=== PATIENT | male | born 1945 | race African-American/Black ===

== ENCOUNTER 2017-07-31 11:50 | Emergency (ER) | payer MEDICARE, MEDICAID ==
[~2017-07-31] VITALS: Ht 182.9 cm; Wt 77.1 kg
[~2017-07-31 11:50] MED LIST: ALLOPURINOL300 M1; ASPIRIN81 MG ORAL; CARISOPRODOL350 MG; CLOPIDOGREL75 MG; FLOMAX0.4 MG ORAL; FOLIC ACID1 MG ORAL; HYDROCODON-ACE1 EA16; LISINOPRIL10 MG ORAL; MULTIVITAMINS1 EAC2 ORAL; NEURONTIN600 MG ORAL; NKM; NORCO 5-325 TA1 EACH ORAL; ROBAXIN-750750 MG PO; TAMSULOSIN HCL0.4 MG PO; UNOBMED; VALIUM2 MG ORAL; VICODIN 5-3001 EACH ORAL; VITAMIN B-1100 MG ORAL
[2017-07-31 12:19] VITALS: BP 111/66
[2017-07-31] MEDS ORDERED: Lidocaine 1% MPF 10mg/ml 5ml ONE (12:21)
--- NOTE | 2017-07-31 12:35 | Emergency Room Report ---
History of Present Illness General Chief Complaint: Laceration Present Illness HPI 71 yo male presents to ER complaining of laceration near his left eyebrow. Patient reports he tripped and fell 1 hour ago. Patient reports no LOC, syncope, or dizziness prior to event. Patient denies vision changes, nausea, vomiting. Patient reports taking a pain pill following hit; states he does not know name of the pill. Patient reports not up to date on vaccinations. Patient report recent use of drugs and alcohol. Allergies: Coded Allergies: No Known Allergies (Unverified , 03/27/13) UNABLE TO ASSESS (Unverified , 09/05/14) Patient History Past Medical History: see triage record Reviewed Nursing Documentation: PMH: Agreed, PSxH: Agreed Nursing Documentation-PMH Hx Cardiac Problems: Yes Hx Hypertension: Yes Hx Cancer: No Hx Gastrointestinal Problems: No Hx Neurological Problems: Yes Hx Cerebrovascular Accident: Yes - per ER report 12/27/14 Review of Systems All Other Systems: negative except mentioned in HPI Physical Exam Vital Signs Date Time Temp Pulse Resp B/P (MAP) Pulse Ox O2 Delivery O2 Flow Rate FiO2 07/31/17 11:59 98.1 98 20 110/69 93 Room Air Sp02 EP Interpretation: reviewed, normal General Appearance: no apparent distress, alert, GCS 15, non-toxic, thin Head: normocephalic, atraumatic, other - negative tavares sign, negative raccoon sign Eyes: bilateral eye normal inspection, bilateral eye PERRL ENT: hearing grossly normal, normal pharynx, no angioedema, normal voice, TMs + canals normal, uvula midline, other - no teeth Neck: full range of motion, supple/symm/no masses Respiratory: chest non-tender, lungs clear, normal breath sounds, speaking full sentences Cardiovascular #1: regular rate, rhythm, no edema Cardiovascular #2: 2+ carotid (R), 2+ carotid (L) Gastrointestinal: normal bowel sounds, non tender, soft, non-distended, no guarding, no rebound Genitourinary: normal inspection, no CVA tenderness Musculoskeletal: back normal, digits/nails normal, gait/station normal, normal range of motion - walks with crutches, non-tender, no calf tenderness Neurologic: alert, oriented x3, responsive, phone manager III-XII nml as tested, motor strength/tone normal, sensory intact, speech normal Psychiatric: mood/affect normal Skin: normal color, no rash, warm/dry, palpation normal, laceration - left eyebrow lateral 1cm, irregular shape, superifical to deep, TTP, no erythema, no edema, bleeding, dried blood Procedures Laceration/Wound Repair Laceration/Wound Repair : Consent: Verbal Wound Location: face - left lateral eyebrow Wound's Depth, Shape: irregular, other - deep Wound Length (cm): 1 Wound Explored: contaminated Irrigated w/ Saline (ccs): 10 Betadine Prep?: Yes Anesthesia: 1% Lidocaine Volume Anesthetic (ccs): 2 Wound Debrided: extensive Wound Repaired With: sutures, Steri-strips Suture Size/Type: 5:0, proline Number of Sutures: 3 Layer Closure?: Yes Deep Layer Suture Size/Type: 3:0, other - vicryl Number Deep Layer Sutures: 1 Sterile Dressing Applied?: Yes Splint Applied?: No Patient Tolerated: Well Complications: None Medical Decision Making PA Attestation Dr. Conteh is my supervising Physician whom patient management has been discussed with. Diagnostic Impression: Primary Impression: Laceration Additional Impressions: Encephalomalacia on imaging study Drug use ER Course Pt presents to ED c/o laceration on face. DDX considered but are not limited to laceration, abrasion, contusion, cellulitis, skull fracture, ICH. VITAL SIGNS are WNL, patient is afebrile ED COURSE: Wound was cleaned and irrigated using normal saline. Local block using Lidocaine 1%. Laceration repaired.Wound cleaned and covered using sterile dressing and Bacitracin. (see attached procedure note). CT head negative for acute disease, discussed results with patient, instructed patient to followup with PCP for further treatment and referral. CBC and CMP results unremarkable. Urine drug screen positive cocaine, opiates, and THC. Serum alcohol level elevated. Discuss lab results with patient (results below). Patient reports understanding and agreement to treatment plan. DISCHARGE: Rx provided for Bactrim Rx provided for Ibuprofen At this time pt is stable for d/c to home. Patient is able to ambulate independently with walker, denies dizziness, chest pain. Patient is nontoxic appearing, in no acute distress. Will provide with patient care instructions and any necessary prescriptions. Patient to take medication as instructed. Care plan and follow-up instructions provided. Patient questions asked and answered. Patient instructed to follow-up with primary care provider in 2-3 days for wound check and 5-7 days for removal of sutures. Patient instructed to followup with PCP to discuss further treatment plan and ability to go to work, ER precautions given. Patient instructed to return to ER immediately for any new or worsening of symptoms. Labs Test 07/31/17 13:20 07/31/17 13:25 Urine Opiates Screen Positive (NEGATIVE) Urine Barbiturates Screen Negative (NEGATIVE) Phencyclidine (PCP) Screen Negative (NEGATIVE) Urine Amphetamines Screen Negative (NEGATIVE) Urine Benzodiazepines Screen Negative (NEGATIVE) Urine Cocaine Screen Positive (NEGATIVE) Urine Marijuana (THC) Screen Positive (NEGATIVE) White Blood Count 10.8 K/UL (4.8-10.8) Red Blood Count 5.05 M/UL (4.70-6.10) Hemoglobin 13.0 G/DL (14.2-18.0) Hematocrit 41.8 % (42.0-52.0) Mean Corpuscular Volume 83 FL (80-99) Mean Corpuscular Hemoglobin 25.8 PG (27.0-31.0) Mean Corpuscular Hemoglobin Concent 31.1 G/DL (32.0-36.0) Red Cell Distribution Width 14.1 % (11.6-14.8) Platelet Count 150 K/UL (150-450) Mean Platelet Volume 7.2 FL (6.5-10.1) Neutrophils (%) (Auto) 58.6 % (45.0-75.0) Lymphocytes (%) (Auto) 30.4 % (20.0-45.0) Monocytes (%) (Auto) 9.4 % (1.0-10.0) Eosinophils (%) (Auto) 1.1 % (0.0-3.0) Basophils (%) (Auto) 0.4 % (0.0-2.0) Sodium Level 138 MMOL/L (136-145) Potassium Level 3.1 MMOL/L (3.5-5.1) Chloride Level 102 MMOL/L (98-107) Carbon Dioxide Level 28 MMOL/L (21-32) Anion Gap 8 mmol/L (5-15) Blood Urea Nitrogen 18 mg/dL (7-18) Creatinine 0.8 MG/DL (0.55-1.30) Estimat Glomerular Filtration Rate mL/min (>60) Glucose Level 78 MG/DL (74-106) Calcium Level 8.7 MG/DL (8.5-10.1) Total Bilirubin 0.4 MG/DL (0.2-1.0) Aspartate Amino Transf (AST/SGOT) 40 U/L (15-37) Alanine Aminotransferase (ALT/SGPT) 46 U/L (12-78) Alkaline Phosphatase 88 U/L (46-116) Total Protein 7.4 G/DL (6.4-8.2) Albumin 3.3 G/DL (3.4-5.0) Globulin 4.1 g/dL Albumin/Globulin Ratio 0.8 (1.0-2.7) Serum Alcohol 59 mg/dL CT/MRI/US Diagnostic Results CT/MRI/US Diagnostic Results : Imaging Test Ordered: CT Head Impression STATRAD No intracranial hemorrhage or skull fracture. Atrophy and small vessel disease. Encephalomalacia in the left frontal lobe. Mild sinus mucosal thickening - debris. Last Vital Signs Date Time Temp Pulse Resp B/P (MAP) Pulse Ox O2 Delivery O2 Flow Rate FiO2 07/31/17 12:19 98.3 80 20 111/66 95 Room Air Disposition: HOME, SELF-CARE Condition: Stable Scripts Trimethoprim/Sulfamethoxazole 160/800* (BACTRIM DS TABLET*) 1 Each Tablet 1 TAB ORAL TWICE A DAY for 7 Days, #14 TAB Prov: Villa Leija 07/31/17 Ibuprofen* (MOTRIN*) 400 Mg Tablet 400 MG ORAL Q8H, #30 TAB 0 Refills Prov: Villa Leija 07/31/17 Patient Instructions: Laceration Care, Adult, Facial Laceration Additional Instructions: Followup with primary care provider in 2-3 days for wound check and in 5-7 days for suture removal. Followup with primary care for referral and treatment to neurology. Take medications as directed. Patient questions asked and answered. ER precautions given, patient instructed to return to ER immediately for any new or worsening of symptoms. Villa Leija Jul 31, 2017 12:35
[2017-07-31] MEDS ORDERED: Tetanus/Diptheria/Pertussis Vaccine 0.5ml Syr IM ONE (12:45)
[2017-07-31 13:41] LABS: ANION GAP 8 mmol/L (5-15); BLOOD UREA NITROGEN 18 mg/dL (7-18); CALCIUM 8.7 MG/DL (8.5-10.1); CARBON DIOXIDE 28 MMOL/L (21-32); CHLORIDE 102 MMOL/L (98-107); CREATININE 0.8 MG/DL (0.55-1.30); POTASSIUM 3.1 MMOL/L (3.5-5.1); SODIUM 138 MMOL/L (136-145)
[2017-07-31 13:42] LABS: BASOPHILS % (AUTO) 0.4 % (0.0-2.0); EOSINOPHILS % (AUTO) 1.1 % (0.0-3.0); HEMATOCRIT 41.8 % (42.0-52.0); LYMPHOCYTES % (AUTO) 30.4 % (20.0-45.0); MEAN CORPUSCULAR VOLUME 83 FL (80-99); MONOCYTES % (AUTO) 9.4 % (1.0-10.0); NEUTROPHILS % (AUTO) 58.6 % (45.0-75.0); PLATELET COUNT 150 K/UL (150-450); RED BLOOD COUNT 5.05 M/UL (4.70-6.10); RED CELL DISTRIBUTION WIDTH 14.1 % (11.6-14.8); WHITE BLOOD COUNT 10.8 K/UL (4.8-10.8)
[2017-07-31 13:47] LABS: ALANINE AMINOTRANSFERASE 46 U/L (12-78); ALBUMIN 3.3 G/DL (3.4-5.0); ALBUMIN/GLOBULIN RATIO 0.8 (1.0-2.7); ALKALINE PHOSPHATASE 88 U/L (46-116); ASPARTATE AMINO TRANSFERASE 40 U/L (15-37); BILIRUBIN,TOTAL 0.4 MG/DL (0.2-1.0)
[2017-07-31] MEDS ORDERED: Bacitracin Oint UD TOPIC ONE ×2 (14:28→14:30)
[2017-07-31] MEDS ORDERED: IBUPROFEN400 MG ORAL (14:28)
[2017-07-31] MEDS ORDERED: BACTRIM DS TAB1 EAC1 ORAL (14:28)
[2017-07-31] MEDS ORDERED: Lidocaine 1% MPF 10mg/ml 5ml INJ ONE (14:30)
[2017-07-31 14:50] VITALS: BP 114/64
--- NOTE | 2017-08-01 11:52 | Diagnostic Imaging Report ---
Indication: Pain status post fall Technique: Continuous helical CT scanning of the head was performed utilizing automated exposure control without intravenous contrast material. Axial and coronal reconstructions were obtained. Comparison: 05-06 CT dose: Total DLP 1460.14 mGycm; CTDI vol 70.38 mGy Findings: There is no acute intracranial hemorrhage, mass effect or cortical edema. The ventricles, cisterns and sulci are prominent consistent with atrophy. Unchanged encephalomalacia in the left frontal lobe. Periventricular hypoattenuation is seen, a nonspecific finding. Visualized mastoid air cells clear. There is paranasal sinus mucosal thickening/debris. There is mild soft tissue swelling in the left supraorbital region. There is no depressed calvarial fracture. IMPRESSION: Mild left supraorbital soft tissue swelling. No skull fracture. No evidence of acute intracranial hemorrhage, mass effect or cortical edema. Unchanged encephalomalacia in the left frontal lobe, sequela of remote ischemia. Atrophy and nonspecific periventricular hypoattenuation suggestive of chronic ischemic microvascular changes. This corresponds with the statrad preliminary report. The CT scanner at [facility] is accredited by the [employer] and the scans are performed using protocols designed to limit radiation exposure to as low as reasonably achievable to attain images of sufficient resolution adequate for diagnostic evaluation.
== END 2017-07-31 14:50 | disposition home or self-care (01) ==
LOC: EMR 12:15
DX: S01.112A Laceration without foreign body of left eyelid and periocular area, initial encounter (principal); W18.30XA Fall on same level, unspecified, initial encounter; Y92.9 Unspecified place or not applicable; G93.89 Other specified disorders of brain; Z23 Encounter for immunization; F19.90 Other psychoactive substance use, unspecified, uncomplicated; I10 Essential (primary) hypertension; Z86.73 Personal history of transient ischemic attack (TIA), and cerebral infarction without residual deficits
CPT/HCPCS: 12051; 36415; 70450; 80053; 80307; 85025; 90471; 90715; 99284; G0480; 80329

== ENCOUNTER 2017-11-22 14:29 | Emergency (ER) | payer MEDICARE, MEDICAID ==
[~2017-11-22] VITALS: Ht 193 cm; Wt 68.0 kg
[~2017-11-22 14:29] MED LIST changes: +BACTRIM DS TAB1 EAC1 ORAL; +IBUPROFEN400 MG ORAL
[2017-11-22 15:34] VITALS: BP 164/85
[2017-11-22 16:08] LABS: INR 0.9 (0.9-1.1)
[2017-11-22 16:10] LABS: ANION GAP 6 mmol/L (5-15); BLOOD UREA NITROGEN 13 mg/dL (7-18); CALCIUM 8.8 MG/DL (8.5-10.1); CARBON DIOXIDE 32 MMOL/L (21-32); CHLORIDE 104 MMOL/L (98-107); CREATININE 0.9 MG/DL (0.55-1.30); POTASSIUM 4.2 MMOL/L (3.5-5.1); SODIUM 142 MMOL/L (136-145)
--- NOTE | 2017-11-22 16:11 | Emergency Room Report ---
History of Present Illness General Chief Complaint: Edema Source: Patient Present Illness HPI Patient states he has had left lower should be swelling for the past 6 months. The patient states he was supposed to have his second toe removed on his left foot. 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 He also has an indwelling Davis catheter. He states that he was given a medication by his urologist that he did not take. He has a history of enlarged prostate. He denies fever or chills. He denies nausea or vomiting. He states that he just relocated to [place] from the [facility]. He has no other complaints. Allergies: Coded Allergies: No Known Allergies (Unverified , 03/27/13) Patient History Past Medical History: see triage record, other - BPH (indwelling davis catheter ) Social History: Reports: smoking, alcohol use, drug use Reviewed Nursing Documentation: PMH: Agreed; PSxH: Agreed Nursing Documentation-PMH Hx Cardiac Problems: Yes Hx Hypertension: Yes Hx Cancer: No Hx Gastrointestinal Problems: No Hx Neurological Problems: Yes Hx Cerebrovascular Accident: Yes - per ER report 12/27/14 Review of Systems All Other Systems: negative except mentioned in HPI Physical Exam Vital Signs Date Time Temp Pulse Resp B/P (MAP) Pulse Ox O2 Delivery O2 Flow Rate FiO2 11/22/17 14:53 98.2 88 24 164/85 95 Room Air 98.2 Sp02 EP Interpretation: reviewed, normal General Appearance: no apparent distress, alert, GCS 15, non-toxic Head: normocephalic, atraumatic Eyes: bilateral eye normal inspection, bilateral eye PERRL ENT: hearing grossly normal, normal pharynx, no angioedema, normal voice Neck: full range of motion, supple/symm/no masses Respiratory: chest non-tender, lungs clear, normal breath sounds, no respiratory distress, no retraction, no accessory muscle use, speaking full sentences Cardiovascular #1: regular rate, rhythm, edema - Trace edema BLE L>R Gastrointestinal: normal bowel sounds, non tender, soft, non-distended, no guarding, no rebound Rectal: deferred Musculoskeletal: back normal, non-tender, other - Wheelchair bound, L. second toe with chronic ulcer and swelling. Neurologic: alert, oriented x3, responsive, motor strength/tone normal, sensory intact, speech normal Psychiatric: judgement/insight normal, memory normal, mood/affect normal, no suicidal/homicidal ideation Skin: normal color, no rash, warm/dry, well hydrated Lymphatic: no adenopathy Medical Decision Making Diagnostic Impression: Primary Impression: Chronic wound of extremity Additional Impressions: Lymphedema Urinary retention due to benign prostatic hyperplasia ER Course This patient complains of chronic swelling in his left lower extremity. He has a toe that is likely will need amputation versus regular wound care. I did obtain an ultrasound of the left lower extremity to make sure the patient had no DVT. The patient was given the local resources to include the wound care clinic across the street from this hospital. The patient was instructed to follow-up there. He is also given the local free/[facility] primary care clinics in the neighborhood. Laboratory workup was unremarkable and at this patient's baseline. I will put the patient on a course of oral antibiotics and place him back on his proscar and flomax. As a precaution, the patient's Davis catheter was replaced. At this time, I did not identify an emergency medical condition. The patient's given return precautions and follow up instructions. Laboratory Tests Test 11/22/17 15:46 White Blood Count 8.8 K/UL (4.8-10.8) Red Blood Count 4.94 M/UL (4.70-6.10) Hemoglobin 13.2 G/DL (14.2-18.0) L Hematocrit 41.3 % (42.0-52.0) L Mean Corpuscular Volume 84 FL (80-99) Mean Corpuscular Hemoglobin 26.6 PG (27.0-31.0) L Mean Corpuscular Hemoglobin Concent 31.8 G/DL (32.0-36.0) L Red Cell Distribution Width 14.5 % (11.6-14.8) Platelet Count 136 K/UL (150-450) L Mean Platelet Volume 9.3 FL (6.5-10.1) Neutrophils (%) (Auto) 55.9 % (45.0-75.0) Lymphocytes (%) (Auto) 30.7 % (20.0-45.0) Monocytes (%) (Auto) 11.0 % (1.0-10.0) H Eosinophils (%) (Auto) 1.0 % (0.0-3.0) Basophils (%) (Auto) 1.5 % (0.0-2.0) Prothrombin Time 9.4 SEC (9.30-11.50) Prothrombin Time INR 0.9 (0.9-1.1) PTT 27 SEC (23-33) Sodium Level 142 MMOL/L (136-145) Potassium Level 4.2 MMOL/L (3.5-5.1) Chloride Level 104 MMOL/L (98-107) Carbon Dioxide Level 32 MMOL/L (21-32) Anion Gap 6 mmol/L (5-15) Blood Urea Nitrogen 13 mg/dL (7-18) Creatinine 0.9 MG/DL (0.55-1.30) Estimate Glomerular Filtration Rate mL/min (>60) Glucose Level 100 MG/DL (74-106) Calcium Level 8.8 MG/DL (8.5-10.1) Total Bilirubin 0.3 MG/DL (0.2-1.0) Aspartate Amino Transferase (AST) 45 U/L (15-37) H Alanine Aminotransferase (ALT) 47 U/L (12-78) Alkaline Phosphatase 93 U/L (46-116) C-Reactive Protein, Quantitative 1.3 mg/dL (0.00-0.90) H Total Protein 7.7 G/DL (6.4-8.2) Albumin 3.1 G/DL (3.4-5.0) L Globulin 4.6 g/dL Albumin/Globulin Ratio 0.7 (1.0-2.7) L CT/MRI/US Diagnostic Results CT/MRI/US Diagnostic Results : Imaging Test Ordered: LLE US Impression No DVT Last Vital Signs Date Time Temp Pulse Resp B/P (MAP) Pulse Ox O2 Delivery O2 Flow Rate FiO2 11/22/17 15:34 88 24 Room Air 11/22/17 15:34 98.2 164/85 95 98.2 Disposition: HOME, SELF-CARE Condition: Improved Patient Instructions: Edema, [id number] EDISON WOODRUFF D.O. Nov 22, 2017 16:11
[2017-11-22 16:13] LABS: BASOPHILS % (AUTO) 1.5 % (0.0-2.0); HEMATOCRIT 41.3 % (42.0-52.0); HEMOGLOBIN 13.2 G/DL (14.2-18.0); LYMPHOCYTES % (AUTO) 30.7 % (20.0-45.0); MEAN CORPUSCULAR VOLUME 84 FL (80-99); NEUTROPHILS % (AUTO) 55.9 % (45.0-75.0); PLATELET COUNT 136 K/UL (150-450); RED BLOOD COUNT 4.94 M/UL (4.70-6.10); RED CELL DISTRIBUTION WIDTH 14.5 % (11.6-14.8); WHITE BLOOD COUNT 8.8 K/UL (4.8-10.8)
[2017-11-22 16:14] LABS: ALANINE AMINOTRANSFERASE 47 U/L (12-78); ALBUMIN 3.1 G/DL (3.4-5.0); ALBUMIN/GLOBULIN RATIO 0.7 (1.0-2.7); ALKALINE PHOSPHATASE 93 U/L (46-116); ASPARTATE AMINO TRANSFERASE 45 U/L (15-37); BILIRUBIN,TOTAL 0.3 MG/DL (0.2-1.0)
[2017-11-22] MEDS ORDERED: Vancomycin 1 GM in NS 275 ML IVPB ONE (16:15)
[2017-11-22 16:58] LABS: BILIRUBIN, URINE NEGATIVE (NEGATIVE); GLUCOSE, URINE (UA) NEGATIVE (NEGATIVE); KETONES,URINE NEGATIVE (NEGATIVE); LEUKOCYTE ESTERASE ,URINE 3+ (NEGATIVE); NITRITE,URINE NEGATIVE (NEGATIVE); PH,URINE 6 (4.5-8.0); PROTEIN,URINE 3+ (NEGATIVE); UROBILINOGEN,URINE NORMAL MG/DL (0.0-1.0)
[2017-11-22 16:59] LABS: APPEARANCE,URINE SLIGHTLY CLOUDY; COLOR,URINE YELLOW
[2017-11-22] MEDS ORDERED: BACTRIM DS TAB1 EAC1 ORAL (18:08)
[2017-11-22 18:20] VITALS: BP 192/95
[2017-11-22 18:37] VITALS: BP 192/95
--- NOTE | 2017-12-01 10:51 | Diagnostic Imaging Report ---
APPROVED REPORT CPT Code: 37585 Present Symptoms Comments: LEFT LEG PAIN. LEFT LEG: Venous imaging reveals a patent deep venous system. There is no evidence of thrombus within the femoral, popliteal or tibial segments. The greater saphenous vein is also within normal limits. Doppler indicates normal spontaneous flow within these segments.
== END 2017-11-22 18:48 | disposition home or self-care (01) ==
LOC: EMR 17:04
DX: L97.529 Non-pressure chronic ulcer of other part of left foot with unspecified severity (principal); I89.0 Lymphedema, not elsewhere classified; N40.1 Benign prostatic hyperplasia with lower urinary tract symptoms; R33.8 Other retention of urine; F17.200 Nicotine dependence, unspecified, uncomplicated; I10 Essential (primary) hypertension; Z86.73 Personal history of transient ischemic attack (TIA), and cerebral infarction without residual deficits
CPT/HCPCS: 36415; 80053; 81001; 85025; 85610; 85730; 86140; 87086; 87181; 93971; 96374; 96375; 99284; J3370; J7050

== ENCOUNTER 2017-12-26 11:13 | Emergency (ER) | payer MEDICARE, MEDICAID ==
[~2017-12-26] VITALS: Ht 193 cm; Wt 65.8 kg
--- NOTE | 2017-12-26 11:49 | Emergency Room Report ---
History of Present Illness General Chief Complaint: Male Urogenital Problems Source: Patient Present Illness HPI Patient with dysuria and a blocked Davis catheter. He's had this catheter for over one year. Denies any fevers chills nausea vomiting diarrhea. He has some penile pain. He was treated for an UTI 11/22 with one dose of vanco and bactrim. Culture was enterococcus - resistant to some antibiotics. No follow up. He gets around in a wheel chair. No trauma, chest pain, NVD, dyspnea, cough, headache, trauma, SI or HI. H/O prior frontal CVA. H/O opiate and alcohol abuse in past. Allergies: Coded Allergies: No Known Allergies (Unverified , 03/27/13) Patient History Past Medical History: see triage record Social History: Reports: smoking, alcohol use - in past, drug use - in past Social History Narrative homeless Reviewed Nursing Documentation: PMH: Agreed; PSxH: Agreed Nursing Documentation-PMH Past Medical History: No History, Except For Hx Cardiac Problems: Yes Hx Hypertension: Yes Hx Cancer: No Hx Gastrointestinal Problems: No Hx Neurological Problems: Yes Hx Cerebrovascular Accident: Yes - per ER report 12/27/14 Review of Systems All Other Systems: negative except mentioned in HPI Physical Exam Vital Signs Date Time Temp Pulse Resp B/P (MAP) Pulse Ox O2 Delivery O2 Flow Rate FiO2 12/26/17 11:21 98.0 116 20 127/77 94 Room Air 98.1 Sp02 EP Interpretation: reviewed, normal General Appearance: well appearing, no apparent distress, thin, other - dishevelled Head: normocephalic, atraumatic Eyes: bilateral eye normal inspection, bilateral eye PERRL ENT: hearing grossly normal, normal voice, moist mucus membranes Neck: full range of motion, supple Respiratory: lungs clear, normal breath sounds, no respiratory distress, speaking full sentences Cardiovascular #1: regular rate, rhythm Cardiovascular #2: 2+ radial (L) Gastrointestinal: normal bowel sounds, non tender, scaphoid Genitourinary: other - old davis kinked Musculoskeletal: no calf tenderness, other - lumbar tenderness, not bone Neurologic: alert, motor strength/tone normal, DTRs symmetric, sensory intact, speech normal, other - unsteady gait Psychiatric: mood/affect normal, no suicidal/homicidal ideation Skin: no rash Medical Decision Making Diagnostic Impression: Primary Impression: UTI (urinary tract infection) Qualified Codes: T83.511A - Infection and inflammatory reaction due to indwelling urethral catheter, initial encounter; N39.0 - Urinary tract infection , site not specified ER Course Patient presents with urinary catheter blockage. Differential includes UTI, catheter dysfunction amongst others. The patient's vital signs are significant for tachycardia. Urinalysis is ordered as well as Pyridium and Tylenol. As tachycardic, will order labs. Labs with normal WBC. Pyuria. Antibiotics begun. Davis changed with improvement. Asked patient if needed other help, he declines. Patient stable for outpatient observation and treatment. Will need to review urine culture. (In past has been resistant organisms.) Laboratory Tests Test 12/26/17 12:00 12/26/17 12:10 White Blood Count 9.8 K/UL (4.8-10.8) Red Blood Count 5.96 M/UL (4.70-6.10) Hemoglobin 15.5 G/DL (14.2-18.0) Hematocrit 50.5 % (42.0-52.0) Mean Corpuscular Volume 85 FL (80-99) Mean Corpuscular Hemoglobin 26.0 PG (27.0-31.0) L Mean Corpuscular Hemoglobin Concent 30.6 G/DL (32.0-36.0) L Red Cell Distribution Width 14.5 % (11.6-14.8) Platelet Count 179 K/UL (150-450) Mean Platelet Volume 8.1 FL (6.5-10.1) Neutrophils (%) (Auto) 58.3 % (45.0-75.0) Lymphocytes (%) (Auto) 29.2 % (20.0-45.0) Monocytes (%) (Auto) 10.3 % (1.0-10.0) H Eosinophils (%) (Auto) 0.8 % (0.0-3.0) Basophils (%) (Auto) 1.5 % (0.0-2.0) Sodium Level 131 MMOL/L (136-145) L Potassium Level 4.4 MMOL/L (3.5-5.1) Chloride Level 99 MMOL/L (98-107) Carbon Dioxide Level 23 MMOL/L (21-32) Anion Gap 9 mmol/L (5-15) Blood Urea Nitrogen 23 mg/dL (7-18) H Creatinine 1.0 MG/DL (0.55-1.30) Estimate Glomerular Filtration Rate mL/min (>60) Glucose Level 101 MG/DL (74-106) Calcium Level 9.7 MG/DL (8.5-10.1) Total Bilirubin 0.4 MG/DL (0.2-1.0) Aspartate Amino Transferase (AST) 62 U/L (15-37) H Alanine Aminotransferase (ALT) 40 U/L (12-78) Alkaline Phosphatase 94 U/L (46-116) Total Protein 8.6 G/DL (6.4-8.2) H Albumin 3.1 G/DL (3.4-5.0) L Globulin 5.5 g/dL Albumin/Globulin Ratio 0.6 (1.0-2.7) L Urine Color Yellow Urine Appearance Slightly cloudy Urine pH 8 (4.5-8.0) Urine Specific [place] 1.010 (1.005-1.035) Urine Protein 3+ (NEGATIVE) H Urine Glucose (UA) Negative (NEGATIVE) Urine Ketones Negative (NEGATIVE) Urine Occult Blood 5+ (NEGATIVE) H Urine Nitrite Negative (NEGATIVE) Urine Bilirubin Negative (NEGATIVE) Urine Urobilinogen 1 MG/DL (0.0-1.0) H Urine Leukocyte Esterase 3+ (NEGATIVE) H Urine RBC 15-20 /HPF (0 - 0) H Urine WBC 10-15 /HPF (0 - 0) H Urine Squamous Epithelial Cells Occasional /LPF Urine Bacteria Moderate /HPF (NONE) H Last Vital Signs Date Time Temp Pulse Resp B/P (MAP) Pulse Ox O2 Delivery O2 Flow Rate FiO2 12/26/17 13:50 98.2 74 18 131/80 100 Room Air 98.1 Status: improved Disposition: HOME, SELF-CARE Condition: Improved Scripts Cephalexin* (KEFLEX*) 500 Mg Capsule 500 MG ORAL EVERY 6 HOURS, #28 CAP Prov: Sanjeev Escalante M.D. 12/26/17 Sanjeev Escalante M.D. Dec 26, 2017 11:49
[2017-12-26 11:59] VITALS: BP 127/77
[2017-12-26 12:27] LABS: BASOPHILS % (AUTO) 1.5 % (0.0-2.0); EOSINOPHILS % (AUTO) 0.8 % (0.0-3.0); HEMATOCRIT 50.5 % (42.0-52.0); HEMOGLOBIN 15.5 G/DL (14.2-18.0); LYMPHOCYTES % (AUTO) 29.2 % (20.0-45.0); MEAN CORPUSCULAR VOLUME 85 FL (80-99); MONOCYTES % (AUTO) 10.3 % (1.0-10.0); NEUTROPHILS % (AUTO) 58.3 % (45.0-75.0); PLATELET COUNT 179 K/UL (150-450); RED BLOOD COUNT 5.96 M/UL (4.70-6.10); RED CELL DISTRIBUTION WIDTH 14.5 % (11.6-14.8); WHITE BLOOD COUNT 9.8 K/UL (4.8-10.8)
[2017-12-26 12:29] LABS: APPEARANCE,URINE SLIGHTLY CLOUDY; BILIRUBIN, URINE NEGATIVE (NEGATIVE); GLUCOSE, URINE (UA) NEGATIVE (NEGATIVE); KETONES,URINE NEGATIVE (NEGATIVE); LEUKOCYTE ESTERASE ,URINE 3+ (NEGATIVE); NITRITE,URINE NEGATIVE (NEGATIVE); PH,URINE 8 (4.5-8.0); PROTEIN,URINE 3+ (NEGATIVE); UROBILINOGEN,URINE 1 MG/DL (0.0-1.0)
[2017-12-26 12:43] LABS: COLOR,URINE YELLOW
[2017-12-26] MEDS ORDERED: cefTRIAXone 1 GM in NS 55 ML IVPB ONE (12:45)
[2017-12-26 13:07] LABS: ANION GAP 9 mmol/L (5-15); BLOOD UREA NITROGEN 23 mg/dL (7-18); CALCIUM 9.7 MG/DL (8.5-10.1); CARBON DIOXIDE 23 MMOL/L (21-32); CHLORIDE 99 MMOL/L (98-107); POTASSIUM 4.4 MMOL/L (3.5-5.1); SODIUM 131 MMOL/L (136-145)
[2017-12-26 13:12] LABS: ALANINE AMINOTRANSFERASE 40 U/L (12-78); ALBUMIN 3.1 G/DL (3.4-5.0); ALBUMIN/GLOBULIN RATIO 0.6 (1.0-2.7); ALKALINE PHOSPHATASE 94 U/L (46-116); ASPARTATE AMINO TRANSFERASE 62 U/L (15-37); BILIRUBIN,TOTAL 0.4 MG/DL (0.2-1.0)
[2017-12-26] MEDS ORDERED: CEPHALEXIN500 MG ORAL (13:18)
[2017-12-26 13:50] VITALS: BP 131/80
[2017-12-30] MEDS ORDERED: NITROFURANTOIN100 M2 ORAL (13:04)
== END 2017-12-26 16:43 | disposition home or self-care (01) ==
LOC: EMR 12:02
DX: N39.0 Urinary tract infection, site not specified (principal); T83.091A Other mechanical complication of indwelling urethral catheter, initial encounter; Y84.6 Urinary catheterization as the cause of abnormal reaction of the patient, or of later complication, without mention of misadventure at the time of the procedure; Y92.009 Unspecified place in unspecified non-institutional (private) residence as the place of occurrence of the external cause; I10 Essential (primary) hypertension; Z86.73 Personal history of transient ischemic attack (TIA), and cerebral infarction without residual deficits; R00.0 Tachycardia, unspecified
CPT/HCPCS: 36415; 80053; 81003; 85025; 87086; 87181; 99283; J0696

== ENCOUNTER 2018-01-20 03:19 | Inpatient (IN) | payer MEDICARE, MEDICAID ==
[~2018-01-20] VITALS: Ht 193 cm; Wt 654.1 kg
[2018-01-20] VITALS (8 sets, daily range): BP systolic 134–174; BP diastolic 69–101
[~2018-01-20 03:19] MED LIST changes: +CEPHALEXIN500 MG ORAL; +NITROFURANTOIN100 M2 ORAL
[2018-01-20] MEDS ORDERED: WARFARIN SODIUM1 MG ORAL (03:25)
[2018-01-20] MEDS ORDERED: TAMSULOSIN HCL0.4 MG ORAL (03:25)
[2018-01-20] MEDS ORDERED: VICODIN 5-3001 EACH ORAL (03:25)
[2018-01-20] MEDS ORDERED: Isovue-300 100ml vial INJ PRN (03:45)
[2018-01-20] MEDS ORDERED: Morphine Sulfate 4mg/ml Inj (IV USE ONLY) IVP ONE (03:45)
--- NOTE | 2018-01-20 04:06 | Emergency Room Report ---
History of Present Illness General Chief Complaint: Abdominal Pain Source: Patient, EMS (Nj Hyatt MD) Present Illness HPI 72-year-old male presents ED complaining of abdominal pain. Started a few hours ago. pain is sharp, 8 out of 10, nonradiating. states he feels very weak , has poor appetite. Denies chest pain or shortness of breath. Denies fevers or chills. No other aggravating relieving factors. Denies any other associated symptoms (Nj Hyatt MD) Allergies: Uncoded Allergies: CONTRAST MEDIA (Adverse Reaction, Mild, Itching in the area of the neck, 01/20/18) Patient was given specifically Isovue contrast during CT of the abdomen, and when he came back. The patient was itchy and benadryl was given, no complaints of itchiness or adverse reactions so far. Patient History Past Medical History: HTN, CVA/TIA Pertinent Family History: none Social History: Denies: smoking, alcohol use, drug use Immunizations: UTD Reviewed Nursing Documentation: PMH: Agreed; PSxH: Agreed (Nj Hyatt MD) Nursing Documentation-PMH Hx Cardiac Problems: Yes Hx Hypertension: Yes Hx Cancer: No Hx Gastrointestinal Problems: No Hx Neurological Problems: Yes Hx Cerebrovascular Accident: Yes - per ER report 12/27/14 (Nj Hyatt MD) Review of Systems All Other Systems: negative except mentioned in HPI (Nj Hyatt MD) Physical Exam Vital Signs Date Time Temp Pulse Resp B/P (MAP) Pulse Ox O2 Delivery O2 Flow Rate FiO2 01/20/18 03:21 97.9 55 14 108/56 98 Room Air 97.9 Sp02 EP Interpretation: reviewed, normal General Appearance: no apparent distress, alert, GCS 15, non-toxic Head: normocephalic, atraumatic Eyes: bilateral eye normal inspection, bilateral eye PERRL ENT: hearing grossly normal, normal pharynx, no angioedema, normal voice Neck: full range of motion, supple/symm/no masses Respiratory: chest non-tender, lungs clear, normal breath sounds, speaking full sentences Cardiovascular #1: regular rate, rhythm, no edema Cardiovascular #2: 2+ carotid (R), 2+ carotid (L), 2+ radial (R), 2+ radial (L) , 2+ dorsalis pedis (R), 2+ dorsalis pedis (L) Gastrointestinal: normal bowel sounds, non tender, soft, non-distended, no guarding, no rebound, tenderness Rectal: deferred Genitourinary: normal inspection, no CVA tenderness Musculoskeletal: back normal, gait/station normal, normal range of motion, non- tender Neurologic: alert, oriented x3, responsive, motor strength/tone normal, sensory intact, speech normal Psychiatric: judgement/insight normal, memory normal, mood/affect normal, no suicidal/homicidal ideation Reflexes: 3+ bicep (R), 3+ bicep (L), 3+ tricep (R), 3+ tricep (L), 3+ knee (R) , 3+ knee (L) Skin: normal color, no rash, warm/dry, well hydrated Lymphatic: no adenopathy (Nj Hyatt MD) Medical Decision Making Diagnostic Impression: Primary Impression: UTI (urinary tract infection) due to urinary indwelling Davis catheter ER Course Patient's UA came back + for nitrites, LE, so I ordered 1 dose of IV zosyn, based on previous cultures this year that resulted in pseudomonas and multiple other resistant pathogens. Patient did have his davis bag AND catheter discontinued then a new catheter and bag replaced in the ED this morning. He will be admitted to Dr. Baez for abdominal pain and complicated UTI. He has a known h/o HTN, was hypertensive with no evidence for end-organ dysfunction today , and was given one dose of his oral lisinopril 10mg here to address his elevated BP. Stable for med/surg bed. (ALEXANDR CEJA M.D) Last Vital Signs Date Time Temp Pulse Resp B/P (MAP) Pulse Ox O2 Delivery O2 Flow Rate FiO2 01/20/18 03:57 97.9 01/20/18 03:21 55 14 108/56 98 Room Air (Nj Hyatt MD) Nj Hyatt MD Jan 20, 2018 04:06 ALEXANDR CEJA M.D Jan 20, 2018 07:43
[2018-01-20 04:15] LABS: BASOPHILS % (AUTO) 0.8 % (0.0-2.0); EOSINOPHILS % (AUTO) 1.8 % (0.0-3.0); HEMATOCRIT 45.8 % (42.0-52.0); HEMOGLOBIN 14.3 G/DL (14.2-18.0); LYMPHOCYTES % (AUTO) 27.7 % (20.0-45.0); MEAN CORPUSCULAR VOLUME 83 FL (80-99); MONOCYTES % (AUTO) 13.7 % (1.0-10.0); NEUTROPHILS % (AUTO) 56.1 % (45.0-75.0); PLATELET COUNT 163 K/UL (150-450); RED BLOOD COUNT 5.56 M/UL (4.70-6.10); RED CELL DISTRIBUTION WIDTH 13.7 % (11.6-14.8); WHITE BLOOD COUNT 8.1 K/UL (4.8-10.8)
[2018-01-20 04:24] LABS: ANION GAP 6 mmol/L (5-15); BLOOD UREA NITROGEN 11 mg/dL (7-18); CALCIUM 9.3 MG/DL (8.5-10.1); CARBON DIOXIDE 31 MMOL/L (21-32); CHLORIDE 103 MMOL/L (98-107); CREATININE 0.7 MG/DL (0.55-1.30); POTASSIUM 4.4 MMOL/L (3.5-5.1); SODIUM 140 MMOL/L (136-145)
[2018-01-20 04:28] LABS: ALANINE AMINOTRANSFERASE 50 U/L (12-78); ALBUMIN 2.9 G/DL (3.4-5.0); ALBUMIN/GLOBULIN RATIO 0.5 (1.0-2.7); ALKALINE PHOSPHATASE 113 U/L (46-116); ASPARTATE AMINO TRANSFERASE 65 U/L (15-37); BILIRUBIN,TOTAL 0.5 MG/DL (0.2-1.0)
[2018-01-20] MEDS ORDERED: Solu-MEDROL 125mg Inj ONE (04:57)
[2018-01-20] MEDS ORDERED: DiphenhydrAMINE 50mg/ml Inj ONE (04:57)
[2018-01-20] MEDS ORDERED: DiphenhydrAMINE 50mg/ml Inj IVP ONE (05:00)
[2018-01-20] MEDS ORDERED: Solu-MEDROL 125mg Inj IVP ONE (05:00)
[2018-01-20] MEDS ORDERED: Lisinopril 10mg tab ORAL SCH (07:00)
[2018-01-20 07:08] LABS: APPEARANCE,URINE CLEAR; BILIRUBIN, URINE NEGATIVE (NEGATIVE); COLOR,URINE PALE YELLOW; GLUCOSE, URINE (UA) NEGATIVE (NEGATIVE); KETONES,URINE NEGATIVE (NEGATIVE); LEUKOCYTE ESTERASE ,URINE 3+ (NEGATIVE); NITRITE,URINE POSITIVE (NEGATIVE); PH,URINE 8 (4.5-8.0); PROTEIN,URINE 2+ (NEGATIVE); UROBILINOGEN,URINE NORMAL MG/DL (0.0-1.0)
[2018-01-20] MEDS ORDERED: Piperacillin/Tazobactam 3.375 GM in NS 110 ML IVPB ONE (07:45)
[2018-01-20] MEDS ORDERED: Miralax 17gm pkt ORAL PRN (08:15)
[2018-01-20] MEDS ORDERED: Albuterol/Ipratropium 3ml neb HHN PRN (08:15)
[2018-01-20] MEDS: Heparin 5000 units/ml inj SUBQ SCH ×2 (09:00→21:03)
[2018-01-20] MEDS: Cefepime HCl 2 GM in D5W 110 ML IV SCH ×2 (10:16→21:02)
--- NOTE | 2018-01-20 11:51 | Diagnostic Imaging Report ---
Indication: Abdominal pain Technique: CT of the abdomen and pelvis utilizing automated exposure control with intravenous contrast. Venous scanning performed. Axial, sagittal and coronal reformats presented. CT dose: Total DLP 512.65 mGycm; CTDI vol 9.71 mGy Comparison: None Findings: Dependent atelectatic changes in the lung bases. Heart is mildly enlarged. There are extensive coronary arterial calcifications. Aortic valvular calcifications also identified. No pericardial effusion. Cholelithiasis. No CT evidence to suggest acute cholecystitis. No biliary ductal dilatation. Hepatic veins and portal veins appear patent. Liver contour appears smooth. Spleen, adrenal glands unremarkable. There is mild prominence of the pancreatic duct with what appears to be a few small cysts measuring approximately 2 mm in size. These may represent tiny side branch IPMNs (intraductal papillary mucinous neoplasm). There are simple-appearing cysts in the kidneys bilaterally. No evidence of obstructive uropathy. A Helm catheter is noted within the bladder. There is circumferential bladder wall thickening. Some small foci of air in the bladder possibly related to recent catheterization. Prostate not markedly enlarged. There is no free intraperitoneal air or fluid. There is dense stool in the rectum without definite rectal wall thickening or presacral edema. Findings are concerning for a fecal impaction. No evidence of small bowel obstruction. Abdominal aorta normal in caliber with extensive atherosclerotic calcifications. No pathologically enlarged lymphadenopathy is appreciated. Multilevel degenerative changes spine. Surgical hardware noted in the sacrum. No acute osseous abnormality. IMPRESSION: * Helm catheter noted within the bladder. There is bladder wall thickening which may be exaggerated by underdistention however possibility of cystitis or other etiologies not excluded. Recommend correlation with urinalysis and urine cytology. * Cholelithiasis. No CT evidence to suggest acute cholecystitis. * Moderate amount of colonic stool with significant amount of stool in a dilated rectum suggesting fecal impaction. No inflammatory changes in the rectum to suggest stercoral colitis at this time. * Coronary artery disease. 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 This corresponds with the [facility] preliminary report. Study obtained via the emergency department however patient admitted to the hospital at time of dictation of the final report. The CT scanner at [facility] is accredited by the [employer] and the scans are performed using protocols designed to limit radiation exposure to as low as reasonably achievable to attain images of sufficient resolution adequate for diagnostic evaluation.
[2018-01-20] MEDS: Vancomycin 1 GM in D5W 275 ML IVPB SCH (12:03)
--- NOTE | 2018-01-20 14:47 | Consultation ---
History of Present Illness General Date patient seen: Jan 20, 2018 Chief Complaint: Abdominal Pain Present Illness HPI 72-year-old male with hx of CODP, psychosis, CAD, arrhythmias, cachexia presented to ED complaining of abdominal pain. Started a few hours ago. pain is sharp, 8 out of 10, nonradiating. states he feels very weak, has poor appetite. Denies fevers or chills. No other aggravating relieving factors. Denies any other associated symptoms. He had a CT of chest in ER which was basically negative. He is admitted for further management. Allergies: Uncoded Allergies: CONTRAST MEDIA (Adverse Reaction, Mild, Itching in the area of the neck, 01/20/18) Patient was given specifically Isovue contrast during CT of the abdomen, and when he came back. The patient was itchy and benadryl was given, no complaints of itchiness or adverse reactions so far. Medication History Scheduled Aspirin* (Aspirin*), 81 MG ORAL DAILY Cephalexin* (Keflex*), 500 MG ORAL EVERY 6 HOURS Folic Acid* (Folic Acid*), 1 MG ORAL DAILY Gabapentin* (Neurontin*), 300 MG ORAL BEDTIME Ibuprofen* (Motrin*), 400 MG ORAL Q8H Multivitamins* (Multivitamins*), 1 TAB ORAL DAILY Nitrofurantoin Monohyd/M-Cryst* (Macrobid 100 Mg*), 100 MG ORAL EVERY 12 HOURS No Known Medications* (NKM - No Known Medications*), 0 ., (Reported) Tamsulosin Hcl (Tamsulosin Hcl*), 0.4 MG PO DAILY, (Reported) Tamsulosin Hcl (Tamsulosin Hcl*), 0.4 MG ORAL BEDTIME, (Reported) Thiamine Hcl* (Vitamin B-1*), 100 MG ORAL DAILY Trimethoprim/Sulfamethoxazole 160/800* (Bactrim Ds Tablet*), 1 TAB ORAL TWICE A DAY Trimethoprim/Sulfamethoxazole 160/800* (Bactrim Ds Tablet*), 1 TAB ORAL TWICE A DAY Warfarin Sod* (Warfarin Sod*), 1 MG ORAL DAILY, (Reported) Scheduled PRN Hydrocodone Bit/Acetaminophen (Vicodin 5-300 Mg Tablet), 1 TAB ORAL Q4H PRN for For Pain, (Reported) Miscellaneous Medications Allopurinol* (Allopurinol*), (Reported) Lisinopril* (Lisinopril*), MG ORAL, (Reported) Patient History Healthcare decision maker Resuscitation status Full Code Advanced Directive on File No Past Medical/Surgical History Past Medical/Surgical History: (1) BPH (benign prostatic hyperplasia) (2) Methamphetamine abuse (3) HTN (hypertension) (4) Cocaine abuse (5) CVA (cerebral infarction) (6) Narcotic dependence Review of Systems All Other Systems: negative except mentioned in HPI Physical Exam General Appearance: cachetic Lines, tubes and drains: peripheral HEENT: normocephalic, atraumatic Neck: non-tender, supple Respiratory/Chest: chest wall non-tender, lungs clear Cardiovascular/Chest: normal peripheral pulses, normal rate Abdomen: normal bowel sounds, non tender Genitourinary/Rectal: normal genital exam 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 Last 24 Hour Vital Signs Date Time Temp Pulse Resp B/P (MAP) Pulse Ox O2 Delivery O2 Flow Rate FiO2 01/20/18 12:00 96.3 80 18 136/84 (101) 96 96.3 01/20/18 09:00 Room Air 01/20/18 09:00 97.5 89 18 134/76 (95) 97 97.5 01/20/18 09:00 Room Air 01/20/18 08:58 93 16 Room Air 21 01/20/18 08:40 98.1 98 20 152/69 100 Room Air 98.1 01/20/18 08:00 98 20 152/69 100 Room Air 01/20/18 07:14 165/80 01/20/18 06:57 98.1 82 12 174/101 98 Room Air 98.1 01/20/18 05:55 97.9 82 12 171/93 98 Room Air 97.9 01/20/18 04:27 97.9 01/20/18 03:57 97.9 01/20/18 03:30 98.2 82 12 166/83 98 Room Air 98.2 01/20/18 03:21 97.9 55 14 108/56 98 Room Air 97.9 Intake and Output 01/19/18 01/20/18 19:00 07:00 Intake Total 2000 ml Output Total 300 ml Balance 1700 ml IV Total 2000 ml Output Urine Total 300 ml # Bowel Movements 1 Laboratory Tests Test 01/20/18 04:04 01/20/18 06:45 White Blood Count 8.1 K/UL (4.8-10.8) Red Blood Count 5.56 M/UL (4.70-6.10) Hemoglobin 14.3 G/DL (14.2-18.0) Hematocrit 45.8 % (42.0-52.0) Mean Corpuscular Volume 83 FL (80-99) Mean Corpuscular Hemoglobin 25.8 PG (27.0-31.0) L Mean Corpuscular Hemoglobin Concent 31.2 G/DL (32.0-36.0) L Red Cell Distribution Width 13.7 % (11.6-14.8) Platelet Count 163 K/UL (150-450) Mean Platelet Volume 7.4 FL (6.5-10.1) Neutrophils (%) (Auto) 56.1 % (45.0-75.0) Lymphocytes (%) (Auto) 27.7 % (20.0-45.0) Monocytes (%) (Auto) 13.7 % (1.0-10.0) H Eosinophils (%) (Auto) 1.8 % (0.0-3.0) Basophils (%) (Auto) 0.8 % (0.0-2.0) Sodium Level 140 MMOL/L (136-145) Potassium Level 4.4 MMOL/L (3.5-5.1) Chloride Level 103 MMOL/L (98-107) Carbon Dioxide Level 31 MMOL/L (21-32) Anion Gap 6 mmol/L (5-15) Blood Urea Nitrogen 11 mg/dL (7-18) Creatinine 0.7 MG/DL (0.55-1.30) Estimat Glomerular Filtration Rate mL/min (>60) Glucose Level 97 MG/DL (74-106) Calcium Level 9.3 MG/DL (8.5-10.1) Total Bilirubin 0.5 MG/DL (0.2-1.0) Aspartate Amino Transf (AST/SGOT) 65 U/L (15-37) H Alanine Aminotransferase (ALT/SGPT) 50 U/L (12-78) Alkaline Phosphatase 113 U/L (46-116) Total Protein 8.2 G/DL (6.4-8.2) Albumin 2.9 G/DL (3.4-5.0) L Globulin 5.3 g/dL Albumin/Globulin Ratio 0.5 (1.0-2.7) L Lipase 107 U/L (73-393) Urine Color Pale yellow Urine Appearance Clear Urine pH 8 (4.5-8.0) Urine Specific [place] 1.010 (1.005-1.035) Urine Protein 2+ (NEGATIVE) H Urine Glucose (UA) Negative (NEGATIVE) Urine Ketones Negative (NEGATIVE) Urine Occult Blood 2+ (NEGATIVE) H Urine Nitrite Positive (NEGATIVE) H Urine Bilirubin Negative (NEGATIVE) Urine Urobilinogen Normal MG/DL (0.0-1.0) Urine Leukocyte Esterase 3+ (NEGATIVE) H Urine RBC 5-10 /HPF (0 - 0) H Urine WBC 15-20 /HPF (0 - 0) H Urine Squamous Epithelial Cells Occasional /LPF Urine Bacteria Many /HPF (NONE) H Microbiology Date/Time Source Procedure Growth Status 01/20/18 06:01 Rectum Received Height (Feet): 6 Height (Inches): 4.00 Weight (Pounds): 1442 Medications Current Medications Medications (Trade) Dose Ordered Sig/Edwige Route PRN Reason Start Time Stop Time Status Last Admin Dose Admin Acetaminophen (Tylenol) 650 mg Q4H PRN ORAL fever 01/20/18 08:15 02/19/18 08:14 Albuterol/ Ipratropium (Albuterol/ Ipratropium) 3 ml EVERY 4 HOURS PRN HHN Shortness of Breath 01/20/18 08:15 01/25/18 08:14 Cefepime HCl 2 gm/ Dextrose 110 ml @ 220 mls/hr EVERY 12 HOURS IV 01/20/18 09:00 01/27/18 08:59 01/20/18 10:16 Gabapentin (Neurontin) 300 mg BEDTIME ORAL 01/20/18 21:00 02/19/18 20:59 Heparin Sodium (Porcine) (Heparin 5000 units/ml) 5,000 units EVERY 12 HOURS SUBQ 01/20/18 09:00 02/19/18 08:59 Iopamidol (Isovue-300 100ml) 100 ml NOW PRN INJ Radiology Procedure 01/20/18 03:45 Morphine Sulfate (Morphine Sulfate) 2 mg EVERY 4 HOURS PRN IVP Moderate Pain (Pain Scale 4-6) 01/20/18 08:15 01/27/18 08:14 Ondansetron HCl (Zofran) 4 mg Q6H PRN IVP Nausea & Vomiting 01/20/18 08:15 02/19/18 08:14 Phenazopyridine HCl (Pyridium) 100 mg DAILY PRN ORAL dysuria 01/20/18 08:15 02/19/18 08:14 Polyethylene Glycol (Miralax) 17 gm DAILYPRN PRN ORAL Constipation 01/20/18 08:15 02/19/18 08:14 Tamsulosin HCl (Flomax) 0.4 mg BEDTIME ORAL 01/20/18 21:00 02/19/18 20:59 Temazepam (Restoril) 15 mg HSPRN PRN ORAL Insomnia 01/20/18 08:15 01/27/18 08:14 Vancomycin HCl 1 gm/Dextrose 275 ml @ 183.3 mls/ hr Q12H IVPB 01/20/18 10:00 01/25/18 09:59 01/20/18 12:03 Assessment/Plan Problem List: (1) COPD (chronic obstructive pulmonary disease) ICD Codes: J44.9 - Chronic obstructive pulmonary disease, unspecified SNOMED: 95667809 (2) UTI (urinary tract infection) ICD Codes: N39.0 - Urinary tract infection, site not specified SNOMED: 75607744 (3) BPH (benign prostatic hyperplasia) ICD Codes: N40.0 - Enlarged prostate without lower urinary tract symptoms SNOMED: 928925727, 221500069 (4) Methamphetamine abuse ICD Codes: F15.10 - Other stimulant abuse, uncomplicated SNOMED: 724353502 (5) CVA (cerebral infarction) ICD Codes: I63.9 - Cerebral infarction, unspecified SNOMED: 136622069 (6) HTN (hypertension) ICD Codes: I10 - Essential (primary) hypertension SNOMED: 68911932 (7) Severe protein-calorie malnutrition ICD Codes: E43 - Unspecified severe protein-calorie malnutrition SNOMED: 919227646 Assessment/Plan check cultures IV abx check electrolytes respiratory treatment titrate fio2 to Sat of 92% social service evaluation. Tammy Noble MD Jan 20, 2018 14:47
[2018-01-20] MEDS ORDERED: Mineral Oil 30ml ud ORAL PRN (17:00)
[2018-01-20] MEDS ORDERED: Fleet's Enema 133ml RECTAL SCH (17:00)
--- NOTE | 2018-01-20 17:34 | History & Physical ---
History and Physical History & Physicial Dictated for Int Med-Dr Baez no. [id number] Amadou Machado MD Jan 20, 2018 17:34
--- NOTE | 2018-01-20 18:06 | Consultation ---
History of Present Illness General Date patient seen: Jan 20, 2018 Time patient seen: 19:00 Chief Complaint: Abdominal Pain Reason for Consultation: UTI Present Illness HPI Mr. Webb is a 72 yo male with PMHx of HTN, CVA admitted before with UTI with resistant organsims. He presented the ED today with abdominal pain and poor appetite. He denied Fevers and dysuria. He had a positive UA with 15-20 WBCs and was started on abx for presumed UTI. CT scan also show fecal impaction and possible cystitis. Patient not cooperative with Hx and exam wants to be left alone. Say he had BM today. Currently he reports that he has right leg pain from old injury. Says he is on [place]. Denies CP, SOB, Back pain, Dysuria, Hematuria, Fever. PMHx HTN CVA UTI PSHx None SocHx No E/T/D FamHx Not contributory Allergies: Uncoded Allergies: CONTRAST MEDIA (Adverse Reaction, Mild, Itching in the area of the neck, 01/20/18) Patient was given specifically Isovue contrast during CT of the abdomen, and when he came back. The patient was itchy and benadryl was given, no complaints of itchiness or adverse reactions so far. Medication History Scheduled Aspirin* (Aspirin*), 81 MG ORAL DAILY Cephalexin* (Keflex*), 500 MG ORAL EVERY 6 HOURS Folic Acid* (Folic Acid*), 1 MG ORAL DAILY Gabapentin* (Neurontin*), 300 MG ORAL BEDTIME Ibuprofen* (Motrin*), 400 MG ORAL Q8H Multivitamins* (Multivitamins*), 1 TAB ORAL DAILY Nitrofurantoin Monohyd/M-Cryst* (Macrobid 100 Mg*), 100 MG ORAL EVERY 12 HOURS No Known Medications* (NKM - No Known Medications*), 0 ., (Reported) Tamsulosin Hcl (Tamsulosin Hcl*), 0.4 MG PO DAILY, (Reported) Tamsulosin Hcl (Tamsulosin Hcl*), 0.4 MG ORAL BEDTIME, (Reported) Thiamine Hcl* (Vitamin B-1*), 100 MG ORAL DAILY Trimethoprim/Sulfamethoxazole 160/800* (Bactrim Ds Tablet*), 1 TAB ORAL TWICE A DAY Trimethoprim/Sulfamethoxazole 160/800* (Bactrim Ds Tablet*), 1 TAB ORAL TWICE A DAY Warfarin Sod* (Warfarin Sod*), 1 MG ORAL DAILY, (Reported) Scheduled PRN Hydrocodone Bit/Acetaminophen (Vicodin 5-300 Mg Tablet), 1 TAB ORAL Q4H PRN for For Pain, (Reported) Miscellaneous Medications Allopurinol* (Allopurinol*), (Reported) Lisinopril* (Lisinopril*), MG ORAL, (Reported) Patient History Healthcare decision maker Resuscitation status Full Code Advanced Directive on File No Review of Systems All Other Systems: negative except mentioned in HPI Physical Exam Last 24 Hour Vital Signs Date Time Temp Pulse Resp B/P (MAP) Pulse Ox O2 Delivery O2 Flow Rate FiO2 01/20/18 16:00 98.6 82 18 159/86 (110) 97 98.6 01/20/18 12:00 96.3 80 18 136/84 (101) 96 96.3 01/20/18 09:00 Room Air 01/20/18 09:00 97.5 89 18 134/76 (95) 97 97.5 01/20/18 09:00 Room Air 01/20/18 08:58 93 16 Room Air 21 01/20/18 08:40 98.1 98 20 152/69 100 Room Air 98.1 01/20/18 08:00 98 20 152/69 100 Room Air 01/20/18 07:14 165/80 01/20/18 06:57 98.1 82 12 174/101 98 Room Air 98.1 01/20/18 05:55 97.9 82 12 171/93 98 Room Air 97.9 01/20/18 04:27 97.9 01/20/18 03:57 97.9 01/20/18 03:30 98.2 82 12 166/83 98 Room Air 98.2 01/20/18 03:21 97.9 55 14 108/56 98 Room Air 97.9 Intake and Output 01/19/18 01/20/18 19:00 07:00 Intake Total 2000 ml Output Total 300 ml Balance 1700 ml IV Total 2000 ml Output Urine Total 300 ml # Bowel Movements 1 Laboratory Tests Test 01/20/18 04:04 01/20/18 06:45 White Blood Count 8.1 K/UL (4.8-10.8) Red Blood Count 5.56 M/UL (4.70-6.10) Hemoglobin 14.3 G/DL (14.2-18.0) Hematocrit 45.8 % (42.0-52.0) Mean Corpuscular Volume 83 FL (80-99) Mean Corpuscular Hemoglobin 25.8 PG (27.0-31.0) L Mean Corpuscular Hemoglobin Concent 31.2 G/DL (32.0-36.0) L Red Cell Distribution Width 13.7 % (11.6-14.8) Platelet Count 163 K/UL (150-450) Mean Platelet Volume 7.4 FL (6.5-10.1) Neutrophils (%) (Auto) 56.1 % (45.0-75.0) Lymphocytes (%) (Auto) 27.7 % (20.0-45.0) Monocytes (%) (Auto) 13.7 % (1.0-10.0) H Eosinophils (%) (Auto) 1.8 % (0.0-3.0) Basophils (%) (Auto) 0.8 % (0.0-2.0) Sodium Level 140 MMOL/L (136-145) Potassium Level 4.4 MMOL/L (3.5-5.1) Chloride Level 103 MMOL/L (98-107) Carbon Dioxide Level 31 MMOL/L (21-32) Anion Gap 6 mmol/L (5-15) Blood Urea Nitrogen 11 mg/dL (7-18) Creatinine 0.7 MG/DL (0.55-1.30) Estimat Glomerular Filtration Rate mL/min (>60) Glucose Level 97 MG/DL (74-106) Calcium Level 9.3 MG/DL (8.5-10.1) Total Bilirubin 0.5 MG/DL (0.2-1.0) Aspartate Amino Transf (AST/SGOT) 65 U/L (15-37) H Alanine Aminotransferase (ALT/SGPT) 50 U/L (12-78) Alkaline Phosphatase 113 U/L (46-116) Total Protein 8.2 G/DL (6.4-8.2) Albumin 2.9 G/DL (3.4-5.0) L Globulin 5.3 g/dL Albumin/Globulin Ratio 0.5 (1.0-2.7) L Lipase 107 U/L (73-393) Urine Color Pale yellow Urine Appearance Clear Urine pH 8 (4.5-8.0) Urine Specific [place] 1.010 (1.005-1.035) Urine Protein 2+ (NEGATIVE) H Urine Glucose (UA) Negative (NEGATIVE) Urine Ketones Negative (NEGATIVE) Urine Occult Blood 2+ (NEGATIVE) H Urine Nitrite Positive (NEGATIVE) H Urine Bilirubin Negative (NEGATIVE) Urine Urobilinogen Normal MG/DL (0.0-1.0) Urine Leukocyte Esterase 3+ (NEGATIVE) H Urine RBC 5-10 /HPF (0 - 0) H Urine WBC 15-20 /HPF (0 - 0) H Urine Squamous Epithelial Cells Occasional /LPF Urine Bacteria Many /HPF (NONE) H Microbiology Date/Time Source Procedure Growth Status 01/20/18 06:01 Rectum Received Height (Feet): 6 Height (Inches): 4.00 Weight (Pounds): 1442 Medications Current Medications Medications (Trade) Dose Ordered Sig/Edwige Route PRN Reason Start Time Stop Time Status Last Admin Dose Admin Acetaminophen (Tylenol) 650 mg Q4H PRN ORAL fever 01/20/18 08:15 02/19/18 08:14 Albuterol/ Ipratropium (Albuterol/ Ipratropium) 3 ml EVERY 4 HOURS PRN HHN Shortness of Breath 01/20/18 08:15 01/25/18 08:14 Cefepime HCl 2 gm/ Dextrose 110 ml @ 220 mls/hr EVERY 12 HOURS IV 01/20/18 09:00 01/27/18 08:59 01/20/18 10:16 Gabapentin (Neurontin) 300 mg BEDTIME ORAL 01/20/18 21:00 02/19/18 20:59 Heparin Sodium (Porcine) (Heparin 5000 units/ml) 5,000 units EVERY 12 HOURS SUBQ 01/20/18 09:00 02/19/18 08:59 Iopamidol (Isovue-300 100ml) 100 ml NOW PRN INJ Radiology Procedure 01/20/18 03:45 Mineral Oil (Mineral Oil) 30 ml DAILY PRN ORAL Constipation 01/20/18 17:00 02/19/18 16:59 Morphine Sulfate (Morphine Sulfate) 2 mg EVERY 4 HOURS PRN IVP Moderate Pain (Pain Scale 4-6) 01/20/18 08:15 01/27/18 08:14 Ondansetron HCl (Zofran) 4 mg Q6H PRN IVP Nausea & Vomiting 01/20/18 08:15 02/19/18 08:14 Phenazopyridine HCl (Pyridium) 100 mg DAILY PRN ORAL dysuria 01/20/18 08:15 02/19/18 08:14 Polyethylene Glycol (Miralax) 17 gm DAILYPRN PRN ORAL Constipation 01/20/18 08:15 02/19/18 08:14 Sodium Phosphate (Fleet's Sodium Phosl Enema) 133 ml ONCE RECTAL 01/20/18 17:00 01/20/18 19:00 Tamsulosin HCl (Flomax) 0.4 mg BEDTIME ORAL 01/20/18 21:00 02/19/18 20:59 Temazepam (Restoril) 15 mg HSPRN PRN ORAL Insomnia 01/20/18 08:15 01/27/18 08:14 Vancomycin HCl 1 gm/Dextrose 275 ml @ 183.3 mls/ hr Q12H IVPB 01/20/18 10:00 01/25/18 09:59 01/20/18 12:03 Objective Narrative Gen:~ NAD, Think cachetic male HEENT: NCAT, MMM, EOMI, PERRL, No Oral lesion, no scleral icterus but some injection B/L, Poor dentition.~ NECK:~ full range of motion, supple, no meningismus, No LAD, No JVP LUNGS:~ CTAB, No W/C, No Accessory muscle use CARDS: RRR, S1, S2, No M/R/G,~ ABD: Soft, Tender diffusely, ND, No R/G, + BS, No HSM, No Masses Ext: C/C/E, Pulses 2+ B/L (DP, Rad):~ NEURO: A/O x 4, Strength and Sensation Grossly intact SKIN:~ warm/dry, No rashes Assessment/Plan Assessment/Plan 72 yo male with PMHx of HTN, CVA admitted before with UTI with resistant organisms. He presented the ED today with abdominal pain and poor appetite admitted for possible UTI. # UTI Positive UA Cultures pending Broad spectrum antibiotic started give resistant organism in his urine in the past. #Abd Pain No evidence for abscess or other infection on CT Constipation?, UTI? #HTN #CVA PLAN: - Continue Cefepime #1 and Vancomycin #1 Pending Urine Cultures - f/u Urine Cx - Monitor CBC and Temp - Supportive care Thank you for this consultation. Will continue to follow along with you Sanjeev Velez M.D. Jan 20, 2018 18:06
--- NOTE | 2018-01-20 20:41 | Consultation ---
History of Present Illness General Date patient seen: Jan 20, 2018 Chief Complaint: Abdominal Pain Reason for Consultation: UTI Present Illness HPI 72-year-old male presents ED complaining of abdominal pain Allergies: Uncoded Allergies: CONTRAST MEDIA (Adverse Reaction, Mild, Itching in the area of the neck, 01/20/18) Patient was given specifically Isovue contrast during CT of the abdomen, and when he came back. The patient was itchy and benadryl was given, no complaints of itchiness or adverse reactions so far. Medication History Scheduled Aspirin* (Aspirin*), 81 MG ORAL DAILY Cephalexin* (Keflex*), 500 MG ORAL EVERY 6 HOURS Folic Acid* (Folic Acid*), 1 MG ORAL DAILY Gabapentin* (Neurontin*), 300 MG ORAL BEDTIME Ibuprofen* (Motrin*), 400 MG ORAL Q8H Multivitamins* (Multivitamins*), 1 TAB ORAL DAILY Nitrofurantoin Monohyd/M-Cryst* (Macrobid 100 Mg*), 100 MG ORAL EVERY 12 HOURS No Known Medications* (NKM - No Known Medications*), 0 ., (Reported) Tamsulosin Hcl (Tamsulosin Hcl*), 0.4 MG PO DAILY, (Reported) Tamsulosin Hcl (Tamsulosin Hcl*), 0.4 MG ORAL BEDTIME, (Reported) Thiamine Hcl* (Vitamin B-1*), 100 MG ORAL DAILY Trimethoprim/Sulfamethoxazole 160/800* (Bactrim Ds Tablet*), 1 TAB ORAL TWICE A DAY Trimethoprim/Sulfamethoxazole 160/800* (Bactrim Ds Tablet*), 1 TAB ORAL TWICE A DAY Warfarin Sod* (Warfarin Sod*), 1 MG ORAL DAILY, (Reported) Scheduled PRN Hydrocodone Bit/Acetaminophen (Vicodin 5-300 Mg Tablet), 1 TAB ORAL Q4H PRN for For Pain, (Reported) Miscellaneous Medications Allopurinol* (Allopurinol*), (Reported) Lisinopril* (Lisinopril*), MG ORAL, (Reported) Patient History Healthcare decision maker Resuscitation status Full Code Advanced Directive on File No Physical Exam Last 24 Hour Vital Signs Date Time Temp Pulse Resp B/P (MAP) Pulse Ox O2 Delivery O2 Flow Rate FiO2 01/20/18 20:30 88 18 Room Air 21 01/20/18 16:00 98.6 82 18 159/86 (110) 97 98.6 01/20/18 12:00 96.3 80 18 136/84 (101) 96 96.3 01/20/18 09:00 Room Air 01/20/18 09:00 97.5 89 18 134/76 (95) 97 97.5 01/20/18 09:00 Room Air 01/20/18 08:58 93 16 Room Air 21 01/20/18 08:40 98.1 98 20 152/69 100 Room Air 98.1 01/20/18 08:00 98 20 152/69 100 Room Air 01/20/18 07:14 165/80 01/20/18 06:57 98.1 82 12 174/101 98 Room Air 98.1 01/20/18 05:55 97.9 82 12 171/93 98 Room Air 97.9 01/20/18 04:27 97.9 01/20/18 03:57 97.9 01/20/18 03:30 98.2 82 12 166/83 98 Room Air 98.2 01/20/18 03:21 97.9 55 14 108/56 98 Room Air 97.9 Intake and Output 01/19/18 01/20/18 19:00 07:00 Intake Total 2000 ml Output Total 300 ml Balance 1700 ml IV Total 2000 ml Output Urine Total 300 ml # Bowel Movements 1 Laboratory Tests Test 01/20/18 04:04 01/20/18 06:45 White Blood Count 8.1 K/UL (4.8-10.8) Red Blood Count 5.56 M/UL (4.70-6.10) Hemoglobin 14.3 G/DL (14.2-18.0) Hematocrit 45.8 % (42.0-52.0) Mean Corpuscular Volume 83 FL (80-99) Mean Corpuscular Hemoglobin 25.8 PG (27.0-31.0) L Mean Corpuscular Hemoglobin Concent 31.2 G/DL (32.0-36.0) L Red Cell Distribution Width 13.7 % (11.6-14.8) Platelet Count 163 K/UL (150-450) Mean Platelet Volume 7.4 FL (6.5-10.1) Neutrophils (%) (Auto) 56.1 % (45.0-75.0) Lymphocytes (%) (Auto) 27.7 % (20.0-45.0) Monocytes (%) (Auto) 13.7 % (1.0-10.0) H Eosinophils (%) (Auto) 1.8 % (0.0-3.0) Basophils (%) (Auto) 0.8 % (0.0-2.0) Sodium Level 140 MMOL/L (136-145) Potassium Level 4.4 MMOL/L (3.5-5.1) Chloride Level 103 MMOL/L (98-107) Carbon Dioxide Level 31 MMOL/L (21-32) Anion Gap 6 mmol/L (5-15) Blood Urea Nitrogen 11 mg/dL (7-18) Creatinine 0.7 MG/DL (0.55-1.30) Estimat Glomerular Filtration Rate mL/min (>60) Glucose Level 97 MG/DL (74-106) Calcium Level 9.3 MG/DL (8.5-10.1) Total Bilirubin 0.5 MG/DL (0.2-1.0) Aspartate Amino Transf (AST/SGOT) 65 U/L (15-37) H Alanine Aminotransferase (ALT/SGPT) 50 U/L (12-78) Alkaline Phosphatase 113 U/L (46-116) Total Protein 8.2 G/DL (6.4-8.2) Albumin 2.9 G/DL (3.4-5.0) L Globulin 5.3 g/dL Albumin/Globulin Ratio 0.5 (1.0-2.7) L Lipase 107 U/L (73-393) Urine Color Pale yellow Urine Appearance Clear Urine pH 8 (4.5-8.0) Urine Specific [place] 1.010 (1.005-1.035) Urine Protein 2+ (NEGATIVE) H Urine Glucose (UA) Negative (NEGATIVE) Urine Ketones Negative (NEGATIVE) Urine Occult Blood 2+ (NEGATIVE) H Urine Nitrite Positive (NEGATIVE) H Urine Bilirubin Negative (NEGATIVE) Urine Urobilinogen Normal MG/DL (0.0-1.0) Urine Leukocyte Esterase 3+ (NEGATIVE) H Urine RBC 5-10 /HPF (0 - 0) H Urine WBC 15-20 /HPF (0 - 0) H Urine Squamous Epithelial Cells Occasional /LPF Urine Bacteria Many /HPF (NONE) H Microbiology Date/Time Source Procedure Growth Status 01/20/18 06:01 Rectum Received Height (Feet): 6 Height (Inches): 4.00 Weight (Pounds): 1442 Medications Current Medications Medications (Trade) Dose Ordered Sig/Edwige Route PRN Reason Start Time Stop Time Status Last Admin Dose Admin Acetaminophen (Tylenol) 650 mg Q4H PRN ORAL fever 01/20/18 08:15 02/19/18 08:14 Albuterol/ Ipratropium (Albuterol/ Ipratropium) 3 ml EVERY 4 HOURS PRN HHN Shortness of Breath 01/20/18 08:15 01/25/18 08:14 Cefepime HCl 2 gm/ Dextrose 110 ml @ 220 mls/hr EVERY 12 HOURS IV 01/20/18 09:00 01/27/18 08:59 01/20/18 10:16 Gabapentin (Neurontin) 300 mg BEDTIME ORAL 01/20/18 21:00 02/19/18 20:59 Heparin Sodium (Porcine) (Heparin 5000 units/ml) 5,000 units EVERY 12 HOURS SUBQ 01/20/18 09:00 02/19/18 08:59 Iopamidol (Isovue-300 100ml) 100 ml NOW PRN INJ Radiology Procedure 01/20/18 03:45 Mineral Oil (Mineral Oil) 30 ml DAILY PRN ORAL Constipation 01/20/18 17:00 02/19/18 16:59 Morphine Sulfate (Morphine Sulfate) 2 mg EVERY 4 HOURS PRN IVP Moderate Pain (Pain Scale 4-6) 01/20/18 08:15 01/27/18 08:14 Ondansetron HCl (Zofran) 4 mg Q6H PRN IVP Nausea & Vomiting 01/20/18 08:15 02/19/18 08:14 Phenazopyridine HCl (Pyridium) 100 mg DAILY PRN ORAL dysuria 01/20/18 08:15 02/19/18 08:14 Polyethylene Glycol (Miralax) 17 gm DAILYPRN PRN ORAL Constipation 01/20/18 08:15 02/19/18 08:14 Tamsulosin HCl (Flomax) 0.4 mg BEDTIME ORAL 01/20/18 21:00 02/19/18 20:59 Temazepam (Restoril) 15 mg HSPRN PRN ORAL Insomnia 01/20/18 08:15 01/27/18 08:14 Vancomycin HCl 1 gm/Dextrose 275 ml @ 183.3 mls/ hr Q12H IVPB 01/20/18 10:00 01/25/18 09:59 01/20/18 12:03 Assessment/Plan Assessment/Plan alcohol dependence drug abuse Dipika Elise MD Jan 20, 2018 20:41
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
[2018-01-20] MEDS: Tamsulosin 0.4mg cap ORAL SCH (21:01)
[2018-01-21] VITALS: BP 127/66
[2018-01-21] MEDS: Vancomycin 1 GM in D5W 275 ML IVPB SCH ×3 (00:05→22:37)
[2018-01-21 04:00] VITALS: BP 126/72
[2018-01-21 06:43] LABS: HEMATOCRIT 42.6 % (42.0-52.0); HEMOGLOBIN 13.3 G/DL (14.2-18.0); MEAN CORPUSCULAR VOLUME 83 FL (80-99); PLATELET COUNT 146 K/UL (150-450); RED BLOOD COUNT 5.15 M/UL (4.70-6.10); RED CELL DISTRIBUTION WIDTH 13.7 % (11.6-14.8); WHITE BLOOD COUNT 14.1 K/UL (4.8-10.8)
[2018-01-21 07:26] LABS: ALANINE AMINOTRANSFERASE 40 U/L (12-78); ALBUMIN 2.6 G/DL (3.4-5.0); ALBUMIN/GLOBULIN RATIO 0.6 (1.0-2.7); ALKALINE PHOSPHATASE 90 U/L (46-116); ANION GAP 9 mmol/L (5-15); ASPARTATE AMINO TRANSFERASE 43 U/L (15-37); BILIRUBIN,TOTAL 0.4 MG/DL (0.2-1.0); BLOOD UREA NITROGEN 17 mg/dL (7-18); CARBON DIOXIDE 27 MMOL/L (21-32); CHLORIDE 103 MMOL/L (98-107); CREATININE 0.8 MG/DL (0.55-1.30); POTASSIUM 3.5 MMOL/L (3.5-5.1); SODIUM 139 MMOL/L (136-145)
--- NOTE | 2018-01-21 07:31 | Infectious Diseases Prog Note ---
Assessment/Plan Assessment/Plan 72 yo male with PMHx of HTN, CVA admitted before with UTI with resistant organisms. He presented the ED today with abdominal pain and poor appetite admitted for possible UTI. # UTI Positive UA Cultures pending Broad spectrum antibiotic started give resistant organism in his urine in the past. #Abd Pain No evidence for abscess or other infection on CT Constipation?, UTI? #Leukocytosis - up trending #HTN #CVA PLAN: - Continue Cefepime #2 and Vancomycin #2 Pending Urine Cultures - f/u Urine and blood Cx - Monitor CBC and Temp - Supportive care Thank you for this consultation. Will continue to follow along with you Subjective Allergies: Uncoded Allergies: CONTRAST MEDIA (Adverse Reaction, Mild, Itching in the area of the neck, 01/20/18) Patient was given specifically Isovue contrast during CT of the abdomen, and when he came back. The patient was itchy and benadryl was given, no complaints of itchiness or adverse reactions so far. Subjective Say he has had left foot pain for years. Had Amp of great toe on the left foot. Afebrile overnight Objective Vital Signs Last 24 Hour Vital Signs Date Time Temp Pulse Resp B/P (MAP) Pulse Ox O2 Delivery O2 Flow Rate FiO2 01/21/18 04:00 98.0 89 20 126/72 (90) 98 98.0 01/21/18 00:00 98.3 86 20 127/66 (86) 97 98.3 01/20/18 21:00 Room Air 01/20/18 20:30 88 18 Room Air 21 01/20/18 20:00 98.5 87 18 152/76 (101) 96 98.5 01/20/18 16:00 98.6 82 18 159/86 (110) 97 98.6 01/20/18 12:00 96.3 80 18 136/84 (101) 96 96.3 01/20/18 09:00 Room Air 01/20/18 09:00 97.5 89 18 134/76 (95) 97 97.5 01/20/18 09:00 Room Air 01/20/18 08:58 93 16 Room Air 21 01/20/18 08:40 98.1 98 20 152/69 100 Room Air 98.1 01/20/18 08:00 98 20 152/69 100 Room Air Height (Feet): 6 Height (Inches): 4.00 Weight (Pounds): 1442 Objective Gen:~ NAD, Thin male, HEENT: NCAT, MMM, EOMI, injection B/L, Poor dentition.~ LUNGS: CTAB, No W/C, No Accessory muscle use CARDS: RRR, S1, S2, No M/R/G,~ ABD: Soft, Tender diffusely, ND, No R/G, + BS, No HSM, No Masses Ext: C/C/E, Pulses 2+ B/L (DP, Rad), Left first to amp. NEURO: A/O x 4, Strength and Sensation Grossly intact SKIN:~ warm/dry, No rashes, no ulcers Microbiology Date/Time Source Procedure Growth Status 01/20/18 06:01 Rectum Received Laboratory Tests Test 01/21/18 06:30 White Blood Count 14.1 K/UL (4.8-10.8) #H Red Blood Count 5.15 M/UL (4.70-6.10) Hemoglobin 13.3 G/DL (14.2-18.0) L Hematocrit 42.6 % (42.0-52.0) Mean Corpuscular Volume 83 FL (80-99) Mean Corpuscular Hemoglobin 25.8 PG (27.0-31.0) L Mean Corpuscular Hemoglobin Concent 31.2 G/DL (32.0-36.0) L Red Cell Distribution Width 13.7 % (11.6-14.8) Platelet Count 146 K/UL (150-450) L Mean Platelet Volume 7.8 FL (6.5-10.1) Neutrophils (%) (Auto) % (45.0-75.0) Lymphocytes (%) (Auto) % (20.0-45.0) Monocytes (%) (Auto) % (1.0-10.0) Eosinophils (%) (Auto) % (0.0-3.0) Basophils (%) (Auto) % (0.0-2.0) Neutrophils % (Manual) Pending Lymphocytes % (Manual) Pending Platelet Estimate Pending Platelet Morphology Pending Sodium Level Pending Potassium Level Pending Chloride Level Pending Carbon Dioxide Level Pending Blood Urea Nitrogen Pending Creatinine Pending Estimat Glomerular Filtration Rate Pending Glucose Level Pending Calcium Level Pending Total Bilirubin Pending Aspartate Amino Transf (AST/SGOT) Pending Alanine Aminotransferase (ALT/SGPT) Pending Alkaline Phosphatase Pending Total Protein Pending Albumin Pending Globulin Pending Current Medications Medications (Trade) Dose Ordered Sig/Edwige Route PRN Reason Start Time Stop Time Status Last Admin Dose Admin Acetaminophen (Tylenol) 650 mg Q4H PRN ORAL fever 01/20/18 08:15 02/19/18 08:14 Albuterol/ Ipratropium (Albuterol/ Ipratropium) 3 ml EVERY 4 HOURS PRN HHN Shortness of Breath 01/20/18 08:15 01/25/18 08:14 Cefepime HCl 2 gm/ Dextrose 110 ml @ 220 mls/hr EVERY 12 HOURS IV 01/20/18 09:00 01/27/18 08:59 01/20/18 21:02 Gabapentin (Neurontin) 300 mg BEDTIME ORAL 01/20/18 21:00 02/19/18 20:59 01/20/18 21:01 Heparin Sodium (Porcine) (Heparin 5000 units/ml) 5,000 units EVERY 12 HOURS SUBQ 01/20/18 09:00 02/19/18 08:59 01/20/18 21:03 Iopamidol (Isovue-300 100ml) 100 ml NOW PRN INJ Radiology Procedure 01/20/18 03:45 Mineral Oil (Mineral Oil) 30 ml DAILY PRN ORAL Constipation 01/20/18 17:00 02/19/18 16:59 Morphine Sulfate (Morphine Sulfate) 2 mg EVERY 4 HOURS PRN IVP Moderate Pain (Pain Scale 4-6) 01/20/18 08:15 01/27/18 08:14 Ondansetron HCl (Zofran) 4 mg Q6H PRN IVP Nausea & Vomiting 01/20/18 08:15 02/19/18 08:14 Phenazopyridine HCl (Pyridium) 100 mg DAILY PRN ORAL dysuria 01/20/18 08:15 02/19/18 08:14 Polyethylene Glycol (Miralax) 17 gm DAILYPRN PRN ORAL Constipation 01/20/18 08:15 02/19/18 08:14 Tamsulosin HCl (Flomax) 0.4 mg BEDTIME ORAL 01/20/18 21:00 02/19/18 20:59 01/20/18 21:01 Temazepam (Restoril) 15 mg HSPRN PRN ORAL Insomnia 01/20/18 08:15 01/27/18 08:14 Vancomycin HCl 1 gm/Dextrose 275 ml @ 183.3 mls/ hr Q12H IVPB 01/20/18 10:00 01/25/18 09:59 01/21/18 00:05 Sanjeev Velez M.D. Jan 21, 2018 07:31
[2018-01-21 08:00] VITALS: BP 116/66
[2018-01-21] MEDS: Heparin 5000 units/ml inj SUBQ SCH ×2 (08:15→20:42)
[2018-01-21] MEDS: Cefepime HCl 2 GM in D5W 110 ML IV SCH ×2 (08:15→20:43)
[2018-01-21] MEDS: Morphine Sulfate 2mg/ml Inj(IV/IM USE ONLY) IVP PRN ×2 (10:31→18:12)
--- NOTE | 2018-01-21 10:59 | GI Initial Consult Note ---
History of Present Illness General Date patient seen: Jan 21, 2018 Time patient seen: 10:50 Reason for Hospitalization: Abdominal Pain Referring physician: LUCIANO HIDALGO Reason for Consultation: ABDOMINAL PAIN Present Illness HPI 72-year-old male presents ED complaining of abdominal pain. Started a few hours ago. pain is sharp, 8 out of 10, nonradiating. states he feels very weak , has poor appetite. Denies chest pain or shortness of breath. Denies fevers or chills. No other aggravating relieving factors. Denies any other associated symptoms GI consulted for abdominal pain. Pt seen, c/o of abdominal discomfort. States he has more pain to his left toe. CT showed patient had stercoral colitis, refused enema and stated he had a large BM earlier but still has discomfort. Presents with leukocytosis. No known history of endoscopy / colonoscopy. Home Meds Active Scripts Nitrofurantoin Monohyd/M-Cryst* (MACROBID 100 MG*) 100 Mg Capsule, 100 MG ORAL EVERY 12 HOURS, #14 CAP Prov:Sanjeev Escalante M.D. 12/30/17 Cephalexin* (KEFLEX*) 500 Mg Capsule, 500 MG ORAL EVERY 6 HOURS, #28 CAP Prov:Sanjeev Escalante M.D. 12/26/17 Trimethoprim/Sulfamethoxazole 160/800* (BACTRIM DS TABLET*) 1 Each Tablet, 1 TAB ORAL TWICE A DAY for 14 Days, TAB Prov:Jennifer Menchaca DO 11/22/17 Trimethoprim/Sulfamethoxazole 160/800* (BACTRIM DS TABLET*) 1 Each Tablet, 1 TAB ORAL TWICE A DAY for 7 Days, #14 TAB Prov:Villa Leija.Jessica 07/31/17 Ibuprofen* (MOTRIN*) 400 Mg Tablet, 400 MG ORAL Q8H, #30 TAB 0 Refills Prov:Villa Leija P.A. 07/31/17 Multivitamins* (MULTIVITAMINS*) 1 Each Tablet, 1 TAB ORAL DAILY, #30 TAB 0 Refills Prov:Magdalena Brooek NP 12/31/14 Thiamine Hcl* (VITAMIN B-1*) 100 Mg Tablet, 100 MG ORAL DAILY, #30 TAB 0 Refills Prov:Magdalena Brooke NP 12/31/14 Folic Acid* (FOLIC ACID*) 1 Mg Tablet, 1 MG ORAL DAILY, #30 TAB Prov:Magdalena Brooke RN MEDICAL SURGICAL 12/31/14 Gabapentin* (NEURONTIN*) 600 Mg Tab, 300 MG ORAL BEDTIME, #30 TAB Prov:Magdalena Brooke RN MEDICAL SURGICAL 12/29/14 Aspirin* (ASPIRIN*) 81 Mg Chew, 81 MG ORAL DAILY, #60 TAB Prov:Magdalena Brooke RN MEDICAL SURGICAL 12/29/14 Reported Medications Warfarin Sod* (WARFARIN SOD*) 1 Mg Tablet, 1 MG ORAL DAILY, TAB 01/20/18 Hydrocodone Bit/Acetaminophen (VICODIN 5-300 MG TABLET) 1 Each Tablet, 1 TAB ORAL Q4H PRN for For Pain, #30 TAB 0 Refills 01/20/18 Tamsulosin Hcl (TAMSULOSIN HCL*) 0.4 Mg Cap.er.24h, 0.4 MG ORAL BEDTIME, CAP 01/20/18 No Known Medications* (NKM - No Known Medications*) ., 0 ., 0 Refills 04/22/16 Lisinopril* (LISINOPRIL*) 10 Mg Tablet, MG ORAL, TAB 09/05/14 Allopurinol* (ALLOPURINOL*) 300 Mg Tablet, #30 07/29/13 Tamsulosin Hcl (TAMSULOSIN HCL*) 0.4 Mg Cap.er.24h, 0.4 MG PO DAILY, #30 07/29/13 Med list reviewed/reconciled: Yes Allergies: Uncoded Allergies: CONTRAST MEDIA (Adverse Reaction, Mild, Itching in the area of the neck, 01/20/18) Patient was given specifically Isovue contrast during CT of the abdomen, and when he came back. The patient was itchy and benadryl was given, no complaints of itchiness or adverse reactions so far. Patient History History Provided By: Patient, Medical Record PMH Narrative Past Medical History: HTN, CVA/TIA Pertinent Family History: none Social History: Denies: smoking, alcohol use, drug use Immunizations: UTD Nursing Documentation-PMH Hx Cardiac Problems: Yes Hx Hypertension: Yes Hx Cancer: No Hx Gastrointestinal Problems: No Hx Neurological Problems: Yes Hx Cerebrovascular Accident: Yes - per ER report 12/27/14 Review of Systems All Other Systems: negative except mentioned in HPI Physical Exam Vital Signs Date Time Temp Pulse Resp B/P (MAP) Pulse Ox O2 Delivery O2 Flow Rate FiO2 01/20/18 03:21 97.9 55 14 108/56 98 Room Air 97.9 01/20/18 08:58 21 Sp02 EP Interpretation: reviewed, normal Labs Laboratory Tests Test 01/21/18 06:30 White Blood Count 14.1 K/UL (4.8-10.8) #H Red Blood Count 5.15 M/UL (4.70-6.10) Hemoglobin 13.3 G/DL (14.2-18.0) L Hematocrit 42.6 % (42.0-52.0) Mean Corpuscular Volume 83 FL (80-99) Mean Corpuscular Hemoglobin 25.8 PG (27.0-31.0) L Mean Corpuscular Hemoglobin Concent 31.2 G/DL (32.0-36.0) L Red Cell Distribution Width 13.7 % (11.6-14.8) Platelet Count 146 K/UL (150-450) L Mean Platelet Volume 7.8 FL (6.5-10.1) Neutrophils (%) (Auto) % (45.0-75.0) Lymphocytes (%) (Auto) % (20.0-45.0) Monocytes (%) (Auto) % (1.0-10.0) Eosinophils (%) (Auto) % (0.0-3.0) Basophils (%) (Auto) % (0.0-2.0) Differential Total Cells Counted 100 Neutrophils % (Manual) 83 % (45-75) H Lymphocytes % (Manual) 4 % (20-45) L Monocytes % (Manual) 3 % (1-10) Eosinophils % (Manual) 1 % (0-3) Basophils % (Manual) 0 % (0-2) Band Neutrophils 9 % (0-8) H Platelet Estimate Decreased L Platelet Morphology Normal Hypochromasia 1+ Sodium Level 139 MMOL/L (136-145) Potassium Level 3.5 MMOL/L (3.5-5.1) Chloride Level 103 MMOL/L (98-107) Carbon Dioxide Level 27 MMOL/L (21-32) Anion Gap 9 mmol/L (5-15) Blood Urea Nitrogen 17 mg/dL (7-18) Creatinine 0.8 MG/DL (0.55-1.30) Estimat Glomerular Filtration Rate mL/min (>60) Glucose Level 100 MG/DL (74-106) Calcium Level 9.0 MG/DL (8.5-10.1) Total Bilirubin 0.4 MG/DL (0.2-1.0) Aspartate Amino Transf (AST/SGOT) 43 U/L (15-37) H Alanine Aminotransferase (ALT/SGPT) 40 U/L (12-78) Alkaline Phosphatase 90 U/L (46-116) Total Protein 7.2 G/DL (6.4-8.2) Albumin 2.6 G/DL (3.4-5.0) L Globulin 4.6 g/dL Albumin/Globulin Ratio 0.6 (1.0-2.7) L General Appearance: well appearing, no apparent distress, alert, thin Head: normocephalic EENT: PERRL/EOMI, normal ENT inspection Neck: supple Respiratory: normal breath sounds, no respiratory distress Cardiovascular: normal rate Gastrointestinal: normal inspection, non tender, soft, normal bowel sounds, non -distended Rectal: deferred Genitourinary: deferred Musculoskeletal: normal inspection, back normal Neurologic: normal inspection, alert, oriented x3, responsive Psychiatric: normal inspection, judgement/insight normal, memory normal Skin: normal inspection, normal color, no rash, warm/dry, palpation normal, well hydrated Lymphatic: normal inspection, no adenopathy Current Medications Current Medications Medications (Trade) Dose Ordered Sig/Edwige Route PRN Reason Start Time Stop Time Status Last Admin Dose Admin Acetaminophen (Tylenol) 650 mg Q4H PRN ORAL fever 01/20/18 08:15 02/19/18 08:14 Albuterol/ Ipratropium (Albuterol/ Ipratropium) 3 ml EVERY 4 HOURS PRN HHN Shortness of Breath 01/20/18 08:15 01/25/18 08:14 Cefepime HCl 2 gm/ Dextrose 110 ml @ 220 mls/hr EVERY 12 HOURS IV 01/20/18 09:00 01/27/18 08:59 01/21/18 08:15 Gabapentin (Neurontin) 300 mg BEDTIME ORAL 01/20/18 21:00 02/19/18 20:59 01/20/18 21:01 Heparin Sodium (Porcine) (Heparin 5000 units/ml) 5,000 units EVERY 12 HOURS SUBQ 01/20/18 09:00 9/1/18 08:59 01/20/18 21:03 Iopamidol (Isovue-300 100ml) 100 ml NOW PRN INJ Radiology Procedure 01/20/18 03:45 Mineral Oil (Mineral Oil) 30 ml DAILY PRN ORAL Constipation 01/20/18 17:00 02/19/18 16:59 Morphine Sulfate (Morphine Sulfate) 2 mg EVERY 4 HOURS PRN IVP Moderate Pain (Pain Scale 4-6) 01/20/18 08:15 01/27/18 08:14 01/21/18 10:31 Ondansetron HCl (Zofran) 4 mg Q6H PRN IVP Nausea & Vomiting 01/20/18 08:15 02/19/18 08:14 Phenazopyridine HCl (Pyridium) 100 mg DAILY PRN ORAL dysuria 01/20/18 08:15 02/19/18 08:14 Polyethylene Glycol (Miralax) 17 gm DAILYPRN PRN ORAL Constipation 01/20/18 08:15 02/19/18 08:14 Tamsulosin HCl (Flomax) 0.4 mg BEDTIME ORAL 01/20/18 21:00 02/19/18 20:59 01/20/18 21:01 Temazepam (Restoril) 15 mg HSPRN PRN ORAL Insomnia 01/20/18 08:15 01/27/18 08:14 Vancomycin HCl 1 gm/Dextrose 275 ml @ 183.3 mls/ hr Q12H IVPB 01/20/18 10:00 01/25/18 09:59 01/21/18 10:22 GI: Plan Problems: (1) Constipation (2) Fecal impaction (3) Abdominal pain (4) Severe protein-calorie malnutrition (5) Cocaine abuse (6) Methamphetamine abuse Plan symptomatic treatment ok to adv diet start bowel regime GI cocktail prn for abdominal discomfort abx electrolyte correction zofran prn needs outpatient EUS for 2mm IPMN Discussed with Dr. Link. Thank you for this patient referral, we will follow. The patient was seen and examined at bedside and all new and available data was reviewed in the patients chart. I agree with the above findings, impression and plan. (Patient seen earlier today. Signature stamp does not reflect patient encounter time.). - MD Cassy Beth,[employer] [facility] ClinicShaun RN MEDICAL SURGICAL Jan 21, 2018 10:59
[2018-01-21] MEDS ORDERED: GI Cocktail 50ml ORAL PRN (11:00)
[2018-01-21 12:00] VITALS: BP 143/79
[2018-01-21] MEDS: Docusate 100mg cap ORAL SCH ×2 (12:25→18:11)
--- NOTE | 2018-01-21 12:46 | Pulmonology Progress Note ---
Assessment/Plan Problems: (1) COPD (chronic obstructive pulmonary disease) (2) Chronic indwelling Helm catheter (3) UTI (urinary tract infection) (4) BPH (benign prostatic hyperplasia) (5) Methamphetamine abuse (6) CVA (cerebral infarction) (7) HTN (hypertension) (8) Severe protein-calorie malnutrition Assessment/Plan check cultures iv abx social worker health services working on placement Subjective ROS Limited/Unobtainable: No Constitutional: Reports: no symptoms HEENT: Repors: no symptoms Respiratory: Reports: no symptoms Allergies: Uncoded Allergies: CONTRAST MEDIA (Adverse Reaction, Mild, Itching in the area of the neck, 01/20/18) Patient was given specifically Isovue contrast during CT of the abdomen, and when he came back. The patient was itchy and benadryl was given, no complaints of itchiness or adverse reactions so far. Objective Last 24 Hour Vital Signs Date Time Temp Pulse Resp B/P (MAP) Pulse Ox O2 Delivery O2 Flow Rate FiO2 01/21/18 12:00 97.6 81 17 143/79 (100) 97 97.6 01/21/18 09:00 Room Air 01/21/18 08:00 98.0 88 18 116/66 (83) 94 98.0 01/21/18 04:00 98.0 89 20 126/72 (90) 98 98.0 01/21/18 00:00 98.3 86 20 127/66 (86) 97 98.3 01/20/18 21:00 Room Air 01/20/18 20:30 88 18 Room Air 21 01/20/18 20:00 98.5 87 18 152/76 (101) 96 98.5 01/20/18 16:00 98.6 82 18 159/86 (110) 97 98.6 Intake and Output 01/20/18 01/21/18 19:00 07:00 Intake Total 785.0 ml 586.6 ml Output Total 700 ml 750 ml Balance 85.0 ml -163.4 ml Intake Oral 400 ml IV Total 385.0 ml 586.6 ml Output Urine Total 700 ml 750 ml General Appearance: WD/WN HEENT: normocephalic, atraumatic Respiratory/Chest: chest wall non-tender, lungs clear Cardiovascular: normal peripheral pulses, normal rate Abdomen: normal bowel sounds, soft, non tender Genitourinary: normal external genitalia Microbiology Date/Time Source Procedure Growth Status 01/20/18 06:45 Urine,Clean Catch Urine Culture - Preliminary Gram Negative Bacillus 1 Gram Negative Bacillus 2 Resulted 01/20/18 06:01 Rectum Received Laboratory Tests 01/21/18 06:30: White Blood Count 14.1#H, Red Blood Count 5.15, Hemoglobin 13.3L, Hematocrit 42.6, Mean Corpuscular Volume 83, Mean Corpuscular Hemoglobin 25.8L, Mean Corpuscular Hemoglobin Concent 31.2L, Red Cell Distribution Width 13.7, Platelet Count 146L, Mean Platelet Volume 7.8, Neutrophils (%) (Auto) , Lymphocytes (%) (Auto) , Monocytes (%) (Auto) , Eosinophils (%) (Auto) , Basophils (%) (Auto) , Differential Total Cells Counted 100, Neutrophils % ( Manual) 83H, Lymphocytes % (Manual) 4L, Monocytes % (Manual) 3, Eosinophils % ( Manual) 1, Basophils % (Manual) 0, Band Neutrophils 9H, Platelet Estimate DecreasedL, Platelet Morphology Normal, Hypochromasia 1+, Sodium Level 139, Potassium Level 3.5, Chloride Level 103, Carbon Dioxide Level 27, Anion Gap 9, Blood Urea Nitrogen 17, Creatinine 0.8, Estimat Glomerular Filtration Rate , Glucose Level 100, Calcium Level 9.0, Total Bilirubin 0.4, Aspartate Amino Transf (AST/SGOT) 43H, Alanine Aminotransferase (ALT/SGPT) 40, Alkaline Phosphatase 90, Total Protein 7.2, Albumin 2.6L, Globulin 4.6, Albumin/Globulin Ratio 0.6L Current Medications Medications (Trade) Dose Ordered Sig/Edwige Route PRN Reason Start Time Stop Time Status Last Admin Dose Admin Acetaminophen (Tylenol) 650 mg Q4H PRN ORAL fever 01/20/18 08:15 02/19/18 08:14 Albuterol/ Ipratropium (Albuterol/ Ipratropium) 3 ml EVERY 4 HOURS PRN HHN Shortness of Breath 01/20/18 08:15 01/25/18 08:14 Cefepime HCl 2 gm/ Dextrose 110 ml @ 220 mls/hr EVERY 12 HOURS IV 01/20/18 09:00 01/27/18 08:59 01/21/18 08:15 Docusate Sodium (Colace) 100 mg THREE TIMES A DAY ORAL 01/21/18 13:00 02/20/18 12:59 01/21/18 12:25 Gabapentin (Neurontin) 300 mg BEDTIME ORAL 01/20/18 21:00 02/19/18 20:59 01/20/18 21:01 Heparin Sodium (Porcine) (Heparin 5000 units/ml) 5,000 units EVERY 12 HOURS SUBQ 01/20/18 09:00 02/19/18 08:59 01/20/18 21:03 Iopamidol (Isovue-300 100ml) 100 ml NOW PRN INJ Radiology Procedure 01/20/18 03:45 Mineral Oil (Mineral Oil) 30 ml DAILY PRN ORAL Constipation 01/20/18 17:00 02/19/18 16:59 Morphine Sulfate (Morphine Sulfate) 2 mg EVERY 4 HOURS PRN IVP Moderate Pain (Pain Scale 4-6) 01/20/18 08:15 01/27/18 08:14 01/21/18 10:31 Ondansetron HCl (Zofran) 4 mg Q6H PRN IVP Nausea & Vomiting 01/20/18 08:15 02/19/18 08:14 Phenazopyridine HCl (Pyridium) 100 mg DAILY PRN ORAL dysuria 01/20/18 08:15 02/19/18 08:14 Polyethylene Glycol (Miralax) 17 gm BEDTIME ORAL 01/21/18 21:00 02/20/18 20:59 Polyethylene Glycol (Miralax) 17 gm DAILYPRN PRN ORAL Constipation 01/20/18 08:15 02/19/18 08:14 Tamsulosin HCl (Flomax) 0.4 mg BEDTIME ORAL 01/20/18 21:00 02/19/18 20:59 01/20/18 21:01 Temazepam (Restoril) 15 mg HSPRN PRN ORAL Insomnia 01/20/18 08:15 01/27/18 08:14 Vancomycin HCl 1 gm/Dextrose 275 ml @ 183.3 mls/ hr Q12H IVPB 01/20/18 10:00 01/25/18 09:59 01/21/18 10:22 Tammy Noble MD Jan 21, 2018 12:46
[2018-01-21 16:00] VITALS: BP 153/87
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
--- NOTE | 2018-01-21 17:49 | Internal Med Progress Note ---
Subjective Date of Service: Jan 21, 2018 Physician Name Machado,Amadou Attending Physician Mike Baez MD Current Medications Medications (Trade) Dose Ordered Sig/Edwige Route PRN Reason Start Time Stop Time Status Last Admin Dose Admin Acetaminophen (Tylenol) 650 mg Q4H PRN ORAL fever 01/20/18 08:15 02/19/18 08:14 Albuterol/ Ipratropium (Albuterol/ Ipratropium) 3 ml EVERY 4 HOURS PRN HHN Shortness of Breath 01/20/18 08:15 01/25/18 08:14 Cefepime HCl 2 gm/ Dextrose 110 ml @ 220 mls/hr EVERY 12 HOURS IV 01/20/18 09:00 01/27/18 08:59 01/21/18 08:15 Docusate Sodium (Colace) 100 mg THREE TIMES A DAY ORAL 01/21/18 13:00 02/20/18 12:59 01/21/18 12:25 Gabapentin (Neurontin) 300 mg BEDTIME ORAL 01/20/18 21:00 02/19/18 20:59 01/20/18 21:01 Heparin Sodium (Porcine) (Heparin 5000 units/ml) 5,000 units EVERY 12 HOURS SUBQ 01/20/18 09:00 02/19/18 08:59 01/20/18 21:03 Iopamidol (Isovue-300 100ml) 100 ml NOW PRN INJ Radiology Procedure 01/20/18 03:45 Mineral Oil (Mineral Oil) 30 ml DAILY PRN ORAL Constipation 01/20/18 17:00 02/19/18 16:59 Morphine Sulfate (Morphine Sulfate) 2 mg EVERY 4 HOURS PRN IVP Moderate Pain (Pain Scale 4-6) 01/20/18 08:15 01/27/18 08:14 01/21/18 10:31 Ondansetron HCl (Zofran) 4 mg Q6H PRN IVP Nausea & Vomiting 01/20/18 08:15 02/19/18 08:14 Phenazopyridine HCl (Pyridium) 100 mg DAILY PRN ORAL dysuria 01/20/18 08:15 02/19/18 08:14 Polyethylene Glycol (Miralax) 17 gm BEDTIME ORAL 01/21/18 21:00 02/20/18 20:59 Polyethylene Glycol (Miralax) 17 gm DAILYPRN PRN ORAL Constipation 01/20/18 08:15 02/19/18 08:14 Tamsulosin HCl (Flomax) 0.4 mg BEDTIME ORAL 01/20/18 21:00 02/19/18 20:59 01/20/18 21:01 Temazepam (Restoril) 15 mg HSPRN PRN ORAL Insomnia 01/20/18 08:15 01/27/18 08:14 Vancomycin HCl 1 gm/Dextrose 275 ml @ 183.3 mls/ hr Q12H IVPB 01/20/18 10:00 01/25/18 09:59 01/21/18 10:22 Allergies: Uncoded Allergies: CONTRAST MEDIA (Adverse Reaction, Mild, Itching in the area of the neck, 01/20/18) Patient was given specifically Isovue contrast during CT of the abdomen, and when he came back. The patient was itchy and benadryl was given, no complaints of itchiness or adverse reactions so far. ROS Limited/Unobtainable: No Constitutional: Reports: no symptoms HEENT: Reports: no symptoms Cardiovascular: Reports: no symptoms Respiratory: Reports: no symptoms Gastrointestinal/Abdominal: Reports: no symptoms Genitourinary: Reports: no symptoms Neurologic/Psychiatric: Reports: no symptoms Subjective 72 YO M admitted with abdominal pain. Now UTI. Cover for Int Med-Dr Baez. Objective Last Vital Signs Date Time Temp Pulse Resp B/P (MAP) Pulse Ox O2 Delivery O2 Flow Rate FiO2 01/21/18 16:00 97.8 80 19 153/87 (109) 97 97.8 01/21/18 09:00 Room Air 01/20/18 20:30 21 General Appearance: WD/WN, alert, thin EENT: PERRL/EOMI, normal ENT inspection, TMs normal Neck: non-tender, normal alignment, supple Cardiovascular: normal peripheral pulses, normal rate, regular rhythm, no gallop/murmur, no JVD Respiratory/Chest: chest wall non-tender, lungs clear, normal breath sounds, no respiratory distress, no accessory muscle use Abdomen: normal bowel sounds, non tender, soft, no organomegaly, no mass, abnormal bowel sounds Extremities: normal range of motion, non-tender 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, no motor/sensory deficits Skin: normal pigmentation, warm/dry Laboratory Tests Test 01/21/18 06:30 White Blood Count 14.1 K/UL (4.8-10.8) #H Red Blood Count 5.15 M/UL (4.70-6.10) Hemoglobin 13.3 G/DL (14.2-18.0) L Hematocrit 42.6 % (42.0-52.0) Mean Corpuscular Volume 83 FL (80-99) Mean Corpuscular Hemoglobin 25.8 PG (27.0-31.0) L Mean Corpuscular Hemoglobin Concent 31.2 G/DL (32.0-36.0) L Red Cell Distribution Width 13.7 % (11.6-14.8) Platelet Count 146 K/UL (150-450) L Mean Platelet Volume 7.8 FL (6.5-10.1) Neutrophils (%) (Auto) % (45.0-75.0) Lymphocytes (%) (Auto) % (20.0-45.0) Monocytes (%) (Auto) % (1.0-10.0) Eosinophils (%) (Auto) % (0.0-3.0) Basophils (%) (Auto) % (0.0-2.0) Differential Total Cells Counted 100 Neutrophils % (Manual) 83 % (45-75) H Lymphocytes % (Manual) 4 % (20-45) L Monocytes % (Manual) 3 % (1-10) Eosinophils % (Manual) 1 % (0-3) Basophils % (Manual) 0 % (0-2) Band Neutrophils 9 % (0-8) H Platelet Estimate Decreased L Platelet Morphology Normal Hypochromasia 1+ Sodium Level 139 MMOL/L (136-145) Potassium Level 3.5 MMOL/L (3.5-5.1) Chloride Level 103 MMOL/L (98-107) Carbon Dioxide Level 27 MMOL/L (21-32) Anion Gap 9 mmol/L (5-15) Blood Urea Nitrogen 17 mg/dL (7-18) Creatinine 0.8 MG/DL (0.55-1.30) Estimat Glomerular Filtration Rate mL/min (>60) Glucose Level 100 MG/DL (74-106) Calcium Level 9.0 MG/DL (8.5-10.1) Total Bilirubin 0.4 MG/DL (0.2-1.0) Aspartate Amino Transf (AST/SGOT) 43 U/L (15-37) H Alanine Aminotransferase (ALT/SGPT) 40 U/L (12-78) Alkaline Phosphatase 90 U/L (46-116) Total Protein 7.2 G/DL (6.4-8.2) Albumin 2.6 G/DL (3.4-5.0) L Globulin 4.6 g/dL Albumin/Globulin Ratio 0.6 (1.0-2.7) L Free Prostate Specific Antigen Pending Percent Free Prostate Specific Ag Pending Prostate Specific Antigen Total Pending HIV (1&2) Antibody Rapid Negative (NEGATIVE) Microbiology Date/Time Source Procedure Growth Status 01/20/18 06:45 Urine,Clean Catch Urine Culture - Preliminary Gram Negative Bacillus 1 Gram Negative Bacillus 2 Resulted 01/20/18 06:01 Rectum Received Intake and Output 01/20/18 01/21/18 19:00 07:00 Intake Total 785.0 ml 586.6 ml Output Total 700 ml 750 ml Balance 85.0 ml -163.4 ml Intake Oral 400 ml IV Total 385.0 ml 586.6 ml Output Urine Total 700 ml 750 ml Assessment/Plan Problem List: (1) UTI (urinary tract infection) Assessment & Plan: Gram neg jim X2. Await cult and sens result. Continue vanco and cefepime for now. (2) HTN (hypertension) (3) BPH (benign prostatic hyperplasia) (4) Peripheral vascular disease Assessment & Plan: Left foot. Await podiatry consult. Amadou Machado MD Jan 21, 2018 17:49
[2018-01-21 20:00] VITALS: BP 164/87
--- NOTE | 2018-01-21 20:20 | Diagnostic Imaging Report ---
EXAM: XR Left Foot Complete, 3 or More Views CLINICAL HISTORY: PAIN TECHNIQUE: Frontal, lateral and oblique views of the left foot. COMPARISON: No relevant prior studies available. FINDINGS: Bones/joints: Destructive changes of the second toe involving the distal, middle and likely the distal aspect of the proximal phalanx. Amputation at the level of the distal first metatarsal. Probable old fracture involving the proximal third phalanx. Soft tissues: Soft tissue swelling. Vasculature: Vascular calcifications. IMPRESSION: Destructive changes of the second toe involving the distal, middle and likely the distal aspect of the proximal phalanx. Findings are worrisome for osteomyelitis.
[2018-01-21] MEDS: Miralax 17gm pkt ORAL SCH (20:39)
[2018-01-21] MEDS: Tamsulosin 0.4mg cap ORAL SCH (20:39)
[2018-01-21] MEDS: Norco 5mg/325mg tab ORAL PRN (22:28)
--- NOTE | 2018-01-21 23:42 | General Progress Note ---
Assessment/Plan Status: stable Assessment/Plan alcohol dependence drug abuse prozac 20mg qam provided ro/st Subjective Date patient seen: Jan 21, 2018 Neurologic/Psychiatric: Reports: anxiety, depressed, emotional problems Allergies: Uncoded Allergies: CONTRAST MEDIA (Adverse Reaction, Mild, Itching in the area of the neck, 01/20/18) Patient was given specifically Isovue contrast during CT of the abdomen, and when he came back. The patient was itchy and benadryl was given, no complaints of itchiness or adverse reactions so far. Objective Last 24 Hour Vital Signs Date Time Temp Pulse Resp B/P (MAP) Pulse Ox O2 Delivery O2 Flow Rate FiO2 01/21/18 20:00 99.9 79 19 164/87 (112) 95 99.9 01/21/18 16:00 97.8 80 19 153/87 (109) 97 97.8 01/21/18 12:00 97.6 81 17 143/79 (100) 97 97.6 01/21/18 09:00 Room Air 01/21/18 08:00 98.0 88 18 116/66 (83) 94 98.0 01/21/18 04:00 98.0 89 20 126/72 (90) 98 98.0 01/21/18 00:00 98.3 86 20 127/66 (86) 97 98.3 Intake and Output 01/20/18 01/21/18 19:00 07:00 Intake Total 785.0 ml 586.6 ml Output Total 700 ml 750 ml Balance 85.0 ml -163.4 ml Intake Oral 400 ml IV Total 385.0 ml 586.6 ml Output Urine Total 700 ml 750 ml Laboratory Tests 01/21/18 06:30: White Blood Count 14.1#H, Red Blood Count 5.15, Hemoglobin 13.3L, Hematocrit 42.6, Mean Corpuscular Volume 83, Mean Corpuscular Hemoglobin 25.8L, Mean Corpuscular Hemoglobin Concent 31.2L, Red Cell Distribution Width 13.7, Platelet Count 146L, Mean Platelet Volume 7.8, Neutrophils (%) (Auto) , Lymphocytes (%) (Auto) , Monocytes (%) (Auto) , Eosinophils (%) (Auto) , Basophils (%) (Auto) , Differential Total Cells Counted 100, Neutrophils % ( Manual) 83H, Lymphocytes % (Manual) 4L, Monocytes % (Manual) 3, Eosinophils % ( Manual) 1, Basophils % (Manual) 0, Band Neutrophils 9H, Platelet Estimate DecreasedL, Platelet Morphology Normal, Hypochromasia 1+, Sodium Level 139, Potassium Level 3.5, Chloride Level 103, Carbon Dioxide Level 27, Anion Gap 9, Blood Urea Nitrogen 17, Creatinine 0.8, Estimat Glomerular Filtration Rate , Glucose Level 100, Calcium Level 9.0, Total Bilirubin 0.4, Aspartate Amino Transf (AST/SGOT) 43H, Alanine Aminotransferase (ALT/SGPT) 40, Alkaline Phosphatase 90, Total Protein 7.2, Albumin 2.6L, Globulin 4.6, Albumin/Globulin Ratio 0.6L, Free Prostate Specific Antigen [Pending], Percent Free Prostate Specific Ag [Pending], Prostate Specific Antigen Total [Pending], HIV (1&2) Antibody Rapid Negative Height (Feet): 6 Height (Inches): 4.00 Weight (Pounds): 1442 General Appearance: no apparent distress, alert Neurologic: depressed affect Dipika Elise MD Jan 21, 2018 23:42
[2018-01-22] VITALS: BP 120/69
[2018-01-22 04:00] VITALS: BP 138/70
[2018-01-22 06:15] LABS: BASOPHILS % (AUTO) 0.6 % (0.0-2.0); EOSINOPHILS % (AUTO) 5.2 % (0.0-3.0); HEMATOCRIT 41.4 % (42.0-52.0); HEMOGLOBIN 13.6 G/DL (14.2-18.0); LYMPHOCYTES % (AUTO) 16.8 % (20.0-45.0); MEAN CORPUSCULAR VOLUME 83 FL (80-99); MONOCYTES % (AUTO) 9.3 % (1.0-10.0); NEUTROPHILS % (AUTO) 68.1 % (45.0-75.0); PLATELET COUNT 129 K/UL (150-450); RED BLOOD COUNT 4.98 M/UL (4.70-6.10); RED CELL DISTRIBUTION WIDTH 13.6 % (11.6-14.8); WHITE BLOOD COUNT 7.6 K/UL (4.8-10.8)
[2018-01-22 06:47] LABS: ANION GAP 5 mmol/L (5-15); BLOOD UREA NITROGEN 17 mg/dL (7-18); CALCIUM 9.1 MG/DL (8.5-10.1); CARBON DIOXIDE 30 MMOL/L (21-32); CHLORIDE 102 MMOL/L (98-107); CREATININE 0.8 MG/DL (0.55-1.30); POTASSIUM 3.9 MMOL/L (3.5-5.1); SODIUM 137 MMOL/L (136-145)
[2018-01-22 08:00] VITALS: BP 132/71
[2018-01-22] MEDS: Docusate 100mg cap ORAL SCH ×3 (08:39→17:50)
[2018-01-22] MEDS: Cefepime HCl 2 GM in D5W 110 ML IV SCH ×2 (08:39→22:35)
[2018-01-22] MEDS: Heparin 5000 units/ml inj SUBQ SCH ×2 (08:43→21:00)
[2018-01-22] MEDS: Norco 5mg/325mg tab ORAL PRN ×2 (08:54→14:45)
--- NOTE | 2018-01-22 09:41 | General Progress Note ---
Assessment/Plan Problem List: (1) Abdominal pain ICD Codes: R10.9 - Unspecified abdominal pain SNOMED: 50126781 (2) Fecal impaction ICD Codes: K56.41 - Fecal impaction SNOMED: 67126729 (3) Constipation ICD Codes: K59.00 - Constipation, unspecified SNOMED: 87144274 (4) BPH (benign prostatic hyperplasia) ICD Codes: N40.0 - Enlarged prostate without lower urinary tract symptoms SNOMED: 939438365, 633369057 (5) HTN (hypertension) ICD Codes: I10 - Essential (primary) hypertension SNOMED: 83015518 (6) Cholelithiasis ICD Codes: K80.20 - Calculus of gallbladder without cholecystitis without obstruction SNOMED: 412462579 (7) Pancreatic cyst ICD Codes: K86.2 - Cyst of pancreas SNOMED: 47543564 Assessment/Plan bowel regimen needs out patient fu for possible IPMN fu labs Subjective ROS Limited/Unobtainable: Yes Allergies: Uncoded Allergies: CONTRAST MEDIA (Adverse Reaction, Mild, Itching in the area of the neck, 01/20/18) Patient was given specifically Isovue contrast during CT of the abdomen, and when he came back. The patient was itchy and benadryl was given, no complaints of itchiness or adverse reactions so far. Subjective had BM Objective Last 24 Hour Vital Signs Date Time Temp Pulse Resp B/P (MAP) Pulse Ox O2 Delivery O2 Flow Rate FiO2 01/22/18 08:54 98.2 01/22/18 07:43 89 18 Room Air 21 01/22/18 04:00 98.2 75 19 138/70 (92) 96 98.2 01/22/18 00:00 99.0 81 18 120/69 (86) 93 99.0 01/21/18 21:00 Room Air 01/21/18 20:00 99.9 79 19 164/87 (112) 95 99.9 01/21/18 16:00 97.8 80 19 153/87 (109) 97 97.8 01/21/18 12:00 97.6 81 17 143/79 (100) 97 97.6 Intake and Output 01/21/18 01/22/18 19:00 07:00 Intake Total 806.6 ml Output Total 800 ml Balance 806.6 ml -800 ml IV Total 806.6 ml Output Urine Total 800 ml Laboratory Tests 01/22/18 05:40: White Blood Count 7.6, Red Blood Count 4.98, Hemoglobin 13.6L, Hematocrit 41.4L , Mean Corpuscular Volume 83, Mean Corpuscular Hemoglobin 27.3, Mean Corpuscular Hemoglobin Concent 32.8, Red Cell Distribution Width 13.6, Platelet Count 129L, Mean Platelet Volume 7.9, Neutrophils (%) (Auto) 68.1, Lymphocytes ( %) (Auto) 16.8L, Monocytes (%) (Auto) 9.3, Eosinophils (%) (Auto) 5.2H, Basophils (%) (Auto) 0.6, Sodium Level 137, Potassium Level 3.9, Chloride Level 102, Carbon Dioxide Level 30, Anion Gap 5, Blood Urea Nitrogen 17, Creatinine 0.8, Estimat Glomerular Filtration Rate , Glucose Level 94, Calcium Level 9.1 Height (Feet): 6 Height (Inches): 4.00 Weight (Pounds): 1442 General Appearance: alert EENT: normal ENT inspection Neck: supple Cardiovascular: normal rate Respiratory/Chest: lungs clear Abdomen: non tender, soft, hypoactive bowel sounds Extremities: non-tender Kenneth Link MD Jan 22, 2018 09:41
--- NOTE | 2018-01-22 09:42 | Consultation ---
Consult Note Assessment/Plan A/ 1) Osteomyelitis on x-ray left 2nd toe 2) h/o PAD 3) s/p healed amp of left hallux P/ 1) MRI of left foot to evaluate extend of osteo for surgical planning 2) Arterial ultrasound BLE 3) Abx per ID 4) Will follow Thank you Dr Machado. Dayo Law DPM Jan 22, 2018 09:42
--- NOTE | 2018-01-22 10:06 | Pulmonology Progress Note ---
Assessment/Plan Problems: (1) COPD (chronic obstructive pulmonary disease) (2) Chronic indwelling Helm catheter (3) UTI (urinary tract infection) (4) BPH (benign prostatic hyperplasia) (5) Methamphetamine abuse (6) CVA (cerebral infarction) (7) HTN (hypertension) (8) Severe protein-calorie malnutrition Assessment/Plan imrpoving check electroltyes check cultures iv abx social work case manager working on placement Subjective ROS Limited/Unobtainable: No Constitutional: Reports: no symptoms HEENT: Repors: no symptoms Respiratory: Reports: no symptoms Allergies: Uncoded Allergies: CONTRAST MEDIA (Adverse Reaction, Mild, Itching in the area of the neck, 01/20/18) Patient was given specifically Isovue contrast during CT of the abdomen, and when he came back. The patient was itchy and benadryl was given, no complaints of itchiness or adverse reactions so far. Objective Last 24 Hour Vital Signs Date Time Temp Pulse Resp B/P (MAP) Pulse Ox O2 Delivery O2 Flow Rate FiO2 01/22/18 08:54 98.2 01/22/18 07:43 89 18 Room Air 21 01/22/18 04:00 98.2 75 19 138/70 (92) 96 98.2 01/22/18 00:00 99.0 81 18 120/69 (86) 93 99.0 01/21/18 21:00 Room Air 01/21/18 20:00 99.9 79 19 164/87 (112) 95 99.9 01/21/18 16:00 97.8 80 19 153/87 (109) 97 97.8 01/21/18 12:00 97.6 81 17 143/79 (100) 97 97.6 Intake and Output 01/21/18 01/22/18 19:00 07:00 Intake Total 806.6 ml Output Total 800 ml Balance 806.6 ml -800 ml IV Total 806.6 ml Output Urine Total 800 ml General Appearance: WD/WN HEENT: normocephalic Respiratory/Chest: chest wall non-tender, lungs clear Cardiovascular: normal peripheral pulses, normal rate Abdomen: normal bowel sounds, non distended Genitourinary: normal external genitalia Skin: no rash Microbiology Date/Time Source Procedure Growth Status 01/20/18 06:45 Urine,Clean Catch Urine Culture - Final Proteus Mirabilis Citrobacter Braakii Complete 01/20/18 06:01 Rectum VRE Culture - Final Enterococcus Faecium - Vre Complete 01/20/18 06:01 Rectum - Final NO CARBAPENEM-RESISTANT ENTEROBACTERI... Complete Laboratory Tests 01/22/18 05:40: White Blood Count 7.6, Red Blood Count 4.98, Hemoglobin 13.6L, Hematocrit 41.4L , Mean Corpuscular Volume 83, Mean Corpuscular Hemoglobin 27.3, Mean Corpuscular Hemoglobin Concent 32.8, Red Cell Distribution Width 13.6, Platelet Count 129L, Mean Platelet Volume 7.9, Neutrophils (%) (Auto) 68.1, Lymphocytes ( %) (Auto) 16.8L, Monocytes (%) (Auto) 9.3, Eosinophils (%) (Auto) 5.2H, Basophils (%) (Auto) 0.6, Sodium Level 137, Potassium Level 3.9, Chloride Level 102, Carbon Dioxide Level 30, Anion Gap 5, Blood Urea Nitrogen 17, Creatinine 0.8, Estimat Glomerular Filtration Rate , Glucose Level 94, Calcium Level 9.1 Current Medications Medications (Trade) Dose Ordered Sig/Edwige Route PRN Reason Start Time Stop Time Status Last Admin Dose Admin Acetaminophen (Tylenol) 650 mg Q4H PRN ORAL fever 01/20/18 08:15 02/19/18 08:14 Acetaminophen/ Hydrocodone Bitart ([place] 5/325) 1 tab Q6H PRN ORAL mild pain (1-3) 01/21/18 21:30 01/28/18 21:29 01/22/18 08:54 Albuterol/ Ipratropium (Albuterol/ Ipratropium) 3 ml EVERY 4 HOURS PRN HHN Shortness of Breath 01/20/18 08:15 01/25/18 08:14 Cefepime HCl 2 gm/ Dextrose 110 ml @ 220 mls/hr EVERY 12 HOURS IV 01/20/18 09:00 01/27/18 08:59 01/22/18 08:39 Docusate Sodium (Colace) 100 mg THREE TIMES A DAY ORAL 01/21/18 13:00 02/20/18 12:59 01/22/18 08:39 Fluoxetine HCl (PROzac) 20 mg DAILY ORAL 01/22/18 09:00 02/21/18 08:59 8/4/18 08:39 Gabapentin (Neurontin) 300 mg BEDTIME ORAL 01/20/18 21:00 02/19/18 20:59 01/21/18 20:39 Heparin Sodium (Porcine) (Heparin 5000 units/ml) 5,000 units EVERY 12 HOURS SUBQ 01/20/18 09:00 02/19/18 08:59 01/21/18 20:42 Iopamidol (Isovue-300 100ml) 100 ml NOW PRN INJ Radiology Procedure 01/20/18 03:45 Lactulose (Cephulac) 10 gm THREE TIMES A DAY ORAL 01/22/18 13:00 02/21/18 12:59 Mineral Oil (Mineral Oil) 30 ml DAILY PRN ORAL Constipation 01/20/18 17:00 02/19/18 16:59 Morphine Sulfate (Morphine Sulfate) 2 mg EVERY 4 HOURS PRN IVP Moderate Pain (Pain Scale 4-6) 01/20/18 08:15 01/27/18 08:14 01/21/18 18:12 Ondansetron HCl (Zofran) 4 mg Q6H PRN IVP Nausea & Vomiting 01/20/18 08:15 02/19/18 08:14 Phenazopyridine HCl (Pyridium) 100 mg DAILY PRN ORAL dysuria 01/20/18 08:15 02/19/18 08:14 Polyethylene Glycol (Miralax) 17 gm BEDTIME ORAL 01/21/18 21:00 02/20/18 20:59 01/21/18 20:39 Polyethylene Glycol (Miralax) 17 gm DAILYPRN PRN ORAL Constipation 01/20/18 08:15 02/19/18 08:14 Tamsulosin HCl (Flomax) 0.4 mg BEDTIME ORAL 01/20/18 21:00 02/19/18 20:59 01/21/18 20:39 Temazepam (Restoril) 15 mg HSPRN PRN ORAL Insomnia 01/20/18 08:15 01/27/18 08:14 Vancomycin HCl 1 gm/Dextrose 275 ml @ 183.3 mls/ hr Q12H IVPB 01/20/18 10:00 01/25/18 09:59 01/21/18 22:37 Tammy Noble MD Jan 22, 2018 10:06
[2018-01-22] MEDS ORDERED: Tubing IV Secondary IV ONE (10:48)
[2018-01-22] MEDS ORDERED: NS 275ml ONE (10:48)
[2018-01-22] MEDS: Vancomycin 1 GM in D5W 275 ML IVPB SCH ×2 (11:23→22:36)
[2018-01-22 12:00] VITALS: BP 150/78
[2018-01-22] MEDS: Lactulose 10gm/15ml UDC ORAL SCH ×3 (13:00→17:50)
--- NOTE | 2018-01-22 13:03 | Internal Med Progress Note ---
Subjective Date of Service: Jan 22, 2018 Physician Name Amadou Machado Attending Physician Mike Baez MD Current Medications Medications (Trade) Dose Ordered Sig/Edwige Route PRN Reason Start Time Stop Time Status Last Admin Dose Admin Acetaminophen (Tylenol) 650 mg Q4H PRN ORAL fever 01/20/18 08:15 02/19/18 08:14 Acetaminophen/ Hydrocodone Bitart ([place] 5/325) 1 tab Q6H PRN ORAL mild pain (1-3) 01/21/18 21:30 01/28/18 21:29 01/22/18 08:54 Albuterol/ Ipratropium (Albuterol/ Ipratropium) 3 ml EVERY 4 HOURS PRN HHN Shortness of Breath 01/20/18 08:15 01/25/18 08:14 Cefepime HCl 2 gm/ Dextrose 110 ml @ 220 mls/hr EVERY 12 HOURS IV 01/20/18 09:00 01/27/18 08:59 01/22/18 08:39 Docusate Sodium (Colace) 100 mg THREE TIMES A DAY ORAL 01/21/18 13:00 02/20/18 12:59 01/22/18 08:39 Fluoxetine HCl (PROzac) 20 mg DAILY ORAL 01/22/18 09:00 02/21/18 08:59 01/22/18 08:39 Gabapentin (Neurontin) 300 mg BEDTIME ORAL 01/20/18 21:00 02/19/18 20:59 01/21/18 20:39 Heparin Sodium (Porcine) (Heparin 5000 units/ml) 5,000 units EVERY 12 HOURS SUBQ 01/20/18 09:00 02/19/18 08:59 01/21/18 20:42 Iopamidol (Isovue-300 100ml) 100 ml NOW PRN INJ Radiology Procedure 01/20/18 03:45 Lactulose (Cephulac) 10 gm THREE TIMES A DAY ORAL 01/22/18 13:00 02/21/18 12:59 Mineral Oil (Mineral Oil) 30 ml DAILY PRN ORAL Constipation 01/20/18 17:00 02/19/18 16:59 Morphine Sulfate (Morphine Sulfate) 2 mg EVERY 4 HOURS PRN IVP Moderate Pain (Pain Scale 4-6) 01/20/18 08:15 01/27/18 08:14 01/21/18 18:12 Ondansetron HCl (Zofran) 4 mg Q6H PRN IVP Nausea & Vomiting 01/20/18 08:15 02/19/18 08:14 Phenazopyridine HCl (Pyridium) 100 mg DAILY PRN ORAL dysuria 01/20/18 08:15 02/19/18 08:14 Polyethylene Glycol (Miralax) 17 gm BEDTIME ORAL 01/21/18 21:00 02/20/18 20:59 01/21/18 20:39 Polyethylene Glycol (Miralax) 17 gm DAILYPRN PRN ORAL Constipation 01/20/18 08:15 02/19/18 08:14 Tamsulosin HCl (Flomax) 0.4 mg BEDTIME ORAL 01/20/18 21:00 02/19/18 20:59 01/21/18 20:39 Temazepam (Restoril) 15 mg HSPRN PRN ORAL Insomnia 01/20/18 08:15 01/27/18 08:14 Vancomycin HCl (Vanco rx to dose) 1 ea DAILY PRN MISC . 01/22/18 12:45 02/21/18 12:44 Vancomycin HCl 1 gm/Dextrose 275 ml @ 183.3 mls/ hr Q12H IVPB 01/20/18 10:00 01/25/18 09:59 01/22/18 11:23 Allergies: Uncoded Allergies: CONTRAST MEDIA (Adverse Reaction, Mild, Itching in the area of the neck, 01/20/18) Patient was given specifically Isovue contrast during CT of the abdomen, and when he came back. The patient was itchy and benadryl was given, no complaints of itchiness or adverse reactions so far. ROS Limited/Unobtainable: No Constitutional: Reports: no symptoms HEENT: Reports: no symptoms Cardiovascular: Reports: no symptoms Respiratory: Reports: no symptoms Gastrointestinal/Abdominal: Reports: abdominal pain Genitourinary: Reports: no symptoms Neurologic/Psychiatric: Reports: no symptoms Subjective 72 YO M admitted with abdominal pain. Now UTI and osteomyelitis left 2nd toe. Cover for Int Jarod-Dr Baez.Agitated; threatening to leave AMA Objective Last Vital Signs Date Time Temp Pulse Resp B/P (MAP) Pulse Ox O2 Delivery O2 Flow Rate FiO2 01/22/18 09:53 98.2 01/22/18 09:00 Room Air 01/22/18 08:00 73 18 132/71 (91) 96 01/22/18 07:43 21 Laboratory Tests Test 01/22/18 05:40 01/22/18 10:00 White Blood Count 7.6 K/UL (4.8-10.8) Red Blood Count 4.98 M/UL (4.70-6.10) Hemoglobin 13.6 G/DL (14.2-18.0) L Hematocrit 41.4 % (42.0-52.0) L Mean Corpuscular Volume 83 FL (80-99) Mean Corpuscular Hemoglobin 27.3 PG (27.0-31.0) Mean Corpuscular Hemoglobin Concent 32.8 G/DL (32.0-36.0) Red Cell Distribution Width 13.6 % (11.6-14.8) Platelet Count 129 K/UL (150-450) L Mean Platelet Volume 7.9 FL (6.5-10.1) Neutrophils (%) (Auto) 68.1 % (45.0-75.0) Lymphocytes (%) (Auto) 16.8 % (20.0-45.0) L Monocytes (%) (Auto) 9.3 % (1.0-10.0) Eosinophils (%) (Auto) 5.2 % (0.0-3.0) H Basophils (%) (Auto) 0.6 % (0.0-2.0) Sodium Level 137 MMOL/L (136-145) Potassium Level 3.9 MMOL/L (3.5-5.1) Chloride Level 102 MMOL/L (98-107) Carbon Dioxide Level 30 MMOL/L (21-32) Anion Gap 5 mmol/L (5-15) Blood Urea Nitrogen 17 mg/dL (7-18) Creatinine 0.8 MG/DL (0.55-1.30) Estimat Glomerular Filtration Rate mL/min (>60) Glucose Level 94 MG/DL (74-106) Calcium Level 9.1 MG/DL (8.5-10.1) Vancomycin Level Trough 14.6 ug/mL (5.0-12.0) H Microbiology Date/Time Source Procedure Growth Status 01/20/18 08:50 Blood Blood Culture - Preliminary NO GROWTH AFTER 48 HOURS Resulted 01/20/18 08:30 Blood Blood Culture - Preliminary NO GROWTH AFTER 48 HOURS Resulted 01/20/18 06:01 Nasal Nares Right MRSA Culture - Final NO METHICILLIN RESISTANT STAPH AUREUS... Complete 01/20/18 06:45 Urine,Clean Catch Urine Culture - Final Proteus Mirabilis Citrobacter Braakii Complete 01/20/18 06:01 Rectum VRE Culture - Final Enterococcus Faecium - Vre Complete 01/20/18 06:01 Rectum - Final NO CARBAPENEM-RESISTANT ENTEROBACTERI... Complete Intake and Output 01/21/18 01/22/18 19:00 07:00 Intake Total 806.6 ml Output Total 800 ml Balance 806.6 ml -800 ml IV Total 806.6 ml Output Urine Total 800 ml Objective General Appearance: WD/WN, alert, thin EENT: PERRL/EOMI, normal ENT inspection, TMs normal Neck: non-tender, normal alignment, supple Cardiovascular: normal peripheral pulses, normal rate, regular rhythm, no gallop/murmur, no JVD Respiratory/Chest: chest wall non-tender, lungs clear, normal breath sounds, no respiratory distress, no accessory muscle use Abdomen: normal bowel sounds, non tender, soft, no organomegaly, no mass, abnormal bowel sounds Extremities: normal range of motion, non-tender 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 Continue cefepime per ID (2) HTN (hypertension) (3) BPH (benign prostatic hyperplasia) (4) Peripheral vascular disease Assessment & Plan: Left foot. Await arterial doppler-see podiatry consult. (5) Osteomyelitis of toe of left foot Assessment & Plan: Await MRI left foot-see podiatry note. Status: not improved Amadou Machado MD Jan 22, 2018 13:03
--- NOTE | 2018-01-22 13:38 | Infectious Diseases Prog Note ---
Assessment/Plan Assessment/Plan 72 yo male with PMHx presented the ED today with abdominal pain and poor appetite # Porabable 2nd toe ( Lt ) osteo XR : Destructive changes of the second toe involving the distal, middle and likely the distal aspect of the proximal phalanx. Findings are worrisome for osteomyelitis. # Probable Sepsis # UTI Positive UA Cultures: Citrobacter ( ? Amp C ) and P Mirabilis #Abd Pain No evidence for abscess or other infection on CT Constipation?, UTI? # Afebrile # leukocytosis , Sp #HTN #CVA PLAN: - Continue Cefepime and Vancomycin #2 , - Monitor Cx - Monitor CBC and Temp - Supportive care - MRI of Lt foot - Pod cons dw PCP Subjective Allergies: Uncoded Allergies: CONTRAST MEDIA (Adverse Reaction, Mild, Itching in the area of the neck, 01/20/18) Patient was given specifically Isovue contrast during CT of the abdomen, and when he came back. The patient was itchy and benadryl was given, no complaints of itchiness or adverse reactions so far. Subjective Afebrile Objective Vital Signs Last 24 Hour Vital Signs Date Time Temp Pulse Resp B/P (MAP) Pulse Ox O2 Delivery O2 Flow Rate FiO2 01/22/18 09:53 98.2 01/22/18 09:00 Room Air 01/22/18 08:54 98.2 01/22/18 08:00 98.1 73 18 132/71 (91) 96 98.1 01/22/18 07:43 89 18 Room Air 21 01/22/18 04:00 98.2 75 19 138/70 (92) 96 98.2 01/22/18 00:00 99.0 81 18 120/69 (86) 93 99.0 01/21/18 21:00 Room Air 01/21/18 20:00 99.9 79 19 164/87 (112) 95 99.9 01/21/18 16:00 97.8 80 19 153/87 (109) 97 97.8 Height (Feet): 6 Height (Inches): 4.00 Weight (Pounds): 1442 HEENT: atraumatic Respiratory/Chest: normal breath sounds Cardiovascular: regular rhythm Abdomen: no organomegaly Musculoskeletal: other - lt 2nd toe tender , Microbiology Date/Time Source Procedure Growth Status 01/20/18 08:50 Blood Blood Culture - Preliminary NO GROWTH AFTER 48 HOURS Resulted 01/20/18 08:30 Blood Blood Culture - Preliminary NO GROWTH AFTER 48 HOURS Resulted 01/20/18 06:01 Nasal Nares Right MRSA Culture - Final NO METHICILLIN RESISTANT STAPH AUREUS... Complete 01/20/18 06:45 Urine,Clean Catch Urine Culture - Final Proteus Mirabilis Citrobacter Braakii Complete 01/20/18 06:01 Rectum VRE Culture - Final Enterococcus Faecium - Vre Complete 01/20/18 06:01 Rectum - Final NO CARBAPENEM-RESISTANT ENTEROBACTERI... Complete Laboratory Tests Test 01/22/18 05:40 01/22/18 10:00 White Blood Count 7.6 K/UL (4.8-10.8) Red Blood Count 4.98 M/UL (4.70-6.10) Hemoglobin 13.6 G/DL (14.2-18.0) L Hematocrit 41.4 % (42.0-52.0) L Mean Corpuscular Volume 83 FL (80-99) Mean Corpuscular Hemoglobin 27.3 PG (27.0-31.0) Mean Corpuscular Hemoglobin Concent 32.8 G/DL (32.0-36.0) Red Cell Distribution Width 13.6 % (11.6-14.8) Platelet Count 129 K/UL (150-450) L Mean Platelet Volume 7.9 FL (6.5-10.1) Neutrophils (%) (Auto) 68.1 % (45.0-75.0) Lymphocytes (%) (Auto) 16.8 % (20.0-45.0) L Monocytes (%) (Auto) 9.3 % (1.0-10.0) Eosinophils (%) (Auto) 5.2 % (0.0-3.0) H Basophils (%) (Auto) 0.6 % (0.0-2.0) Sodium Level 137 MMOL/L (136-145) Potassium Level 3.9 MMOL/L (3.5-5.1) Chloride Level 102 MMOL/L (98-107) Carbon Dioxide Level 30 MMOL/L (21-32) Anion Gap 5 mmol/L (5-15) Blood Urea Nitrogen 17 mg/dL (7-18) Creatinine 0.8 MG/DL (0.55-1.30) Estimat Glomerular Filtration Rate mL/min (>60) Glucose Level 94 MG/DL (74-106) Calcium Level 9.1 MG/DL (8.5-10.1) Vancomycin Level Trough 14.6 ug/mL (5.0-12.0) H Current Medications Medications (Trade) Dose Ordered Sig/Edwige Route PRN Reason Start Time Stop Time Status Last Admin Dose Admin Acetaminophen (Tylenol) 650 mg Q4H PRN ORAL fever 01/20/18 08:15 02/19/18 08:14 Acetaminophen/ Hydrocodone Bitart ([place] 5/325) 1 tab Q6H PRN ORAL mild pain (1-3) 01/21/18 21:30 01/28/18 21:29 01/22/18 08:54 Albuterol/ Ipratropium (Albuterol/ Ipratropium) 3 ml EVERY 4 HOURS PRN HHN Shortness of Breath 01/20/18 08:15 01/25/18 08:14 Cefepime HCl 2 gm/ Dextrose 110 ml @ 220 mls/hr EVERY 12 HOURS IV 01/20/18 09:00 01/27/18 08:59 01/22/18 08:39 Docusate Sodium (Colace) 100 mg THREE TIMES A DAY ORAL 01/21/18 13:00 02/20/18 12:59 01/22/18 13:25 Fluoxetine HCl (PROzac) 20 mg DAILY ORAL 01/22/18 09:00 02/21/18 08:59 01/22/18 08:39 Gabapentin (Neurontin) 300 mg BEDTIME ORAL 01/20/18 21:00 02/19/18 20:59 01/21/18 20:39 Heparin Sodium (Porcine) (Heparin 5000 units/ml) 5,000 units EVERY 12 HOURS SUBQ 01/20/18 09:00 02/19/18 08:59 01/21/18 20:42 Iopamidol (Isovue-300 100ml) 100 ml NOW PRN INJ Radiology Procedure 01/20/18 03:45 Lactulose (Cephulac) 10 gm THREE TIMES A DAY ORAL 01/22/18 13:00 02/21/18 12:59 Mineral Oil (Mineral Oil) 30 ml DAILY PRN ORAL Constipation 01/20/18 17:00 02/19/18 16:59 Morphine Sulfate (Morphine Sulfate) 2 mg EVERY 4 HOURS PRN IVP Moderate Pain (Pain Scale 4-6) 01/20/18 08:15 01/27/18 08:14 01/21/18 18:12 Ondansetron HCl (Zofran) 4 mg Q6H PRN IVP Nausea & Vomiting 01/20/18 08:15 02/19/18 08:14 Phenazopyridine HCl (Pyridium) 100 mg DAILY PRN ORAL dysuria 01/20/18 08:15 02/19/18 08:14 Polyethylene Glycol (Miralax) 17 gm BEDTIME ORAL 01/21/18 21:00 02/20/18 20:59 01/21/18 20:39 Polyethylene Glycol (Miralax) 17 gm DAILYPRN PRN ORAL Constipation 01/20/18 08:15 02/19/18 08:14 Tamsulosin HCl (Flomax) 0.4 mg BEDTIME ORAL 01/20/18 21:00 02/19/18 20:59 01/21/18 20:39 Temazepam (Restoril) 15 mg HSPRN PRN ORAL Insomnia 01/20/18 08:15 01/27/18 08:14 Vancomycin HCl (Vanco rx to dose) 1 ea DAILY PRN MISC . 01/22/18 12:45 02/21/18 12:44 Vancomycin HCl 1 gm/Dextrose 275 ml @ 183.3 mls/ hr Q12H IVPB 01/20/18 10:00 01/25/18 09:59 01/22/18 11:23 Victor Hugo Ackerman MD Jan 22, 2018 13:38
--- NOTE | 2018-01-22 14:13 | Diagnostic Imaging Report ---
APPROVED REPORT CPT Code: 46967 Present Symptoms Comments: BILATERAL LEGS PAIN. BILATERAL: Imaging reveals a patent deep venous system bilaterally. There is no evidence of thrombus within the femoral, popliteal or tibial segments. The greater saphenous veins are also within normal limits. Doppler indicates normal spontaneous flow within these segments.
[2018-01-22] MEDS ORDERED: DiphenhydrAMINE 50mg/ml Inj IM PRN (14:30)
[2018-01-22] MEDS ORDERED: Haloperidol 5mg/ml Inj IM PRN (14:30)
[2018-01-22 16:00] VITALS: BP 134/75
[2018-01-22 20:00] VITALS: BP 150/82
[2018-01-22] MEDS: Tamsulosin 0.4mg cap ORAL SCH (22:37)
[2018-01-22] MEDS: Miralax 17gm pkt ORAL SCH (22:37)
[2018-01-23] VITALS: BP 166/91
[2018-01-23 04:00] VITALS: BP 143/76
[2018-01-23 07:50] LABS: BASOPHILS % (AUTO) 0.7 % (0.0-2.0); HEMATOCRIT 44.4 % (42.0-52.0); HEMOGLOBIN 13.8 G/DL (14.2-18.0); LYMPHOCYTES % (AUTO) 14.1 % (20.0-45.0); MEAN CORPUSCULAR VOLUME 84 FL (80-99); MONOCYTES % (AUTO) 12.7 % (1.0-10.0); NEUTROPHILS % (AUTO) 65.5 % (45.0-75.0); PLATELET COUNT 138 K/UL (150-450); RED CELL DISTRIBUTION WIDTH 13.8 % (11.6-14.8); WHITE BLOOD COUNT 6.5 K/UL (4.8-10.8)
[2018-01-23 08:00] VITALS: BP 140/75
[2018-01-23 08:16] LABS: ALANINE AMINOTRANSFERASE 43 U/L (12-78); ALBUMIN 2.7 G/DL (3.4-5.0); ALBUMIN/GLOBULIN RATIO 0.6 (1.0-2.7); ALKALINE PHOSPHATASE 86 U/L (46-116); ANION GAP 5 mmol/L (5-15); ASPARTATE AMINO TRANSFERASE 48 U/L (15-37); BILIRUBIN,TOTAL 0.4 MG/DL (0.2-1.0); BLOOD UREA NITROGEN 17 mg/dL (7-18); CALCIUM 9.6 MG/DL (8.5-10.1); CARBON DIOXIDE 30 MMOL/L (21-32); CHLORIDE 101 MMOL/L (98-107); CREATININE 0.8 MG/DL (0.55-1.30); SODIUM 136 MMOL/L (136-145)
[2018-01-23] MEDS: Docusate 100mg cap ORAL SCH ×3 (09:00→17:34)
[2018-01-23] MEDS: Lactulose 10gm/15ml UDC ORAL SCH ×3 (09:00→17:33)
[2018-01-23] MEDS: Heparin 5000 units/ml inj SUBQ SCH ×2 (09:00→20:42)
[2018-01-23] MEDS: Norco 5mg/325mg tab ORAL PRN ×2 (09:59→17:37)
[2018-01-23] MEDS: Cefepime HCl 2 GM in D5W 110 ML IV SCH ×2 (10:00→20:49)
--- NOTE | 2018-01-23 10:26 | General Progress Note ---
Assessment/Plan Problem List: (1) Abdominal pain ICD Codes: R10.9 - Unspecified abdominal pain SNOMED: 24137434 (2) Fecal impaction ICD Codes: K56.41 - Fecal impaction SNOMED: 33670077 (3) Constipation ICD Codes: K59.00 - Constipation, unspecified SNOMED: 16129285 (4) BPH (benign prostatic hyperplasia) ICD Codes: N40.0 - Enlarged prostate without lower urinary tract symptoms SNOMED: 593497931, 163577611 (5) HTN (hypertension) ICD Codes: I10 - Essential (primary) hypertension SNOMED: 34787138 (6) Cholelithiasis ICD Codes: K80.20 - Calculus of gallbladder without cholecystitis without obstruction SNOMED: 786131593 (7) Pancreatic cyst ICD Codes: K86.2 - Cyst of pancreas SNOMED: 78112784 Assessment/Plan bowel regimen needs out patient fu for possible IPMN fu labs Subjective ROS Limited/Unobtainable: Yes Allergies: Uncoded Allergies: CONTRAST MEDIA (Adverse Reaction, Mild, Itching in the area of the neck, 01/20/18) Patient was given specifically Isovue contrast during CT of the abdomen, and when he came back. The patient was itchy and benadryl was given, no complaints of itchiness or adverse reactions so far. Subjective had BM Objective Last 24 Hour Vital Signs Date Time Temp Pulse Resp B/P (MAP) Pulse Ox O2 Delivery O2 Flow Rate FiO2 01/23/18 09:59 98.7 01/23/18 04:00 98.7 78 18 143/76 (98) 95 98.7 01/23/18 00:00 98.2 72 20 166/91 (116) 93 98.2 01/22/18 21:00 Room Air 01/22/18 20:00 99.1 77 20 150/82 (104) 94 99.1 01/22/18 19:09 82 16 Room Air 21 01/22/18 16:00 98.1 81 20 134/75 (94) 96 98.1 01/22/18 15:44 98.1 01/22/18 14:45 98.0 01/22/18 12:00 98.0 86 19 150/78 (102) 96 98.0 Intake and Output 01/22/18 01/23/18 19:00 07:00 Intake Total 1300 ml 385.0 ml Output Total 1800 ml Balance 1300 ml -1415.0 ml Intake Oral 1300 ml IV Total 385.0 ml Output Urine Total 1800 ml Laboratory Tests 01/22/18 15:30: Urine Opiates Screen PositiveH, Urine Barbiturates Screen Negative, Phencyclidine (PCP) Screen Negative, Urine Amphetamines Screen Negative, Urine Benzodiazepines Screen Negative, Urine Cocaine Screen PositiveH, Urine Marijuana (THC) Screen Negative 01/23/18 06:15: White Blood Count 6.5, Red Blood Count 5.30, Hemoglobin 13.8L, Hematocrit 44.4, Mean Corpuscular Volume 84, Mean Corpuscular Hemoglobin 26.1L, Mean Corpuscular Hemoglobin Concent 31.2L, Red Cell Distribution Width 13.8, Platelet Count 138L , Mean Platelet Volume 7.9, Neutrophils (%) (Auto) 65.5, Lymphocytes (%) (Auto) 14.1L, Monocytes (%) (Auto) 12.7H, Eosinophils (%) (Auto) 7.0H, Basophils (%) ( Auto) 0.7, Sodium Level 136, Potassium Level 4.0, Chloride Level 101, Carbon Dioxide Level 30, Anion Gap 5, Blood Urea Nitrogen 17, Creatinine 0.8, Estimat Glomerular Filtration Rate , Glucose Level 96, Calcium Level 9.6, Total Bilirubin 0.4, Aspartate Amino Transf (AST/SGOT) 48H, Alanine Aminotransferase ( ALT/SGPT) 43, Alkaline Phosphatase 86, Total Protein 7.4, Albumin 2.7L, Globulin 4.7, Albumin/Globulin Ratio 0.6L, Carcinoembryonic Antigen [Pending], CA 19-9 Antigen [Pending] Height (Feet): 6 Height (Inches): 4.00 Weight (Pounds): 1442 General Appearance: alert EENT: PERRL/EOMI Neck: supple Cardiovascular: normal rate Respiratory/Chest: decreased breath sounds Abdomen: normal bowel sounds, non tender, soft Extremities: non-tender Kenneth Link MD Jan 23, 2018 10:26
[2018-01-23 12:00] VITALS: BP 127/67
[2018-01-23] MEDS: Vancomycin 1 GM in D5W 275 ML IVPB SCH ×2 (12:25→22:31)
--- NOTE | 2018-01-23 14:00 | Internal Med Progress Note ---
Subjective Date of Service: Jan 23, 2018 Physician Name Amadou Machado Attending Physician Mike Baez MD Current Medications Medications (Trade) Dose Ordered Sig/Edwige Route PRN Reason Start Time Stop Time Status Last Admin Dose Admin Acetaminophen (Tylenol) 650 mg Q4H PRN ORAL fever 01/20/18 08:15 02/19/18 08:14 Acetaminophen/ Hydrocodone Bitart ([place] 5/325) 1 tab Q6H PRN ORAL mild pain (1-3) 01/21/18 21:30 01/28/18 21:29 01/23/18 09:59 Albuterol/ Ipratropium (Albuterol/ Ipratropium) 3 ml EVERY 4 HOURS PRN HHN Shortness of Breath 01/20/18 08:15 01/25/18 08:14 Cefepime HCl 2 gm/ Dextrose 110 ml @ 220 mls/hr EVERY 12 HOURS IV 01/20/18 09:00 01/27/18 08:59 01/23/18 10:00 Docusate Sodium (Colace) 100 mg THREE TIMES A DAY ORAL 01/21/18 13:00 02/20/18 12:59 01/22/18 13:25 Fluoxetine HCl (PROzac) 20 mg DAILY ORAL 01/22/18 09:00 02/21/18 08:59 01/23/18 09:59 Gabapentin (Neurontin) 300 mg BEDTIME ORAL 01/20/18 21:00 02/19/18 20:59 01/22/18 22:38 Heparin Sodium (Porcine) (Heparin 5000 units/ml) 5,000 units EVERY 12 HOURS SUBQ 01/20/18 09:00 02/19/18 08:59 01/21/18 20:42 Iopamidol (Isovue-300 100ml) 100 ml NOW PRN INJ Radiology Procedure 01/20/18 03:45 Lactulose (Cephulac) 10 gm THREE TIMES A DAY ORAL 01/22/18 13:00 02/21/18 12:59 Mineral Oil (Mineral Oil) 30 ml DAILY PRN ORAL Constipation 01/20/18 17:00 02/19/18 16:59 Morphine Sulfate (Morphine Sulfate) 2 mg EVERY 4 HOURS PRN IVP Moderate Pain (Pain Scale 4-6) 01/20/18 08:15 01/27/18 08:14 01/21/18 18:12 Ondansetron HCl (Zofran) 4 mg Q6H PRN IVP Nausea & Vomiting 01/20/18 08:15 02/19/18 08:14 Phenazopyridine HCl (Pyridium) 100 mg DAILY PRN ORAL dysuria 01/20/18 08:15 02/19/18 08:14 Polyethylene Glycol (Miralax) 17 gm BEDTIME ORAL 01/21/18 21:00 02/20/18 20:59 01/22/18 22:37 Polyethylene Glycol (Miralax) 17 gm DAILYPRN PRN ORAL Constipation 01/20/18 08:15 02/19/18 08:14 Tamsulosin HCl (Flomax) 0.4 mg BEDTIME ORAL 01/20/18 21:00 02/19/18 20:59 01/22/18 22:37 Temazepam (Restoril) 15 mg HSPRN PRN ORAL Insomnia 01/20/18 08:15 01/27/18 08:14 01/22/18 22:48 Vancomycin HCl (Vanco rx to dose) 1 ea DAILY PRN MISC Per rx protocol 01/22/18 15:30 02/21/18 15:29 Vancomycin HCl 1 gm/Dextrose 275 ml @ 183.3 mls/ hr Q12H IVPB 01/22/18 22:00 01/27/18 21:59 01/23/18 12:25 Allergies: Uncoded Allergies: CONTRAST MEDIA (Adverse Reaction, Mild, Itching in the area of the neck, 01/20/18) Patient was given specifically Isovue contrast during CT of the abdomen, and when he came back. The patient was itchy and benadryl was given, no complaints of itchiness or adverse reactions so far. ROS Limited/Unobtainable: No Constitutional: Reports: no symptoms HEENT: Reports: no symptoms Cardiovascular: Reports: no symptoms Respiratory: Reports: no symptoms Gastrointestinal/Abdominal: Reports: no symptoms Genitourinary: Reports: no symptoms Neurologic/Psychiatric: Reports: no symptoms Subjective 72 YO M admitted with abdominal pain. Now UTI and osteomyelitis left 2nd toe. Cover for Int Jarod-Dr Baez. Objective Last Vital Signs Date Time Temp Pulse Resp B/P (MAP) Pulse Ox O2 Delivery O2 Flow Rate FiO2 01/23/18 12:00 98.0 72 18 127/67 (87) 97 98.0 01/23/18 09:00 Room Air 01/22/18 19:09 21 Laboratory Tests Test 01/22/18 15:30 01/23/18 06:15 Urine Opiates Screen Positive (NEGATIVE) H Urine Barbiturates Screen Negative (NEGATIVE) Phencyclidine (PCP) Screen Negative (NEGATIVE) Urine Amphetamines Screen Negative (NEGATIVE) Urine Benzodiazepines Screen Negative (NEGATIVE) Urine Cocaine Screen Positive (NEGATIVE) H Urine Marijuana (THC) Screen Negative (NEGATIVE) White Blood Count 6.5 K/UL (4.8-10.8) Red Blood Count 5.30 M/UL (4.70-6.10) Hemoglobin 13.8 G/DL (14.2-18.0) L Hematocrit 44.4 % (42.0-52.0) Mean Corpuscular Volume 84 FL (80-99) Mean Corpuscular Hemoglobin 26.1 PG (27.0-31.0) L Mean Corpuscular Hemoglobin Concent 31.2 G/DL (32.0-36.0) L Red Cell Distribution Width 13.8 % (11.6-14.8) Platelet Count 138 K/UL (150-450) L Mean Platelet Volume 7.9 FL (6.5-10.1) Neutrophils (%) (Auto) 65.5 % (45.0-75.0) Lymphocytes (%) (Auto) 14.1 % (20.0-45.0) L Monocytes (%) (Auto) 12.7 % (1.0-10.0) H Eosinophils (%) (Auto) 7.0 % (0.0-3.0) H Basophils (%) (Auto) 0.7 % (0.0-2.0) Sodium Level 136 MMOL/L (136-145) Potassium Level 4.0 MMOL/L (3.5-5.1) Chloride Level 101 MMOL/L (98-107) Carbon Dioxide Level 30 MMOL/L (21-32) Anion Gap 5 mmol/L (5-15) Blood Urea Nitrogen 17 mg/dL (7-18) Creatinine 0.8 MG/DL (0.55-1.30) Estimat Glomerular Filtration Rate mL/min (>60) Glucose Level 96 MG/DL (74-106) Calcium Level 9.6 MG/DL (8.5-10.1) Total Bilirubin 0.4 MG/DL (0.2-1.0) Aspartate Amino Transf (AST/SGOT) 48 U/L (15-37) H Alanine Aminotransferase (ALT/SGPT) 43 U/L (12-78) Alkaline Phosphatase 86 U/L (46-116) Total Protein 7.4 G/DL (6.4-8.2) Albumin 2.7 G/DL (3.4-5.0) L Globulin 4.7 g/dL Albumin/Globulin Ratio 0.6 (1.0-2.7) L Carcinoembryonic Antigen Pending CA 19-9 Antigen Pending Intake and Output 01/22/18 01/23/18 19:00 07:00 Intake Total 1300 ml 385.0 ml Output Total 1800 ml Balance 1300 ml -1415.0 ml Intake Oral 1300 ml IV Total 385.0 ml Output Urine Total 1800 ml Objective General Appearance: WD/WN, alert, thin EENT: PERRL/EOMI, normal ENT inspection, TMs normal Neck: non-tender, normal alignment, supple Cardiovascular: normal peripheral pulses, normal rate, regular rhythm, no gallop/murmur, no JVD Respiratory/Chest: chest wall non-tender, lungs clear, normal breath sounds, no respiratory distress, no accessory muscle use Abdomen: normal bowel sounds, non tender, soft, no organomegaly, no mass, abnormal bowel sounds Extremities: normal range of motion, non-tender 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 Continue cefepime per ID (2) HTN (hypertension) (3) BPH (benign prostatic hyperplasia) (4) Peripheral vascular disease Assessment & Plan: Left foot. Await arterial doppler-see podiatry consult. (5) Osteomyelitis of toe of left foot Assessment & Plan: Await MRI left foot-see podiatry note. Status: not improved Amadou Machado MD Jan 23, 2018 14:00
--- NOTE | 2018-01-23 15:02 | Pulmonology Progress Note ---
Assessment/Plan Problems: (1) Osteomyelitis of toe of left foot (2) COPD (chronic obstructive pulmonary disease) (3) Chronic indwelling Helm catheter (4) UTI (urinary tract infection) (5) BPH (benign prostatic hyperplasia) (6) Methamphetamine abuse (7) CVA (cerebral infarction) (8) HTN (hypertension) (9) Severe protein-calorie malnutrition Assessment/Plan MRI pending, Xr showing destructive process in 2 toe check electroltyes check cultures iv abx social worker clinical working on placement Subjective ROS Limited/Unobtainable: No Constitutional: Reports: no symptoms HEENT: Repors: no symptoms Allergies: Uncoded Allergies: CONTRAST MEDIA (Adverse Reaction, Mild, Itching in the area of the neck, 01/20/18) Patient was given specifically Isovue contrast during CT of the abdomen, and when he came back. The patient was itchy and benadryl was given, no complaints of itchiness or adverse reactions so far. Objective Last 24 Hour Vital Signs Date Time Temp Pulse Resp B/P (MAP) Pulse Ox O2 Delivery O2 Flow Rate FiO2 01/23/18 12:00 98.0 72 18 127/67 (87) 97 98.0 01/23/18 10:58 98.7 01/23/18 09:59 98.7 01/23/18 09:00 Room Air 01/23/18 08:00 98.3 80 18 140/75 (96) 96 98.3 01/23/18 04:00 98.7 78 18 143/76 (98) 95 98.7 01/23/18 00:00 98.2 72 20 166/91 (116) 93 98.2 01/22/18 21:00 Room Air 01/22/18 20:00 99.1 77 20 150/82 (104) 94 99.1 01/22/18 19:09 82 16 Room Air 21 01/22/18 16:00 98.1 81 20 134/75 (94) 96 98.1 Intake and Output 01/22/18 01/23/18 18:59 06:59 Intake Total 1300 ml 385.0 ml Output Total 1800 ml Balance 1300 ml -1415.0 ml Intake Oral 1300 ml IV Total 385.0 ml Output Urine Total 1800 ml General Appearance: cachetic HEENT: normocephalic, atraumatic Respiratory/Chest: chest wall non-tender, lungs clear Cardiovascular: normal peripheral pulses, normal rate Abdomen: normal bowel sounds, soft, non tender Genitourinary: normal external genitalia Extremities: no cyanosis Skin: no rash 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 Laboratory Tests 01/22/18 15:30: Urine Opiates Screen PositiveH, Urine Barbiturates Screen Negative, Phencyclidine (PCP) Screen Negative, Urine Amphetamines Screen Negative, Urine Benzodiazepines Screen Negative, Urine Cocaine Screen PositiveH, Urine Marijuana (THC) Screen Negative 01/23/18 06:15: White Blood Count 6.5, Red Blood Count 5.30, Hemoglobin 13.8L, Hematocrit 44.4, Mean Corpuscular Volume 84, Mean Corpuscular Hemoglobin 26.1L, Mean Corpuscular Hemoglobin Concent 31.2L, Red Cell Distribution Width 13.8, Platelet Count 138L , Mean Platelet Volume 7.9, Neutrophils (%) (Auto) 65.5, Lymphocytes (%) (Auto) 14.1L, Monocytes (%) (Auto) 12.7H, Eosinophils (%) (Auto) 7.0H, Basophils (%) ( Auto) 0.7, Sodium Level 136, Potassium Level 4.0, Chloride Level 101, Carbon Dioxide Level 30, Anion Gap 5, Blood Urea Nitrogen 17, Creatinine 0.8, Estimat Glomerular Filtration Rate , Glucose Level 96, Calcium Level 9.6, Total Bilirubin 0.4, Aspartate Amino Transf (AST/SGOT) 48H, Alanine Aminotransferase ( ALT/SGPT) 43, Alkaline Phosphatase 86, Total Protein 7.4, Albumin 2.7L, Globulin 4.7, Albumin/Globulin Ratio 0.6L, Carcinoembryonic Antigen [Pending], CA 19-9 Antigen [Pending] Current Medications Medications (Trade) Dose Ordered Sig/Edwige Route PRN Reason Start Time Stop Time Status Last Admin Dose Admin Acetaminophen (Tylenol) 650 mg Q4H PRN ORAL fever 01/20/18 08:15 02/19/18 08:14 Acetaminophen/ Hydrocodone Bitart ([place] 5/325) 1 tab Q6H PRN ORAL mild pain (1-3) 01/21/18 21:30 01/28/18 21:29 01/23/18 09:59 Albuterol/ Ipratropium (Albuterol/ Ipratropium) 3 ml EVERY 4 HOURS PRN HHN Shortness of Breath 01/20/18 08:15 01/25/18 08:14 Cefepime HCl 2 gm/ Dextrose 110 ml @ 220 mls/hr EVERY 12 HOURS IV 01/20/18 09:00 01/27/18 08:59 01/23/18 10:00 Docusate Sodium (Colace) 100 mg THREE TIMES A DAY ORAL 01/21/18 13:00 02/20/18 12:59 01/22/18 13:25 Fluoxetine HCl (PROzac) 20 mg DAILY ORAL 01/22/18 09:00 02/21/18 08:59 01/23/18 09:59 Gabapentin (Neurontin) 300 mg BEDTIME ORAL 01/20/18 21:00 02/19/18 20:59 01/22/18 22:38 Heparin Sodium (Porcine) (Heparin 5000 units/ml) 5,000 units EVERY 12 HOURS SUBQ 01/20/18 09:00 02/19/18 08:59 01/21/18 20:42 Iopamidol (Isovue-300 100ml) 100 ml NOW PRN INJ Radiology Procedure 01/20/18 03:45 Lactulose (Cephulac) 10 gm THREE TIMES A DAY ORAL 01/22/18 13:00 02/21/18 12:59 Mineral Oil (Mineral Oil) 30 ml DAILY PRN ORAL Constipation 01/20/18 17:00 02/19/18 16:59 Morphine Sulfate (Morphine Sulfate) 2 mg EVERY 4 HOURS PRN IVP Moderate Pain (Pain Scale 4-6) 01/20/18 08:15 01/27/18 08:14 01/21/18 18:12 Ondansetron HCl (Zofran) 4 mg Q6H PRN IVP Nausea & Vomiting 01/20/18 08:15 02/19/18 08:14 Phenazopyridine HCl (Pyridium) 100 mg DAILY PRN ORAL dysuria 01/20/18 08:15 02/19/18 08:14 Polyethylene Glycol (Miralax) 17 gm BEDTIME ORAL 01/21/18 21:00 02/20/18 20:59 01/22/18 22:37 Polyethylene Glycol (Miralax) 17 gm DAILYPRN PRN ORAL Constipation 01/20/18 08:15 02/19/18 08:14 Tamsulosin HCl (Flomax) 0.4 mg BEDTIME ORAL 01/20/18 21:00 02/19/18 20:59 01/22/18 22:37 Temazepam (Restoril) 15 mg HSPRN PRN ORAL Insomnia 01/20/18 08:15 01/27/18 08:14 01/22/18 22:48 Vancomycin HCl (Vanco rx to dose) 1 ea DAILY PRN MISC Per rx protocol 01/22/18 15:30 02/21/18 15:29 Vancomycin HCl 1 gm/Dextrose 275 ml @ 183.3 mls/ hr Q12H IVPB 01/22/18 22:00 01/27/18 21:59 01/23/18 12:25 Tammy Noble MD Jan 23, 2018 15:02
[2018-01-23 16:00] VITALS: BP 125/68
[2018-01-23 20:00] VITALS: BP 143/80
[2018-01-23] MEDS: Tamsulosin 0.4mg cap ORAL SCH (20:40)
[2018-01-23] MEDS: Miralax 17gm pkt ORAL SCH (20:41)
[2018-01-24 04:00] VITALS: BP 144/78
[2018-01-24 05:56] LABS: BASOPHILS % (AUTO) 0.9 % (0.0-2.0); EOSINOPHILS % (AUTO) 7.7 % (0.0-3.0); HEMATOCRIT 43.1 % (42.0-52.0); HEMOGLOBIN 13.8 G/DL (14.2-18.0); LYMPHOCYTES % (AUTO) 17.1 % (20.0-45.0); MEAN CORPUSCULAR VOLUME 83 FL (80-99); MONOCYTES % (AUTO) 17.5 % (1.0-10.0); NEUTROPHILS % (AUTO) 56.9 % (45.0-75.0); PLATELET COUNT 137 K/UL (150-450); RED BLOOD COUNT 5.18 M/UL (4.70-6.10); RED CELL DISTRIBUTION WIDTH 13.9 % (11.6-14.8); WHITE BLOOD COUNT 6.2 K/UL (4.8-10.8)
[2018-01-24 06:11] LABS: ANION GAP 4 mmol/L (5-15); BLOOD UREA NITROGEN 16 mg/dL (7-18); CALCIUM 9.2 MG/DL (8.5-10.1); CARBON DIOXIDE 30 MMOL/L (21-32); CHLORIDE 101 MMOL/L (98-107); CREATININE 0.8 MG/DL (0.55-1.30); POTASSIUM 4.1 MMOL/L (3.5-5.1); SODIUM 135 MMOL/L (136-145)
[2018-01-24] MEDS: Lactulose 10gm/15ml UDC ORAL SCH ×3 (08:21→13:00)
[2018-01-24] MEDS: Cefepime HCl 2 GM in D5W 110 ML IV SCH (08:21)
[2018-01-24] MEDS: Docusate 100mg cap ORAL SCH ×3 (08:22→13:00)
[2018-01-24] MEDS: Norco 5mg/325mg tab ORAL PRN (08:22)
[2018-01-24 08:52] VITALS: BP 140/73
[2018-01-24] MEDS: Heparin 5000 units/ml inj SUBQ SCH (09:00)
[2018-01-24] MEDS: Vancomycin 1 GM in D5W 275 ML IVPB SCH (10:07)
--- NOTE | 2018-01-24 10:17 | GI Progress Note ---
Assessment/Plan Problems: (1) Pancreatic cyst ICD Codes: K86.2 - Cyst of pancreas SNOMED: 51867855 (2) Abdominal pain ICD Codes: R10.9 - Unspecified abdominal pain SNOMED: 39754296 (3) Fecal impaction ICD Codes: K56.41 - Fecal impaction SNOMED: 88183563 (4) Constipation ICD Codes: K59.00 - Constipation, unspecified SNOMED: 69311250 (5) Severe protein-calorie malnutrition ICD Codes: E43 - Unspecified severe protein-calorie malnutrition SNOMED: 233767297 Status: stable Status Narrative Discussed with Dr. Link. Assessment/Plan okay for DC per GI standpoint symptomatic treatment regular diet, tolerating bowel regime GI cocktail prn for abdominal discomfort abx electrolyte correction zofran prn needs outpatient EUS for 2mm IPMN Subjective Gastrointestinal/Abdominal: Reports: no symptoms Objective Last 24 Hour Vital Signs Date Time Temp Pulse Resp B/P (MAP) Pulse Ox O2 Delivery O2 Flow Rate FiO2 01/24/18 09:00 Room Air 01/24/18 08:52 79 20 Room Air 21 01/24/18 08:52 97.9 77 20 140/73 (95) 98 97.9 01/24/18 04:00 98.6 65 18 144/78 (100) 96 98.6 01/23/18 21:15 72 16 Room Air 21 01/23/18 21:00 Room Air 01/23/18 20:00 98.8 69 18 143/80 (101) 96 98.8 01/23/18 18:36 98.0 01/23/18 17:37 98.0 01/23/18 16:00 98.0 100 18 125/68 (87) 97 98.0 01/23/18 12:00 98.0 72 18 127/67 (87) 97 98.0 Intake and Output 01/23/18 01/24/18 19:00 07:00 Intake Total 1200 ml 1066.6 ml Output Total 1500 ml 1900 ml Balance -300 ml -833.4 ml Intake Oral 1200 ml 480 ml IV Total 586.6 ml Output Urine Total 1500 ml 1900 ml # Voids 1 Laboratory Tests Test 01/24/18 05:30 White Blood Count 6.2 K/UL (4.8-10.8) Red Blood Count 5.18 M/UL (4.70-6.10) Hemoglobin 13.8 G/DL (14.2-18.0) L Hematocrit 43.1 % (42.0-52.0) Mean Corpuscular Volume 83 FL (80-99) Mean Corpuscular Hemoglobin 26.7 PG (27.0-31.0) L Mean Corpuscular Hemoglobin Concent 32.0 G/DL (32.0-36.0) Red Cell Distribution Width 13.9 % (11.6-14.8) Platelet Count 137 K/UL (150-450) L Mean Platelet Volume 8.0 FL (6.5-10.1) Neutrophils (%) (Auto) 56.9 % (45.0-75.0) Lymphocytes (%) (Auto) 17.1 % (20.0-45.0) L Monocytes (%) (Auto) 17.5 % (1.0-10.0) H Eosinophils (%) (Auto) 7.7 % (0.0-3.0) H Basophils (%) (Auto) 0.9 % (0.0-2.0) Sodium Level 135 MMOL/L (136-145) L Potassium Level 4.1 MMOL/L (3.5-5.1) Chloride Level 101 MMOL/L (98-107) Carbon Dioxide Level 30 MMOL/L (21-32) Anion Gap 4 mmol/L (5-15) L Blood Urea Nitrogen 16 mg/dL (7-18) Creatinine 0.8 MG/DL (0.55-1.30) Estimat Glomerular Filtration Rate mL/min (>60) Glucose Level 99 MG/DL (74-106) Calcium Level 9.2 MG/DL (8.5-10.1) Height (Feet): 6 Height (Inches): 4.00 Weight (Pounds): 1442 General Appearance: WD/WN, no apparent distress, alert, thin Cardiovascular: normal rate Respiratory/Chest: normal breath sounds, no respiratory distress Abdominal Exam: normal bowel sounds, non tender, soft Extremities: normal range of motion, non-tender Luis Madera NP Jan 24, 2018 10:17
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
--- NOTE | 2018-01-24 11:01 | Infectious Diseases Prog Note ---
Assessment/Plan Assessment/Plan 72 yo male with PMHx presented the ED today with abdominal pain and poor appetite # Porabable 2nd toe ( Lt ) osteo XR : Destructive changes of the second toe involving the distal, middle and likely the distal aspect of the proximal phalanx. Findings are worrisome for osteomyelitis. # Probable Sepsis # UTI Positive UA Cultures: Citrobacter ( ? Amp C ) and P Mirabilis #Abd Pain No evidence for abscess or other infection on CT Constipation?, UTI? # Afebrile # leukocytosis , Sp #HTN #CVA PLAN: - Continue Cefepime and Vancomycin #2 , - Monitor Cx - Monitor CBC and Temp - Supportive care - MRI of Lt foot - f/u Pod cons dw PCP Dr. Machado Subjective Allergies: Uncoded Allergies: CONTRAST MEDIA (Adverse Reaction, Mild, Itching in the area of the neck, 01/20/18) Patient was given specifically Isovue contrast during CT of the abdomen, and when he came back. The patient was itchy and benadryl was given, no complaints of itchiness or adverse reactions so far. Subjective No acute events, Says his 2nf left toe still hurts. Had purulent drainage from this toe in the past. But it healed quite a while ago and now just hurts. Afebrile overnight Objective Vital Signs Last 24 Hour Vital Signs Date Time Temp Pulse Resp B/P (MAP) Pulse Ox O2 Delivery O2 Flow Rate FiO2 01/24/18 09:00 Room Air 01/24/18 08:52 79 20 Room Air 21 01/24/18 08:52 97.9 77 20 140/73 (95) 98 97.9 01/24/18 04:00 98.6 65 18 144/78 (100) 96 98.6 01/23/18 21:15 72 16 Room Air 21 01/23/18 21:00 Room Air 01/23/18 20:00 98.8 69 18 143/80 (101) 96 98.8 01/23/18 18:36 98.0 01/23/18 17:37 98.0 01/23/18 16:00 98.0 100 18 125/68 (87) 97 98.0 01/23/18 12:00 98.0 72 18 127/67 (87) 97 98.0 Height (Feet): 6 Height (Inches): 4.00 Weight (Pounds): 1442 Objective Gen:~ NAD, Thin male, HEENT: NCAT, MMM, EOMI, injection B/L, Poor dentition.~ LUNGS: CTAB, No W/C, No Accessory muscle use CARDS: RRR, S1, S2, No M/R/G, ABD: Soft, Tender diffusely, ND, No R/G, + BS, No HSM, No Masses Ext: C/C/E, Pulses 2+ B/L (DP, Rad), Left first to amp. Foot with generalized pain. and second toe swollen. No wounds NEURO: A/O x 4, Strength and Sensation Grossly intact SKIN:~ warm/dry, No rashes, no ulcers Microbiology Date/Time Source Procedure Growth Status 01/22/18 15:30 Indwelling Cath Urine Culture - Preliminary NO GROWTH Resulted Laboratory Tests Test 01/24/18 05:30 White Blood Count 6.2 K/UL (4.8-10.8) Red Blood Count 5.18 M/UL (4.70-6.10) Hemoglobin 13.8 G/DL (14.2-18.0) L Hematocrit 43.1 % (42.0-52.0) Mean Corpuscular Volume 83 FL (80-99) Mean Corpuscular Hemoglobin 26.7 PG (27.0-31.0) L Mean Corpuscular Hemoglobin Concent 32.0 G/DL (32.0-36.0) Red Cell Distribution Width 13.9 % (11.6-14.8) Platelet Count 137 K/UL (150-450) L Mean Platelet Volume 8.0 FL (6.5-10.1) Neutrophils (%) (Auto) 56.9 % (45.0-75.0) Lymphocytes (%) (Auto) 17.1 % (20.0-45.0) L Monocytes (%) (Auto) 17.5 % (1.0-10.0) H Eosinophils (%) (Auto) 7.7 % (0.0-3.0) H Basophils (%) (Auto) 0.9 % (0.0-2.0) Sodium Level 135 MMOL/L (136-145) L Potassium Level 4.1 MMOL/L (3.5-5.1) Chloride Level 101 MMOL/L (98-107) Carbon Dioxide Level 30 MMOL/L (21-32) Anion Gap 4 mmol/L (5-15) L Blood Urea Nitrogen 16 mg/dL (7-18) Creatinine 0.8 MG/DL (0.55-1.30) Estimat Glomerular Filtration Rate mL/min (>60) Glucose Level 99 MG/DL (74-106) Calcium Level 9.2 MG/DL (8.5-10.1) Current Medications Medications (Trade) Dose Ordered Sig/Edwige Route PRN Reason Start Time Stop Time Status Last Admin Dose Admin Acetaminophen (Tylenol) 650 mg Q4H PRN ORAL fever 01/20/18 08:15 02/19/18 08:14 Acetaminophen/ Hydrocodone Bitart ([place] 5/325) 1 tab Q6H PRN ORAL mild pain (1-3) 01/21/18 21:30 01/28/18 21:29 01/24/18 08:22 Albuterol/ Ipratropium (Albuterol/ Ipratropium) 3 ml EVERY 4 HOURS PRN HHN Shortness of Breath 01/20/18 08:15 01/25/18 08:14 Cefepime HCl 2 gm/ Dextrose 110 ml @ 220 mls/hr EVERY 12 HOURS IV 01/20/18 09:00 01/27/18 08:59 01/24/18 08:21 Docusate Sodium (Colace) 100 mg THREE TIMES A DAY ORAL 01/21/18 13:00 02/20/18 12:59 01/22/18 13:25 Fluoxetine HCl (PROzac) 20 mg DAILY ORAL 01/22/18 09:00 02/21/18 08:59 01/24/18 08:22 Gabapentin (Neurontin) 300 mg BEDTIME ORAL 01/20/18 21:00 02/19/18 20:59 01/23/18 20:40 Heparin Sodium (Porcine) (Heparin 5000 units/ml) 5,000 units EVERY 12 HOURS SUBQ 01/20/18 09:00 02/19/18 08:59 01/23/18 20:42 Iopamidol (Isovue-300 100ml) 100 ml NOW PRN INJ Radiology Procedure 01/20/18 03:45 Lactulose (Cephulac) 10 gm THREE TIMES A DAY ORAL 01/22/18 13:00 02/21/18 12:59 Mineral Oil (Mineral Oil) 30 ml DAILY PRN ORAL Constipation 01/20/18 17:00 02/19/18 16:59 Morphine Sulfate (Morphine Sulfate) 2 mg EVERY 4 HOURS PRN IVP Moderate Pain (Pain Scale 4-6) 01/20/18 08:15 01/27/18 08:14 01/21/18 18:12 Ondansetron HCl (Zofran) 4 mg Q6H PRN IVP Nausea & Vomiting 01/20/18 08:15 02/19/18 08:14 Phenazopyridine HCl (Pyridium) 100 mg DAILY PRN ORAL dysuria 01/20/18 08:15 02/19/18 08:14 Polyethylene Glycol (Miralax) 17 gm BEDTIME ORAL 01/21/18 21:00 02/20/18 20:59 01/23/18 20:41 Polyethylene Glycol (Miralax) 17 gm DAILYPRN PRN ORAL Constipation 01/20/18 08:15 02/19/18 08:14 Tamsulosin HCl (Flomax) 0.4 mg BEDTIME ORAL 01/20/18 21:00 02/19/18 20:59 01/23/18 20:40 Temazepam (Restoril) 15 mg HSPRN PRN ORAL Insomnia 01/20/18 08:15 01/27/18 08:14 01/22/18 22:48 Vancomycin HCl (Vanco rx to dose) 1 ea DAILY PRN MISC Per rx protocol 01/22/18 15:30 02/21/18 15:29 Vancomycin HCl 1 gm/Dextrose 275 ml @ 183.3 mls/ hr Q12H IVPB 01/22/18 22:00 01/27/18 21:59 01/24/18 10:07 Sanjeev Velez M.D. Jan 24, 2018 11:01
--- NOTE | 2018-01-24 11:31 | Internal Med Progress Note ---
Subjective Date of Service: Jan 24, 2018 Physician Name Amadou Machado Attending Physician Mike Baez MD Current Medications Medications (Trade) Dose Ordered Sig/Edwige Route PRN Reason Start Time Stop Time Status Last Admin Dose Admin Acetaminophen (Tylenol) 650 mg Q4H PRN ORAL fever 01/20/18 08:15 02/19/18 08:14 Acetaminophen/ Hydrocodone Bitart ([place] 5/325) 1 tab Q6H PRN ORAL mild pain (1-3) 01/21/18 21:30 01/28/18 21:29 01/24/18 08:22 Albuterol/ Ipratropium (Albuterol/ Ipratropium) 3 ml EVERY 4 HOURS PRN HHN Shortness of Breath 01/20/18 08:15 01/25/18 08:14 Cefepime HCl 2 gm/ Dextrose 110 ml @ 220 mls/hr EVERY 12 HOURS IV 01/20/18 09:00 01/27/18 08:59 01/24/18 08:21 Docusate Sodium (Colace) 100 mg THREE TIMES A DAY ORAL 01/21/18 13:00 02/20/18 12:59 01/22/18 13:25 Fluoxetine HCl (PROzac) 20 mg DAILY ORAL 01/22/18 09:00 02/21/18 08:59 01/24/18 08:22 Gabapentin (Neurontin) 300 mg BEDTIME ORAL 01/20/18 21:00 02/19/18 20:59 01/23/18 20:40 Heparin Sodium (Porcine) (Heparin 5000 units/ml) 5,000 units EVERY 12 HOURS SUBQ 01/20/18 09:00 02/19/18 08:59 01/23/18 20:42 Iopamidol (Isovue-300 100ml) 100 ml NOW PRN INJ Radiology Procedure 01/20/18 03:45 Lactulose (Cephulac) 10 gm THREE TIMES A DAY ORAL 01/22/18 13:00 02/21/18 12:59 Mineral Oil (Mineral Oil) 30 ml DAILY PRN ORAL Constipation 01/20/18 17:00 02/19/18 16:59 Morphine Sulfate (Morphine Sulfate) 2 mg EVERY 4 HOURS PRN IVP Moderate Pain (Pain Scale 4-6) 01/20/18 08:15 01/27/18 08:14 01/21/18 18:12 Ondansetron HCl (Zofran) 4 mg Q6H PRN IVP Nausea & Vomiting 01/20/18 08:15 02/19/18 08:14 Phenazopyridine HCl (Pyridium) 100 mg DAILY PRN ORAL dysuria 01/20/18 08:15 02/19/18 08:14 Polyethylene Glycol (Miralax) 17 gm BEDTIME ORAL 01/21/18 21:00 02/20/18 20:59 01/23/18 20:41 Polyethylene Glycol (Miralax) 17 gm DAILYPRN PRN ORAL Constipation 01/20/18 08:15 02/19/18 08:14 Tamsulosin HCl (Flomax) 0.4 mg BEDTIME ORAL 01/20/18 21:00 02/19/18 20:59 01/23/18 20:40 Temazepam (Restoril) 15 mg HSPRN PRN ORAL Insomnia 01/20/18 08:15 01/27/18 08:14 01/22/18 22:48 Vancomycin HCl (Vanco rx to dose) 1 ea DAILY PRN MISC Per rx protocol 01/22/18 15:30 02/21/18 15:29 Vancomycin HCl 1 gm/Dextrose 275 ml @ 183.3 mls/ hr Q12H IVPB 01/22/18 22:00 01/27/18 21:59 01/24/18 10:07 Allergies: Uncoded Allergies: CONTRAST MEDIA (Adverse Reaction, Mild, Itching in the area of the neck, 01/20/18) Patient was given specifically Isovue contrast during CT of the abdomen, and when he came back. The patient was itchy and benadryl was given, no complaints of itchiness or adverse reactions so far. ROS Limited/Unobtainable: No Constitutional: Reports: no symptoms HEENT: Reports: no symptoms Cardiovascular: Reports: no symptoms Respiratory: Reports: no symptoms Gastrointestinal/Abdominal: Reports: no symptoms Genitourinary: Reports: no symptoms Neurologic/Psychiatric: Reports: no symptoms Subjective 72 YO M admitted with abdominal pain. Now UTI and osteomyelitis left 2nd toe. Cover for Int Jarod-Dr Baez. Objective Last Vital Signs Date Time Temp Pulse Resp B/P (MAP) Pulse Ox O2 Delivery O2 Flow Rate FiO2 01/24/18 09:00 Room Air 01/24/18 08:52 79 20 21 01/24/18 08:52 97.9 140/73 (95) 98 97.9 Laboratory Tests Test 01/24/18 05:30 White Blood Count 6.2 K/UL (4.8-10.8) Red Blood Count 5.18 M/UL (4.70-6.10) Hemoglobin 13.8 G/DL (14.2-18.0) L Hematocrit 43.1 % (42.0-52.0) Mean Corpuscular Volume 83 FL (80-99) Mean Corpuscular Hemoglobin 26.7 PG (27.0-31.0) L Mean Corpuscular Hemoglobin Concent 32.0 G/DL (32.0-36.0) Red Cell Distribution Width 13.9 % (11.6-14.8) Platelet Count 137 K/UL (150-450) L Mean Platelet Volume 8.0 FL (6.5-10.1) Neutrophils (%) (Auto) 56.9 % (45.0-75.0) Lymphocytes (%) (Auto) 17.1 % (20.0-45.0) L Monocytes (%) (Auto) 17.5 % (1.0-10.0) H Eosinophils (%) (Auto) 7.7 % (0.0-3.0) H Basophils (%) (Auto) 0.9 % (0.0-2.0) Sodium Level 135 MMOL/L (136-145) L Potassium Level 4.1 MMOL/L (3.5-5.1) Chloride Level 101 MMOL/L (98-107) Carbon Dioxide Level 30 MMOL/L (21-32) Anion Gap 4 mmol/L (5-15) L Blood Urea Nitrogen 16 mg/dL (7-18) Creatinine 0.8 MG/DL (0.55-1.30) Estimat Glomerular Filtration Rate mL/min (>60) Glucose Level 99 MG/DL (74-106) Calcium Level 9.2 MG/DL (8.5-10.1) Microbiology Date/Time Source Procedure Growth Status 01/22/18 15:30 Indwelling Cath Urine Culture - Preliminary NO GROWTH Resulted Intake and Output 01/23/18 01/24/18 19:00 07:00 Intake Total 1200 ml 1066.6 ml Output Total 1500 ml 1900 ml Balance -300 ml -833.4 ml Intake Oral 1200 ml 480 ml IV Total 586.6 ml Output Urine Total 1500 ml 1900 ml # Voids 1 Objective General Appearance: WD/WN, alert, thin EENT: PERRL/EOMI, normal ENT inspection, TMs normal Neck: non-tender, normal alignment, supple Cardiovascular: normal peripheral pulses, normal rate, regular rhythm, no gallop/murmur, no JVD Respiratory/Chest: chest wall non-tender, lungs clear, normal breath sounds, no respiratory distress, no accessory muscle use Abdomen: normal bowel sounds, non tender, soft, no organomegaly, no mass, abnormal bowel sounds Extremities: normal range of motion, non-tender Neurologic: workday consultant II-XII grossly normal, no motor/sensory deficits Skin: normal pigmentation, warm/dry Assessment/Plan Problem List: (1) UTI (urinary tract infection) Assessment & Plan: Proteus and citrobacter. Continue cefepime per ID (2) HTN (hypertension) (3) BPH (benign prostatic hyperplasia) (4) Peripheral vascular disease Assessment & Plan: Left foot. Await arterial doppler-see podiatry consult. (5) Osteomyelitis of toe of left foot Assessment & Plan: Await MRI left foot-see podiatry note. Status: stable Amadou Machado MD Jan 24, 2018 11:31
[2018-01-24 12:00] VITALS: BP 131/76
--- NOTE | 2018-01-26 08:25 | Discharge Summary ---
Discharge Summary Discharge Summary _ DATE OF ADMISSION: 01/20/2018 DATE OF DISCHARGE: 01/24/2018. Patient signed AMA REASON FOR ADMISSION: 72 years old homeless male with history of alcohol dependency , drug abuse, hypertension, CVA, coronary artery disease, COPD, BPH, chronic indwelling Helm catheter due to urinary retention, presented to emergency department complaining of abdominal pain. Pain described as sharp,nonradiating ,8 out of 10 ,started few hours ago. Upon evaluation vital signs revealed no fever. Blood pressure was elevated CT of the abdomen revealed no acute abnormalities within the abdomen or pelvis, but it revealed findings consistent with cystitis. Cholelithiasis, but no evidence to suggest acute cholecystitis. Evidence of fecal impaction . Coronary artery disease. 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 Urinalysis with evidence of UTI. No leukocytosis, stable hemoglobin and hematocrit. Stable renal parameters, electrolytes, liver enzymes. Albumin 2.9. Patient admitted with diagnosis of UTI ,hypertension, BPH, COPD, history of CVA. CONSULTANTS: pulmonary Dr. Noble ID specialist Dr. Ackerman GI specialist Dr. Link psychiatrist Urologist Dr. Crowley Academy Director [facility]: Patient admitted. Patient started on empiric antibiotics. Urine culture grew Proteus and Citrobacter. Blood culture were negative. Repeated urine culture negative. Left foot x-ray revealed destructive changes of the second toe with findings worrisome for osteomyelitis. Amputation at the level of the distal first metatarsal. Leucocytosis , presented on Day #2 - 14.1, resolved. No fevers Academy Director seen and evaluated patient . MRI of the left foot was ordered to evaluate extent of osteomyelitis for surgical planning. Patient was continued on antibiotic as per ID specialist recommendations. Patient with history of peripheral arterial disease. Arterial ultrasound of bilateral lower extremity was ordered. Venous duplex bilateral lower extremities revealed no evidence of acute DVT. Per infectious disease specialist ,patient probably had sepsis along with UTI and osteomyelitis. Antibiotics were continued. Urologist seen and evaluated the patient . Patient had a history of BPH and urinary retention, maintained with chronic indwelling Helm catheter. Patient did not follow-up with his primary doctor or urologist . Patient presented at this time with urinary tract infection, presumptively secondary to his catheter . Urologist recommended 7-10 days of antibiotics for urinary tract infection . Urologist personally reviewed CT scan: no hydronephrosis no kidney stones noted , multiple renal cysts. Patient should follow-up as outpatient with urologist regarding Helm catheter and possible intervention for BPH and urinary retention, that he would not have to continue to have Helm catheter and ecurrent urinary tract infection. Supplemental oxygen provided as needed to keep pulse oximetry above 92%. Pulmonary toilet provided as needed. Blood pressure was closely monitored. Flomax continued. DVT prophylaxis provided. GI closely follow. Bowel regimen instituted. Pain management was addressed. Noted elevated cancer tumor markers: CA-19-9- 53 and CEA -7.7. PSA was within normal limits. According to the GI specialist , patient will need outpatient workup for possible IPMN. Urine toxicology screen was positive for cocaine and opiates. Patient was counseled on abstinence from street drugs and alcohol. case worker was involved in the care of this patient for discharge planning. Dietary supplements implemented in plan of care as per cone examiner's recommendation. Psychiatrist seen and evaluated the patient. Psychiatrist diagnosed patient with drug abuse and alcohol dependency. Patient was started on Prozac. Reality orientation and supportive therapy provided. Patient decided to sign against medical advise. The risks and consequences of signing AGAINST MEDICAL ADVICE were discussed with patient in detail. Patient verbalized understanding, nevertheless signed AMA form and left. FINAL DIAGNOSES: Probable sepsis Osteomyelitis left foot second toe Proteus and Citrobacter UTI Hypertension COPD BPH with chronic urinary retention History of CVA COPD Severe protein calorie malnutrition Drug abuse Alcohol dependency Fecal impaction Cholelithiasis Pancreatic cyst, rule out IPMN Peripheral arterial disease I have been assigned to dictate discharge summary for this account. I was not involved in the patient's management. Magdalena Brooke NP Jan 26, 2018 08:25
== END 2018-01-24 12:35 | disposition left against medical advice (07) | DRG 720 ==
LOC: EDBD 03:19 → EMR 05:30 → 4E 06:20 → EDBEDREQ 06:32 → OBSVTOIN 08:14 → 4E 10:25
DX: A41.9 Sepsis, unspecified organism (principal); E43 Unspecified severe protein-calorie malnutrition; N39.0 Urinary tract infection, site not specified; J44.9 Chronic obstructive pulmonary disease, unspecified; K86.2 Cyst of pancreas; R10.9 Unspecified abdominal pain; M86.8X7 Other osteomyelitis, ankle and foot; Z68.1 Body mass index [BMI] 19.9 or less, adult; F15.10 Other stimulant abuse, uncomplicated; Z86.73 Personal history of transient ischemic attack (TIA), and cerebral infarction without residual deficits; I10 Essential (primary) hypertension; Z91.041 Radiographic dye allergy status; F10.20 Alcohol dependence, uncomplicated; K52.9 Noninfective gastroenteritis and colitis, unspecified; F14.10 Cocaine abuse, uncomplicated; Z59.0 Homelessness; N40.1 Benign prostatic hyperplasia with lower urinary tract symptoms; R33.8 Other retention of urine; F17.200 Nicotine dependence, unspecified, uncomplicated; I73.9 Peripheral vascular disease, unspecified; Z89.412 Acquired absence of left great toe; K80.20 Calculus of gallbladder without cholecystitis without obstruction; B96.4 Proteus (mirabilis) (morganii) as the cause of diseases classified elsewhere; B96.89 Other specified bacterial agents as the cause of diseases classified elsewhere; K56.41 Fecal impaction
CPT/HCPCS: 36415; 74177; 80048; 80053; 80202; 80307; 81003; 82378; 83690; 84153; 84154; 85007; 85025; 86703; 87040; 87081; 87086; 87181; 93306; 93970; 94664

== ENCOUNTER 2018-09-17 17:18 | Inpatient (IN) | payer MEDICARE, MEDICAID ==
[~2018-09-17] VITALS: Ht 193 cm; Wt 47.2 kg
[~2018-09-17 17:18] MED LIST changes: +TAMSULOSIN HCL0.4 MG ORAL; +WARFARIN SODIUM1 MG ORAL
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
[2018-09-17] MEDS ORDERED: Bacitracin Oint UD TOPIC ONE (18:15)
--- NOTE | 2018-09-17 18:25 | Diagnostic Imaging Report ---
EXAM: XR Chest, 1 View CLINICAL HISTORY: ALOC TECHNIQUE: Frontal view of the chest. COMPARISON: April 22, 2016 chest x-ray FINDINGS: Lungs: Lungs are clear. Pleural space: No findings for pneumothorax or pleural effusion. Heart: Normal heart size. Mediastinum: Mediastinum shows aortic calcifications and mild tortuosity. Bones/joints: Lower cervical spine again shows ACDF surgical changes. IMPRESSION: No acute cardiopulmonary process.
[2018-09-17 18:40] VITALS: BP 102/62
--- NOTE | 2018-09-17 18:47 | Diagnostic Imaging Report ---
EXAM: CT Head Without Intravenous Contrast CLINICAL HISTORY: TRAUMA TECHNIQUE: Axial computed tomography images of the head/brain without intravenous contrast. CTDI is 70.53 mGy and DLP is 1414 mGy-cm. One or more of the following dose reduction techniques were used: automated exposure control, adjustment of the mA and/or kV according to patient size, use of iterative reconstruction technique. COMPARISON: Head CT without IV contrast July 31, 2017. FINDINGS: Brain: Similar-appearing chronic superior left frontal lobe infarct. No acute infarct, hemorrhage or intracranial mass effect. No significant white matter disease. Ventricles: Unremarkable. No ventriculomegaly. Bones/joints: Unremarkable. No acute fracture. Soft tissues: Interval frontal and mild right periorbital scalp soft tissue swelling, compatible with contusion. Sinuses: Unremarkable as visualized. No acute sinusitis. Mastoid air cells: Unremarkable as visualized. No mastoid effusion. IMPRESSION: Chronic left frontal lobe infarct and facial soft tissue contusions but no acute intracranial pathology.
[2018-09-17 18:51] LABS: APPEARANCE,URINE TURBID; BILIRUBIN, URINE NEGATIVE (NEGATIVE); GLUCOSE, URINE (UA) NEGATIVE (NEGATIVE); KETONES,URINE 1+ (NEGATIVE); LEUKOCYTE ESTERASE ,URINE 3+ (NEGATIVE); NITRITE,URINE NEGATIVE (NEGATIVE); PH,URINE 8 (4.5-8.0); PROTEIN,URINE 3+ (NEGATIVE); UROBILINOGEN,URINE 1 MG/DL (0.0-1.0)
[2018-09-17 18:52] LABS: BASOPHILS % (AUTO) 0.9 % (0.0-2.0); EOSINOPHILS % (AUTO) 0.7 % (0.0-3.0); HEMOGLOBIN 13.2 G/DL (14.2-18.0); LYMPHOCYTES % (AUTO) 36.2 % (20.0-45.0); MEAN CORPUSCULAR VOLUME 84 FL (80-99); MONOCYTES % (AUTO) 4.4 % (1.0-10.0); NEUTROPHILS % (AUTO) 57.9 % (45.0-75.0); PLATELET COUNT 177 K/UL (150-450); RED BLOOD COUNT 5.02 M/UL (4.70-6.10); RED CELL DISTRIBUTION WIDTH 16.4 % (11.6-14.8); WHITE BLOOD COUNT 11.2 K/UL (4.8-10.8)
[2018-09-17 18:54] LABS: COLOR,URINE BROWN; INR 0.9 (0.9-1.1)
[2018-09-17 19:05] VITALS: BP 123/72
--- NOTE | 2018-09-17 19:05 | NUR ---
HAND-OFF: Report given to ANGELO Burks.
--- NOTE | 2018-09-17 19:10 | NUR ---
ED Nurse Note: report received from ANGELO Gould. pt is resting in bed, lights dimmed per pt request. pt vss at the moment. leg davis cath intact and patently draining. ns fluid running. awaiting room placement.
[2018-09-17 19:23] LABS: ANION GAP 15 mmol/L (5-15); BLOOD UREA NITROGEN 22 mg/dL (7-18); CARBON DIOXIDE 23 MMOL/L (21-32); CHLORIDE 103 MMOL/L (98-107); CREATININE 1.1 MG/DL (0.55-1.30); POTASSIUM 3.4 MMOL/L (3.5-5.1); SODIUM 141 MMOL/L (136-145)
[2018-09-17] MEDS ORDERED: cefTRIAXone 1 GM in NS 55 ML IVPB ONE (19:30)
[2018-09-17 20:04] LABS: ALANINE AMINOTRANSFERASE 45 U/L (12-78); ALBUMIN 3.4 G/DL (3.4-5.0); ALBUMIN/GLOBULIN RATIO 0.8 (1.0-2.7); ALKALINE PHOSPHATASE 75 U/L (46-116); ASPARTATE AMINO TRANSFERASE 53 U/L (15-37); BILIRUBIN,TOTAL 0.4 MG/DL (0.2-1.0)
--- NOTE | 2018-09-17 20:05 | NUR ---
ED Nurse Note: LACTIC REFLEX SENT TO LAB
[2018-09-17 20:28] LABS: CREATINE KINASE 374 U/L (26-308)
[2018-09-17 21:14] VITALS: BP 131/68
--- NOTE | 2018-09-17 21:27 | NUR ---
Spoke with [place]- case folder, given all necessary answers for admission,she wanted to speak with . told her that he will speak with MD only.
--- NOTE | 2018-09-17 23:32 | NUR ---
ED Nurse Note: unable to send patient to Med surg, Charge nurse asks for 10 minutes
--- NOTE | 2018-09-17 23:55 | NUR ---
ED Nurse Note: PT TRASNFERRED TO MS WITH ANGELO SUTHERLAND. PT VSS AT THE MOMENT. ALL BELONGINGS WITH PT
[2018-09-18] VITALS: BP 146/88
--- NOTE | 2018-09-18 00:10 | NUR ---
NURSE NOTES: Patient admitted from ER via [facility], admitting dx of failure to thrive and UTI under primary Dr Baez. Report received from SENIOR RESEARCH FELLOW Luis Fernando. A/O x 3, on RA, no SOB, no acute distress, no c/o pain. F/C draining cloudy britta color urine by gravity. LFA IV intact and patent. Oriented patient to surroundings. Bed in lowest position, locked, alarms on. Call light in reach. Will received admission orders from Dr Baez.
[2018-09-18 04:00] VITALS: BP 159/86
[2018-09-18] MEDS ORDERED: cefTRIAXone 1 GM in D5W 55 ML IVPB SCH (06:30)
[2018-09-18] MEDS ORDERED: D5 1/2NS w/KCl 20mEq 1,000 ML IV SCH (06:30)
--- NOTE | 2018-09-18 07:10 | NUR ---
HAND-OFF: Report given to Chaitanya STEPHENS.
--- NOTE | 2018-09-18 07:26 | NUR ---
NURSE NOTES: RN received pt awake, alert, oriented, resting in bed. No acute distress or SOB. Bed in low, locked position, call light within reach. Will continue plan of care.
--- NOTE | 2018-09-18 07:37 | NUR ---
NURSE NOTES: Received patient from Gloria STEPHENS, patient is resting in bed, no distress noted, bed is locked and in lowest position, alarm set, call light within reach, will continue to monitor.
[2018-09-18 08:00] VITALS: BP 142/85
[2018-09-18] MEDS: Lisinopril 10mg tab ORAL SCH (08:43)
[2018-09-18] MEDS: D5 1/2NS w/KCl 20mEq 1,000 ML IV SCH ×2 (08:43→20:44)
[2018-09-18] MEDS: cefTRIAXone 1 GM in D5W 55 ML IVPB SCH (08:43)
[2018-09-18] MEDS: Tamsulosin 0.4mg cap ORAL SCH (08:43)
[2018-09-18] MEDS: Heparin 5000 units/ml inj SUBQ SCH ×2 (08:45→20:44)
--- NOTE | 2018-09-18 09:25 | NUR ---
NURSE NOTES: RN spoke to patient about inserting a new davis per Dr. Baez order, patient reported to RN that he replaced his davis catheter on 09/13/18. RN reported this to Dr. Baez and Dr. Baez stated not to insert the new davis at this time, will continue to monitor.
[2018-09-18 12:00] VITALS: BP 152/85
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
--- NOTE | 2018-09-18 15:21 | History & Physical ---
History and Physical History & Physicial Dictated for Int rebecca-Dr Baez no. [id number]. Amadou Machado MD Sep 18, 2018 15:21
[2018-09-18 15:53] VITALS: BP 130/80
--- NOTE | 2018-09-18 19:11 | NUR ---
HAND-OFF: Report given to Patricia STEPHENS.
--- NOTE | 2018-09-18 19:57 | NUR ---
NURSE NOTES: Received report from ANGELO Schrader and ANGELO Marx. Patient awake and alert. IV intact, patent, and infusing IV fluids. On room air. Helm intact, patent, and draining urine. Bed in lowest position with call light in reach. Will continue with plan of care.
[2018-09-18 20:00] VITALS: BP_SYST 120; BP_SYST 160; BP_DIAS 62; BP_DIAS 86
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
[2018-09-18] MEDS: HYDROcodone/Acetamin 5/325 tab ORAL PRN (20:48)
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
[2018-09-19] VITALS: BP 151/82
[2018-09-19] MEDS: D5 1/2NS w/KCl 20mEq 1,000 ML IV SCH ×2 (03:09→23:00)
[2018-09-19 04:00] VITALS: BP 156/89
--- NOTE | 2018-09-19 07:52 | NUR ---
HAND-OFF: Report given to ANGELO Cormier.
[2018-09-19 07:54] LABS: BASOPHILS % (AUTO) 1.2 % (0.0-2.0); EOSINOPHILS % (AUTO) 3.1 % (0.0-3.0); HEMATOCRIT 39.6 % (42.0-52.0); HEMOGLOBIN 12.8 G/DL (14.2-18.0); LYMPHOCYTES % (AUTO) 42.8 % (20.0-45.0); MEAN CORPUSCULAR VOLUME 84 FL (80-99); MONOCYTES % (AUTO) 10.2 % (1.0-10.0); NEUTROPHILS % (AUTO) 42.7 % (45.0-75.0); PLATELET COUNT 135 K/UL (150-450); RED BLOOD COUNT 4.73 M/UL (4.70-6.10); RED CELL DISTRIBUTION WIDTH 15.7 % (11.6-14.8); WHITE BLOOD COUNT 5.5 K/UL (4.8-10.8)
[2018-09-19 08:00] VITALS: BP 150/81
[2018-09-19 08:21] LABS: ALANINE AMINOTRANSFERASE 37 U/L (12-78); ALBUMIN 2.9 G/DL (3.4-5.0); ALBUMIN/GLOBULIN RATIO 0.8 (1.0-2.7); ALKALINE PHOSPHATASE 70 U/L (46-116); ANION GAP 9 mmol/L (5-15); ASPARTATE AMINO TRANSFERASE 35 U/L (15-37); BILIRUBIN,TOTAL 0.6 MG/DL (0.2-1.0); BLOOD UREA NITROGEN 14 mg/dL (7-18); CALCIUM 8.6 MG/DL (8.5-10.1); CARBON DIOXIDE 27 MMOL/L (21-32); CHLORIDE 106 MMOL/L (98-107); CREATININE 0.7 MG/DL (0.55-1.30); PHOSPHORUS 2.8 MG/DL (2.5-4.9); POTASSIUM 3.7 MMOL/L (3.5-5.1); SODIUM 142 MMOL/L (136-145)
[2018-09-19] MEDS: Heparin 5000 units/ml inj SUBQ SCH ×2 (09:00→20:18)
[2018-09-19] MEDS: cefTRIAXone 1 GM in D5W 55 ML IVPB SCH (09:19)
[2018-09-19] MEDS: HYDROcodone/Acetamin 5/325 tab ORAL PRN ×2 (09:20→20:37)
[2018-09-19] MEDS: Tamsulosin 0.4mg cap ORAL SCH (09:21)
[2018-09-19] MEDS: Lisinopril 10mg tab ORAL SCH (09:21)
[2018-09-19] MEDS: Aspirin Baby 81mg ORAL SCH (09:21)
--- NOTE | 2018-09-19 10:28 | Urology Progress Note ---
Assessment/Plan Assessment/Plan 1. Urinary retention with history of the chronic Davis. 2. BPH history. 3. Probable neurogenic bladder. 4. Urinary tract infection and colonization. 5. Proteinuria. 6. Hematuria. 7. Cystitis history. 8. Renal cyst. maintain davis abx as ordered f/u on urine cx cysto later Subjective Allergies: Uncoded Allergies: CONTRAST MEDIA (Adverse Reaction, Mild, Itching in the area of the neck, 01/20/18) Patient was given specifically Isovue contrast during CT of the abdomen, and when he came back. The patient was itchy and benadryl was given, no complaints of itchiness or adverse reactions so far. Subjective all noted, looks comfortable Objective Last 24 Hour Vital Signs Date Time Temp Pulse Resp B/P (MAP) Pulse Ox O2 Delivery O2 Flow Rate FiO2 09/19/18 09:21 150/81 09/19/18 08:00 98.3 78 17 150/81 (104) 97 09/19/18 04:00 98.6 79 19 156/89 (111) 96 09/19/18 00:00 98.7 73 18 151/82 (105) 94 09/18/18 21:00 Room Air 09/18/18 20:00 98.5 78 17 160/86 (110) 94 09/18/18 15:53 97.6 79 19 130/80 (97) 97 09/18/18 12:00 98.3 81 16 152/85 (107) 94 Intake and Output 09/18/18 09/19/18 19:00 07:00 Intake Total 1000 ml 435 ml Output Total 800 ml 600 ml Balance 200 ml -165 ml Intake Oral 360 ml IV Total 75 ml Other 1000 ml Output Urine Total 800 ml 600 ml # Voids 1 # Bowel Movements 1 1 Microbiology Date/Time Source Procedure Growth Status 09/17/18 18:30 Urine,Clean Catch Urine Culture - Preliminary Proteus Mirabilis Gram Negative Bacillus 2 Resulted Current Medications Medications (Trade) Dose Ordered Sig/Edwige Route PRN Reason Start Time Stop Time Status Last Admin Dose Admin Acetaminophen/ Hydrocodone Bitart ([place] 5/325) 1 tab Q8HR PRN ORAL For Pain 09/18/18 06:30 09/25/18 06:29 09/19/18 09:20 Allopurinol (Allopurinol) 300 mg DAILY ORAL 09/18/18 09:00 10/18/18 08:59 09/19/18 09:21 Aspirin (ASA) 81 mg DAILY ORAL 09/19/18 09:00 10/19/18 08:59 09/19/18 09:21 Ceftriaxone Sodium 1 gm/ Dextrose 55 ml @ 110 mls/hr Q24H IVPB 09/18/18 08:00 09/25/18 06:29 09/19/18 09:19 Dextrose/ Electrolytes 1,000 ml @ 75 mls/hr [id number] IV 09/18/18 08:00 10/18/18 06:29 09/19/18 03:09 Folic Acid (Folate) 1 mg DAILY ORAL 09/19/18 09:00 10/19/18 08:59 09/19/18 09:20 Heparin Sodium (Porcine) (Heparin 5000 units/ml) 5,000 units EVERY 12 HOURS SUBQ 09/18/18 09:00 10/18/18 08:59 09/18/18 20:44 Lisinopril (Zestril) 10 mg DAILY ORAL 09/18/18 09:00 10/18/18 08:59 09/19/18 09:21 Tamsulosin HCl (Flomax) 0.4 mg DAILY ORAL 09/18/18 09:00 10/18/18 08:59 09/19/18 09:21 Laboratory Tests 09/18/18 13:10: Carcinoembryonic Antigen [Pending], Free Prostate Specific Antigen [Pending], Percent Free Prostate Specific Ag [Pending], Prostate Specific Antigen Total [ Pending] 09/19/18 06:40: White Blood Count 5.5, Red Blood Count 4.73, Hemoglobin 12.8L, Hematocrit 39.6L , Mean Corpuscular Volume 84, Mean Corpuscular Hemoglobin 27.0, Mean Corpuscular Hemoglobin Concent 32.2, Red Cell Distribution Width 15.7H, Platelet Count 135L, Mean Platelet Volume 8.7, Neutrophils (%) (Auto) 42.7L, Lymphocytes (%) (Auto) 42.8, Monocytes (%) (Auto) 10.2H, Eosinophils (%) (Auto) 3.1H, Basophils (%) (Auto) 1.2, Erythrocyte Sedimentation Rate 10, Sodium Level 142, Potassium Level 3.7, Chloride Level 106, Carbon Dioxide Level 27, Anion Gap 9, Blood Urea Nitrogen 14, Creatinine 0.7, Estimat Glomerular Filtration Rate , Glucose Level 87, Calcium Level 8.6, Phosphorus Level 2.8, Magnesium Level 1.5L, Total Bilirubin 0.6, Aspartate Amino Transf (AST/SGOT) 35, Alanine Aminotransferase (ALT/SGPT) 37, Alkaline Phosphatase 70, C-Reactive Protein, Quantitative 0.8, Total Protein 6.4, Albumin 2.9L, Globulin 3.5, Albumin/ Globulin Ratio 0.8L Height (Feet): 6 Height (Inches): 4.00 Weight (Pounds): 104 Objective exam stable, davis indwelling, yellow/britta urine Luis Felipe Flores MD Sep 19, 2018 10:28
--- NOTE | 2018-09-19 11:28 | NUR ---
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 UTI VS: BP 94/61, P 110, T 98.2, RR 18, SpO2 91 Hgb 12.8, Hct 39.6, Mag. 1.5 IS:[place] 5/325 1tab D5/ELECTROLYTE x1L IV CEFTRIAXONE 55ml IVPB HEPARIN SUBQ FLOMAX 0.4mg ZESTRIL 10mg ALLOPURINOL 300mg ADMITTED TO MED/SURG DC PLAN: PT TO RETURN HOME
[2018-09-19 12:00] VITALS: BP 140/91
--- NOTE | 2018-09-19 12:26 | Pulmonology Progress Note ---
Assessment/Plan Problems: (1) Intractable abdominal pain (2) Urinary tract infection (3) COPD (chronic obstructive pulmonary disease) (4) Chronic indwelling Helm catheter (5) BPH (benign prostatic hyperplasia) (6) HTN (hypertension) (7) Severe protein-calorie malnutrition (8) Chronic back pain Assessment/Plan doing better symptomatic treatment check urine cultures wbc lower PSA pending monitor BP dvt prophylaxis. Subjective ROS Limited/Unobtainable: No Constitutional: Reports: no symptoms HEENT: Repors: no symptoms Respiratory: Reports: no symptoms Allergies: Uncoded Allergies: CONTRAST MEDIA (Adverse Reaction, Mild, Itching in the area of the neck, 01/20/18) Patient was given specifically Isovue contrast during CT of the abdomen, and when he came back. The patient was itchy and benadryl was given, no complaints of itchiness or adverse reactions so far. Objective Last 24 Hour Vital Signs Date Time Temp Pulse Resp B/P (MAP) Pulse Ox O2 Delivery O2 Flow Rate FiO2 09/19/18 09:50 98.3 09/19/18 09:21 150/81 09/19/18 09:00 Room Air 09/19/18 08:00 98.3 78 17 150/81 (104) 97 09/19/18 04:00 98.6 79 19 156/89 (111) 96 09/19/18 00:00 98.7 73 18 151/82 (105) 94 09/18/18 21:00 Room Air 09/18/18 20:00 98.5 78 17 160/86 (110) 94 09/18/18 15:53 97.6 79 19 130/80 (97) 97 Intake and Output 09/18/18 09/19/18 19:00 07:00 Intake Total 1000 ml 435 ml Output Total 800 ml 600 ml Balance 200 ml -165 ml Intake Oral 360 ml IV Total 75 ml Other 1000 ml Output Urine Total 800 ml 600 ml # Voids 1 # Bowel Movements 1 1 General Appearance: cachetic HEENT: normocephalic, atraumatic Respiratory/Chest: chest wall non-tender, lungs clear Cardiovascular: normal peripheral pulses, normal rate Abdomen: normal bowel sounds Extremities: no cyanosis, no clubbing Microbiology Date/Time Source Procedure Growth Status 09/17/18 18:30 Urine,Clean Catch Urine Culture - Preliminary Proteus Mirabilis Gram Negative Bacillus 2 Resulted Laboratory Tests 3/31/19 13:10: Carcinoembryonic Antigen [Pending], Free Prostate Specific Antigen [Pending], Percent Free Prostate Specific Ag [Pending], Prostate Specific Antigen Total [ Pending] 09/19/18 06:40: White Blood Count 5.5, Red Blood Count 4.73, Hemoglobin 12.8L, Hematocrit 39.6L , Mean Corpuscular Volume 84, Mean Corpuscular Hemoglobin 27.0, Mean Corpuscular Hemoglobin Concent 32.2, Red Cell Distribution Width 15.7H, Platelet Count 135L, Mean Platelet Volume 8.7, Neutrophils (%) (Auto) 42.7L, Lymphocytes (%) (Auto) 42.8, Monocytes (%) (Auto) 10.2H, Eosinophils (%) (Auto) 3.1H, Basophils (%) (Auto) 1.2, Erythrocyte Sedimentation Rate 10, Sodium Level 142, Potassium Level 3.7, Chloride Level 106, Carbon Dioxide Level 27, Anion Gap 9, Blood Urea Nitrogen 14, Creatinine 0.7, Estimat Glomerular Filtration Rate , Glucose Level 87, Calcium Level 8.6, Phosphorus Level 2.8, Magnesium Level 1.5L, Total Bilirubin 0.6, Aspartate Amino Transf (AST/SGOT) 35, Alanine Aminotransferase (ALT/SGPT) 37, Alkaline Phosphatase 70, C-Reactive Protein, Quantitative 0.8, Total Protein 6.4, Albumin 2.9L, Globulin 3.5, Albumin/ Globulin Ratio 0.8L Current Medications Medications (Trade) Dose Ordered Sig/Edwige Route PRN Reason Start Time Stop Time Status Last Admin Dose Admin Acetaminophen/ Hydrocodone Bitart ([place] 5/325) 1 tab Q8HR PRN ORAL For Pain 09/18/18 06:30 09/25/18 06:29 09/19/18 09:20 Allopurinol (Allopurinol) 300 mg DAILY ORAL 09/18/18 09:00 10/18/18 08:59 09/19/18 09:21 Aspirin (ASA) 81 mg DAILY ORAL 09/19/18 09:00 10/19/18 08:59 09/19/18 09:21 Ceftriaxone Sodium 1 gm/ Dextrose 55 ml @ 110 mls/hr Q24H IVPB 09/18/18 08:00 4/7/19 06:29 09/19/18 09:19 Dextrose/ Electrolytes 1,000 ml @ 75 mls/hr [id number] IV 09/18/18 08:00 10/18/18 06:29 09/19/18 03:09 Folic Acid (Folate) 1 mg DAILY ORAL 09/19/18 09:00 10/19/18 08:59 09/19/18 09:20 Heparin Sodium (Porcine) (Heparin 5000 units/ml) 5,000 units EVERY 12 HOURS SUBQ 09/18/18 09:00 10/18/18 08:59 09/18/18 20:44 Lisinopril (Zestril) 10 mg DAILY ORAL 09/18/18 09:00 10/18/18 08:59 09/19/18 09:21 Tamsulosin HCl (Flomax) 0.4 mg DAILY ORAL 09/18/18 09:00 10/18/18 08:59 09/19/18 09:21 Tammy Noble MD Sep 19, 2018 12:26
--- NOTE | 2018-09-19 12:44 | Cardiology Report ---
APPROVED REPORT EKG Measurement Heart [id number] Normal sinus rhythm Possible Left atrial enlargement Left axis deviation Nonspecific ST abnormality Possible septal infarct, age undetermined. Prolonged QT Abnormal ECG
--- NOTE | 2018-09-19 14:16 | NUR ---
RD ASSESSMENT & RECOMMENDATIONS SEE CARE ACTIVITY FOR COMPLETE ASSESSMENT DAILY ESTIMATED NEEDS: Needs based on Underweight, pulmonary 63.6kg 30-35 kcals/kg 6974-1366 total kcals 1-1.5 g protein/kg 64-95 g total protein 25-30 mL/kg 4662-2170 total fluid mLs NUTRITION DIAGNOSIS: Underweight r/t social and environmental factors? as evidenced by pt presents with moderate generalized muscle wasting, 68% IBW, w/ BMI underweight per guidelines, adm w/ elev serum etoh and (+) tox for opiates. CURRENT DIET:Regular PO DIET RECOMMENDATIONS: LIBERALIZED/ GENERAL DIET (Texture as tolerated) ADDITIONAL RECOMMENDATIONS: 1) Obtain a standing weight as able; pt is underweight 2) Weekly weights 3) Ensure 1 bottle BID 4) Snacks BID 5) Check lytes daily (low Mg), replete as needed 6) Add Vit B1 + MVI/ to folate
--- NOTE | 2018-09-19 18:31 | Internal Med Progress Note ---
Subjective Date of Service: Sep 19, 2018 Physician Name Amadou Machado Attending Physician Mike Baez MD Current Medications Medications (Trade) Dose Ordered Sig/Edwige Route PRN Reason Start Time Stop Time Status Last Admin Dose Admin Acetaminophen/ Hydrocodone Bitart (Dulac 5/325) 1 tab Q8HR PRN ORAL For Pain 09/18/18 06:30 09/25/18 06:29 09/19/18 09:20 Allopurinol (Allopurinol) 300 mg DAILY ORAL 09/18/18 09:00 10/18/18 08:59 09/19/18 09:21 Aspirin (ASA) 81 mg DAILY ORAL 09/19/18 09:00 10/19/18 08:59 09/19/18 09:21 Ceftriaxone Sodium 1 gm/ Dextrose 55 ml @ 110 mls/hr Q24H IVPB 09/18/18 08:00 09/25/18 06:29 09/19/18 09:19 Dextrose/ Electrolytes 1,000 ml @ 75 mls/hr [id number] IV 09/18/18 08:00 10/18/18 06:29 09/19/18 03:09 Folic Acid (Folate) 1 mg DAILY ORAL 09/19/18 09:00 10/19/18 08:59 09/19/18 09:20 Heparin Sodium (Porcine) (Heparin 5000 units/ml) 5,000 units EVERY 12 HOURS SUBQ 09/18/18 09:00 10/18/18 08:59 09/18/18 20:44 Lisinopril (Zestril) 10 mg DAILY ORAL 09/18/18 09:00 10/18/18 08:59 09/19/18 09:21 Tamsulosin HCl (Flomax) 0.4 mg DAILY ORAL 09/18/18 09:00 10/18/18 08:59 09/19/18 09:21 Allergies: Uncoded Allergies: CONTRAST MEDIA (Adverse Reaction, Mild, Itching in the area of the neck, 01/20/18) Patient was given specifically Isovue contrast during CT of the abdomen, and when he came back. The patient was itchy and benadryl was given, no complaints of itchiness or adverse reactions so far. ROS Limited/Unobtainable: No Constitutional: Reports: no symptoms HEENT: Reports: no symptoms Cardiovascular: Reports: no symptoms Respiratory: Reports: no symptoms Gastrointestinal/Abdominal: Reports: no symptoms Genitourinary: Reports: frequency Neurologic/Psychiatric: Reports: no symptoms Subjective 72 YO M admitted with davis catheter malfunction. Now UTI. Cover for Int saba- DR Baez Objective Last Vital Signs Date Time Temp Pulse Resp B/P (MAP) Pulse Ox O2 Delivery O2 Flow Rate FiO2 09/19/18 12:00 98.8 89 17 140/91 (107) 96 09/19/18 09:00 Room Air Laboratory Tests Test 09/19/18 06:40 White Blood Count 5.5 K/UL (4.8-10.8) Red Blood Count 4.73 M/UL (4.70-6.10) Hemoglobin 12.8 G/DL (14.2-18.0) L Hematocrit 39.6 % (42.0-52.0) L Mean Corpuscular Volume 84 FL (80-99) Mean Corpuscular Hemoglobin 27.0 PG (27.0-31.0) Mean Corpuscular Hemoglobin Concent 32.2 G/DL (32.0-36.0) Red Cell Distribution Width 15.7 % (11.6-14.8) H Platelet Count 135 K/UL (150-450) L Mean Platelet Volume 8.7 FL (6.5-10.1) Neutrophils (%) (Auto) 42.7 % (45.0-75.0) L Lymphocytes (%) (Auto) 42.8 % (20.0-45.0) Monocytes (%) (Auto) 10.2 % (1.0-10.0) H Eosinophils (%) (Auto) 3.1 % (0.0-3.0) H Basophils (%) (Auto) 1.2 % (0.0-2.0) Erythrocyte Sedimentation Rate 10 MM/HR (0-20) Sodium Level 142 MMOL/L (136-145) Potassium Level 3.7 MMOL/L (3.5-5.1) Chloride Level 106 MMOL/L (98-107) Carbon Dioxide Level 27 MMOL/L (21-32) Anion Gap 9 mmol/L (5-15) Blood Urea Nitrogen 14 mg/dL (7-18) Creatinine 0.7 MG/DL (0.55-1.30) Estimat Glomerular Filtration Rate mL/min (>60) Glucose Level 87 MG/DL (74-106) Calcium Level 8.6 MG/DL (8.5-10.1) Phosphorus Level 2.8 MG/DL (2.5-4.9) Magnesium Level 1.5 MG/DL (1.8-2.4) L Total Bilirubin 0.6 MG/DL (0.2-1.0) Aspartate Amino Transf (AST/SGOT) 35 U/L (15-37) Alanine Aminotransferase (ALT/SGPT) 37 U/L (12-78) Alkaline Phosphatase 70 U/L (46-116) C-Reactive Protein, Quantitative 0.8 mg/dL (0.00-0.90) Total Protein 6.4 G/DL (6.4-8.2) Albumin 2.9 G/DL (3.4-5.0) L Globulin 3.5 g/dL Albumin/Globulin Ratio 0.8 (1.0-2.7) L Microbiology Date/Time Source Procedure Growth Status 09/17/18 18:30 Urine,Clean Catch Urine Culture - Preliminary Proteus Mirabilis Gram Negative Bacillus 2 Resulted Intake and Output 09/18/18 09/19/18 19:00 07:00 Intake Total 1000 ml 435 ml Output Total 800 ml 600 ml Balance 200 ml -165 ml Intake Oral 360 ml IV Total 75 ml Other 1000 ml Output Urine Total 800 ml 600 ml # Voids 1 # Bowel Movements 1 1 Objective PHYSICAL EXAMINATION: GENERAL: The patient is a well-developed and well-nourished male, in no apparent distress. HEENT: Eyes, pupils are equal and responsive to light and accommodation. Extraocular movements are intact. NECK: Supple without lymphadenopathy. CHEST: Lungs are clear to auscultation bilaterally without wheezes or rales. CARDIOVASCULAR: Regular rhythm and rate. S1 and S2 are normal without murmurs, rubs, or gallops. ABDOMEN: Soft, nontender, and nondistended. Positive bowel sounds. No evidence of hepatosplenomegaly. Currently, no rebound or guarding noted. EXTREMITIES: Negative for clubbing, cyanosis, or edema. RECTAL/GENITAL: Refused. NEUROLOGIC: Cranial nerves II through XII are grossly intact without focal deficits. Motor strength is 5/5 bilaterally. Deep tendon reflexes are 2+ plantar. Assessment/Plan Assessment/Plan ASSESSMENT: This is a 72-year-old male. 1. Urinary tract infection. 2. Benign prostatic hypertrophy. 3. Urinary outlet obstruction. 4. Hypertension. 5. Davis malfunction TREATMENT: 1. Urinary tract infection. urine culture=Proteus mirabilis and another gram neg jim. Continue ceftriaxone. Await identificationand sensitivity of 2nd gram neg jim. 2. Hypertension. Continue lisinopril as above 3. Urology consult=Amadou Carrasco MD Sep 19, 2018 18:31
--- NOTE | 2018-09-19 19:45 | NUR ---
NURSE NOTES: Patient awake in bed, on RA, no SOB, no acute distress, no c/o pain. LFA IV intact, patent running IVF. F/C inplace draining britta yellow urine by gravity. No hematuria or sediments noted. Bed in lowest position, locked, alarms on. Call light in reach.
[2018-09-19 20:00] VITALS: BP 166/89
--- NOTE | 2018-09-19 20:49 | NUR ---
NURSE NOTES: Seen by SUMEET Hubbard.
[2018-09-20] VITALS: BP 166/96
[2018-09-20 04:00] VITALS: BP 170/98
[2018-09-20] MEDS: HYDROcodone/Acetamin 5/325 tab ORAL PRN (05:13)
[2018-09-20] MEDS ORDERED: HydrALAZINE 50mg tab ORAL PRN ×2 (06:15→06:30)
[2018-09-20] MEDS ORDERED: HydrALAZINE 50mg tab ONE (06:41)
--- NOTE | 2018-09-20 06:46 | NUR ---
NURSE NOTES: Patient noted with high BP of 175/91. Notified Dr Baez, received order for PRN Hydralazine 50mg. Med given to patient. Will cont monitor BP.
--- NOTE | 2018-09-20 07:29 | NUR ---
HAND-OFF: Report given to Purnima Amezcua RN.
--- NOTE | 2018-09-20 07:35 | NUR ---
NURSE NOTES: Received patient in bed, awake alert and oriented x4. Denies pain @ this time. Helm draining well to gravity with yellowish colored urine. IV intact,n s/s of infiltration. Denies chest pain, SOB or blurred vision. WIll continue to monitor BP. Bed is in low position and locked. Call light within reach. Will continue plan of care.
[2018-09-20 08:00] VITALS: BP 161/84
[2018-09-20] MEDS: cefTRIAXone 1 GM in D5W 55 ML IVPB SCH (08:27)
[2018-09-20 08:28] VITALS: BP 159/84
[2018-09-20] MEDS: Lisinopril 10mg tab ORAL SCH (08:28)
[2018-09-20] MEDS: Tamsulosin 0.4mg cap ORAL SCH (08:28)
[2018-09-20] MEDS: Aspirin Baby 81mg ORAL SCH (08:28)
[2018-09-20] MEDS: Heparin 5000 units/ml inj SUBQ SCH (08:29)
--- NOTE | 2018-09-20 10:50 | NUR ---
NURSE NOTES: During round, Rn noticed patient was changing his clothes and stated that " I am leaving this hospital now . Doctor said yesterday that I could be released today. I do not want to stay here anymore. I am leaving." RN re educated on urine infection and he needs antibiotics for infection and recommended to wait for the doctors and another staff talked to the patient but unable to convince the patient. Patient is alert and oriented x4 and makes his own decision and ambulatory with cane. RN tried to contact with his family Arnulfo Arroyo but no one picked up the phone, left a message with call back number. Patient really wanted to leave the hospital.IV and ID were removed but patient came in with davis cath and did not want RN to touch it. No skin issue. No s/s of infection on IV removal site.He signed on AMA and belonging list. He took his cell phone, cane. Charge nurse, lead worker of housekeeping and laundry and Dr. Baez made aware.
--- NOTE | 2018-09-20 11:42 | Urology Progress Note ---
Assessment/Plan Assessment/Plan 1. Urinary retention with history of the chronic Davis. 2. BPH history. 3. Probable neurogenic bladder. 4. Urinary tract infection and colonization. 5. Proteinuria. 6. Hematuria. 7. Cystitis history. 8. Renal cyst. maintain davis abx as ordered cysto later rec change davis q 2-3 weeks consider TURP Subjective Allergies: Uncoded Allergies: CONTRAST MEDIA (Adverse Reaction, Mild, Itching in the area of the neck, 01/20/18) Patient was given specifically Isovue contrast during CT of the abdomen, and when he came back. The patient was itchy and benadryl was given, no complaints of itchiness or adverse reactions so far. Subjective all noted, pt ween earlier this morning Objective Last 24 Hour Vital Signs Date Time Temp Pulse Resp B/P (MAP) Pulse Ox O2 Delivery O2 Flow Rate FiO2 09/20/18 09:00 Room Air 09/20/18 08:28 159/84 09/20/18 08:00 97.9 90 18 161/84 (109) 98 09/20/18 06:44 175/91 09/20/18 04:00 98.4 80 18 170/98 (122) 95 09/20/18 00:00 98.5 72 17 166/96 (119) 96 09/19/18 21:00 Room Air 09/19/18 20:00 98.9 74 17 166/89 (114) 96 09/19/18 12:00 98.8 89 17 140/91 (107) 96 Intake and Output 09/19/18 09/20/18 19:00 07:00 Intake Total 1720 ml 600 ml Output Total 500 ml 550 ml Balance 1220 ml 50 ml Intake Oral 840 ml IV Total 880 ml 600 ml Output Urine Total 500 ml 550 ml Microbiology Date/Time Source Procedure Growth Status 09/17/18 18:30 Urine,Clean Catch Urine Culture - Final Proteus Mirabilis Escherichia Coli Complete Height (Feet): 6 Height (Inches): 4.00 Weight (Pounds): 104 Objective exam stable, davis indwelling, yellow/britta urine MAR noted Luis Felipe Flores MD Sep 20, 2018 11:42
--- NOTE | 2018-09-20 15:53 | NUR ---
*-* INSURANCE *-* ALL CLINICALS AND REVIEWS HAVE BEEN FAXED TO: [facility]; AMBERLY P- [phone] X [id number] f- [phone].............REVIEW/CLINICAL
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
== END 2018-09-20 10:55 | disposition left against medical advice (07) | DRG 463 ==
LOC: EMR 18:05 → EDBEDREQ 18:12 → 4E 21:19 → EDBEDREQ 22:47
DX: N39.0 Urinary tract infection, site not specified (principal); E43 Unspecified severe protein-calorie malnutrition; J44.9 Chronic obstructive pulmonary disease, unspecified; B96.4 Proteus (mirabilis) (morganii) as the cause of diseases classified elsewhere; B96.20 Unspecified Escherichia coli [E. coli] as the cause of diseases classified elsewhere; I10 Essential (primary) hypertension; N40.1 Benign prostatic hyperplasia with lower urinary tract symptoms; N13.8 Other obstructive and reflux uropathy; R33.8 Other retention of urine; G89.29 Other chronic pain; M54.9 Dorsalgia, unspecified; N31.9 Neuromuscular dysfunction of bladder, unspecified; Z91.041 Radiographic dye allergy status; Z79.01 Long term (current) use of anticoagulants; Z79.82 Long term (current) use of aspirin; Z86.73 Personal history of transient ischemic attack (TIA), and cerebral infarction without residual deficits; I73.9 Peripheral vascular disease, unspecified; Z89.412 Acquired absence of left great toe
CPT/HCPCS: 36415; 70450; 71045; 80053; 80307; 80329; 81003; 82378; 82550; 83605; 83735; 83880; 84100; 84153; 84154; 84484; 85025; 85610; 85651; 85730; 86140; 87086; 87181; 93005; 99285

== ENCOUNTER 2018-10-21 21:47 | Inpatient (IN) | payer MEDICARE, MEDICAID ==
[~2018-10-21] VITALS: Ht 172.7 cm; Wt 70.3 kg
[2018-10-21 21:48] VITALS: BP 113/72
--- NOTE | 2018-10-21 21:49 | NUR ---
ED Nurse Note: BIBA with complaints of pain at urinary catheter site. Patient reports having catheter in since last month.
--- NOTE | 2018-10-21 21:55 | NUR ---
ED Nurse Note: Catheter removed upon arrival due to complaints of pain and discomfort.
[2018-10-21 22:52] LABS: APPEARANCE,URINE CLEAR; BILIRUBIN, URINE NEGATIVE (NEGATIVE); COLOR,URINE PALE YELLOW; GLUCOSE, URINE (UA) NEGATIVE (NEGATIVE); KETONES,URINE NEGATIVE (NEGATIVE); LEUKOCYTE ESTERASE ,URINE 3+ (NEGATIVE); NITRITE,URINE NEGATIVE (NEGATIVE); PH,URINE 6 (4.5-8.0); PROTEIN,URINE 2+ (NEGATIVE); UROBILINOGEN,URINE NORMAL MG/DL (0.0-1.0)
[2018-10-21 22:54] LABS: BASOPHILS % (AUTO) 1.4 % (0.0-2.0); EOSINOPHILS % (AUTO) 1.5 % (0.0-3.0); HEMATOCRIT 39.8 % (42.0-52.0); HEMOGLOBIN 12.5 G/DL (14.2-18.0); LYMPHOCYTES % (AUTO) 33.3 % (20.0-45.0); MEAN CORPUSCULAR VOLUME 84 FL (80-99); MONOCYTES % (AUTO) 9.8 % (1.0-10.0); NEUTROPHILS % (AUTO) 54.1 % (45.0-75.0); PLATELET COUNT 153 K/UL (150-450); RED BLOOD COUNT 4.71 M/UL (4.70-6.10); RED CELL DISTRIBUTION WIDTH 15.6 % (11.6-14.8); WHITE BLOOD COUNT 9.2 K/UL (4.8-10.8)
[2018-10-21 23:13] LABS: ANION GAP 10 mmol/L (5-15); BLOOD UREA NITROGEN 14 mg/dL (7-18); CALCIUM 9.3 MG/DL (8.5-10.1); CARBON DIOXIDE 27 MMOL/L (21-32); CHLORIDE 105 MMOL/L (98-107); CREATININE 0.8 MG/DL (0.55-1.30); POTASSIUM 3.7 MMOL/L (3.5-5.1); SODIUM 142 MMOL/L (136-145)
[2018-10-21 23:17] LABS: ALANINE AMINOTRANSFERASE 28 U/L (12-78); ALBUMIN 2.9 G/DL (3.4-5.0); ALBUMIN/GLOBULIN RATIO 0.6 (1.0-2.7); ALKALINE PHOSPHATASE 82 U/L (46-116); ASPARTATE AMINO TRANSFERASE 36 U/L (15-37); BILIRUBIN,TOTAL 0.3 MG/DL (0.2-1.0)
[2018-10-21] MEDS ORDERED: Piperacillin/Tazobactam 3.375 GM in NS 110 ML IVPB ONE (23:30)
[2018-10-21 23:40] VITALS: BP 178/87
[2018-10-22] VITALS (7 sets, daily range): BP systolic 126–171; BP diastolic 83–99
[2018-10-22] MEDS ORDERED: Albuterol ud Inhalation HHN ONE
[2018-10-22] MEDS ORDERED: Ipratropium 0.02% Inh Soln 2.5ml UD HHN ONE
--- NOTE | 2018-10-22 00:08 | NUR ---
ED Nurse Note: Patient exhibited frequent cough, ascultated lung sounds, diminished at base and patient desatted to 85%. ERMD notified. RT at bedside administering breathing treatment.
--- NOTE | 2018-10-22 01:18 | Diagnostic Imaging Report ---
EXAM: XR Chest, 1 View CLINICAL HISTORY: COUGH TECHNIQUE: Frontal view of the chest. COMPARISON: 09/17/18 FINDINGS: Lungs: Some prominence is suspected of the pulmonary vascular markings suggestive of pulmonary vascular congestion. Probable mild scarring in the left lung. Pleural space: No definite plain film evidence for pneumothorax. Heart: Some prominence of the cardiac silhouette. Mediastinum: Unremarkable. Bones/joints: Degenerative changes of the thoracic spine. Metallic hardware projected over the lower cervical spine. IMPRESSION: 1. Some prominence is suspected of the pulmonary vascular markings suggestive of pulmonary vascular congestion. 2. Some prominence of the cardiac silhouette.
--- NOTE | 2018-10-22 03:10 | NUR ---
ED Nurse Note: cALLED TO GIVE REPORT TO SHIRA STEPHENS. WILL ACCOMPANY SNOWBOARD DESIGNER TO FLOOR TO COUNT $145.
--- NOTE | 2018-10-22 03:17 | Emergency Room Report ---
History of Present Illness General Chief Complaint: Male Urogenital Problems Source: Patient Present Illness HPI 72-year-old M presents ED for evaluation. Brought in by EMS from street. Complaining of penile pain. States he has a Helm catheter for the last month. History of BPH. Complaining of dysuria. Complaining of weakness. Denies fevers or chills. Also coughing. Productive with yellowish phlegm. History of COPD. Denies chest pain. No other aggravating relieving factors. Denies any other associated symptoms Allergies: Uncoded Allergies: CONTRAST MEDIA (Adverse Reaction, Mild, Itching in the area of the neck, 01/20/18) Patient was given specifically Isovue contrast during CT of the abdomen, and when he came back. The patient was itchy and benadryl was given, no complaints of itchiness or adverse reactions so far. Patient History Past Medical History: HTN, COPD, CVA/TIA, other - BPH Past Surgical History: none Pertinent Family History: none Social History: Denies: smoking, alcohol use, drug use Immunizations: UTD Reviewed Nursing Documentation: PMH: Agreed; PSxH: Agreed Nursing Documentation-PMH Past Medical History: No Stated History Hx Cardiac Problems: Yes Hx Hypertension: Yes Hx COPD: Yes Hx Cancer: No Hx Gastrointestinal Problems: Yes - Pancreatic cyst Hx Neurological Problems: Yes - Encephalopathy Hx Cerebrovascular Accident: Yes Hx Weakness: Yes Review of Systems All Other Systems: negative except mentioned in HPI Physical Exam Vital Signs Date Time Temp Pulse Resp B/P (MAP) Pulse Ox O2 Delivery O2 Flow Rate FiO2 10/21/18 21:42 99.0 89 16 97 Room Air 10/21/18 21:48 113/72 10/22/18 00:04 2.0 28 Sp02 EP Interpretation: reviewed, normal General Appearance: no apparent distress, alert, GCS 15, non-toxic Head: normocephalic, atraumatic Eyes: bilateral eye normal inspection, bilateral eye PERRL ENT: hearing grossly normal, normal pharynx, no angioedema, normal voice Neck: full range of motion, supple/symm/no masses Respiratory: chest non-tender, decreased breath sounds, speaking full sentences Cardiovascular #1: regular rate, rhythm, no edema Cardiovascular #2: 2+ carotid (R), 2+ carotid (L), 2+ radial (R), 2+ radial (L) , 2+ dorsalis pedis (R), 2+ dorsalis pedis (L) Gastrointestinal: normal bowel sounds, non tender, soft, non-distended, no guarding, no rebound Rectal: deferred Genitourinary: normal inspection, no CVA tenderness Musculoskeletal: back normal, gait/station normal, normal range of motion, non- tender Neurologic: alert, oriented x3, responsive, motor strength/tone normal, sensory intact, speech normal Psychiatric: judgement/insight normal, memory normal, mood/affect normal, no suicidal/homicidal ideation Reflexes: 3+ bicep (R), 3+ bicep (L), 3+ tricep (R), 3+ tricep (L), 3+ knee (R) , 3+ knee (L) Skin: normal color, no rash, warm/dry, well hydrated Lymphatic: no adenopathy Medical Decision Making Diagnostic Impression: Primary Impression: UTI (urinary tract infection) Qualified Codes: N39.0 - Urinary tract infection, site not specified Additional Impressions: BPH (benign prostatic hyperplasia) Qualified Codes: N40.0 - Benign prostatic hyperplasia without lower urinary tract symptoms COPD exacerbation ER Course Hospital Course 72-year-old male presents ED complaining of weakness, penile pain from Helm catheter Differential diagnoses include: Pneumonia, UTI, dehydration Clinical course Patient placed on stretcher. On non profit financial controller with stable vitals are ED course. After initial history and physical, I ordered labs, IV fluids, chest x- ray, nebs Labs - electrolytes ok, no leukocytosis, hb/hct stable, UA + bacteria CXR - no acute process Abx given. Helm replaced and IV fluids given Case discussed with Dr Baez and they agreed to admit patient to their service for further care and support I feel this is a highly complex case requiring extensive working including EKG/ Rhythm strip, Xray/CT/US, Blood/urine lab work, repeat exams while in ED, and administration of strong opiates/narcotics for pain control, admission to hospital or close patient follow up. Diagnosis - UTI, BPH, COPD Patient admitted to floor in serious condition Labs Test 10/21/18 22:25 10/21/18 22:40 Urine Color Pale yellow Urine Appearance Clear Urine pH 6 (4.5-8.0) Urine Specific Cameron 1.005 (1.005-1.035) Urine Protein 2+ (NEGATIVE) Urine Glucose (UA) Negative (NEGATIVE) Urine Ketones Negative (NEGATIVE) Urine Blood 1+ (NEGATIVE) Urine Nitrite Negative (NEGATIVE) Urine Bilirubin Negative (NEGATIVE) Urine Urobilinogen Normal MG/DL (0.0-1.0) Urine Leukocyte Esterase 3+ (NEGATIVE) Urine RBC 0-2 /HPF (0 - 0) Urine WBC 10-15 /HPF (0 - 0) Urine Squamous Epithelial Cells Occasional /LPF Urine Bacteria Moderate /HPF (NONE) White Blood Count 9.2 K/UL (4.8-10.8) Red Blood Count 4.71 M/UL (4.70-6.10) Hemoglobin 12.5 G/DL (14.2-18.0) Hematocrit 39.8 % (42.0-52.0) Mean Corpuscular Volume 84 FL (80-99) Mean Corpuscular Hemoglobin 26.5 PG (27.0-31.0) Mean Corpuscular Hemoglobin Concent 31.4 G/DL (32.0-36.0) Red Cell Distribution Width 15.6 % (11.6-14.8) Platelet Count 153 K/UL (150-450) Mean Platelet Volume 6.1 FL (6.5-10.1) Neutrophils (%) (Auto) 54.1 % (45.0-75.0) Lymphocytes (%) (Auto) 33.3 % (20.0-45.0) Monocytes (%) (Auto) 9.8 % (1.0-10.0) Eosinophils (%) (Auto) 1.5 % (0.0-3.0) Basophils (%) (Auto) 1.4 % (0.0-2.0) Sodium Level 142 MMOL/L (136-145) Potassium Level 3.7 MMOL/L (3.5-5.1) Chloride Level 105 MMOL/L (98-107) Carbon Dioxide Level 27 MMOL/L (21-32) Anion Gap 10 mmol/L (5-15) Blood Urea Nitrogen 14 mg/dL (7-18) Creatinine 0.8 MG/DL (0.55-1.30) Estimat Glomerular Filtration Rate mL/min (>60) Glucose Level 103 MG/DL (74-106) Calcium Level 9.3 MG/DL (8.5-10.1) Total Bilirubin 0.3 MG/DL (0.2-1.0) Aspartate Amino Transf (AST/SGOT) 36 U/L (15-37) Alanine Aminotransferase (ALT/SGPT) 28 U/L (12-78) Alkaline Phosphatase 82 U/L (46-116) Total Protein 7.6 G/DL (6.4-8.2) Albumin 2.9 G/DL (3.4-5.0) Globulin 4.7 g/dL Albumin/Globulin Ratio 0.6 (1.0-2.7) Lipase 171 U/L (73-393) Chest X-Ray Diagnostic Results Chest X-Ray Diagnostic Results : Chest X-Ray Ordered: Yes # of Views/Limited/Complete: 1 View Indication: Shortness of Breath EP Interpretation: Yes Interpretation: no consolidation, no effusion, no pneumothorax, no acute cardiopulmonary disease Impression: No acute disease Electronically Signed by: Electronically signed by Nj Hyatt MD Last Vital Signs Date Time Temp Pulse Resp B/P (MAP) Pulse Ox O2 Delivery O2 Flow Rate FiO2 10/22/18 01:43 99.2 106 19 166/85 96 Nasal Cannula 3.0 10/22/18 00:20 28 Status: improved Disposition: ADMITTED INPATIENT Condition: Serious Referrals: NOT CHOSEN IPA/,REFERRING (PCP) Nj Hyatt MD October 22, 2018 03:17
--- NOTE | 2018-10-22 03:36 | NUR ---
ED Nurse Note: Patient transported to 4E without incident. Belongings and money ($145) accounted for.
--- NOTE | 2018-10-22 03:37 | NUR ---
NURSE NOTES: Patient came from ER via gurney. A&OX3. NC 2L on, no s/s of respiratory distress noted. IV site patent and intact. Skin is intact. Belongings are checked, Patient has $145 arauz but refused to send safe, signed belonging list form. Cane at bedside. Patient doesn't remember name of home medication. Patient says " I'm taking medication for pain, high blood pressure, water pill, and Flomax". Bed in lowest position. Call light within reach. Will continue to monitor.
--- NOTE | 2018-10-22 04:08 | NUR ---
NURSE NOTES: Call and left message to Dr. Baez for new admit order. Waiting a call back.
[2018-10-22 07:25] LABS: EOSINOPHILS % (AUTO) 1.3 % (0.0-3.0); HEMATOCRIT 39.4 % (42.0-52.0); HEMOGLOBIN 12.2 G/DL (14.2-18.0); LYMPHOCYTES % (AUTO) 19.2 % (20.0-45.0); MEAN CORPUSCULAR VOLUME 84 FL (80-99); MONOCYTES % (AUTO) 10.8 % (1.0-10.0); NEUTROPHILS % (AUTO) 67.7 % (45.0-75.0); PLATELET COUNT 155 K/UL (150-450); RED BLOOD COUNT 4.68 M/UL (4.70-6.10); RED CELL DISTRIBUTION WIDTH 16.1 % (11.6-14.8)
--- NOTE | 2018-10-22 07:28 | NUR ---
HAND-OFF: Report given to Nasir STEPHENS.
--- NOTE | 2018-10-22 07:30 | NUR ---
NURSE NOTES: received report from Romulo Bennett RN. patient in bed. alert. verbally responsive. no respiratory distress noted. on 2l/min via NC. IV on RFA intact. f/c draining. bed in the lowest position. call light within reach. will continue to monitor.
[2018-10-22 07:43] LABS: ALANINE AMINOTRANSFERASE 22 U/L (12-78); ALBUMIN 2.6 G/DL (3.4-5.0); ALBUMIN/GLOBULIN RATIO 0.6 (1.0-2.7); ALKALINE PHOSPHATASE 75 U/L (46-116); ANION GAP 8 mmol/L (5-15); ASPARTATE AMINO TRANSFERASE 29 U/L (15-37); BILIRUBIN,TOTAL 0.3 MG/DL (0.2-1.0); BLOOD UREA NITROGEN 13 mg/dL (7-18); CALCIUM 8.4 MG/DL (8.5-10.1); CARBON DIOXIDE 27 MMOL/L (21-32); CHLORIDE 109 MMOL/L (98-107); CREATININE 0.7 MG/DL (0.55-1.30); PHOSPHORUS 3.9 MG/DL (2.5-4.9); POTASSIUM 3.3 MMOL/L (3.5-5.1); SODIUM 144 MMOL/L (136-145)
[2018-10-22] MEDS ORDERED: D5 1/2NS 1,000 ML IV SCH (08:30)
[2018-10-22] MEDS ORDERED: Lisinopril 10mg tab ORAL SCH (09:00)
[2018-10-22] MEDS: Aspirin Baby 81mg ORAL SCH (09:41)
[2018-10-22] MEDS: Heparin 5000 units/ml inj SUBQ SCH ×2 (09:48→21:06)
[2018-10-22] MEDS: HYDROcodone/Acetamin 5/325 tab ORAL PRN ×3 (10:00→22:24)
[2018-10-22] MEDS: Piperacillin/Tazobactam 3.375 GM in NS 110 ML IVPB SCH ×2 (10:25→22:00)
--- NOTE | 2018-10-22 13:51 | Consultation ---
History of Present Illness General Date patient seen: October 22, 2018 Time patient seen: 10:30 Chief Complaint: cough, dysuria Referring physician: dr Baez Reason for Consultation: cough Present Illness HPI 72 years old male with past medical history of hypertension, COPD, CVA, BPH, substance abuse, was brought by paramedics from [place]. Patient had Davis catheter for long time due to urinary retention. Patient complained of dysuria , generalized weakness and penile pain . He also complained of coughing . Cough described as productive with yellow phlegm production.No hemoptysis, No wheezing. He denied fever and chills . He denied chest pain . Upon evaluation vital signs were stable. Laboratory work-up revealed no leukocytosis, stable hemoglobin and hematocrit , stable electrolytes . CXR revealed no acute cardiopulmonary process . urinalysis revealed evidence of pyuria . Davis catheter was replaced . Patient was provided with IV fluids and empiric antibiotic after being pancultured. Patient subsequently was admitted for further management. Allergies: Uncoded Allergies: CONTRAST MEDIA (Adverse Reaction, Mild, Itching in the area of the neck, 01/20/18) Patient was given specifically Isovue contrast during CT of the abdomen, and when he came back. The patient was itchy and benadryl was given, no complaints of itchiness or adverse reactions so far. Medication History Scheduled Aspirin* (Aspirin*), 81 MG ORAL DAILY Ibuprofen* (Motrin*), 400 MG ORAL Q8H Lisinopril* (Lisinopril*), 10 MG ORAL DAILY, (Reported) Tamsulosin Hcl (Tamsulosin Hcl*), 0.4 MG ORAL BEDTIME, (Reported) Scheduled PRN Hydrocodone Bit/Acetaminophen 10-325* ([place] 10-325*), 1 TAB ORAL Q4H PRN for For Pain, (Reported) Discontinued Medications Allopurinol* (Allopurinol*), (Reported) Discontinued Reason: Pt stopped taking med Cephalexin* (Keflex*), 500 MG ORAL EVERY 6 HOURS Discontinued Reason: Therapy completed Folic Acid* (Folic Acid*), 1 MG ORAL DAILY Discontinued Reason: Pt stopped taking med Gabapentin* (Neurontin*), 300 MG ORAL BEDTIME Discontinued Reason: Pt stopped taking med Hydrocodone Bit/Acetaminophen (Vicodin 5-300 Mg Tablet), 1 TAB ORAL Q4H PRN for For Pain, (Reported) Discontinued Reason: Pt stopped taking med Multivitamins* (Multivitamins*), 1 TAB ORAL DAILY Discontinued Reason: Pt stopped taking med Nitrofurantoin Monohyd/M-Cryst* (Macrobid 100 Mg*), 100 MG ORAL EVERY 12 HOURS Discontinued Reason: Therapy completed Thiamine Hcl* (Vitamin B-1*), 100 MG ORAL DAILY Discontinued Reason: Pt stopped taking med Trimethoprim/Sulfamethoxazole 160/800* (Bactrim Ds Tablet*), 1 TAB ORAL TWICE A DAY Discontinued Reason: Therapy completed Trimethoprim/Sulfamethoxazole 160/800* (Bactrim Ds Tablet*), 1 TAB ORAL TWICE A DAY Discontinued Reason: Therapy completed Warfarin Sod* (Warfarin Sod*), 1 MG ORAL DAILY, (Reported) Discontinued Reason: Pt stopped taking med Patient History History Provided By: Patient Healthcare decision maker Resuscitation status Full Code Advanced Directive on File Past Medical/Surgical History Past Medical/Surgical History: (1) COPD (chronic obstructive pulmonary disease) (2) BPH (benign prostatic hyperplasia) (3) Methamphetamine abuse (4) HTN (hypertension) (5) CVA (cerebral infarction) (6) Peripheral vascular disease (7) Chronic indwelling Davis catheter Review of Systems Constitutional: Reports: weakness ENT: Reports: no symptoms Respiratory: Reports: see HPI Cardiovascular: Reports: no symptoms Gastrointestinal: Reports: no symptoms Genitourinary: Reports: see HPI Musculoskeletal: Reports: muscle pain Psychiatric: Reports: anxiety Neurological: Reports: no symptoms Endocrine: Reports: no symptoms Hematologic/Lymphatic: Reports: no symptoms Physical Exam General Appearance: no apparent distress, alert Lines, tubes and drains: peripheral HEENT: normocephalic, atraumatic, anicteric, mucous membranes moist Neck: non-tender, supple Respiratory/Chest: chest wall non-tender, lungs clear, no respiratory distress , decreased breath sounds - no wheezing Cardiovascular/Chest: normal rate Abdomen: normal bowel sounds, non tender, soft Genitourinary/Rectal: davis, other - no CVAT Extremities: no calf tenderness, normal capillary refill, no edema Skin Exam: warm/dry Neurologic: abnormal gait, alert, responsive Last 24 Hour Vital Signs Date Time Temp Pulse Resp B/P (MAP) Pulse Ox O2 Delivery O2 Flow Rate FiO2 10/22/18 12:00 98.8 92 18 158/99 (118) 94 10/22/18 09:42 165/98 10/22/18 09:00 Nasal Cannula 2.0 10/22/18 08:00 99.0 99 20 165/98 (120) 10/22/18 05:24 Nasal Cannula 2.0 10/22/18 03:30 98.5 113 19 126/83 (97) 97 10/22/18 03:20 99.2 106 19 166/85 96 Nasal Cannula 3.0 28 10/22/18 01:43 99.2 106 19 166/85 96 Nasal Cannula 3.0 10/22/18 00:20 96 17 100 Nasal Cannula 2.0 28 10/22/18 00:05 97 19 95 Nasal Cannula 2.0 28 10/22/18 00:04 99.0 107 25 164/83 95 Nasal Cannula 2.0 10/22/18 00:04 97 19 Nasal Cannula 2.0 28 10/21/18 23:40 97.5 103 16 178/87 85 Room Air 10/21/18 21:48 99.0 89 16 113/72 97 Room Air 10/21/18 21:42 99.0 89 16 97 Room Air Intake and Output 10/21/18 10/22/18 19:00 07:00 Intake Total 0 ml Output Total 720 ml Balance -720 ml Intake Oral 0 ml Output Urine Total 720 ml Laboratory Tests Test 10/21/18 22:25 10/21/18 22:40 10/22/18 06:50 Urine Color Pale yellow Urine Appearance Clear Urine pH 6 (4.5-8.0) Urine Specific [place] 1.005 (1.005-1.035) Urine Protein 2+ (NEGATIVE) H Urine Glucose (UA) Negative (NEGATIVE) Urine Ketones Negative (NEGATIVE) Urine Blood 1+ (NEGATIVE) H Urine Nitrite Negative (NEGATIVE) Urine Bilirubin Negative (NEGATIVE) Urine Urobilinogen Normal MG/DL (0.0-1.0) Urine Leukocyte Esterase 3+ (NEGATIVE) H Urine RBC 0-2 /HPF (0 - 0) H Urine WBC 10-15 /HPF (0 - 0) H Urine Squamous Epithelial Cells Occasional /LPF Urine Bacteria Moderate /HPF (NONE) H White Blood Count 9.2 K/UL (4.8-10.8) 8.0 K/UL (4.8-10.8) Red Blood Count 4.71 M/UL (4.70-6.10) 4.68 M/UL (4.70-6.10) L Hemoglobin 12.5 G/DL (14.2-18.0) L 12.2 G/DL (14.2-18.0) L Hematocrit 39.8 % (42.0-52.0) L 39.4 % (42.0-52.0) L Mean Corpuscular Volume 84 FL (80-99) 84 FL (80-99) Mean Corpuscular Hemoglobin 26.5 PG (27.0-31.0) L 26.0 PG (27.0-31.0) L Mean Corpuscular Hemoglobin Concent 31.4 G/DL (32.0-36.0) L 30.9 G/DL (32.0-36.0) L Red Cell Distribution Width 15.6 % (11.6-14.8) H 16.1 % (11.6-14.8) H Platelet Count 153 K/UL (150-450) 155 K/UL (150-450) Mean Platelet Volume 6.1 FL (6.5-10.1) L 7.8 FL (6.5-10.1) Neutrophils (%) (Auto) 54.1 % (45.0-75.0) 67.7 % (45.0-75.0) Lymphocytes (%) (Auto) 33.3 % (20.0-45.0) 19.2 % (20.0-45.0) L Monocytes (%) (Auto) 9.8 % (1.0-10.0) 10.8 % (1.0-10.0) H Eosinophils (%) (Auto) 1.5 % (0.0-3.0) 1.3 % (0.0-3.0) Basophils (%) (Auto) 1.4 % (0.0-2.0) 1.0 % (0.0-2.0) Sodium Level 142 MMOL/L (136-145) 144 MMOL/L (136-145) Potassium Level 3.7 MMOL/L (3.5-5.1) 3.3 MMOL/L (3.5-5.1) L Chloride Level 105 MMOL/L (98-107) 109 MMOL/L (98-107) H Carbon Dioxide Level 27 MMOL/L (21-32) 27 MMOL/L (21-32) Anion Gap 10 mmol/L (5-15) 8 mmol/L (5-15) Blood Urea Nitrogen 14 mg/dL (7-18) 13 mg/dL (7-18) Creatinine 0.8 MG/DL (0.55-1.30) 0.7 MG/DL (0.55-1.30) Estimat Glomerular Filtration Rate mL/min (>60) mL/min (>60) Glucose Level 103 MG/DL (74-106) 89 MG/DL (74-106) Calcium Level 9.3 MG/DL (8.5-10.1) 8.4 MG/DL (8.5-10.1) L Total Bilirubin 0.3 MG/DL (0.2-1.0) 0.3 MG/DL (0.2-1.0) Aspartate Amino Transf (AST/SGOT) 36 U/L (15-37) 29 U/L (15-37) Alanine Aminotransferase (ALT/SGPT) 28 U/L (12-78) 22 U/L (12-78) Alkaline Phosphatase 82 U/L (46-116) 75 U/L (46-116) Total Protein 7.6 G/DL (6.4-8.2) 7.0 G/DL (6.4-8.2) Albumin 2.9 G/DL (3.4-5.0) L 2.6 G/DL (3.4-5.0) L Globulin 4.7 g/dL 4.4 g/dL Albumin/Globulin Ratio 0.6 (1.0-2.7) L 0.6 (1.0-2.7) L Lipase 171 U/L (73-393) Phosphorus Level 3.9 MG/DL (2.5-4.9) Magnesium Level 1.4 MG/DL (1.8-2.4) L Microbiology Date/Time Source Procedure Growth Status 10/22/18 03:00 Rectum Received Height (Feet): 5 Height (Inches): 8.00 Weight (Pounds): 155 Medications Current Medications Medications (Trade) Dose Ordered Sig/Edwige Route PRN Reason Start Time Stop Time Status Last Admin Dose Admin Acetaminophen (Tylenol) 650 mg Q6H PRN ORAL Mild Pain/Temp > 100.5 5/4/19 06:45 11/21/18 06:44 Acetaminophen/ Hydrocodone Bitart ([place] 5/325) 1 tab Q6H PRN ORAL Pain 4-10 10/22/18 06:45 10/29/18 06:44 10/22/18 10:00 Aspirin (ASA) 81 mg DAILY ORAL 10/22/18 09:00 11/21/18 08:59 10/22/18 09:41 Dextrose/Sodium Chloride 1,000 ml @ 75 mls/hr [id number] IV 10/22/18 08:30 11/21/18 08:29 10/22/18 09:41 Folic Acid (Folate) 1 mg DAILY ORAL 10/22/18 09:00 11/21/18 08:59 10/22/18 09:42 Gabapentin (Neurontin) 300 mg BEDTIME ORAL 10/22/18 21:00 11/21/18 20:59 Heparin Sodium (Porcine) (Heparin 5000 units/ml) 5,000 units EVERY 12 HOURS SUBQ 10/22/18 09:00 11/21/18 08:59 10/22/18 09:48 Lisinopril (Zestril) 10 mg DAILY ORAL 10/22/18 09:00 11/21/18 08:59 10/22/18 09:42 Multivitamins (Multivitamins) 1 tab DAILY ORAL 10/22/18 09:00 11/21/18 08:59 10/22/18 09:42 Ondansetron HCl (Zofran) 4 mg Q4H PRN IVP Nausea & Vomiting 10/22/18 06:45 11/21/18 06:44 Piperacillin Sod/ Tazobactam Sod 3.375 gm/Sodium Chloride 110 ml @ 27.5 mls/hr EVERY 8 HOURS IVPB 10/22/18 09:00 10/27/18 08:59 10/22/18 10:25 Tamsulosin HCl (Flomax) 0.4 mg BEDTIME ORAL 10/22/18 21:00 11/21/18 20:59 Assessment/Plan Diagnosis [place] I: ASSESSMENT COPD exacerbation UTI in setting of chronic Davis due to urinary retention BPH COPD HTN Hx of CVA Electrolyte abnormalities Hx of substance abuse PLAN OF CARE MS floor a/tussive prn, fup with CXR , sputum cx if able O2 prn titrate to keep sat above 92%, pulm toilet with bronchodilators, hold on IV steroids for now abx for UTI , fup with cx continue Flomax Davis care DVT prophylaxis PT eval and Rx BP manage with PAULINA continue ASA, check lipid panel IVF monitor renal parameters, lytes, correct lytes ( today K and Mg ), avoid nephrotoxic SS consult staff genetic counselor on abstinence from illegal street drug, alcohol case discussed and evaluated by supervising physician Magdalena Brooke NP October 22, 2018 13:51
--- NOTE | 2018-10-22 14:42 | History & Physical ---
History and Physical History & Physicial Dictated for Int Med-Dr Baez no. [id number]. Amadou Machado MD October 22, 2018 14:42
--- NOTE | 2018-10-22 15:55 | NUR ---
PT Note PT esme completed, treatment initiated. Patient was confused but was able to follow simple instructions. Required constant verbal cues and [id number] techniques to follow through with instructions. Pt needs PT to increase his muscle strength and balance to improve his functional mobility and gait. Recommend for patient to be DC'd to a SNF. Addendum: 10/22/18 at 1556 by ARNIE FATIMA PT Amended: Links added.
[2018-10-22] MEDS: Guaifenesin/DM 10ml syrup ORAL PRN (16:07)
--- NOTE | 2018-10-22 16:09 | NUR ---
CASE MANAGEMENT: REVIEW 72Y/M BIBA FROM [facility] CC: PAIN IN PENILE AREA . HX DANIELS CATH SI: UTI . DYSURIA . BPH . COPD T 99.2 HR 107 RR 25 BP 178/87 SAT 95% NC/2L UA: PROTEIN 2+ BLOOD 1+ LEUKOCYTE 3+ BACTERIA MOD IS: NS IVF BOLUS X1 ZOSYN IV X1 ATROVENT HHN X1 ALBUTEROL HHN X1 PATIENT ADMITTED TO MED/SURG UNIT 10/21/2018 DCP: PATIENT IS FROM HOME
[2018-10-22] MEDS: Albuterol/Ipratropium 3ml neb HHN PRN (18:41)
--- NOTE | 2018-10-22 19:24 | NUR ---
HAND-OFF: Report given to ANGELO Gomez.
--- NOTE | 2018-10-22 19:26 | NUR ---
NURSE NOTES: Received report from ANGELO Best. Patient on nasal canula 2L/min. No signs of distress or labored breathing. IV intact, patent, and infusing fluids. Helm catheter intact, patent, and draining urine. Bed in lowest position with call light in reach. Will continue with plan of care.
[2018-10-22] MEDS: Tamsulosin 0.4mg cap ORAL SCH (21:04)
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
[2018-10-23] VITALS: BP 180/103
[2018-10-23] MEDS: HydrALAZINE 50mg tab ORAL PRN ×2 (00:40→16:24)
[2018-10-23 04:00] VITALS: BP 160/90
[2018-10-23] MEDS: HYDROcodone/Acetamin 5/325 tab ORAL PRN ×3 (05:28→20:10)
[2018-10-23] MEDS: Piperacillin/Tazobactam 3.375 GM in NS 110 ML IVPB SCH ×3 (05:31→20:32)
[2018-10-23 07:12] LABS: ANION GAP 7 mmol/L (5-15); BLOOD UREA NITROGEN 12 mg/dL (7-18); CALCIUM 8.6 MG/DL (8.5-10.1); CARBON DIOXIDE 29 MMOL/L (21-32); CHLORIDE 105 MMOL/L (98-107); CHOLESTEROL 221 MG/DL (< 200); CREATININE 0.9 MG/DL (0.55-1.30); HDL CHOLESTEROL 139 MG/DL (40-60); POTASSIUM 3.6 MMOL/L (3.5-5.1); SODIUM 141 MMOL/L (136-145); TRIGLYCERIDES 71 MG/DL (30-150)
--- NOTE | 2018-10-23 07:20 | NUR ---
HAND-OFF: Report given to ANGELO Best.
--- NOTE | 2018-10-23 07:29 | NUR ---
NURSE NOTES: received report from ANGELO Gomez. patient in bed. alert. verbally responsive. no respiratory distress noted. no c/o pain at this time. IV on RFA ATB running. F/C draining. bed in the lowest position . call light within reach. bed side comode. alarm on. will continue to monitor.
[2018-10-23 07:30] LABS: BASOPHILS % (AUTO) 0.8 % (0.0-2.0); EOSINOPHILS % (AUTO) 2.6 % (0.0-3.0); HEMATOCRIT 39.8 % (42.0-52.0); HEMOGLOBIN 12.6 G/DL (14.2-18.0); MEAN CORPUSCULAR VOLUME 85 FL (80-99); MONOCYTES % (AUTO) 10.7 % (1.0-10.0); NEUTROPHILS % (AUTO) 60.9 % (45.0-75.0); PLATELET COUNT 135 K/UL (150-450); RED BLOOD COUNT 4.68 M/UL (4.70-6.10); RED CELL DISTRIBUTION WIDTH 15.9 % (11.6-14.8); WHITE BLOOD COUNT 7.2 K/UL (4.8-10.8)
--- NOTE | 2018-10-23 07:56 | Pulmonology Progress Note ---
Assessment/Plan Assessment/Plan ASSESSMENT COPD exacerbation UTI in setting of chronic Helm due to urinary retention BPH COPD HTN Hx of CVA Electrolyte abnormalities Hx of substance abuse PLAN OF CARE MS floor a/tussive prn, fup with CXR , sputum cx if able O2 prn titrate to keep sat above 92%, pulm toilet with b/dilators, hold on steroids abx , fup with cx UCX + GNR, repeated prel negative SCX pending continue Flomax Helm care DVT prophylaxis PT eval and Rx BP management with PAULINA continue ASA, lipid panel with elevated TC, cardiac low cholesterol diet, LDL OK s/p IVF monitor renal parameters, lytes, correct lytes ( today K ), avoid nephrotoxic SS consult student success counselor on abstinence from illegal street drug, alcohol case discussed and evaluated by supervising physician Subjective Allergies: Uncoded Allergies: CONTRAST MEDIA (Adverse Reaction, Mild, Itching in the area of the neck, 01/20/18) Patient was given specifically Isovue contrast during CT of the abdomen, and when he came back. The patient was itchy and benadryl was given, no complaints of itchiness or adverse reactions so far. Subjective f no signs of resp distress afebrile, no leukocytosis Objective Last 24 Hour Vital Signs Date Time Temp Pulse Resp B/P (MAP) Pulse Ox O2 Delivery O2 Flow Rate FiO2 10/23/18 04:00 98.2 82 18 160/90 (113) 99 10/23/18 00:40 180/103 10/23/18 00:00 98.2 89 18 180/103 (128) 100 10/22/18 21:00 Nasal Cannula 2.0 10/22/18 21:00 98.8 91 18 171/84 (113) 95 10/22/18 19:06 96 Nasal Cannula 2.0 28 10/22/18 19:06 Nasal Cannula 2.0 28 10/22/18 18:41 91 20 96 Nasal Cannula 2.0 28 10/22/18 16:00 98.0 104 20 162/97 (118) 95 10/22/18 12:00 98.8 92 18 158/99 (118) 94 10/22/18 09:42 165/98 10/22/18 09:00 Nasal Cannula 2.0 10/22/18 08:00 99.0 99 20 165/98 (120) Intake and Output 10/22/18 10/23/18 19:00 07:00 Intake Total 1265.0 ml Output Total 1000 ml 500 ml Balance 265.0 ml -500 ml Intake Oral 480 ml IV Total 785.0 ml Output Urine Total 1000 ml 500 ml Objective General Appearance: no apparent distress, alert Lines, tubes and drains: peripheral HEENT: normocephalic, atraumatic, anicteric, mucous membranes moist Neck: non-tender, supple Respiratory/Chest: chest wall non-tender, lungs clear, no respiratory distress , decreased breath sounds , no wheezing Cardiovascular/Chest: normal rate Abdomen: normal bowel sounds, non tender, soft Genitourinary/Rectal: Helm, no CVAT Extremities: no calf tenderness, normal capillary refill, no edema Skin Exam: warm/dry Neurologic: abnormal gait, alert, responsive Microbiology Date/Time Source Procedure Growth Status 10/22/18 15:40 Sputum Expectorated Gram Stain - Final Resulted 10/22/18 15:40 Sputum Expectorated Sputum Culture Pending Resulted 10/22/18 15:40 Indwelling Cath Urine Culture - Preliminary NO GROWTH AFTER 24 HOURS Resulted 10/21/18 22:25 Urine,Clean Catch Urine Culture - Preliminary Gram Negative [place] Resulted 10/22/18 03:00 Rectum Received Laboratory Tests 10/23/18 06:05: White Blood Count 7.2, Red Blood Count 4.68L, Hemoglobin 12.6L, Hematocrit 39.8L , Mean Corpuscular Volume 85, Mean Corpuscular Hemoglobin 27.0, Mean Corpuscular Hemoglobin Concent 31.7L, Red Cell Distribution Width 15.9H, Platelet Count 135L, Mean Platelet Volume 7.3, Neutrophils (%) (Auto) 60.9, Lymphocytes (%) (Auto) 25.0, Monocytes (%) (Auto) 10.7H, Eosinophils (%) (Auto) 2.6, Basophils (%) (Auto) 0.8, Sodium Level 141, Potassium Level 3.6, Chloride Level 105, Carbon Dioxide Level 29, Anion Gap 7, Blood Urea Nitrogen 12, Creatinine 0.9, Estimat Glomerular Filtration Rate , Glucose Level 96, Calcium Level 8.6, Triglycerides Level 71, Cholesterol Level 221H, LDL Cholesterol 78, HDL Cholesterol 139H, Cholesterol/HDL Ratio 1.6L Current Medications Medications (Trade) Dose Ordered Sig/Edwige Route PRN Reason Start Time Stop Time Status Last Admin Dose Admin Acetaminophen (Tylenol) 650 mg Q6H PRN ORAL Mild Pain/Temp > 100.5 10/22/18 06:45 11/21/18 06:44 Acetaminophen/ Hydrocodone Bitart ([place] 5/325) 1 tab Q6H PRN ORAL Pain 4-10 10/22/18 06:45 10/29/18 06:44 10/23/18 05:28 Albuterol/ Ipratropium (Albuterol/ Ipratropium) 3 ml Q4H PRN HHN Shortness of Breath 10/22/18 14:00 10/27/18 13:59 10/22/18 18:41 Aspirin (ASA) 81 mg DAILY ORAL 10/22/18 09:00 11/21/18 08:59 10/22/18 09:41 Folic Acid (Folate) 1 mg DAILY ORAL 10/22/18 09:00 11/21/18 08:59 10/22/18 09:42 Gabapentin (Neurontin) 300 mg BEDTIME ORAL 10/22/18 21:00 11/21/18 20:59 10/22/18 21:04 Guaifenesin/ Dextromethorphan (Robitussin DM Syrup) 10 ml Q4H PRN ORAL For Cough 10/22/18 14:00 11/21/18 13:59 10/22/18 16:07 Heparin Sodium (Porcine) (Heparin 5000 units/ml) 5,000 units EVERY 12 HOURS SUBQ 10/22/18 09:00 11/21/18 08:59 10/22/18 21:06 Hydralazine HCl (Apresoline) 50 mg Q6HR PRN ORAL SPB above 160 10/22/18 23:45 11/21/18 23:44 10/23/18 00:40 Irbesartan (Avapro) 75 mg DAILY ORAL 10/23/18 09:00 11/22/18 08:59 Multivitamins (Multivitamins) 1 tab DAILY ORAL 10/22/18 09:00 11/21/18 08:59 10/22/18 09:42 Ondansetron HCl (Zofran) 4 mg Q4H PRN IVP Nausea & Vomiting 10/22/18 06:45 11/21/18 06:44 Piperacillin Sod/ Tazobactam Sod 3.375 gm/Sodium Chloride 110 ml @ 27.5 mls/hr EVERY 8 HOURS IVPB 10/22/18 09:00 10/27/18 08:59 10/23/18 05:31 Tamsulosin HCl (Flomax) 0.4 mg BEDTIME ORAL 10/22/18 21:00 11/21/18 20:59 10/22/18 21:04 Magdalena Brooke NP October 23, 2018 07:56
[2018-10-23 08:00] VITALS: BP 141/73
[2018-10-23] MEDS: Heparin 5000 units/ml inj SUBQ SCH ×2 (09:00→20:33)
[2018-10-23] MEDS: Aspirin Baby 81mg ORAL SCH (09:12)
[2018-10-23] MEDS: Guaifenesin/DM 10ml syrup ORAL PRN (11:06)
[2018-10-23 12:00] VITALS: BP 143/82
--- NOTE | 2018-10-23 15:34 | Internal Med Progress Note ---
Subjective Date of Service: October 23, 2018 Physician Name Amadou Machado Attending Physician Mike Baez MD Current Medications Medications (Trade) Dose Ordered Sig/Edwige Route PRN Reason Start Time Stop Time Status Last Admin Dose Admin Acetaminophen (Tylenol) 650 mg Q6H PRN ORAL Mild Pain/Temp > 100.5 10/22/18 06:45 11/21/18 06:44 Acetaminophen/ Hydrocodone Bitart ([place] 5/325) 1 tab Q6H PRN ORAL Pain 4-10 10/22/18 06:45 10/29/18 06:44 10/23/18 12:43 Albuterol/ Ipratropium (Albuterol/ Ipratropium) 3 ml Q4H PRN HHN Shortness of Breath 10/22/18 14:00 10/27/18 13:59 10/22/18 18:41 Aspirin (ASA) 81 mg DAILY ORAL 10/22/18 09:00 11/21/18 08:59 10/23/18 09:12 Folic Acid (Folate) 1 mg DAILY ORAL 10/22/18 09:00 11/21/18 08:59 10/23/18 09:13 Gabapentin (Neurontin) 300 mg BEDTIME ORAL 10/22/18 21:00 11/21/18 20:59 10/22/18 21:04 Guaifenesin/ Dextromethorphan (Robitussin DM Syrup) 10 ml Q4H PRN ORAL For Cough 10/22/18 14:00 11/21/18 13:59 10/23/18 11:06 Heparin Sodium (Porcine) (Heparin 5000 units/ml) 5,000 units EVERY 12 HOURS SUBQ 10/22/18 09:00 11/21/18 08:59 10/22/18 21:06 Hydralazine HCl (Apresoline) 50 mg Q6HR PRN ORAL SPB above 160 10/22/18 23:45 11/21/18 23:44 10/23/18 00:40 Irbesartan (Avapro) 75 mg DAILY ORAL 10/23/18 09:00 11/22/18 08:59 10/23/18 09:13 Multivitamins (Multivitamins) 1 tab DAILY ORAL 10/22/18 09:00 11/21/18 08:59 10/23/18 09:13 Ondansetron HCl (Zofran) 4 mg Q4H PRN IVP Nausea & Vomiting 10/22/18 06:45 11/21/18 06:44 Piperacillin Sod/ Tazobactam Sod 3.375 gm/Sodium Chloride 110 ml @ 27.5 mls/hr EVERY 8 HOURS IVPB 10/22/18 09:00 10/27/18 08:59 10/23/18 13:56 Tamsulosin HCl (Flomax) 0.4 mg BEDTIME ORAL 10/22/18 21:00 11/21/18 20:59 10/22/18 21:04 Allergies: Uncoded Allergies: CONTRAST MEDIA (Adverse Reaction, Mild, Itching in the area of the neck, 01/20/18) Patient was given specifically Isovue contrast during CT of the abdomen, and when he came back. The patient was itchy and benadryl was given, no complaints of itchiness or adverse reactions so far. ROS Limited/Unobtainable: No Constitutional: Reports: no symptoms HEENT: Reports: no symptoms Cardiovascular: Reports: no symptoms Respiratory: Reports: no symptoms Gastrointestinal/Abdominal: Reports: no symptoms Genitourinary: Reports: burning, pain Neurologic/Psychiatric: Reports: no symptoms Subjective 72 YO M with indwelling davis cath presents with dysuria. Now UTI. Cover for Int saba-Dr Baez. Objective Last Vital Signs Date Time Temp Pulse Resp B/P (MAP) Pulse Ox O2 Delivery O2 Flow Rate FiO2 10/23/18 12:00 97.8 81 21 143/82 (102) 95 10/23/18 09:00 Nasal Cannula 2.0 10/23/18 07:42 28 Laboratory Tests Test 10/23/18 06:05 White Blood Count 7.2 K/UL (4.8-10.8) Red Blood Count 4.68 M/UL (4.70-6.10) L Hemoglobin 12.6 G/DL (14.2-18.0) L Hematocrit 39.8 % (42.0-52.0) L Mean Corpuscular Volume 85 FL (80-99) Mean Corpuscular Hemoglobin 27.0 PG (27.0-31.0) Mean Corpuscular Hemoglobin Concent 31.7 G/DL (32.0-36.0) L Red Cell Distribution Width 15.9 % (11.6-14.8) H Platelet Count 135 K/UL (150-450) L Mean Platelet Volume 7.3 FL (6.5-10.1) Neutrophils (%) (Auto) 60.9 % (45.0-75.0) Lymphocytes (%) (Auto) 25.0 % (20.0-45.0) Monocytes (%) (Auto) 10.7 % (1.0-10.0) H Eosinophils (%) (Auto) 2.6 % (0.0-3.0) Basophils (%) (Auto) 0.8 % (0.0-2.0) Sodium Level 141 MMOL/L (136-145) Potassium Level 3.6 MMOL/L (3.5-5.1) Chloride Level 105 MMOL/L (98-107) Carbon Dioxide Level 29 MMOL/L (21-32) Anion Gap 7 mmol/L (5-15) Blood Urea Nitrogen 12 mg/dL (7-18) Creatinine 0.9 MG/DL (0.55-1.30) Estimat Glomerular Filtration Rate mL/min (>60) Glucose Level 96 MG/DL (74-106) Calcium Level 8.6 MG/DL (8.5-10.1) Triglycerides Level 71 MG/DL (30-150) Cholesterol Level 221 MG/DL (< 200) H LDL Cholesterol 78 mg/dL (<100) HDL Cholesterol 139 MG/DL (40-60) H Cholesterol/HDL Ratio 1.6 (3.3-4.4) L Microbiology Date/Time Source Procedure Growth Status 10/22/18 15:40 Sputum Expectorated Gram Stain - Final Resulted 10/22/18 15:40 Sputum Expectorated Sputum Culture Pending Resulted 10/22/18 15:40 Indwelling Cath Urine Culture - Preliminary NO GROWTH AFTER 24 HOURS Resulted 10/21/18 22:25 Urine,Clean Catch Urine Culture - Preliminary Gram Negative [place] Resulted 10/22/18 03:00 Rectum Received Intake and Output 10/22/18 10/23/18 19:00 07:00 Intake Total 1265.0 ml 27.5 ml Output Total 1000 ml 500 ml Balance 265.0 ml -472.5 ml Intake Oral 480 ml IV Total 785.0 ml 27.5 ml Output Urine Total 1000 ml 500 ml Objective PHYSICAL EXAMINATION: GENERAL: The patient is a well-developed and well-nourished male, in no apparent distress. HEENT: Eyes, pupils are equal and responsive to light and accommodation. Extraocular movements are intact. NECK: Supple without lymphadenopathy. CHEST: Lungs are clear to auscultation bilaterally without wheezes or rales. CARDIOVASCULAR: Regular rhythm and rate. S1 and S2 are normal without murmurs, rubs, or gallops. ABDOMEN: Soft, nontender, and nondistended. Positive bowel sounds. No evidence of hepatosplenomegaly. Currently, no rebound or guarding noted. EXTREMITIES: Negative for clubbing, cyanosis, or edema. RECTAL/GENITAL: Refused. NEUROLOGIC: Cranial nerves II through XII are grossly intact without focal deficits. Motor strength is 5/5 bilaterally. Deep tendon reflexes are 2+ plantar. Assessment/Plan Assessment/Plan ASSESSMENT: This is a 72-year-old male. 1. Urinary tract infection-gram neg donavan 2. Dysuria. 3. Benign prostatic hypertrophy. 4. Hypertension. TREATMENT: 1. Urinary tract infection/dysuria. A urine culture=gram neg donavan. The patient has been started empirically on intravenous Zosyn. Await culture and sensitivity results. 2. Benign prostatic hypertrophy. The patient currently has indwelling Davis catheter. 3. Hypertension. Continue lisinopril as above. Amadou Machado MD October 23, 2018 15:34
[2018-10-23 16:00] VITALS: BP 162/79
[2018-10-23] MEDS ORDERED: NORCO 10-325 T1 EACH ORAL (18:46)
--- NOTE | 2018-10-23 19:19 | NUR ---
NURSE NOTES: Received a report from ANGELO Best. Pt is sleeping comfortably. Uses NC 2L/min. No c/o pain/discomfort. IV site is patent and intact. Has a davis catheter, is draining. Bed in lowest position. Bed alarm is on. Call light within reach. Will continue to monitor.
--- NOTE | 2018-10-23 19:23 | NUR ---
HAND-OFF: Report given to ANGELO Wolff.
[2018-10-23 20:00] VITALS: BP 161/92
[2018-10-23] MEDS: Tamsulosin 0.4mg cap ORAL SCH (20:32)
[2018-10-23] MEDS: Albuterol/Ipratropium 3ml neb HHN PRN (20:47)
[2018-10-24] VITALS: BP 153/85
[2018-10-24] MEDS: HYDROcodone/Acetamin 5/325 tab ORAL PRN ×4 (02:23→20:45)
[2018-10-24 04:00] VITALS: BP 108/75
[2018-10-24] MEDS: Piperacillin/Tazobactam 3.375 GM in NS 110 ML IVPB SCH ×3 (05:31→20:45)
[2018-10-24 07:11] LABS: BASOPHILS % (AUTO) 0.8 % (0.0-2.0); EOSINOPHILS % (AUTO) 2.6 % (0.0-3.0); HEMOGLOBIN 12.5 G/DL (14.2-18.0); LYMPHOCYTES % (AUTO) 18.8 % (20.0-45.0); MEAN CORPUSCULAR VOLUME 86 FL (80-99); MONOCYTES % (AUTO) 12.1 % (1.0-10.0); NEUTROPHILS % (AUTO) 65.7 % (45.0-75.0); PLATELET COUNT 150 K/UL (150-450); RED BLOOD COUNT 4.65 M/UL (4.70-6.10); RED CELL DISTRIBUTION WIDTH 16.1 % (11.6-14.8); WHITE BLOOD COUNT 8.3 K/UL (4.8-10.8)
[2018-10-24 07:13] LABS: ANION GAP 6 mmol/L (5-15); BLOOD UREA NITROGEN 11 mg/dL (7-18); CALCIUM 8.6 MG/DL (8.5-10.1); CARBON DIOXIDE 30 MMOL/L (21-32); CHLORIDE 105 MMOL/L (98-107); CREATININE 0.8 MG/DL (0.55-1.30); POTASSIUM 3.5 MMOL/L (3.5-5.1); SODIUM 141 MMOL/L (136-145)
--- NOTE | 2018-10-24 07:15 | NUR ---
HAND-OFF: Report given to ANGELO Santizo.
--- NOTE | 2018-10-24 07:48 | NUR ---
NURSE NOTES: RN received pt in stable condition, sleeping in bed. No acute distress or SOB. Bed in low, locked position, call light within reach. Will continue plan of care.
[2018-10-24 08:00] VITALS: BP 173/100
[2018-10-24] MEDS: Heparin 5000 units/ml inj SUBQ SCH ×2 (08:11→20:49)
[2018-10-24] MEDS: HydrALAZINE 50mg tab ORAL PRN ×2 (08:12→20:45)
[2018-10-24] MEDS: Aspirin Baby 81mg ORAL SCH (08:12)
--- NOTE | 2018-10-24 09:38 | NUR ---
RADIOLOGY DEPT., CHEST X-RAY DONE.-P.DYE
--- NOTE | 2018-10-24 11:20 | NUR ---
*-* NO INSURANCE INFORMATION IN THE BAR UNABLE TO SEND CLINICALS OR REVIEWS *-*
--- NOTE | 2018-10-24 11:55 | Diagnostic Imaging Report ---
Indication: Dyspnea Comparison: 10/22/2018 A single view chest radiograph was obtained. Findings: Pulmonary vascularity appears slightly improved compared to the previous occasion. Basilar atelectasis noted. Cardiomegaly is stable. IMPRESSION: Current study notable for mild basal atelectasis
[2018-10-24 12:00] VITALS: BP 155/79
--- NOTE | 2018-10-24 13:23 | Pulmonology Progress Note ---
Assessment/Plan Problems: (1) Acute encephalopathy (2) COPD exacerbation (3) UTI (urinary tract infection) (4) HTN (hypertension) (5) Methamphetamine abuse (6) BPH (benign prostatic hyperplasia) (7) Opiate dependence (8) CVA (cerebral infarction) Assessment/Plan respiratory treatment monitor BP symptomatic treatmetn social services specialist consult for placement Subjective Constitutional: Reports: no symptoms HEENT: Repors: no symptoms Allergies: Uncoded Allergies: CONTRAST MEDIA (Adverse Reaction, Mild, Itching in the area of the neck, 01/20/18) Patient was given specifically Isovue contrast during CT of the abdomen, and when he came back. The patient was itchy and benadryl was given, no complaints of itchiness or adverse reactions so far. Objective Last 24 Hour Vital Signs Date Time Temp Pulse Resp B/P (MAP) Pulse Ox O2 Delivery O2 Flow Rate FiO2 10/24/18 12:00 97.9 86 18 155/79 (104) 92 10/24/18 09:00 Nasal Cannula 2.0 10/24/18 08:40 97.8 10/24/18 08:12 173/100 10/24/18 08:12 173/100 10/24/18 08:00 98.1 90 20 173/100 (124) 95 10/24/18 07:17 Room Air 21 10/24/18 07:17 97 Room Air 21 10/24/18 07:17 96 18 Room Air 21 10/24/18 04:00 97.8 92 18 108/75 (86) 95 10/24/18 00:00 98.8 96 19 153/85 (107) 96 10/23/18 21:00 Nasal Cannula 2.0 10/23/18 20:52 91 18 97 Nasal Cannula 2.0 28 10/23/18 20:49 Nasal Cannula 2.0 28 10/23/18 20:48 97 Nasal Cannula 2.0 28 10/23/18 20:48 97 18 Nasal Cannula 2.0 28 10/23/18 20:38 91 18 97 Nasal Cannula 2.0 28 10/23/18 20:00 98.2 93 18 161/92 (115) 98 10/23/18 16:24 162/79 10/23/18 16:00 98.6 85 20 162/79 (106) 94 Intake and Output 10/23/18 10/24/18 19:00 07:00 Intake Total 1032.5 ml 617.5 ml Output Total 700 ml 550 ml Balance 332.5 ml 67.5 ml Intake Oral 840 ml 480 ml IV Total 192.5 ml 137.5 ml Output Urine Total 700 ml 550 ml General Appearance: WD/WN Respiratory/Chest: chest wall non-tender, lungs clear Cardiovascular: normal peripheral pulses, regular rhythm Abdomen: normal bowel sounds, soft, non tender Extremities: no cyanosis Skin: no rash, no lesions Microbiology Date/Time Source Procedure Growth Status 10/22/18 15:40 Sputum Expectorated Gram Stain - Final Resulted 10/22/18 15:40 Sputum Expectorated Sputum Culture - Preliminary NORMAL UPPER RESPIRATORY CHEPE AT 24 ... Resulted 10/22/18 03:00 Nasal Nares MRSA Culture - Final NO METHICILLIN RESISTANT STAPH AUREUS... Complete 10/22/18 15:40 Indwelling Cath Urine Culture - Final NO GROWTH AFTER 48 HOURS Complete 10/21/18 22:25 Urine,Clean Catch Urine Culture - Preliminary Enterobacter Species Escherichia Coli Resulted 10/22/18 03:00 Rectum VRE Culture - Final NO VANCOMYCIN RESISTANT ENTEROCOCCUS ... Complete Laboratory Tests 10/24/18 05:35: White Blood Count 8.3, Red Blood Count 4.65L, Hemoglobin 12.5L, Hematocrit 40.0L , Mean Corpuscular Volume 86, Mean Corpuscular Hemoglobin 26.8L, Mean Corpuscular Hemoglobin Concent 31.2L, Red Cell Distribution Width 16.1H, Platelet Count 150, Mean Platelet Volume 7.8, Neutrophils (%) (Auto) 65.7, Lymphocytes (%) (Auto) 18.8L, Monocytes (%) (Auto) 12.1H, Eosinophils (%) (Auto ) 2.6, Basophils (%) (Auto) 0.8, Sodium Level 141, Potassium Level 3.5, Chloride Level 105, Carbon Dioxide Level 30, Anion Gap 6, Blood Urea Nitrogen 11 , Creatinine 0.8, Estimat Glomerular Filtration Rate , Glucose Level 92, Calcium Level 8.6 Current Medications Medications (Trade) Dose Ordered Sig/Edwige Route PRN Reason Start Time Stop Time Status Last Admin Dose Admin Acetaminophen (Tylenol) 650 mg Q6H PRN ORAL Mild Pain/Temp > 100.5 10/22/18 06:45 11/21/18 06:44 Acetaminophen/ Hydrocodone Bitart ([place] 5/325) 1 tab Q6H PRN ORAL Pain 4-10 10/22/18 06:45 10/29/18 06:44 10/24/18 08:10 Albuterol/ Ipratropium (Albuterol/ Ipratropium) 3 ml Q4H PRN HHN Shortness of Breath 10/22/18 14:00 10/27/18 13:59 10/23/18 20:47 Aspirin (ASA) 81 mg DAILY ORAL 10/22/18 09:00 11/21/18 08:59 10/24/18 08:12 Folic Acid (Folate) 1 mg DAILY ORAL 10/22/18 09:00 11/21/18 08:59 10/24/18 08:11 Gabapentin (Neurontin) 300 mg BEDTIME ORAL 10/22/18 21:00 11/21/18 20:59 10/23/18 20:32 Guaifenesin/ Dextromethorphan (Robitussin DM Syrup) 10 ml Q4H PRN ORAL For Cough 10/22/18 14:00 11/21/18 13:59 10/23/18 11:06 Heparin Sodium (Porcine) (Heparin 5000 units/ml) 5,000 units EVERY 12 HOURS SUBQ 10/22/18 09:00 11/21/18 08:59 10/24/18 08:11 Hydralazine HCl (Apresoline) 50 mg Q6HR PRN ORAL SPB above 160 10/22/18 23:45 11/21/18 23:44 10/24/18 08:12 Irbesartan (Avapro) 75 mg DAILY ORAL 10/23/18 09:00 11/22/18 08:59 10/24/18 08:12 Multivitamins (Multivitamins) 1 tab DAILY ORAL 10/22/18 09:00 11/21/18 08:59 10/24/18 08:12 Ondansetron HCl (Zofran) 4 mg Q4H PRN IVP Nausea & Vomiting 10/22/18 06:45 11/21/18 06:44 Piperacillin Sod/ Tazobactam Sod 3.375 gm/Sodium Chloride 110 ml @ 27.5 mls/hr EVERY 8 HOURS IVPB 10/22/18 09:00 10/27/18 08:59 10/24/18 05:31 Tamsulosin HCl (Flomax) 0.4 mg BEDTIME ORAL 10/22/18 21:00 11/21/18 20:59 10/23/18 20:32 Tammy Noble MD October 24, 2018 13:23
--- NOTE | 2018-10-24 14:23 | NUR ---
CAR DESIGNEREXAMINATION PROCTOR SI:UTI . DYSURIA . BPH . COPD 173/100, P 96, T 97.9, RR 20, SpO2 92 on 2.0L O2 NC RBC 4.65, H&H 12.5/40.0 CXR: Current study notable for mild basal atelectasis IS:[place] 5/325 1tab ZOSYN 110ml IVPB AVAPRO 75mg APRESOLINE 50mg HEPARIN SUBQ MED/SURG STATUS
--- NOTE | 2018-10-24 14:56 | NUR ---
Social Service Note Previous admissions 01/2018 and 08/2018 patient signed out AMA. SW familiar with patient. Patient is alert, forgetful and verbally responsive. SW met with patient to assess for homelessness. Patient states he is living behind a convenience store in a tent but couldn't recall the street. Previously patient lived with his sister Danae Green. Patient can not recall when he left her home in [place] but states he wouldn't want to return because of her kids and grandchildren. SW left a message for sister [phone], no return call at this time. Patient states his nephew Arnulfo Arroyo and his check on him. Patient states he believes his cousin has his electric wheelchair. Patient continues to states his sister Danae is his payee. Patient states he is open to placement options. SW discussed assisted living. Patient states he would need to address with is sister since she was his payee. Patient also states with declining eye sight it has become more challenging on the streets. Patient denies current drug use. Previous patient admitted to ETOH and cocaine use. No tox screen on this admission. SW attempted to contact Arnulfo Arroyo [phone], number not inservice. ANGELITO left a message for Whitney Villaseñor [phone] niece, no return call at this time. Patient may require SNF placement upon discharge depending on level of care indicated through hospitalization. Will follow up with family. Will continue to monitor and reassess as needed. Patient is a full code. No advance directives.
[2018-10-24 16:00] VITALS: BP 150/83
--- NOTE | 2018-10-24 19:21 | Internal Med Progress Note ---
Subjective Date of Service: October 24, 2018 Physician Name Amadou Machado Attending Physician Mike Baez MD Current Medications Medications (Trade) Dose Ordered Sig/Edwige Route PRN Reason Start Time Stop Time Status Last Admin Dose Admin Acetaminophen (Tylenol) 650 mg Q6H PRN ORAL Mild Pain/Temp > 100.5 10/22/18 06:45 11/21/18 06:44 10/24/18 13:21 Acetaminophen/ Hydrocodone Bitart ([place] 5/325) 1 tab Q6H PRN ORAL Pain 4-10 10/22/18 06:45 10/29/18 06:44 10/24/18 14:32 Albuterol/ Ipratropium (Albuterol/ Ipratropium) 3 ml Q4H PRN HHN Shortness of Breath 10/22/18 14:00 10/27/18 13:59 10/23/18 20:47 Aspirin (ASA) 81 mg DAILY ORAL 10/22/18 09:00 11/21/18 08:59 10/24/18 08:12 Folic Acid (Folate) 1 mg DAILY ORAL 10/22/18 09:00 11/21/18 08:59 10/24/18 08:11 Gabapentin (Neurontin) 300 mg BEDTIME ORAL 10/22/18 21:00 11/21/18 20:59 10/23/18 20:32 Guaifenesin/ Dextromethorphan (Robitussin DM Syrup) 10 ml Q4H PRN ORAL For Cough 10/22/18 14:00 11/21/18 13:59 10/23/18 11:06 Heparin Sodium (Porcine) (Heparin 5000 units/ml) 5,000 units EVERY 12 HOURS SUBQ 10/22/18 09:00 11/21/18 08:59 10/24/18 08:11 Hydralazine HCl (Apresoline) 50 mg Q6HR PRN ORAL SPB above 160 10/22/18 23:45 11/21/18 23:44 10/24/18 08:12 Irbesartan (Avapro) 75 mg DAILY ORAL 10/23/18 09:00 11/22/18 08:59 10/24/18 08:12 Multivitamins (Multivitamins) 1 tab DAILY ORAL 10/22/18 09:00 11/21/18 08:59 10/24/18 08:12 Ondansetron HCl (Zofran) 4 mg Q4H PRN IVP Nausea & Vomiting 10/22/18 06:45 11/21/18 06:44 Piperacillin Sod/ Tazobactam Sod 3.375 gm/Sodium Chloride 110 ml @ 27.5 mls/hr EVERY 8 HOURS IVPB 10/22/18 09:00 10/27/18 08:59 10/24/18 13:21 Tamsulosin HCl (Flomax) 0.4 mg BEDTIME ORAL 10/22/18 21:00 11/21/18 20:59 10/23/18 20:32 Allergies: Uncoded Allergies: CONTRAST MEDIA (Adverse Reaction, Mild, Itching in the area of the neck, 01/20/18) Patient was given specifically Isovue contrast during CT of the abdomen, and when he came back. The patient was itchy and benadryl was given, no complaints of itchiness or adverse reactions so far. ROS Limited/Unobtainable: No Constitutional: Reports: no symptoms HEENT: Reports: no symptoms Cardiovascular: Reports: no symptoms Respiratory: Reports: no symptoms Gastrointestinal/Abdominal: Reports: no symptoms Genitourinary: Reports: burning Neurologic/Psychiatric: Reports: no symptoms Subjective 72 YO M with indwelling davis cath presents with dysuria. Now UTI. Cover for Int saba-Dr Baez. Objective Last Vital Signs Date Time Temp Pulse Resp B/P (MAP) Pulse Ox O2 Delivery O2 Flow Rate FiO2 10/24/18 16:00 98.0 94 20 150/83 (105) 100 10/24/18 09:00 Nasal Cannula 2.0 10/24/18 07:17 21 Laboratory Tests Test 10/24/18 05:35 White Blood Count 8.3 K/UL (4.8-10.8) Red Blood Count 4.65 M/UL (4.70-6.10) L Hemoglobin 12.5 G/DL (14.2-18.0) L Hematocrit 40.0 % (42.0-52.0) L Mean Corpuscular Volume 86 FL (80-99) Mean Corpuscular Hemoglobin 26.8 PG (27.0-31.0) L Mean Corpuscular Hemoglobin Concent 31.2 G/DL (32.0-36.0) L Red Cell Distribution Width 16.1 % (11.6-14.8) H Platelet Count 150 K/UL (150-450) Mean Platelet Volume 7.8 FL (6.5-10.1) Neutrophils (%) (Auto) 65.7 % (45.0-75.0) Lymphocytes (%) (Auto) 18.8 % (20.0-45.0) L Monocytes (%) (Auto) 12.1 % (1.0-10.0) H Eosinophils (%) (Auto) 2.6 % (0.0-3.0) Basophils (%) (Auto) 0.8 % (0.0-2.0) Sodium Level 141 MMOL/L (136-145) Potassium Level 3.5 MMOL/L (3.5-5.1) Chloride Level 105 MMOL/L (98-107) Carbon Dioxide Level 30 MMOL/L (21-32) Anion Gap 6 mmol/L (5-15) Blood Urea Nitrogen 11 mg/dL (7-18) Creatinine 0.8 MG/DL (0.55-1.30) Estimat Glomerular Filtration Rate mL/min (>60) Glucose Level 92 MG/DL (74-106) Calcium Level 8.6 MG/DL (8.5-10.1) Microbiology Date/Time Source Procedure Growth Status 10/22/18 15:40 Sputum Expectorated Gram Stain - Final Resulted 10/22/18 15:40 Sputum Expectorated Sputum Culture - Preliminary NORMAL UPPER RESPIRATORY CHEPE AT 24 ... Resulted 10/22/18 03:00 Nasal Nares MRSA Culture - Final NO METHICILLIN RESISTANT STAPH AUREUS... Complete 10/22/18 15:40 Indwelling Cath Urine Culture - Final NO GROWTH AFTER 48 HOURS Complete 10/21/18 22:25 Urine,Clean Catch Urine Culture - Preliminary Enterobacter Species Escherichia Coli Resulted 10/22/18 03:00 Rectum VRE Culture - Final NO VANCOMYCIN RESISTANT ENTEROCOCCUS ... Complete Intake and Output 10/23/18 10/24/18 19:00 07:00 Intake Total 1032.5 ml 617.5 ml Output Total 700 ml 550 ml Balance 332.5 ml 67.5 ml Intake Oral 840 ml 480 ml IV Total 192.5 ml 137.5 ml Output Urine Total 700 ml 550 ml Objective PHYSICAL EXAMINATION: GENERAL: The patient is a well-developed and well-nourished male, in no apparent distress. HEENT: Eyes, pupils are equal and responsive to light and accommodation. Extraocular movements are intact. NECK: Supple without lymphadenopathy. CHEST: Lungs are clear to auscultation bilaterally without wheezes or rales. CARDIOVASCULAR: Regular rhythm and rate. S1 and S2 are normal without murmurs, rubs, or gallops. ABDOMEN: Soft, nontender, and nondistended. Positive bowel sounds. No evidence of hepatosplenomegaly. Currently, no rebound or guarding noted. EXTREMITIES: Negative for clubbing, cyanosis, or edema. RECTAL/GENITAL: Refused. NEUROLOGIC: Cranial nerves II through XII are grossly intact without focal deficits. Motor strength is 5/5 bilaterally. Deep tendon reflexes are 2+ plantar. Assessment/Plan Assessment/Plan ASSESSMENT: This is a 72-year-old male. 1. Urinary tract infection-E. Coli and enterobacter 2. Dysuria. 3. Benign prostatic hypertrophy. 4. Hypertension. TREATMENT: 1. Urinary tract infection/dysuria. A urine culture=E. Coli and enterobacter The patient has been started empirically on intravenous Zosyn. Await culture and sensitivity results. 2. Benign prostatic hypertrophy. The patient currently has indwelling Davis catheter. 3. Hypertension. Continue lisinopril as above. Amadou Machado MD October 24, 2018 19:21
--- NOTE | 2018-10-24 19:50 | NUR ---
HAND-OFF: Report given to ANGELO Galeas.
[2018-10-24 20:00] VITALS: BP 173/99
--- NOTE | 2018-10-24 20:11 | NUR ---
NURSE NOTES: Pt is in bed, awake and alert. No acute distress noted. Pt is complaining of pain, pain medication will be given as ordered PRN. IV site on right forearm arm is asymptomatic and patent. Helm cath draining yellow urine. Bed locked low in position,side rails up and call light within reach. Bed alarm on. Pt will be monitored.
[2018-10-24] MEDS: Tamsulosin 0.4mg cap ORAL SCH (20:45)
[2018-10-24] MEDS: Guaifenesin/DM 10ml syrup ORAL PRN (20:52)
[2018-10-25] VITALS: BP 154/88
--- NOTE | 2018-10-25 03:11 | NUR ---
NURSE NOTES: Pt is in bed, asleep. No acute distress noted.
[2018-10-25 04:00] VITALS: BP 151/94
[2018-10-25] MEDS: HYDROcodone/Acetamin 5/325 tab ORAL PRN ×2 (05:17→11:55)
[2018-10-25] MEDS: Guaifenesin/DM 10ml syrup ORAL PRN (05:17)
[2018-10-25] MEDS: Piperacillin/Tazobactam 3.375 GM in NS 110 ML IVPB SCH ×2 (05:18→13:34)
--- NOTE | 2018-10-25 07:00 | NUR ---
HAND-OFF: Report given to ANGELO Marx.
--- NOTE | 2018-10-25 07:31 | NUR ---
NURSE NOTES: RN received pt in stable condition, awake and oriented in bed eating breakfast. Bed in low, locked position, call light within reach. Will continue to monitor.
[2018-10-25 08:00] VITALS: BP 136/83
[2018-10-25 09:26] VITALS: BP 136/83
[2018-10-25] MEDS: Aspirin Baby 81mg ORAL SCH (09:26)
[2018-10-25] MEDS: Heparin 5000 units/ml inj SUBQ SCH (09:27)
--- NOTE | 2018-10-25 09:31 | NUR ---
Social Service Note ANGELITO received a return call from patient's niece Whitney [phone]. Niece confirms patient stays around [place] and [facility]. Niece states patient stays in this area because her cousin Arnulfo Arroyo lives close to there. Niece states she has stopped interactions with patient because she saw that he was never going to change. Niece states he loves to drink and do dope and would rather spend his money on this then to have housing. Niece stays she does worry that he is unable to care for himself but believes her cousin does check on him and his well being. Niece will check to see if she has an alternative phone number. ANGELITO attempted again to reach Arnulfo and this time unable to leave a message because VM is full. Will continue to monitor.
--- NOTE | 2018-10-25 12:57 | NUR ---
NURSE NOTES: Pt exhibits frustration and states he wants "to sign the paper to leave". Pt is homeless and states he is going to get a motel. RN following case management notes and encouraging pt to stay inpatient for medical care. Charge nurse made aware of pt's intention. Will continue to monitor.
--- NOTE | 2018-10-25 13:12 | Pulmonology Progress Note ---
Assessment/Plan Problems: (1) Acute encephalopathy (2) COPD exacerbation (3) UTI (urinary tract infection) (4) HTN (hypertension) (5) Methamphetamine abuse (6) BPH (benign prostatic hyperplasia) (7) Opiate dependence (8) CVA (cerebral infarction) Assessment/Plan improving wants to keep the davis respiratory treatment monitor BP symptomatic treatment long term care social worker consult for placement Subjective ROS Limited/Unobtainable: No Constitutional: Reports: no symptoms HEENT: Repors: no symptoms Respiratory: Reports: no symptoms Allergies: Uncoded Allergies: CONTRAST MEDIA (Adverse Reaction, Mild, Itching in the area of the neck, 01/20/18) Patient was given specifically Isovue contrast during CT of the abdomen, and when he came back. The patient was itchy and benadryl was given, no complaints of itchiness or adverse reactions so far. Objective Last 24 Hour Vital Signs Date Time Temp Pulse Resp B/P (MAP) Pulse Ox O2 Delivery O2 Flow Rate FiO2 10/25/18 12:25 99.0 10/25/18 09:26 136/83 10/25/18 09:00 Nasal Cannula 2.0 10/25/18 08:03 Nasal Cannula 2.0 28 10/25/18 08:03 85 16 Nasal Cannula 2.0 28 10/25/18 08:03 96 Nasal Cannula 2.0 28 10/25/18 08:00 99.0 90 16 136/83 (100) 98 10/25/18 04:00 97.6 94 20 151/94 (113) 98 10/25/18 00:00 98.9 83 20 154/88 (110) 99 10/24/18 21:00 Nasal Cannula 2.0 10/24/18 20:45 173/99 10/24/18 20:00 98.0 92 20 173/99 (123) 96 10/24/18 19:54 97 Nasal Cannula 2.0 28 10/24/18 19:54 Nasal Cannula 2.0 28 10/24/18 19:53 88 20 Nasal Cannula 2.0 28 10/24/18 16:00 98.0 94 20 150/83 (105) 100 10/24/18 13:51 97.9 Intake and Output 10/24/18 10/25/18 19:00 07:00 Intake Total 600 ml 837.5 ml Output Total 500 ml 1200 ml Balance 100 ml -362.5 ml Intake Oral 600 ml 700 ml IV Total 137.5 ml Output Urine Total 500 ml 1200 ml # Voids 3 General Appearance: cachetic HEENT: normocephalic, atraumatic Respiratory/Chest: chest wall non-tender, lungs clear Cardiovascular: normal peripheral pulses, normal rate Abdomen: normal bowel sounds, soft, non tender Genitourinary: normal external genitalia Extremities: no clubbing Skin: no rash Microbiology Date/Time Source Procedure Growth Status 10/22/18 15:40 Sputum Expectorated Gram Stain - Final Complete 10/22/18 15:40 Sputum Expectorated Sputum Culture - Final NORMAL UPPER RESPIRATORY CHEPE PRESENT Complete 10/22/18 15:40 Indwelling Cath Urine Culture - Final NO GROWTH AFTER 48 HOURS Complete Current Medications Medications (Trade) Dose Ordered Sig/Edwige Route PRN Reason Start Time Stop Time Status Last Admin Dose Admin Acetaminophen (Tylenol) 650 mg Q6H PRN ORAL Mild Pain/Temp > 100.5 10/22/18 06:45 11/21/18 06:44 10/24/18 23:44 Acetaminophen/ Hydrocodone Bitart (Heth 5/325) 1 tab Q6H PRN ORAL Pain 4-10 10/22/18 06:45 10/29/18 06:44 10/25/18 11:55 Albuterol/ Ipratropium (Albuterol/ Ipratropium) 3 ml Q4H PRN HHN Shortness of Breath 10/22/18 14:00 10/27/18 13:59 10/23/18 20:47 Aspirin (ASA) 81 mg DAILY ORAL 10/22/18 09:00 11/21/18 08:59 10/25/18 09:26 Folic Acid (Folate) 1 mg DAILY ORAL 10/22/18 09:00 11/21/18 08:59 10/25/18 09:26 Gabapentin (Neurontin) 300 mg BEDTIME ORAL 10/22/18 21:00 11/21/18 20:59 10/24/18 20:46 Guaifenesin/ Dextromethorphan (Robitussin DM Syrup) 10 ml Q4H PRN ORAL For Cough 10/22/18 14:00 11/21/18 13:59 10/25/18 05:17 Heparin Sodium (Porcine) (Heparin 5000 units/ml) 5,000 units EVERY 12 HOURS SUBQ 10/22/18 09:00 11/21/18 08:59 10/25/18 09:27 Hydralazine HCl (Apresoline) 50 mg Q6HR PRN ORAL SPB above 160 10/22/18 23:45 11/21/18 23:44 10/24/18 20:45 Irbesartan (Avapro) 75 mg DAILY ORAL 10/23/18 09:00 11/22/18 08:59 10/25/18 09:26 Multivitamins (Multivitamins) 1 tab DAILY ORAL 10/22/18 09:00 11/21/18 08:59 10/25/18 09:26 Ondansetron HCl (Zofran) 4 mg Q4H PRN IVP Nausea & Vomiting 10/22/18 06:45 11/21/18 06:44 Piperacillin Sod/ Tazobactam Sod 3.375 gm/Sodium Chloride 110 ml @ 27.5 mls/hr EVERY 8 HOURS IVPB 10/22/18 09:00 10/27/18 08:59 10/25/18 05:18 Tamsulosin HCl (Flomax) 0.4 mg BEDTIME ORAL 10/22/18 21:00 11/21/18 20:59 10/24/18 20:45 Tammy Noble MD October 25, 2018 13:12
--- NOTE | 2018-10-25 14:03 | NUR ---
*-- INSURANCE *-* ALL CLINICALS AND REVIEWS HAVE BEEN FAXED TO: [facility]; [place] P- [phone] [phone].............REVIEW/CLINICAL Addendum: 10/25/18 at 1536 by JENARO CABELLO CM REF# [id number]
--- NOTE | 2018-10-25 14:59 | NUR ---
NURSE NOTES: Pt was discharged in stable condition and was able to ambulate with cane outside of the building. Pt's niece picked him up and accompanied him to unknown destination. Pt signed all discharge paperwork, including homeless discharge packet. Pt was d/c'd with Helm per Dr. Noble. Helm was draining to gravity, yellow and clear. RN reviewed discharge paperwork with pt, including home medications to continue, and reviewed symptoms of UTI. IV and arm band removed. Charge nurse and Case Management aware of homeless discharge.
--- NOTE | 2018-10-25 15:20 | NUR ---
Social Service Note SW met with patient prior to discharge. Patient states he is ready to go and needs to leave by 3pm. Patient declining resources however states if a homeless program could meet with him by his tent he would be open. SW discussed the [place] [employer] outreach team and patient was receptive. SW completed online referral. Patient declined transportation to preferred address and location. Patient's clothing was weather appropriate and patient declined additional items. Patient states he will be in contact with family. SW discussed homeless checklist with primary nurse. No follow up services indicated.
--- NOTE | 2018-10-26 12:03 | Discharge Summary ---
Discharge Summary Discharge Summary _ DATE OF ADMISSION: 10/22/2018 DATE OF DISCHARGE: 10/25/2018 DISCHARGED BY: Dr. Baez REASON FOR ADMISSION: 72 years old male with past medical history of hypertension, COPD, CVA, BPH, substance abuse, was brought by paramedics from [place]. Patient had Helm catheter for long time due to urinary retention. Patient complained of dysuria, generalized weakness and penile pain. Patient also complained of coughing. Cough was described as productive with yellow phlegm production. No hemoptysis, no wheezing. Patient denied fever and chills. Patient denied chest pain. Upon evaluation vital signs were stable. Laboratory work-up revealed no leukocytosis, stable hemoglobin hematocrit, stable electrolytes. Chest x-ray revealed no acute cardiopulmonary pathology. Urinalysis revealed evidence of pyuria. Helm catheter was replaced in the emergency department. Patient was provided with IV fluids and empiric antibiotic after being worked pancultured. Patient was subsequently admitted to medical surgical floor for further management. CONSULTANTS: pulmonary Dr. Noble [facility]SE: Patient admitted to medical surgical floor. Patient started on empiric antibiotics. Urine culture revealed Enterobacter and E. coli Sputum culture was negative Repeated urine culture was negative. Antibiotic optimized based on sensitivity. Supplemental oxygen titrated as needed to keep pulse oximetry above 92%. Pulmonary toilet with bronchodilator provided [id number] and as needed. Follow-up chest x-ray revealed mild basal atelectasis, no evidence of pneumonia. Antitussive provided as needed. Flomax was continued. Helm catheter care provided. Patient was instructed that Helm catheter needs to be change every 3 to 4 weeks. DVT prophylaxis provided. Patient was working with physical therapist. Blood pressure was managed with PAULINA inhibitor. Lipid panel revealed elevated total cholesterol. Patient was provided with cardiac low-cholesterol diet. Patient was educated on appropriate diet. Antiplatelet therapy with aspirin continued. Renal parameters and electrolytes were closely monitored. Electrolytes/ potassium corrected as needed. Nephrotoxins were avoided. Patient was counseled on abstinence from street drugs. box storage worker consult was requested due to homelessness box storage worker met with the patient prior to discharge regarding resources and assistance with the homeless program . box storage worker discussed [facility] service authority outreach team , and patient was receptive. box storage worker completed online referral. Patient declined transportation . Patient was picked up by his niece. FINAL DIAGNOSES: COPD exacerbation E. coli, Enterobacter UTI in setting of chronic Helm due to urinary retention BPH COPD Hypertension History of CVA Electrolyte abnormality History of substance abuse/methamphetamine DISCHARGE MEDICATIONS: See Medication Reconciliation list. DISCHARGE INSTRUCTIONS: Patient was discharged accompanied by his niece. Follow up with primary care provider in one week. I have been assigned to dictate discharge summary for this account. I was not involved in the patient's management. Magdalena Brooke NP October 26, 2018 12:03
== END 2018-10-25 14:53 | disposition home or self-care (01) | DRG 463 ==
LOC: EDBD 21:47 → EMR 22:30 → 4E 10-22 02:05 → EDBEDREQ 10-22 02:36
DX: N39.0 Urinary tract infection, site not specified (principal); E87.8 Other disorders of electrolyte and fluid balance, not elsewhere classified; B96.89 Other specified bacterial agents as the cause of diseases classified elsewhere; J44.0 Chronic obstructive pulmonary disease with (acute) lower respiratory infection; J20.9 Acute bronchitis, unspecified; N40.0 Benign prostatic hyperplasia without lower urinary tract symptoms; I10 Essential (primary) hypertension; Z86.73 Personal history of transient ischemic attack (TIA), and cerebral infarction without residual deficits; B96.20 Unspecified Escherichia coli [E. coli] as the cause of diseases classified elsewhere; F15.21 Other stimulant dependence, in remission; Z91.041 Radiographic dye allergy status; J44.1 Chronic obstructive pulmonary disease with (acute) exacerbation; R33.9 Retention of urine, unspecified; Z89.412 Acquired absence of left great toe; Z79.82 Long term (current) use of aspirin; F17.200 Nicotine dependence, unspecified, uncomplicated
CPT/HCPCS: 36415; 71045; 80048; 80053; 80061; 81003; 83690; 83735; 84100; 85025; 87070; 87081; 87086; 87181; 87205; 94640; 94664; 94760; 96360; 99285; J7620; J8499

== ENCOUNTER 2018-11-21 15:27 | Inpatient (IN) | payer MEDICARE, MEDICAID ==
[~2018-11-21] VITALS: Ht 182.9 cm; Wt 68.5 kg
[~2018-11-21 15:27] MED LIST changes: +COUMADIN7.5 MG ORAL; +NORCO 10-325 T1 EACH ORAL
[2018-11-21 15:30] VITALS: BP 167/100
--- NOTE | 2018-11-21 15:30 | NUR ---
ED Nurse Note: PT FROM THE STREET BROUGHT IN BY RA 68 DUE TO ABD.PAIN. NO OTHER KNOWN SYMPTOMS. NOTED LEFT FOOT AMPUTATION AND OLD AND DIRTY INDWELLING DANIELS WITH LEG BAG. PT IS AAO X 1, FOLLOWS COMMANDS AND WITH INCOMPRHEHENSIOBLE SPEECH. NO RESPIRATORY DISTRESS.
[2018-11-21] MEDS ORDERED: Morphine Sulfate 2mg/ml Inj(IV/IM USE ONLY) IVP ONE (15:45)
[2018-11-21] MEDS ORDERED: Isovue-300 100ml vial INJ PRN (15:45)
--- NOTE | 2018-11-21 16:06 | Emergency Room Report ---
History of Present Illness General Chief Complaint: Abdominal Pain Source: Patient, EMS Present Illness HPI Patient presents with several months of abdominal pain. He's from the streets. EMS was contacted. The patient states that the pain is fairly severe and constant. He says it's diffuse but also the mid abdomen without radiation. He doesn't have any medications to take at this time. He has an indwelling Davis. He's got stool but denies incontinence. 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 He denies taking any medication at this time. The patient does drink alcohol he denies other drugs at this time. He also smokes. CT done 02/05: * Davis catheter noted within the bladder. There is bladder wall thickening which may be exaggerated by underdistention however possibility of cystitis or other etiologies not excluded. Recommend correlation with urinalysis and urine cytology. * Cholelithiasis. No CT evidence to suggest acute cholecystitis. * Moderate amount of colonic stool with significant amount of stool in a dilated rectum suggesting fecal impaction. No inflammatory changes in the rectum to suggest stercoral colitis at this time. * Coronary artery disease. 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 He was discharged 10/25. aids social worker note: aids social worker consult was requested due to homelessness aids social worker met with the patient prior to discharge regarding resources and assistance with the homeless program . aids social worker discussed [facility] service authority outreach team , and patient was receptive. aids social worker completed online referral. Patient declined transportation . Patient was picked up by his niece. FINAL DIAGNOSES: COPD exacerbation E. coli, Enterobacter UTI in setting of chronic Davis due to urinary retention BPH COPD Hypertension History of CVA Electrolyte abnormality History of substance abuse/methamphetamine Allergies: Uncoded Allergies: CONTRAST MEDIA (Adverse Reaction, Mild, Itching in the area of the neck, 01/20/18) Patient was given specifically Isovue contrast during CT of the abdomen, and when he came back. The patient was itchy and benadryl was given, no complaints of itchiness or adverse reactions so far. Patient History Past Medical History: see triage record, old chart reviewed Past Surgical History: other - mid foot amputation Social History: Reports: smoking, alcohol use, drug use Social History Narrative born in [place] Reviewed Nursing Documentation: PMH: Agreed; PSxH: Agreed Nursing Documentation-PMH Past Medical History: No History, Except For Hx Cardiac Problems: Yes Hx Hypertension: Yes Hx COPD: Yes Hx Cancer: No Hx Gastrointestinal Problems: Yes - Pancreatic cyst Hx Neurological Problems: Yes - Encephalopathy Hx Cerebrovascular Accident: Yes Hx Weakness: Yes Review of Systems All Other Systems: negative except mentioned in HPI Physical Exam Vital Signs Date Time Temp Pulse Resp B/P (MAP) Pulse Ox O2 Delivery O2 Flow Rate FiO2 11/21/18 15:20 98.4 100 16 130/80 (97) 98 Room Air Sp02 EP Interpretation: reviewed, normal General Appearance: alert, thin, other, Chronically Ill Head: normocephalic, atraumatic Eyes: bilateral eye PERRL, bilateral eye Scleral Injection ENT: moist mucus membranes Neck: supple Respiratory: lungs clear, normal breath sounds Cardiovascular #1: regular rate, rhythm, no edema Cardiovascular #2: 2+ radial (R) Gastrointestinal: non-distended, no guarding, no rebound, tenderness - Mid abdomen Rectal: heme negative stool Genitourinary: other - Davis catheter Musculoskeletal: other - Left midfoot amputation, atrophy Neurologic: alert, motor strength/tone normal, DTRs symmetric, sensory intact, oriented - 2 Psychiatric: mood/affect normal, depressed affect Skin: normal color, warm/dry, other - Disheveled Medical Decision Making Diagnostic Impression: Primary Impression: Intractable abdominal pain Additional Impressions: UTI (urinary tract infection) Qualified Codes: T83.511A - Infection and inflammatory reaction due to indwelling urethral catheter, initial encounter; N39.0 - Urinary tract infection , site not specified Cocaine abuse Elevated lactic acid level COPD (chronic obstructive pulmonary disease) Qualified Codes: J44.9 - Chronic obstructive pulmonary disease, unspecified Alcohol abuse Antisocial behavior ER Course Patient presents with abdominal pain that he says is chronic. Differential includes diverticulitis, appendicitis, urinary tract infection, acute myocardial infarction, pancreatitis, abdominal tumor amongst others. There is no evidence of bleeding at this time. Evaluation will be with EKG, chest x-ray and CT the abdomen and pelvis along with labs. The patient will receive IV hydration, Pepcid and a dose of morphine. EKG sinus rhythm left axis deviation nonspecific ST-T wave changes + cocaine Refusing to take out davis and kicking at RN. Refusing oral contrast. Pyuria. Antibiotics ordered. Patient refused CT abdomen. Patient with improved abdominal pain however hall tender. No rebound. Nonsurgical abdomen at this time. Contact Dr. Baez for admission. Laboratory Tests Test 11/21/18 16:00 11/21/18 18:30 White Blood Count 8.9 K/UL (4.8-10.8) Red Blood Count 5.28 M/UL (4.70-6.10) Hemoglobin 13.7 G/DL (14.2-18.0) L Hematocrit 42.6 % (42.0-52.0) Mean Corpuscular Volume 81 FL (80-99) Mean Corpuscular Hemoglobin 25.9 PG (27.0-31.0) L Mean Corpuscular Hemoglobin Concent 32.1 G/DL (32.0-36.0) Red Cell Distribution Width 14.6 % (11.6-14.8) Platelet Count 166 K/UL (150-450) Mean Platelet Volume 7.7 FL (6.5-10.1) Neutrophils (%) (Auto) 63.0 % (45.0-75.0) Lymphocytes (%) (Auto) 26.2 % (20.0-45.0) Monocytes (%) (Auto) 7.7 % (1.0-10.0) Eosinophils (%) (Auto) 1.6 % (0.0-3.0) Basophils (%) (Auto) 1.6 % (0.0-2.0) Prothrombin Time 9.5 SEC (9.30-11.50) Prothrombin Time INR 0.9 (0.9-1.1) PTT 26 SEC (23-33) Urine Color Yellow Urine Appearance Slightly cloudy Urine pH 6 (4.5-8.0) Urine Specific [place] 1.015 (1.005-1.035) Urine Protein 4+ (NEGATIVE) H Urine Glucose (UA) Negative (NEGATIVE) Urine Ketones 1+ (NEGATIVE) H Urine Blood 2+ (NEGATIVE) H Urine Nitrite Positive (NEGATIVE) H Urine Bilirubin Negative (NEGATIVE) Urine Urobilinogen 4 MG/DL (0.0-1.0) H Urine Leukocyte Esterase 2+ (NEGATIVE) H Urine RBC 5-10 /HPF (0 - 0) H Urine WBC 15-20 /HPF (0 - 0) H Urine Squamous Epithelial Cells None /LPF (NONE/OCC) Urine Amorphous Sediment Few /LPF (NONE) H Urine Bacteria Moderate /HPF (NONE) H Sodium Level 142 MMOL/L (136-145) Potassium Level 3.5 MMOL/L (3.5-5.1) Chloride Level 105 MMOL/L (98-107) Carbon Dioxide Level 25 MMOL/L (21-32) Anion Gap 12 mmol/L (5-15) Blood Urea Nitrogen 19 mg/dL (7-18) H Creatinine 0.9 MG/DL (0.55-1.30) Estimate Glomerular Filtration Rate mL/min (>60) Glucose Level 114 MG/DL (74-106) H Lactic Acid Level 2.20 mmol/L (0.4-2.0) H 1.00 mmol/L (0.66-2.22) Uric Acid 8.5 MG/DL (2.6-7.2) H Calcium Level 9.1 MG/DL (8.5-10.1) Magnesium Level 1.5 MG/DL (1.8-2.4) L Total Bilirubin 0.3 MG/DL (0.2-1.0) Aspartate Amino Transferase (AST) 43 U/L (15-37) H Alanine Aminotransferase (ALT) 33 U/L (12-78) Alkaline Phosphatase 78 U/L (46-116) Ammonia 40 umol/L (11-32) H Total Creatine Kinase 137 U/L (26-308) Troponin I 0.031 ng/mL (0.000-0.056) Total Protein 7.7 G/DL (6.4-8.2) Albumin 3.1 G/DL (3.4-5.0) L Globulin 4.6 g/dL Albumin/Globulin Ratio 0.7 (1.0-2.7) L Lipase 110 U/L (73-393) Thyroid Stimulating Hormone (TSH) 1.387 uiU/mL (0.358-3.740) Urine Opiates Screen Positive (NEGATIVE) H Urine Barbiturates Screen Negative (NEGATIVE) Phencyclidine (PCP) Screen Negative (NEGATIVE) Urine Amphetamines Screen Negative (NEGATIVE) Urine Benzodiazepines Screen Negative (NEGATIVE) Urine Cocaine Screen Positive (NEGATIVE) H Urine Marijuana (THC) Screen Negative (NEGATIVE) Serum Alcohol 41 mg/dL EKG Diagnostic Results Rate: normal Rhythm: NSR ST Segments: no acute changes - ST inversions septally Rhythm Strip Diag. Results EP Interpretation: yes Rhythm: NSR, no PVC's, no ectopy Chest X-Ray Diagnostic Results Chest X-Ray Diagnostic Results : Chest X-Ray Ordered: Yes # of Views/Limited/Complete: 1 View Indication: Other EP Interpretation: Yes Interpretation: no consolidation, no effusion, no pneumothorax, other - COPD Impression: Other Electronically Signed by: Electronically signed by Sanjeev Escalante MD Last Vital Signs Date Time Temp Pulse Resp B/P (MAP) Pulse Ox O2 Delivery O2 Flow Rate FiO2 11/21/18 23:57 97.9 89 16 149/85 (106) 94 11/21/18 21:52 Room Air Status: improved Disposition: ADMITTED INPATIENT Condition: Serious Sanjeev Escalante MD Nov 21, 2018 16:06
[2018-11-21] MEDS ORDERED: DiphenhydrAMINE 50mg/ml Inj IVP ONE (16:15)
--- NOTE | 2018-11-21 16:30 | NUR ---
ED Nurse Note: COLLECTED URINE AND MRSA/VRE/CRE SWABS SENT.
[2018-11-21 16:33] LABS: ANION GAP 12 mmol/L (5-15); BLOOD UREA NITROGEN 19 mg/dL (7-18); CALCIUM 9.1 MG/DL (8.5-10.1); CARBON DIOXIDE 25 MMOL/L (21-32); CHLORIDE 105 MMOL/L (98-107); CREATININE 0.9 MG/DL (0.55-1.30); POTASSIUM 3.5 MMOL/L (3.5-5.1); SODIUM 142 MMOL/L (136-145)
--- NOTE | 2018-11-21 16:33 | NUR ---
ED Nurse Note: PT REMOVED OLD DANIELS CATHETER AND REFUSED TO INSERT A NEW ONE. PT ALSO REFUSED TO DRINK ORAL CONTRAST FOR CT. NOTED TO BE UNCOOPERATIVE. DR NICHOLE WAS NOTIFIED.
[2018-11-21 16:34] LABS: INR 0.9 (0.9-1.1)
[2018-11-21 16:39] LABS: AMMONIA 40 umol/L (11-32)
[2018-11-21 16:41] LABS: APPEARANCE,URINE SLIGHTLY CLOUDY; BILIRUBIN, URINE NEGATIVE (NEGATIVE); GLUCOSE, URINE (UA) NEGATIVE (NEGATIVE); KETONES,URINE 1+ (NEGATIVE); LEUKOCYTE ESTERASE ,URINE 2+ (NEGATIVE); NITRITE,URINE POSITIVE (NEGATIVE); PH,URINE 6 (4.5-8.0); PROTEIN,URINE 4+ (NEGATIVE); UROBILINOGEN,URINE 4 MG/DL (0.0-1.0)
[2018-11-21 16:42] LABS: BASOPHILS % (AUTO) 1.6 % (0.0-2.0); EOSINOPHILS % (AUTO) 1.6 % (0.0-3.0); HEMATOCRIT 42.6 % (42.0-52.0); HEMOGLOBIN 13.7 G/DL (14.2-18.0); LYMPHOCYTES % (AUTO) 26.2 % (20.0-45.0); MEAN CORPUSCULAR VOLUME 81 FL (80-99); MONOCYTES % (AUTO) 7.7 % (1.0-10.0); PLATELET COUNT 166 K/UL (150-450); RED BLOOD COUNT 5.28 M/UL (4.70-6.10); RED CELL DISTRIBUTION WIDTH 14.6 % (11.6-14.8); WHITE BLOOD COUNT 8.9 K/UL (4.8-10.8)
[2018-11-21 16:44] LABS: ALANINE AMINOTRANSFERASE 33 U/L (12-78); ALBUMIN 3.1 G/DL (3.4-5.0); ALBUMIN/GLOBULIN RATIO 0.7 (1.0-2.7); ALKALINE PHOSPHATASE 78 U/L (46-116); ASPARTATE AMINO TRANSFERASE 43 U/L (15-37); BILIRUBIN,TOTAL 0.3 MG/DL (0.2-1.0); CREATINE KINASE 137 U/L (26-308)
[2018-11-21 16:46] LABS: COLOR,URINE YELLOW
--- NOTE | 2018-11-21 16:53 | Diagnostic Imaging Report ---
Indication: Chest pain Comparison: 10/24/2018 A single view chest radiograph was obtained. Findings: Cardiomediastinal appearance is prominent but within normal limits for age. Aorta is calcified. The lungs are clear. Pulmonary vascularity is appropriate. The diaphragmatic contour is smooth and costophrenic angles are sharp. No pleural effusions are identified. The bones are unremarkable. Impression: No acute findings
[2018-11-21] MEDS ORDERED: cefTRIAXone 1 GM in NS 55 ML IVPB ONE (17:15)
[2018-11-21 17:30] VITALS: BP 165/90
[2018-11-21] MEDS ORDERED: Albuterol/Ipratropium 3ml neb HHN PRN (18:00)
[2018-11-21] MEDS ORDERED: Miralax 17gm pkt ORAL PRN (18:00)
[2018-11-21] MEDS ORDERED: Morphine Sulfate 2mg/ml Inj(IV/IM USE ONLY) IVP PRN (18:00)
--- NOTE | 2018-11-21 18:03 | NUR ---
ED Nurse Note: PT REFUSED CT ABDOMEN/PELVIS. DR NICHOLE NOTIFIED.
--- NOTE | 2018-11-21 18:34 | NUR ---
ED Nurse Note: REPEAT LACTIC ACID SPECIMEN SENT.
--- NOTE | 2018-11-21 18:46 | NUR ---
ED Nurse Note: TRIED TO GIVE REPORT TO MED SURG UNIT AND SPOKEN TO KIKE THEIR CHARGE NURSE NO AVAILABLE NURSE TO RECEIVE PT AT THIS TIME. ER CHARGE NOTIFIED.
--- NOTE | 2018-11-21 19:11 | NUR ---
HAND-OFF: Report given to CHARO STEPHENS.
--- NOTE | 2018-11-21 20:35 | NUR ---
ED Nurse Note: PATIENT REFUSED OBSERVATION, ASSESSMENT OF HIS SKIN.
--- NOTE | 2018-11-21 20:55 | NUR ---
ED Nurse Note: Patient was admited to MS due to abdominal pain. AAO x4, VSS at this time, patient refused skin assessment. Patient was transfered via gurney, with all belongings. (patient refused inventory)
[2018-11-21 21:00] VITALS: BP 158/97
[2018-11-21] MEDS: Heparin 5000 units/ml inj SUBQ SCH (21:31)
[2018-11-21] MEDS: Vancomycin 750mg/NS 275ml IVPB SCH ×2 (21:32)
[2018-11-21] MEDS: Cefepime HCl 2 GM in D5W 110 ML IV SCH (23:02)
[2018-11-21 23:57] VITALS: BP 149/85
[2018-11-22] MEDS ORDERED: Vancomycin 1 GM in D5W 275 ML IV SCH (00:30)
--- NOTE | 2018-11-22 07:43 | NUR ---
HAND-OFF: Report given to Noam Beaulieu RN.
--- NOTE | 2018-11-22 07:45 | NUR ---
NURSE NOTES: Received patient in bed,awake, verbally responsive but patient does not want to be bothered @ this time and said " Get out of here." Patient refused belongings check and skin assessment. Patient stopped RN when RN try to approach in a calm manner.Domingo light within reach, bed is in lowest position and locked. Bed alarm is on. Will continue plan of care.
--- NOTE | 2018-11-22 08:00 | NUR ---
NURSE NOTES: Patient refused V/S.RN explained the risks and benefits.Patient still refused x3.Will continue to monitor.
[2018-11-22] MEDS: Vancomycin 750mg/NS 275ml IVPB SCH ×2 (09:00)
[2018-11-22] MEDS: Heparin 5000 units/ml inj SUBQ SCH (09:00)
[2018-11-22] MEDS: Cefepime HCl 2 GM in D5W 110 ML IV SCH (09:00)
--- NOTE | 2018-11-22 10:00 | NUR ---
PT NOTE Received MD order for PT evaluation. Attempted to see patient for PT evaluation, patient declined to participate with PT evaluation, became agitated with loud voice. Noam STEPHENS notified, will re-attempt tomorrow.
--- NOTE | 2018-11-22 10:49 | Consultation ---
History of Present Illness General Date patient seen: Nov 22, 2018 Chief Complaint: Abdominal Pain Reason for Consultation: UTI Present Illness HPI Mr. Webb is a 72 yo male with PMHx of HTN, CVA admitted before with UTI with resistant organsims. He presented to the ED on 11/21/18 with mid abdomen pain that he says is chronic. He was recently d/c from the hospital on 10/25/18 for UTI. [facility]. He denies current fever/chill. Abdominal pain (suprapubic) improved. In the ED he was also noted to be positive for Cocaine. ID Consulted for UTI PMHx HTN CVA UTI PSHx None SocHx Uses E/T/D FamHx Not contributory Allergies: Uncoded Allergies: CONTRAST MEDIA (Adverse Reaction, Mild, Itching in the area of the neck, 01/20/18) Patient was given specifically Isovue contrast during CT of the abdomen, and when he came back. The patient was itchy and benadryl was given, no complaints of itchiness or adverse reactions so far. Medication History Scheduled Aspirin* (Aspirin*), 81 MG ORAL DAILY Ibuprofen* (Motrin*), 400 MG ORAL Q8H Lisinopril* (Lisinopril*), 10 MG ORAL DAILY, (Reported) Tamsulosin HCl (Flomax), Unknown Dose ORAL DAILY, (Reported) Tamsulosin Hcl (Tamsulosin Hcl*), 0.4 MG ORAL BEDTIME, (Reported) Warfarin Sod (Coumadin*), 7.5 MG ORAL DAILY, (Reported) Scheduled PRN Hydrocodone Bit/Acetaminophen 10-325* ([place] 10-325*), 1 TAB ORAL Q4H PRN for For Pain, (Reported) Patient History Healthcare decision maker Resuscitation status Full Code Advanced Directive on File No Review of Systems ROS Narrative 12 point ROS negative except as note in the HPI. Physical Exam Last 24 Hour Vital Signs Date Time Temp Pulse Resp B/P (MAP) Pulse Ox O2 Delivery O2 Flow Rate FiO2 11/21/18 23:57 97.9 89 16 149/85 (106) 94 11/21/18 21:52 Room Air 11/21/18 21:00 98.5 100 19 158/97 (117) 94 11/21/18 17:30 98.9 94 18 165/90 95 Room Air 11/21/18 16:46 98.9 11/21/18 15:30 99.1 95 16 167/100 94 Room Air 11/21/18 15:30 100 16 Room Air 11/21/18 15:20 98.4 100 16 130/80 (97) 98 Room Air Intake and Output 11/21/18 11/22/18 19:00 07:00 Intake Total 1055 ml 865.000 ml Output Total 750 ml Balance 1055 ml 115.000 ml Intake Oral 480 ml IV Total 1055 ml 385.000 ml Output Urine Total 750 ml # Voids 1 1 # Bowel Movements 2 Laboratory Tests Test 11/21/18 16:00 11/21/18 18:30 White Blood Count 8.9 K/UL (4.8-10.8) Red Blood Count 5.28 M/UL (4.70-6.10) Hemoglobin 13.7 G/DL (14.2-18.0) L Hematocrit 42.6 % (42.0-52.0) Mean Corpuscular Volume 81 FL (80-99) Mean Corpuscular Hemoglobin 25.9 PG (27.0-31.0) L Mean Corpuscular Hemoglobin Concent 32.1 G/DL (32.0-36.0) Red Cell Distribution Width 14.6 % (11.6-14.8) Platelet Count 166 K/UL (150-450) Mean Platelet Volume 7.7 FL (6.5-10.1) Neutrophils (%) (Auto) 63.0 % (45.0-75.0) Lymphocytes (%) (Auto) 26.2 % (20.0-45.0) Monocytes (%) (Auto) 7.7 % (1.0-10.0) Eosinophils (%) (Auto) 1.6 % (0.0-3.0) Basophils (%) (Auto) 1.6 % (0.0-2.0) Prothrombin Time 9.5 SEC (9.30-11.50) Prothromb Time International Ratio 0.9 (0.9-1.1) Activated Partial Thromboplast Time 26 SEC (23-33) Urine Color Yellow Urine Appearance Slightly cloudy Urine pH 6 (4.5-8.0) Urine Specific Labelle 1.015 (1.005-1.035) Urine Protein 4+ (NEGATIVE) H Urine Glucose (UA) Negative (NEGATIVE) Urine Ketones 1+ (NEGATIVE) H Urine Blood 2+ (NEGATIVE) H Urine Nitrite Positive (NEGATIVE) H Urine Bilirubin Negative (NEGATIVE) Urine Urobilinogen 4 MG/DL (0.0-1.0) H Urine Leukocyte Esterase 2+ (NEGATIVE) H Urine RBC 5-10 /HPF (0 - 0) H Urine WBC 15-20 /HPF (0 - 0) H Urine Squamous Epithelial Cells None /LPF (NONE/OCC) Urine Amorphous Sediment Few /LPF (NONE) H Urine Bacteria Moderate /HPF (NONE) H Sodium Level 142 MMOL/L (136-145) Potassium Level 3.5 MMOL/L (3.5-5.1) Chloride Level 105 MMOL/L (98-107) Carbon Dioxide Level 25 MMOL/L (21-32) Anion Gap 12 mmol/L (5-15) Blood Urea Nitrogen 19 mg/dL (7-18) H Creatinine 0.9 MG/DL (0.55-1.30) Estimat Glomerular Filtration Rate mL/min (>60) Glucose Level 114 MG/DL (74-106) H Lactic Acid Level 2.20 mmol/L (0.4-2.0) H 1.00 mmol/L (0.66-2.22) Uric Acid 8.5 MG/DL (2.6-7.2) H Calcium Level 9.1 MG/DL (8.5-10.1) Magnesium Level 1.5 MG/DL (1.8-2.4) L Total Bilirubin 0.3 MG/DL (0.2-1.0) Aspartate Amino Transf (AST/SGOT) 43 U/L (15-37) H Alanine Aminotransferase (ALT/SGPT) 33 U/L (12-78) Alkaline Phosphatase 78 U/L (46-116) Ammonia 40 umol/L (11-32) H Total Creatine Kinase 137 U/L (26-308) Troponin I 0.031 ng/mL (0.000-0.056) Total Protein 7.7 G/DL (6.4-8.2) Albumin 3.1 G/DL (3.4-5.0) L Globulin 4.6 g/dL Albumin/Globulin Ratio 0.7 (1.0-2.7) L Lipase 110 U/L (73-393) Thyroid Stimulating Hormone (TSH) 1.387 uiU/mL (0.358-3.740) Urine Opiates Screen Positive (NEGATIVE) H Urine Barbiturates Screen Negative (NEGATIVE) Phencyclidine (PCP) Screen Negative (NEGATIVE) Urine Amphetamines Screen Negative (NEGATIVE) Urine Benzodiazepines Screen Negative (NEGATIVE) Urine Cocaine Screen Positive (NEGATIVE) H Urine Marijuana (THC) Screen Negative (NEGATIVE) Serum Alcohol 41 mg/dL Microbiology Date/Time Source Procedure Growth Status 11/21/18 16:00 Urine,Clean Catch Urine Culture - Preliminary Gram Negative Bacillus 1 Resulted Height (Feet): 6 Height (Inches): 0.00 Weight (Pounds): 151 Medications Current Medications Medications (Trade) Dose Ordered Sig/Edwige Route PRN Reason Start Time Stop Time Status Last Admin Dose Admin Acetaminophen (Tylenol) 650 mg Q4H PRN ORAL fever 11/21/18 18:00 12/21/18 17:59 Albuterol/ Ipratropium (Albuterol/ Ipratropium) 3 ml Q4H PRN HHN Shortness of Breath 11/21/18 18:00 11/26/18 17:59 Barium Sulfate (Readi-Cat 2) 450 ml NOW PRN ORAL Radiology Procedure 11/21/18 15:45 11/23/18 15:44 Cefepime HCl 2 gm/ Dextrose 110 ml @ 220 mls/hr EVERY 12 HOURS IV 11/21/18 22:00 11/28/18 21:59 11/21/18 23:02 Heparin Sodium (Porcine) (Heparin 5000 units/ml) 5,000 units EVERY 12 HOURS SUBQ 11/21/18 21:00 12/21/18 20:59 11/21/18 21:31 Iopamidol (Isovue-300 100ml) 100 ml NOW PRN INJ Radiology Procedure 11/21/18 15:45 Morphine Sulfate (Morphine Sulfate) 2 mg Q4H PRN IVP Moderate Pain (Pain Scale 4-6) 11/21/18 18:00 11/28/18 17:59 Ondansetron HCl (Zofran) 4 mg Q6H PRN IVP Nausea & Vomiting 11/21/18 18:00 12/21/18 17:59 Phenazopyridine HCl (Pyridium) 100 mg DAILYPRN PRN ORAL dysuria 11/21/18 18:00 12/21/18 17:59 Polyethylene Glycol (Miralax) 17 gm DAILYPRN PRN ORAL Constipation 11/21/18 18:00 12/21/18 17:59 Quetiapine Fumarate (SEROquel) 25 mg Q12HR ORAL 11/22/18 21:00 12/22/18 20:59 Temazepam (Restoril) 15 mg HSPRN PRN ORAL Insomnia 11/21/18 18:00 11/28/18 17:59 Vancomycin HCl (Vanco rx to dose) 1 ea DAILY PRN MISC RX 11/21/18 19:15 12/21/18 19:14 Vancomycin HCl 750 mg/Sodium Chloride 275 ml @ 183.333 mls/hr Q12H IVPB 11/21/18 21:00 11/26/18 20:59 11/21/18 21:32 Objective Narrative Gen: Thin Male, NAD HEENT: NCAT, MMM, EOMI, PERRL, No Oral lesion, no scleral icterus NECK: full range of motion, supple, no meningismus, No LAD, No JVD LUNGS: CTAB, No W/C, No Accessory muscle use CARDS: RRR, S1, S2, No M/R/G, ABD: Soft, Mild TTP suprapubic, ND, No R/G, + BS, No HSM, No Masses : Deferred Ext: C/C/E, Pulses 2+ B/L (DP, Rad): NEURO: A/O x 4, Strength and Sensation Grossly intact PSYCH: Mood/affect normal SKIN: Warm/dry, No rashes Assessment/Plan Assessment/Plan: 72 yo male with PMHx of HTN, CVA admitted before with UTI with resistant organsims. UTI Positive UA Cultures pending Broad spectrum antibiotic started give resistant organism in his urine in the past. Abd Pain From UTI? f/u CT f/u Cultures HTN CVA Drug abuse Urine + Cocaine PLAN: - Continue Cefepime #1 and Vancomycin #1 Pending Urine Cultures - f/u Urine Cx - f/u CT - Monitor CBC and Temp - Supportive care Thank you for this consult. We will continue to follow the patient during this hospitalization. Sanjeev Velez MD Nov 22, 2018 10:49
--- NOTE | 2018-11-22 12:40 | NUR ---
Social Service Note SW very familiar with patient from multiple admissions. Patient is chronically homeless and has repeatedly shown non compliance with medial intervention. Patient was dressed and had his belongings packed when SW entered the room. Patient stated he needed assistance calling his niece to come pick him up. Patient couldn't provide a reason as why he wanted to leave. Patient states he understand he has a UTI but feels that this is nothing new and wasn't preventing him from functioning at this time. SW addressed patient's alcoholism. Patient acknowledged his problem and states he is just to old to make a change at this time. Patient stated once he is no longer able to get around then he will have no other choice but to stop drinking. Patient is not willing to use his monthly income for housing. SW assisted patient in calling his niece Cindy who confirmed she would meet him in the lobby and drive him to his electric wheelchair. Patient wasn't receptive to community resources. ANGELITO discussed with primary nurse and charge nurse.
--- NOTE | 2018-11-22 12:49 | NUR ---
PNEUMATIC JACK OPERATORGIS MANAGER 72 [address] TO [facility] CC:ABDOMINAL PAIN SI:INTRACTABLE ABDOMINAL PAIN . UTI VS: BP 167/100, P 98, T 98.4, RR 16, SpO2 98 Hgb 13.7, BUN 19, LACTIC ACID 2.20, AST 43 IS:MORPHINE SULFATE 2mg IVP PEPCID 20mg IVP ZOFRAN 4mg IVP NS x1L IVP CEFTRIAXONE 55ml IVPB LEVOFLOXACIN 150ml NS x1L IV ADMITTED TO MED/SURG DCP: TO BE DETERMINED ON CARE NEEDED AT TIME OF DC
--- NOTE | 2018-11-22 13:25 | NUR ---
NURSE NOTES: Attention was call by the patient. Patient stated that " I gonna leave now.I do not want to stay here anymore. Let me get out of here." RN explained to the patient that patient has an UTI and needs antibiotic therapy and tried to explained the importance of following plan of care but patient refused to listen to it and shouted and screamed @ RN and verbally abusive. psychiatric social worker supervisor Gale spoke to the patient about the placement. But patient stated that he wanted go back to the place where he was stayed but refused to give right address. Patient also called Job Schwartz for the ride.He will tow picker the patient. RN removed ID and IV, no s/s of infection IV removal site. Patient signed on homeless check list and AMA paper. Dr. Noble and Dr. Baez made aware of AMA. Patient refused to sign on belongings list and also refused RN to check the belongings and skin. Patient left the building in stable condition with davis in. Patient said " I have been having the davis for long time. I cam in with it. Do not touch it."Patient Denied pain or discomfort upon AMA. Charge nurse and greenhouse florist made aware.
--- NOTE | 2018-11-23 09:40 | NUR ---
*-* INSURANCE *-* ALL CLINICALS AND REVIEWS HAVE BEEN FAXED TO: [facility] F:[phone]
--- NOTE | 2018-11-23 13:30 | Discharge Summary ---
Discharge Summary Discharge Summary _ DATE OF ADMISSION: 11/21/2018 DATE OF DISCHARGE: 11/22/2018 Patient signed AGAINST MEDICAL ADVICE REASON FOR ADMISSION: 72 years old male with past medical history of CVA, COPD, hypertension, BPH, history of substance abuse/methamphetamine, presented with several months of abdominal pain. Patient lives on the streets. Paramedics contacted for assistance with with transfer. Patient reported constant severe abdominal pain, diffuse but mainly located in the mid abdomen , without radiation. Patient reported not taking any medications at this time. Patient had indwelling Helm catheter. 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 Patient denied incontinence, even though he noted to have a stool. Patient was prior in this facility and was discharged on October 25. respite worker seen the patient prior to discharge and discussed [place] homeless service outreach team . patient was receptive. Subsequently online referral was completed by social media executive. At that time patient declined transportation and was picked up by his niece. Upon this presentation n patient showed evidence of urinary tract infection. He refused removal or exchange of Helm catheter, and kicked RN . Troponin - 0.031.EKG revealed left axis deviation nonspecific ST-T wave changes. Urine toxicology was positive for cocaine and opiates . Urinalysis revealed evidence of pyuria and moderate bacteria . No leukocytosis , hemoglobin 13.7, hematocrit 42.6. Lactic acid 2.2. Stable electrolytes . BUN 19, creatinine 0.9 . Ammonia 40. Serum alcohol 41 . Chest X-ray demonstrated no acute findings. Patient admitted to the floor for further management with diagnoses of intractable abdominal pain , UTI, cocaine abuse , lactic acidosis , COPD, alcohol abuse . CONSULTANTS: ID specialist Dr. Ackerman [facility] COURSE: Patient admitted to medical surgical floor. ID specialist seen and evaluated patient. Patient started on empiric antibiotics. Pyridium provided for comfort. Pain management was addressed. DVT prophylaxis provided. Bowel regimen instituted. At the time of this dictation, blood culture back negative Urine culture revealed Enterobacter cloacae, repeated urine culture showed Streptococci species. After few hours being on the floor, patient decided to sign AGAINST MEDICAL ADVICE. The risks and consequences of signing AGAINST MEDICAL ADVICE were discussed with patient in detail. Patient verbalized understanding, nevertheless signed AMA form and left. FINAL DIAGNOSES: UTI Intractable abdominal pain Hypertension CVA Cocaine abuse Lactic acidosis I have been assigned to dictate discharge summary for this account. I was not involved in the patient's management. Magdalena Brooke NP Nov 23, 2018 13:29
== END 2018-11-22 13:30 | disposition left against medical advice (07) | DRG 466 ==
LOC: EDBD 15:27 → EDBEDREQ 15:57 → EMR 16:53 → OBSVTOIN 17:08 → 4E 17:08 → EDBEDREQ 17:32
DX: T83.511A Infection and inflammatory reaction due to indwelling urethral catheter, initial encounter (principal); E87.2 Acidosis; F14.10 Cocaine abuse, uncomplicated; N39.0 Urinary tract infection, site not specified; Z53.21 Procedure and treatment not carried out due to patient leaving prior to being seen by health care provider; I10 Essential (primary) hypertension; B96.20 Unspecified Escherichia coli [E. coli] as the cause of diseases classified elsewhere; Z16.24 Resistance to multiple antibiotics; B96.89 Other specified bacterial agents as the cause of diseases classified elsewhere; B95.5 Unspecified streptococcus as the cause of diseases classified elsewhere; F10.10 Alcohol abuse, uncomplicated; Y90.2 Blood alcohol level of 40-59 mg/100 ml; R10.30 Lower abdominal pain, unspecified; N40.1 Benign prostatic hyperplasia with lower urinary tract symptoms; R33.8 Other retention of urine; Z72.811 Adult antisocial behavior; Z59.0 Homelessness; K80.20 Calculus of gallbladder without cholecystitis without obstruction; J44.1 Chronic obstructive pulmonary disease with (acute) exacerbation; Z89.432 Acquired absence of left foot; Z86.73 Personal history of transient ischemic attack (TIA), and cerebral infarction without residual deficits
CPT/HCPCS: 36415; 71045; 80053; 80307; 80329; 81003; 82140; 82550; 83605; 83690; 83735; 84443; 84484; 84550; 85025; 85610; 85730; 87040; 87081; 87086; 87181; 93005; 96361; 96365; 96368; 96375; 99285; J2405; J7620

== ENCOUNTER 2019-01-21 15:41 | Emergency (ER) | payer MEDICARE, MEDICAID ==
[~2019-01-21] VITALS: Ht 182.9 cm; Wt 49.9 kg
[2019-01-21 16:00] VITALS: BP 110/60
--- NOTE | 2019-01-21 16:00 | NUR ---
ED Nurse Note: Patient ambulated in to ER c/o no urine in FC bag. pt aao x4 and ambulatory with FWW. skin dry and disheved. calm and cooperative. pt on elevator examiner and adjuster.
--- NOTE | 2019-01-21 16:03 | Emergency Room Report ---
History of Present Illness General Chief Complaint: Male Urogenital Problems Source: Patient Present Illness HPI 73-year-old male history of BPH, with indwelling Helm presents with Helm obstruction prior to arrival, he said his Helm stopped draining, last night, no fever no chills, no dysuria, severity is severe, no aggravating or alleviating factors, he endorses suprapubic fullness pain Allergies: Uncoded Allergies: CONTRAST MEDIA (Adverse Reaction, Mild, Itching in the area of the neck, 01/20/18) Patient was given specifically Isovue contrast during CT of the abdomen, and when he came back. The patient was itchy and benadryl was given, no complaints of itchiness or adverse reactions so far. Patient History Past Medical History: see triage record Social History: Reports: smoking, alcohol use, drug use - Cocaine Reviewed Nursing Documentation: PMH: Agreed; PSxH: Agreed Nursing Documentation-PM Past Medical History: No History, Except For Hx Cardiac Problems: Yes Hx Hypertension: Yes Hx COPD: Yes Hx Cancer: No Hx Gastrointestinal Problems: Yes - Pancreatic cyst Hx Neurological Problems: Yes - Encephalopathy Hx Cerebrovascular Accident: Yes Hx Weakness: Yes Review of Systems All Other Systems: negative except mentioned in HPI Physical Exam Vital Signs Date Time Temp Pulse Resp B/P (MAP) Pulse Ox O2 Delivery O2 Flow Rate FiO2 01/21/19 15:47 98.1 89 20 81/48 (59) 97 Room Air Sp02 EP Interpretation: reviewed, normal General Appearance: well appearing, no apparent distress, alert Head: normocephalic, atraumatic Eyes: bilateral eye PERRL, bilateral eye EOMI ENT: uvula midline, moist mucus membranes Neck: supple, thyroid normal, supple/symm/no masses Respiratory: lungs clear, no respiratory distress, no retraction, no accessory muscle use Cardiovascular #1: normal peripheral pulses, regular rate, rhythm, no edema, no gallop, no murmur Gastrointestinal: no guarding, no rebound, tenderness - suprapubic fullness Musculoskeletal: normal inspection Neurologic: alert, oriented x3 Psychiatric: mood/affect normal Skin: no rash, warm/dry Medical Decision Making Diagnostic Impression: Primary Impression: Chronic indwelling Helm catheter Additional Impression: Obstructed Helm catheter ER Course Patient comes in with Helm obstruction, Helm was changed, patient felt better , patient's blood pressure when we measured with proper size cuff, normotensive systolic blood pressure 127. Patient without any UTI symptoms Helm changed, tolerated procedure well. Patient rehydrated, patient feeling better, Helm in place, patient is making urine, disposition home with return precautions Last Vital Signs Date Time Temp Pulse Resp B/P (MAP) Pulse Ox O2 Delivery O2 Flow Rate FiO2 01/21/19 15:47 98.1 89 20 81/48 (59) 97 Room Air Disposition: HOME, SELF-CARE Condition: Stable Referrals: [facility]. [facility] Patient Instructions: Helm Catheter Care, Adult, [id number] Additional Instructions: The patient was provided with discharge instructions, notified to follow-up with a primary care doctor and or specialist in the next 24-48 hours, and to return to the ED if they have worsening of their symptoms. Please note that this report is being documented using DRAGON technology. This can lead to erroneous entry secondary to incorrect interpretation by the dictating instrument. Tr Easton MD Jan 21, 2019 16:03
--- NOTE | 2019-01-21 16:20 | NUR ---
ED Nurse Note: New FC 16Fc was inserted and small amount of urine came out and stopped. ERMD made aware.
--- NOTE | 2019-01-21 16:40 | NUR ---
ED Nurse Note: ERMD at bedside with US machine. no urine observed. initiated IV fluid bolus 0.9 NS.
--- NOTE | 2019-01-21 17:10 | NUR ---
ED Nurse Note: Yellow urine started presenting in FC bag. ERMD made aware. will finish IV bolus and pt will be discharged.
[2019-01-21 17:50] VITALS: BP 141/84
--- NOTE | 2019-01-21 17:50 | NUR ---
ER DISCHARGE NOTE: Patient is cleared to be discharged per ERMD after IV bolus completed and urine present in FC bag, pt is aox4, on room air, with stable vital signs, and ambulates with FWW with steady gait. pt was given dc instructions, pt was able to verbalize understanding, pt id band and iv site removed without complications. pt is able to ambulate with steady gait. pt took all belongings. Pt stated "I have a place to stay." Pt also stated "I don't remember the address but I know how to get there." pt denied that he is a homeless.
== END 2019-01-21 17:50 | disposition home or self-care (01) ==
LOC: EMR 16:35
DX: T83.091A Other mechanical complication of indwelling urethral catheter, initial encounter (principal); X58.XXXA Exposure to other specified factors, initial encounter; Y92.9 Unspecified place or not applicable; Z91.041 Radiographic dye allergy status; I10 Essential (primary) hypertension; Z86.73 Personal history of transient ischemic attack (TIA), and cerebral infarction without residual deficits; F17.200 Nicotine dependence, unspecified, uncomplicated; J44.9 Chronic obstructive pulmonary disease, unspecified
CPT/HCPCS: 96360; 99284

== ENCOUNTER 2019-02-18 12:03 | Emergency (ER) | payer MEDICARE, MEDICAID ==
[~2019-02-18] VITALS: Ht 172.7 cm; Wt 77.1 kg
[2019-02-18] MEDS ORDERED: Haloperidol 5mg/ml Inj IM ONE (12:30)
--- NOTE | 2019-02-18 12:30 | NUR ---
ED Nurse Note:pt. was BIBA from the street with ETOH, non-compliant and confused on arrival, placed on clinical data research, olso O2 given via nasal cannula, blood and urine sent to labs
[2019-02-18 12:53] LABS: ANION GAP 12 mmol/L (5-15); BLOOD UREA NITROGEN 14 mg/dL (7-18); CALCIUM 9.1 MG/DL (8.5-10.1); CARBON DIOXIDE 22 MMOL/L (21-32); CHLORIDE 106 MMOL/L (98-107); CREATININE 0.9 MG/DL (0.55-1.30); POTASSIUM 3.8 MMOL/L (3.5-5.1); SODIUM 140 MMOL/L (136-145)
[2019-02-18 12:58] LABS: BASOPHILS % (AUTO) 1.3 % (0.0-2.0); EOSINOPHILS % (AUTO) 1.3 % (0.0-3.0); HEMATOCRIT 43.8 % (42.0-52.0); HEMOGLOBIN 13.4 G/DL (14.2-18.0); LYMPHOCYTES % (AUTO) 36.5 % (20.0-45.0); MEAN CORPUSCULAR VOLUME 82 FL (80-99); MONOCYTES % (AUTO) 11.5 % (1.0-10.0); NEUTROPHILS % (AUTO) 49.3 % (45.0-75.0); PLATELET COUNT 161 K/UL (150-450); RED BLOOD COUNT 5.31 M/UL (4.70-6.10); RED CELL DISTRIBUTION WIDTH 15.1 % (11.6-14.8); WHITE BLOOD COUNT 8.2 K/UL (4.8-10.8)
[2019-02-18 13:00] LABS: ALANINE AMINOTRANSFERASE 36 U/L (12-78); ALBUMIN 3.3 G/DL (3.4-5.0); ALBUMIN/GLOBULIN RATIO 0.8 (1.0-2.7); ALKALINE PHOSPHATASE 80 U/L (46-116); ASPARTATE AMINO TRANSFERASE 46 U/L (15-37); BILIRUBIN,TOTAL 0.3 MG/DL (0.2-1.0)
[2019-02-18 13:15] VITALS: BP 102/50
[2019-02-18 14:18] VITALS: BP 112/70
--- NOTE | 2019-02-18 14:18 | NUR ---
ED Nurse Note: Pt sleeping on bed with no distress. Will continue to assess.
--- NOTE | 2019-02-18 14:26 | NUR ---
ED Nurse Note: Patient arrived here with walker, placed in utility room.
--- NOTE | 2019-02-18 14:51 | Emergency Room Report ---
History of Present Illness General Chief Complaint: Alcohol Intoxication Source: Medical Record Present Illness HPI 73-year-old male presents ED for evaluation. Brought in by EMS from Street. Found cursing and screaming. Screaming at EMS and nursing staff on arrival. Swinging punches. Patient is well-known to [facility] and has been here multiple times for similar presentation. History of substance abuse. Per patient will not provide she will not provide any additional history at this time. No other aggravating relieving factors. No other associated symptoms Allergies: Uncoded Allergies: CONTRAST MEDIA (Adverse Reaction, Mild, Itching in the area of the neck, 01/20/18) Patient was given specifically Isovue contrast during CT of the abdomen, and when he came back. The patient was itchy and benadryl was given, no complaints of itchiness or adverse reactions so far. Patient History Past Medical History: HTN, COPD, CVA/TIA Pertinent Family History: none Social History: Reports: alcohol use; Denies: smoking, drug use Immunizations: UTD Reviewed Nursing Documentation: PMH: Agreed; PSxH: Agreed Nursing Documentation-PMH Past Medical History: No History, Except For Hx Cardiac Problems: Yes Hx Hypertension: Yes Hx COPD: Yes Hx Cancer: No Hx Gastrointestinal Problems: Yes - Pancreatic cyst Hx Neurological Problems: Yes - Encephalopathy Hx Cerebrovascular Accident: Yes Hx Weakness: Yes Review of Systems All Other Systems: negative except mentioned in HPI Physical Exam Vital Signs Date Time Temp Pulse Resp B/P (MAP) Pulse Ox O2 Delivery O2 Flow Rate FiO2 02/18/19 12:14 97.0 92 25 102/50 (67) 93 Room Air 02/18/19 12:48 3.0 98 Sp02 EP Interpretation: reviewed, normal General Appearance: thin, other - agitated/combative Head: normocephalic Eyes: bilateral eye normal inspection, bilateral eye PERRL ENT: normal ENT inspection Neck: normal inspection Respiratory: chest non-tender, lungs clear, normal breath sounds, speaking full sentences Cardiovascular #1: regular rate, rhythm, no edema Gastrointestinal: normal bowel sounds, non tender, soft, non-distended, no guarding, no rebound Rectal: deferred Genitourinary: no CVA tenderness Musculoskeletal: normal inspection Neurologic: other - agitated/combative Psychiatric: other - agitated/combative Skin: no rash Lymphatic: normal inspection Medical Decision Making Diagnostic Impression: Primary Impression: Cocaine abuse Additional Impression: Alcohol intoxication Qualified Codes: F10.929 - Alcohol use, unspecified with intoxication, unspecified Labs Test 02/18/19 12:20 02/18/19 12:50 White Blood Count 8.2 K/UL (4.8-10.8) Red Blood Count 5.31 M/UL (4.70-6.10) Hemoglobin 13.4 G/DL (14.2-18.0) Hematocrit 43.8 % (42.0-52.0) Mean Corpuscular Volume 82 FL (80-99) Mean Corpuscular Hemoglobin 25.1 PG (27.0-31.0) Mean Corpuscular Hemoglobin Concent 30.5 G/DL (32.0-36.0) Red Cell Distribution Width 15.1 % (11.6-14.8) Platelet Count 161 K/UL (150-450) Mean Platelet Volume 8.9 FL (6.5-10.1) Neutrophils (%) (Auto) 49.3 % (45.0-75.0) Lymphocytes (%) (Auto) 36.5 % (20.0-45.0) Monocytes (%) (Auto) 11.5 % (1.0-10.0) Eosinophils (%) (Auto) 1.3 % (0.0-3.0) Basophils (%) (Auto) 1.3 % (0.0-2.0) Sodium Level 140 MMOL/L (136-145) Potassium Level 3.8 MMOL/L (3.5-5.1) Chloride Level 106 MMOL/L (98-107) Carbon Dioxide Level 22 MMOL/L (21-32) Anion Gap 12 mmol/L (5-15) Blood Urea Nitrogen 14 mg/dL (7-18) Creatinine 0.9 MG/DL (0.55-1.30) Estimat Glomerular Filtration Rate mL/min (>60) Glucose Level 107 MG/DL (74-106) Calcium Level 9.1 MG/DL (8.5-10.1) Total Bilirubin 0.3 MG/DL (0.2-1.0) Aspartate Amino Transf (AST/SGOT) 46 U/L (15-37) Alanine Aminotransferase (ALT/SGPT) 36 U/L (12-78) Alkaline Phosphatase 80 U/L (46-116) Total Protein 7.6 G/DL (6.4-8.2) Albumin 3.3 G/DL (3.4-5.0) Globulin 4.3 g/dL Albumin/Globulin Ratio 0.8 (1.0-2.7) Salicylates Level 2.1 ug/mL (2.8-20) Acetaminophen Level < 2 MCG/ML (10-30) Serum Alcohol 304 mg/dL Urine Opiates Screen Negative (NEGATIVE) Urine Barbiturates Screen Negative (NEGATIVE) Phencyclidine (PCP) Screen Negative (NEGATIVE) Urine Amphetamines Screen Negative (NEGATIVE) Urine Benzodiazepines Screen Negative (NEGATIVE) Urine Cocaine Screen Positive (NEGATIVE) Urine Marijuana (THC) Screen Negative (NEGATIVE) EKG Diagnostic Results Rate: normal Rhythm: NSR ST Segments: no acute changes ASA given to the pt in ED: No Rhythm Strip Diag. Results EP Interpretation: yes Rhythm: NSR, no PVC's, no ectopy Last Vital Signs Date Time Temp Pulse Resp B/P (MAP) Pulse Ox O2 Delivery O2 Flow Rate FiO2 02/18/19 14:18 97.7 69 16 112/70 96 Nasal Cannula 3.0 02/18/19 12:48 98 Status: improved Disposition: HOME, SELF-CARE Condition: Serious Referrals: NOT CHOSEN IPA/,REFERRING (PCP) Nj Hyatt MD Feb 18, 2019 14:51
[2019-02-18 18:00] VITALS: BP 120/76
--- NOTE | 2019-02-18 19:30 | NUR ---
ED Nurse Note: received patient from [facility]. patient resting in bed comfortably with nad. ao4. vss. assisted pt with urinal. provided pt with sandwich and water. states destination after discharge.
--- NOTE | 2019-02-18 19:32 | NUR ---
HAND-OFF: Report given to Daniel Yun RN.
[2019-02-18 20:00] VITALS: BP 118/72
--- NOTE | 2019-02-18 22:00 | NUR ---
ER DISCHARGE NOTE: Patient is cleared to be discharged per ERMD, pt is aox4, on room air, with stable vital signs. pt was given dc and prescription instructions, pt was able to verbalize understanding, pt id band and iv site removed without complications. pt is able to ambulate with steady gait. pt took all belongings.
[2019-02-18 22:03] VITALS: BP 120/76
== END 2019-02-18 22:00 | disposition home or self-care (01) ==
LOC: EDBD 12:03 → EDUNIT# 12:03 → EMR 12:34
DX: F10.929 Alcohol use, unspecified with intoxication, unspecified (principal); F14.10 Cocaine abuse, uncomplicated; Z86.73 Personal history of transient ischemic attack (TIA), and cerebral infarction without residual deficits; I10 Essential (primary) hypertension; J44.9 Chronic obstructive pulmonary disease, unspecified; Z91.041 Radiographic dye allergy status
CPT/HCPCS: 36415; 80053; 80307; 82962; 85025; 96361; 96372; 99284; G0480; J1630; 80329

== ENCOUNTER 2019-03-02 13:22 | Emergency (ER) | payer MEDICARE, MEDICAID ==
[~2019-03-02] VITALS: Ht 182.9 cm; Wt 59.0 kg
[2019-03-02] MEDS ORDERED: VENTOLIN HFA18 GM INH (13:54)
[2019-03-02] MEDS ORDERED: TRAMADOL HCL100 M2 ORAL (13:54)
[2019-03-02] MEDS ORDERED: FOLIC ACID0.4 MG ORAL (13:54)
[2019-03-02] MEDS ORDERED: RISPERIDONE1 MG ORAL (13:54)
[2019-03-02] MEDS ORDERED: santyl (13:54)
[2019-03-02 14:10] VITALS: BP 118/72
--- NOTE | 2019-03-02 14:10 | NUR ---
ED Nurse Note: patient placed in bed after cleaning the room.
--- NOTE | 2019-03-02 14:15 | NUR ---
ED Nurse Note: Patient brought in to [place] due to feet pain 01/28. pt aao x3-4 and fatigued. pt reported he cannot ambulate due to feet pain. calm and cooperative. skin dry, dishelved, scarly. Lt toes amputated. the site clean and intact. both feet have scabs and scars. no pressure ulcer on buttocks noted. no acute distress noted at this moment.
--- NOTE | 2019-03-02 14:41 | Emergency Room Report ---
History of Present Illness General Chief Complaint: Pain Source: Patient Present Illness HPI 73-year-old male currently on warfarin living and history history of cocaine abuse was recently seen here for 2 weeks ago brought in by paramedics due to complaints of pain in both knees for several months. Patient reports that he is unable to walk however is ambulating without any problem. Patient has multiple healing wounds on his lower extremities with no sign of new infection or drainage. Patient has history of arthritis and reports that this pain is old. Has not taken medication for pain. Patient is not a good historian. No signs of calf tenderness are noted. Patient has normal vital signs. Denies chest pain, shortness of breath, palpitation, and other associated symptoms. Has not taken medication for pain. Patient originally does not want to leave the emergency room as he says he wants to stay and he has no place to go to sleep. However patient stable and ambulatory. Was given a walker to walk. Allergies: Uncoded Allergies: CONTRAST MEDIA (Adverse Reaction, Mild, Itching in the area of the neck, 01/20/18) Patient was given specifically Isovue contrast during CT of the abdomen, and when he came back. The patient was itchy and benadryl was given, no complaints of itchiness or adverse reactions so far. Patient History Past Medical History: see triage record Past Surgical History: unable to obtain Pertinent Family History: none Immunizations: UTD Reviewed Nursing Documentation: PMH: Agreed; PSxH: Agreed Nursing Documentation-[facility] Past Medical History: No History, Except For Hx Cardiac Problems: Yes Hx Hypertension: Yes Hx COPD: Yes Hx Cancer: No Hx Gastrointestinal Problems: Yes - Pancreatic cyst Hx Neurological Problems: Yes - Encephalopathy Hx Cerebrovascular Accident: Yes Hx Weakness: Yes Review of Systems All Other Systems: negative except mentioned in HPI Physical Exam Vital Signs Date Time Temp Pulse Resp B/P (MAP) Pulse Ox O2 Delivery O2 Flow Rate FiO2 03/02/19 13:11 97.9 94 16 118/72 (87) 97 Room Air Sp02 EP Interpretation: reviewed, normal General Appearance: no apparent distress, alert, GCS 15, non-toxic Head: normocephalic, atraumatic Eyes: bilateral eye normal inspection, bilateral eye PERRL ENT: hearing grossly normal, normal pharynx, no angioedema, normal voice Neck: full range of motion, supple/symm/no masses Respiratory: chest non-tender, lungs clear, normal breath sounds, no wheezing, speaking full sentences Cardiovascular #1: regular rate, rhythm, no edema, no murmur, normal capillary refill Cardiovascular #2: 2+ dorsalis pedis (R), 2+ dorsalis pedis (L) Gastrointestinal: normal bowel sounds, non tender, soft, non-distended, no guarding, no rebound Rectal: deferred Genitourinary: normal inspection, no CVA tenderness Musculoskeletal: back normal, gait/station normal, normal range of motion, non- tender, calf tenderness Neurologic: alert, oriented x3, responsive, motor strength/tone normal, sensory intact, speech normal Psychiatric: judgement/insight normal, memory normal, mood/affect normal, no suicidal/homicidal ideation Skin: no rash Lymphatic: no adenopathy Medical Decision Making PA Attestation All my diagnosis and treatment plans were reviewed ad discussed with my supervising physician Dr. Menchaca Homeless Attestation The treating physician has assessed and agrees that patient is medically stable for outpatient disposition Diagnostic Impression: Primary Impression: Arthritis of knee ER Course 73-year-old male currently on warfarin living and history history of cocaine abuse was recently seen here for 2 weeks ago brought in by paramedics due to complaints of pain in both knees for several months. Patient reports that he is unable to walk however is ambulating without any problem. Patient has multiple healing wounds on his lower extremities with no sign of new infection or drainage. Patient has history of arthritis and reports that this pain is old. Has not taken medication for pain. Patient is not a good historian. No signs of calf tenderness are noted. Patient has normal vital signs. Denies chest pain, shortness of breath, palpitation, and other associated symptoms. Has not taken medication for pain. Patient originally does not want to leave the emergency room as he says he wants to stay and he has no place to go to sleep. However patient stable and ambulatory. Was given a walker to walk. Ddx considered but are not limited to: Knee sprain, strain, fracture, contusion , meniscus tear injury Vital signs: are WNL, pt. is afebrile H&PE are most consistent with: Chronic arthritic pain ORDERS: No need for knee x-ray needed as patient denies any recent fall or injury and this is chronic arthritic pain. ER intervention: Tylenol DISCHARGE: At this time pt. is stable for d/c to home. Will provide printed patient care instructions, and any necessary prescriptions. Care plan and follow up instructions have been discussed with the patient prior to discharge. Due to patient being on warfarin ibuprofen family not recommended I gave him a prescription for Tylenol. Patient was fed and well rested before leaving. Patient had to be escorted out by security as he was refusing to leave. Patient to follow-up with a primary care provider. Dr. Menchaca also examined the patient and agrees with the above treatment. Last Vital Signs Date Time Temp Pulse Resp B/P (MAP) Pulse Ox O2 Delivery O2 Flow Rate FiO2 03/02/19 14:10 97.9 73 16 118/72 97 Room Air Disposition: HOME, SELF-CARE Condition: Stable Scripts Acetaminophen* (ACETAMINOPHEN EXTRA STRENGTH*) 500 Mg Tablet 1000 MG ORAL Q6H, #30 TAB 0 Refills Prov: Selina Franco 03/02/19 Patient Instructions: Arthritis, Fisy-im-Haik Selina Franco Mar 02, 2019 14:41
[2019-03-02] MEDS ORDERED: ACETAMINOPHEN500 M3 ORAL (14:42)
--- NOTE | 2019-03-02 14:53 | NUR ---
ED Nurse Note: pt refused to be discharged. ERPA made aware. food and drink provided and will follow up in one hour per ERPA's verbal order.
[2019-03-02 16:43] VITALS: BP 118/72
--- NOTE | 2019-03-02 16:44 | NUR ---
Homeless Discharge: Patient is being discharged from medical care. Awake, alert and oriented x3. After care instructions, including referral to community resources were given. Patient verbalized understanding of After care instructions; at this time patient does not request medications, equipment or placement. Patient signed patient consent in the medical record for patient destination upon discharge. All medical devices such as IV and ID band were removed. Patient ambulated out with all personal belongings with steady gait. FWW provided. Pt refused to state the destination.
== END 2019-03-02 16:44 | disposition home or self-care (01) ==
LOC: EDBD 13:22 → EMR 14:40
DX: M13.862 Other specified arthritis, left knee (principal); M13.861 Other specified arthritis, right knee; J44.9 Chronic obstructive pulmonary disease, unspecified; I10 Essential (primary) hypertension; Z86.73 Personal history of transient ischemic attack (TIA), and cerebral infarction without residual deficits
CPT/HCPCS: 99282

== ENCOUNTER 2019-05-12 12:01 | Inpatient (IN) | payer MEDICARE, MEDICAID ==
[~2019-05-12] VITALS: Ht 182.9 cm; Wt 73.1 kg
[~2019-05-12 12:01] MED LIST changes: +ACETAMINOPHEN500 M3 ORAL; +FOLIC ACID0.4 MG ORAL; +RISPERIDONE1 MG ORAL; +TRAMADOL HCL100 M2 ORAL; +VENTOLIN HFA18 GM INH; +santyl
[2019-05-12 12:57] LABS: BASOPHILS % (AUTO) 0.3 % (0.0-2.0); HEMATOCRIT 30.3 % (42.0-52.0); HEMOGLOBIN 9.7 G/DL (14.2-18.0); LYMPHOCYTES % (AUTO) 9.9 % (20.0-45.0); MEAN CORPUSCULAR VOLUME 76 FL (80-99); MONOCYTES % (AUTO) 11.3 % (1.0-10.0); NEUTROPHILS % (AUTO) 78.5 % (45.0-75.0); PLATELET COUNT 173 K/UL (150-450); RED BLOOD COUNT 4.01 M/UL (4.70-6.10); RED CELL DISTRIBUTION WIDTH 15.7 % (11.6-14.8)
[2019-05-12 13:00] LABS: APPEARANCE,URINE SLIGHTLY CLOUDY; BILIRUBIN, URINE NEGATIVE (NEGATIVE); GLUCOSE, URINE (UA) NEGATIVE (NEGATIVE); KETONES,URINE NEGATIVE (NEGATIVE); LEUKOCYTE ESTERASE ,URINE 3+ (NEGATIVE); NITRITE,URINE NEGATIVE (NEGATIVE); PH,URINE 6 (4.5-8.0); PROTEIN,URINE 4+ (NEGATIVE); UROBILINOGEN,URINE 4 MG/DL (0.0-1.0)
--- NOTE | 2019-05-12 13:00 | NUR ---
ED Nurse Note:pt. was BIBA from the place were he was staying with c/o pelvic pain and possible UTI, pt. is A/Ox3, ambulatory with walkerVSS, has chronic urinary retention and 3 way F/C in place, blood and urine was sent to labs, pt. was placed on fixed income director and iv fluids given
[2019-05-12 13:10] LABS: COLOR,URINE YELLOW
[2019-05-12 13:15] LABS: ANION GAP 10 mmol/L (5-15); BLOOD UREA NITROGEN 30 mg/dL (7-18); CARBON DIOXIDE 24 MMOL/L (21-32); CHLORIDE 100 MMOL/L (98-107); CREATININE 1.3 MG/DL (0.55-1.30); POTASSIUM 3.5 MMOL/L (3.5-5.1); SODIUM 133 MMOL/L (136-145)
[2019-05-12 13:19] LABS: ALANINE AMINOTRANSFERASE 52 U/L (12-78); ALBUMIN 2.4 G/DL (3.4-5.0); ALBUMIN/GLOBULIN RATIO 0.5 (1.0-2.7); ALKALINE PHOSPHATASE 83 U/L (46-116); ASPARTATE AMINO TRANSFERASE 88 U/L (15-37); BILIRUBIN,TOTAL 0.6 MG/DL (0.2-1.0)
[2019-05-12 13:28] LABS: CKMB 1.2 NG/ML (0.0-3.6)
[2019-05-12] MEDS ORDERED: cefTRIAXone 1 GM in NS 55 ML IVPB ONE (13:30)
--- NOTE | 2019-05-12 13:39 | Emergency Room Report ---
History of Present Illness General Chief Complaint: Abdominal Pain Source: Patient, EMS Present Illness HPI Patient is somewhat of a poor historian however presents with complaints of diffuse abdominal discomfort Complains of increased nausea vomiting denies any diarrhea denies any chest pain or shortness of breath Patient is brought in somewhat hypotensive and tachycardic however significantly improved upon arrival Denies any obvious fevers Denies any rash Denies any focal weakness Symptoms ongoing for the past several days Allergies: Uncoded Allergies: CONTRAST MEDIA (Adverse Reaction, Mild, Itching in the area of the neck, 01/20/18) Patient was given specifically Isovue contrast during CT of the abdomen, and when he came back. The patient was itchy and benadryl was given, no complaints of itchiness or adverse reactions so far. Patient History Limited by: medical condition Past Medical History: see triage record Reviewed Nursing Documentation: PMH: Agreed; PSxH: Agreed Nursing Documentation-[facility] Past Medical History: No History, Except For Hx Cardiac Problems: Yes Hx Hypertension: Yes Hx COPD: Yes Hx Diabetes: Yes Hx Cancer: No Hx Gastrointestinal Problems: Yes - Pancreatic cyst Hx Neurological Problems: Yes - Encephalopathy Hx Cerebrovascular Accident: Yes - 1999 Hx Weakness: Yes Review of Systems All Other Systems: limited - Other than the ones mentioned in the history of present illness all others are reviewed however they do stay limited due to the patient's mental status Physical Exam Vital Signs Date Time Temp Pulse Resp B/P (MAP) Pulse Ox O2 Delivery O2 Flow Rate FiO2 05/12/19 12:09 97.3 120 16 94/42 (59) 91 Room Air Sp02 EP Interpretation: reviewed, normal General Appearance: mild distress - Mildly disheveled Head: normocephalic, atraumatic Eyes: bilateral eye PERRL, bilateral eye EOMI ENT: dry mucus membranes Neck: supple Respiratory: lungs clear, no respiratory distress, no retraction Cardiovascular #1: tachycardia Gastrointestinal: non tender, soft Musculoskeletal: normal inspection Neurologic: alert Psychiatric: normal inspection Skin: no rash Lymphatic: no adenopathy Medical Decision Making Diagnostic Impression: Primary Impression: UTI (urinary tract infection) Additional Impression: Sepsis ER Course Patient is a fairly complex patient with multiple differential to consideration including but not limited to cardiac cardiopulmonary and vascular emergencies Other process such as infectious also entertained Patient has presented previously with cocaine positive and therefore urine drug screen was also performed again turns positive for cocaine Patient's white blood cell count is elevated Urine sample also infectious process Consideration is made regarding sepsis versus pyelonephritis and patient admitted for further care Labs Test 05/12/19 12:26 05/12/19 12:30 05/14/19 08:49 05/14/19 19:00 Sodium Level 133 MMOL/L (136-145) 134 MMOL/L (136-145) Potassium Level 3.5 MMOL/L (3.5-5.1) 4.8 MMOL/L (3.5-5.1) Chloride Level 100 MMOL/L (98-107) 108 MMOL/L (98-107) Carbon Dioxide Level 24 MMOL/L (21-32) 19 MMOL/L (21-32) Anion Gap 10 mmol/L (5-15) 7 mmol/L (5-15) Blood Urea Nitrogen 30 mg/dL (7-18) 13 mg/dL (7-18) Creatinine 1.3 MG/DL (0.55-1.30) 1.0 MG/DL (0.55-1.30) Estimat Glomerular Filtration Rate mL/min (>60) mL/min (>60) Glucose Level 98 MG/DL (74-106) 121 MG/DL (74-106) Lactic Acid Level 1.30 mmol/L (0.4-2.0) 2.50 mmol/L (0.4-2.0) Calcium Level 8.0 MG/DL (8.5-10.1) 7.0 MG/DL (8.5-10.1) Total Bilirubin 0.6 MG/DL (0.2-1.0) 0.3 MG/DL (0.2-1.0) Aspartate Amino Transf (AST/SGOT) 88 U/L (15-37) 52 U/L (15-37) Alanine Aminotransferase (ALT/SGPT) 52 U/L (12-78) 42 U/L (12-78) Alkaline Phosphatase 83 U/L (46-116) 68 U/L (46-116) Total Creatine Kinase 673 U/L (26-308) Creatine Kinase MB 1.2 NG/ML (0.0-3.6) Creatine Kinase MB Relative Index 0.1 Troponin I 0.005 ng/mL (0.000-0.056) 0.128 ng/mL (0.000-0.056) Total Protein 7.2 G/DL (6.4-8.2) 5.7 G/DL (6.4-8.2) Albumin 2.4 G/DL (3.4-5.0) 1.9 G/DL (3.4-5.0) Globulin 4.8 g/dL 3.8 g/dL Albumin/Globulin Ratio 0.5 (1.0-2.7) 0.5 (1.0-2.7) Lipase 289 U/L (73-393) White Blood Count 15.0 K/UL (4.8-10.8) 9.3 K/UL (4.8-10.8) Red Blood Count 4.01 M/UL (4.70-6.10) 3.42 M/UL (4.70-6.10) Hemoglobin 9.7 G/DL (14.2-18.0) 8.3 G/DL (14.2-18.0) Hematocrit 30.3 % (42.0-52.0) 26.3 % (42.0-52.0) Mean Corpuscular Volume 76 FL (80-99) 77 FL (80-99) Mean Corpuscular Hemoglobin 24.1 PG (27.0-31.0) 24.2 PG (27.0-31.0) Mean Corpuscular Hemoglobin Concent 31.9 G/DL (32.0-36.0) 31.5 G/DL (32.0-36.0) Red Cell Distribution Width 15.7 % (11.6-14.8) 16.0 % (11.6-14.8) Platelet Count 173 K/UL (150-450) 95 K/UL (150-450) Mean Platelet Volume 8.4 FL (6.5-10.1) 8.1 FL (6.5-10.1) Neutrophils (%) (Auto) 78.5 % (45.0-75.0) 71.1 % (45.0-75.0) Lymphocytes (%) (Auto) 9.9 % (20.0-45.0) 12.6 % (20.0-45.0) Monocytes (%) (Auto) 11.3 % (1.0-10.0) 14.9 % (1.0-10.0) Eosinophils (%) (Auto) 0.0 % (0.0-3.0) 1.0 % (0.0-3.0) Basophils (%) (Auto) 0.3 % (0.0-2.0) 0.4 % (0.0-2.0) Urine Color Yellow Urine Appearance Slightly cloudy Urine pH 6 (4.5-8.0) Urine Specific [place] 1.015 (1.005-1.035) Urine Protein 4+ (NEGATIVE) Urine Glucose (UA) Negative (NEGATIVE) Urine Ketones Negative (NEGATIVE) Urine Blood 4+ (NEGATIVE) Urine Nitrite Negative (NEGATIVE) Urine Bilirubin Negative (NEGATIVE) Urine Urobilinogen 4 MG/DL (0.0-1.0) Urine Leukocyte Esterase 3+ (NEGATIVE) Urine RBC 2-4 /HPF (0 - 0) Urine WBC 40-60 /HPF (0 - 0) Urine Squamous Epithelial Cells Occasional /LPF Urine Bacteria Few /HPF (NONE) Urine Opiates Screen Negative (NEGATIVE) Urine Barbiturates Screen Negative (NEGATIVE) Phencyclidine (PCP) Screen Negative (NEGATIVE) Urine Amphetamines Screen Negative (NEGATIVE) Urine Benzodiazepines Screen Negative (NEGATIVE) Urine Cocaine Screen Positive (NEGATIVE) Urine Marijuana (THC) Screen Negative (NEGATIVE) Vancomycin Level Trough 8.8 ug/mL (5.0-12.0) Pro-B-Type Natriuretic Peptide 53974 pg/mL (0-125) Rhythm Strip Diag. Results EP Interpretation: yes Rate: 88 Rhythm: NSR, no PVC's, no ectopy Last Vital Signs Date Time Temp Pulse Resp B/P (MAP) Pulse Ox O2 Delivery O2 Flow Rate FiO2 05/12/19 12:09 97.3 120 16 94/42 (59) 91 Room Air Status: improved Disposition: ADMITTED INPATIENT Condition: Serious Referrals: NOT CHOSEN IPA/,REFERRING (PCP) Александр Dobbs DO May 12, 2019 13:39
[2019-05-12 13:55] VITALS: BP 148/70
--- NOTE | 2019-05-12 14:04 | Diagnostic Imaging Report ---
Indication: Chest pain Technique: One view of the chest Comparison: none Findings: No acute infiltrates, effusions, or congestion. Tortuous calcified aorta. Normal heart size. Upper mediastinum unremarkable. Again demonstrated is evidence of prior cervical spine surgery. No significant interim change Impression: No acute process.
--- NOTE | 2019-05-12 15:10 | NUR ---
ED Nurse Note:called report to tele- given to carlitos Mccarty. taken up stairs
--- NOTE | 2019-05-12 15:30 | NUR ---
NURSE NOTES: Patient stable AOx3. No complaints at this time no s/sx of distress. RR even and unlabored on 2L NC. Skin is intact. Helm draining well to gravity. Patient placed on drawer in plain loom. Side rails up x2, call light within reach, bed low and locked, bed alarm on. Will call for admitting orders. Will continue to monitor.
[2019-05-12 16:00] VITALS: BP 159/88
--- NOTE | 2019-05-12 16:34 | NUR ---
NURSE NOTES: Dr. Carey called x2. No response. Unable to leave message.
[2019-05-12] MEDS ORDERED: HYDROcodone/Acetamin 5/325 tab ORAL PRN (17:00)
[2019-05-12] MEDS: HYDROcodone/Acetamin 10/325 tab ORAL PRN (18:33)
[2019-05-12] MEDS ORDERED: Albuterol 90mcg Inhaler 8gm INH PRN (19:29)
--- NOTE | 2019-05-12 19:36 | NUR ---
HAND-OFF: Report given to Jamilah STEPHENS. Patient stable.
--- NOTE | 2019-05-12 19:41 | NUR ---
NURSE NOTES: Received report from ANGELO Keith. Patient is in bed, asleep. Breathing regular with no SOB noted at this time. Patient's IV is intact and running fluids at prescribed rate. Bed is in lowest position, breaks engaged, bed-alarm on, and call light within reach at all times. Will continue to monitor.
[2019-05-12 20:00] VITALS: BP 135/72
[2019-05-12] MEDS: Tamsulosin 0.4mg cap ORAL SCH (20:36)
[2019-05-12] MEDS: Vancomycin 1gm in D5W 275ml IVPB SCH (20:36)
[2019-05-12] MEDS: Heparin 5000 units/ml inj SUBQ SCH (20:37)
[2019-05-12] MEDS: Lisinopril 10mg tab ORAL SCH (21:05)
--- NOTE | 2019-05-12 21:11 | General Progress Note ---
Subjective Allergies: Uncoded Allergies: CONTRAST MEDIA (Adverse Reaction, Mild, Itching in the area of the neck, 01/20/18) Patient was given specifically Isovue contrast during CT of the abdomen, and when he came back. The patient was itchy and benadryl was given, no complaints of itchiness or adverse reactions so far. Objective Last 24 Hour Vital Signs Date Time Temp Pulse Resp B/P (MAP) Pulse Ox O2 Delivery O2 Flow Rate FiO2 05/12/19 21:05 135/72 05/12/19 16:00 96.8 112 18 159/88 (111) 97 05/12/19 16:00 Nasal Cannula 2.0 05/12/19 16:00 114 05/12/19 14:51 97.3 104 16 148/70 100 Nasal Cannula 2.0 05/12/19 13:55 104 16 Room Air 05/12/19 13:55 97.3 104 16 148/70 100 Nasal Cannula 2.0 05/12/19 12:09 97.3 120 16 94/42 (59) 91 Room Air Laboratory Tests 05/12/19 12:26: Sodium Level 133L, Potassium Level 3.5, Chloride Level 100, Carbon Dioxide Level 24, Anion Gap 10, Blood Urea Nitrogen 30H, Creatinine 1.3, Estimat Glomerular Filtration Rate , Glucose Level 98, Lactic Acid Level 1.30, Calcium Level 8.0L, Total Bilirubin 0.6, Aspartate Amino Transf (AST/SGOT) 88H, Alanine Aminotransferase (ALT/SGPT) 52, Alkaline Phosphatase 83, Total Creatine Kinase 673H, Creatine Kinase MB 1.2, Creatine Kinase MB Relative Index 0.1, Troponin I 0.005, Total Protein 7.2, Albumin 2.4L, Globulin 4.8, Albumin/Globulin Ratio 0.5L, Lipase 289 05/12/19 12:30: White Blood Count 15.0H, Red Blood Count 4.01L, Hemoglobin 9.7L, Hematocrit 30.3L, Mean Corpuscular Volume 76L, Mean Corpuscular Hemoglobin 24.1L, Mean Corpuscular Hemoglobin Concent 31.9L, Red Cell Distribution Width 15.7H, Platelet Count 173, Mean Platelet Volume 8.4, Neutrophils (%) (Auto) 78.5H, Lymphocytes (%) (Auto) 9.9L, Monocytes (%) (Auto) 11.3H, Eosinophils (%) (Auto) 0.0, Basophils (%) (Auto) 0.3, Urine Color Yellow, Urine Appearance Slightly cloudy, Urine pH 6, Urine Specific [place] 1.015, Urine Protein 4+H, Urine Glucose (UA) Negative, Urine Ketones Negative, Urine Blood 4+H, Urine Nitrite Negative, Urine Bilirubin Negative, Urine Urobilinogen 4H, Urine Leukocyte Esterase 3+H, Urine RBC 2-4H, Urine WBC 40-60H, Urine Squamous Epithelial Cells Occasional, Urine Bacteria Few, Urine Opiates Screen Negative, Urine Barbiturates Screen Negative, Phencyclidine (PCP) Screen Negative, Urine Amphetamines Screen Negative, Urine Benzodiazepines Screen Negative, Urine Cocaine Screen PositiveH, Urine Marijuana (THC) Screen Negative Height (Feet): 6 Height (Inches): 1.00 Weight (Pounds): 175 Yogesh Carey MD May 12, 2019 21:11
--- NOTE | 2019-05-12 21:11 | History & Physical ---
History and Physical History & Physicial 73 year old male admitted with possible sepsis. Patient with noted elevated wbc and abdominal pain . Patient is a poor historian ER notes reviewed care noted vitals noted currently without cp or sob no fevers noted PMH COPD BPH malnutrition possible dementia SOCIAL ETOH no smoking retired ROS difficulty to obtain PHYSICAL WDWN NAD clear breath sounds bilaterally without rhonchi or wheeze [id number] tachy without MRG NABS nontender no HSM no CCE nonfocal confused Labs Test 05/12/19 12:26 05/12/19 12:30 Sodium Level 133 MMOL/L (136-145) Potassium Level 3.5 MMOL/L (3.5-5.1) Chloride Level 100 MMOL/L (98-107) Carbon Dioxide Level 24 MMOL/L (21-32) Anion Gap 10 mmol/L (5-15) Blood Urea Nitrogen 30 mg/dL (7-18) Creatinine 1.3 MG/DL (0.55-1.30) Estimat Glomerular Filtration Rate mL/min (>60) Glucose Level 98 MG/DL (74-106) Lactic Acid Level 1.30 mmol/L (0.4-2.0) Calcium Level 8.0 MG/DL (8.5-10.1) Total Bilirubin 0.6 MG/DL (0.2-1.0) Aspartate Amino Transf (AST/SGOT) 88 U/L (15-37) Alanine Aminotransferase (ALT/SGPT) 52 U/L (12-78) Alkaline Phosphatase 83 U/L (46-116) Total Creatine Kinase 673 U/L (26-308) Creatine Kinase MB 1.2 NG/ML (0.0-3.6) Creatine Kinase MB Relative Index 0.1 Troponin I 0.005 ng/mL (0.000-0.056) Total Protein 7.2 G/DL (6.4-8.2) Albumin 2.4 G/DL (3.4-5.0) Globulin 4.8 g/dL Albumin/Globulin Ratio 0.5 (1.0-2.7) Lipase 289 U/L (73-393) White Blood Count 15.0 K/UL (4.8-10.8) Red Blood Count 4.01 M/UL (4.70-6.10) Hemoglobin 9.7 G/DL (14.2-18.0) Hematocrit 30.3 % (42.0-52.0) Mean Corpuscular Volume 76 FL (80-99) Mean Corpuscular Hemoglobin 24.1 PG (27.0-31.0) Mean Corpuscular Hemoglobin Concent 31.9 G/DL (32.0-36.0) Red Cell Distribution Width 15.7 % (11.6-14.8) Platelet Count 173 K/UL (150-450) Mean Platelet Volume 8.4 FL (6.5-10.1) Neutrophils (%) (Auto) 78.5 % (45.0-75.0) Lymphocytes (%) (Auto) 9.9 % (20.0-45.0) Monocytes (%) (Auto) 11.3 % (1.0-10.0) Eosinophils (%) (Auto) 0.0 % (0.0-3.0) Basophils (%) (Auto) 0.3 % (0.0-2.0) Urine Color Yellow Urine Appearance Slightly cloudy Urine pH 6 (4.5-8.0) Urine Specific [place] 1.015 (1.005-1.035) Urine Protein 4+ (NEGATIVE) Urine Glucose (UA) Negative (NEGATIVE) Urine Ketones Negative (NEGATIVE) Urine Blood 4+ (NEGATIVE) Urine Nitrite Negative (NEGATIVE) Urine Bilirubin Negative (NEGATIVE) Urine Urobilinogen 4 MG/DL (0.0-1.0) Urine Leukocyte Esterase 3+ (NEGATIVE) Urine RBC 2-4 /HPF (0 - 0) Urine WBC 40-60 /HPF (0 - 0) Urine Squamous Epithelial Cells Occasional /LPF Urine Bacteria Few /HPF (NONE) Urine Opiates Screen Negative (NEGATIVE) Urine Barbiturates Screen Negative (NEGATIVE) Phencyclidine (PCP) Screen Negative (NEGATIVE) Urine Amphetamines Screen Negative (NEGATIVE) Urine Benzodiazepines Screen Negative (NEGATIVE) Urine Cocaine Screen Positive (NEGATIVE) Urine Marijuana (THC) Screen Negative (NEGATIVE) IMPRESSION abdominal pain possible sepsis PCM COPD acute encephalopathy leukocytosis possible sepsis anemia hypertension sinus tachycardia PLAN IV antibiotics IV hydration DVT prophylaxis monitor change monitor labs respiratory care as needed oxygen therapy impression, plan, and exam edited and reviewed in detail care discussed with Yogesh Montes MD May 12, 2019 21:11
[2019-05-12] MEDS: Piperacillin/Tazobactam 3.375 GM in NS 110 ML IVPB SCH (22:41)
[2019-05-13] VITALS (10 sets, daily range): BP systolic 87–128; BP diastolic 47–69
[2019-05-13] MEDS ORDERED: Albuterol 90mcg Inhaler 8gm INH SCH
[2019-05-13] MEDS: Piperacillin/Tazobactam 3.375 GM in NS 110 ML IVPB SCH ×3 (05:31→22:29)
--- NOTE | 2019-05-13 06:49 | NUR ---
NURSE NOTES: Upon assessment of patient's vitals, noted that patient's BP was 85/51. After rechecking it multiple times the BP remained within that range, highest being 94/53. Repositioned patient and rechecked, BP remained the same. Patient denied any lightheadedness and dizziness and only complained mainly about abdominal discomfort. Notified Dr. Carey about the patient's condition and received multiple orders. Orders received and carried out. Stopped the patient's Zosyn and currently running NS bolus per the doctor's orders. Will indorse to morning nurse. Patient is currently stable. Will continue to monitor.
--- NOTE | 2019-05-13 07:19 | NUR ---
HAND-OFF: Report given to ANGELO Diaz. Patient is in stable condition, plan of care endorsed.
--- NOTE | 2019-05-13 07:27 | NUR ---
NURSE NOTES: Patient received from Jamilah STEPHENS. Patient stable at this time receiving bolus for low BP. Pt now eating his breakfast in bed. No s/sx of distress. RR even and unlabored on 2L NC. Helm draining well to gravity. Call light within reach, bed low and locked, side rails up x2. Will continue to monitor and will reassess BP after bolus.
--- NOTE | 2019-05-13 07:35 | NUR ---
NURSE NOTES: BP now 105/55 with HR 88. Will continue to monitor.
--- NOTE | 2019-05-13 07:44 | CDS Physician Query ---
Clarification is required for compliance, coding accuracy, and to reflect severity of illness for this patient Dear Yogesh Alvarado MD Date: 05/13/2019 Bakery Deliverer/CDS Name: Stephane Angel 73 year old male admitted with possible sepsis. Patient with noted elevated wbc and abdominal pain . "Acute Encaphalopathy" documented in H&P Please indicate the nature and chronicity of the condition below: [] Metabolic Encephalopathy [] Toxic Encephalopathy [x] Toxic - Metabolic Encephalopathy [] Encephalopathy, Other [] Dementia with Delirium [] Hypoxic encephalopathy [] Posterior reversible encephalopathy syndrome [] Other: [] Not Applicable Present on Admission: [] Yes [] No [] Clinically Undetermined Physician signature Date Please also document in your Progress Notes and/or Discharge Summary and indicate if the condition was present on admission. SOULEYMANED
--- NOTE | 2019-05-13 08:11 | NUR ---
NURSE NOTES: BP now again low at 87/47 with HR 88. 1L bolus order received from Dr. Carey. Infusion started.
--- NOTE | 2019-05-13 08:32 | NUR ---
NURSE NOTES: Bolus infusing BP 90/53 with HR 83
--- NOTE | 2019-05-13 08:48 | General Progress Note ---
Assessment/Plan Assessment/Plan: IMPRESSION abdominal pain possible sepsis PCM COPD toxic metabolic encephalopathy leukocytosis possible sepsis anemia hypertension sinus tachycardia UTI PLAN IV antibiotics ID eval IV hydration DVT prophylaxis monitor change monitor labs respiratory care as needed oxygen therapy monitor LOC impression, plan, and exam edited and reviewed in detail care discussed with RN Subjective Allergies: Uncoded Allergies: CONTRAST MEDIA (Adverse Reaction, Mild, Itching in the area of the neck, 01/20/18) Patient was given specifically Isovue contrast during CT of the abdomen, and when he came back. The patient was itchy and benadryl was given, no complaints of itchiness or adverse reactions so far. Subjective some confusion care noted on antibiotics Objective Last 24 Hour Vital Signs Date Time Temp Pulse Resp B/P (MAP) Pulse Ox O2 Delivery O2 Flow Rate FiO2 05/13/19 04:00 104 05/13/19 04:00 98.6 99 18 94/56 (69) 98 05/13/19 00:00 95 05/13/19 00:00 98.0 98 18 127/66 (86) 97 05/12/19 21:05 135/72 05/12/19 21:00 Nasal Cannula 2.0 05/12/19 20:00 97.2 102 20 135/72 (93) 96 05/12/19 20:00 119 05/12/19 16:00 96.8 112 18 159/88 (111) 97 05/12/19 16:00 Nasal Cannula 2.0 05/12/19 16:00 114 05/12/19 14:51 97.3 104 16 148/70 100 Nasal Cannula 2.0 05/12/19 13:55 104 16 Room Air 05/12/19 13:55 97.3 104 16 148/70 100 Nasal Cannula 2.0 05/12/19 12:09 97.3 120 16 94/42 (59) 91 Room Air Intake and Output 05/12/19 05/13/19 18:59 06:59 Intake Total 120 ml 100 ml Output Total 200 ml 1600 ml Balance -80 ml -1500 ml Intake Oral 120 ml IV Total 100 ml Output Urine Total 200 ml 1600 ml # Voids 3 # Bowel Movements 2 Laboratory Tests 05/12/19 12:26: Sodium Level 133L, Potassium Level 3.5, Chloride Level 100, Carbon Dioxide Level 24, Anion Gap 10, Blood Urea Nitrogen 30H, Creatinine 1.3, Estimat Glomerular Filtration Rate , Glucose Level 98, Lactic Acid Level 1.30, Calcium Level 8.0L, Total Bilirubin 0.6, Aspartate Amino Transf (AST/SGOT) 88H, Alanine Aminotransferase (ALT/SGPT) 52, Alkaline Phosphatase 83, Total Creatine Kinase 673H, Creatine Kinase MB 1.2, Creatine Kinase MB Relative Index 0.1, Troponin I 0.005, Total Protein 7.2, Albumin 2.4L, Globulin 4.8, Albumin/Globulin Ratio 0.5L, Lipase 289 05/12/19 12:30: White Blood Count 15.0H, Red Blood Count 4.01L, Hemoglobin 9.7L, Hematocrit 30.3L, Mean Corpuscular Volume 76L, Mean Corpuscular Hemoglobin 24.1L, Mean Corpuscular Hemoglobin Concent 31.9L, Red Cell Distribution Width 15.7H, Platelet Count 173, Mean Platelet Volume 8.4, Neutrophils (%) (Auto) 78.5H, Lymphocytes (%) (Auto) 9.9L, Monocytes (%) (Auto) 11.3H, Eosinophils (%) (Auto) 0.0, Basophils (%) (Auto) 0.3, Urine Color Yellow, Urine Appearance Slightly cloudy, Urine pH 6, Urine Specific [place] 1.015, Urine Protein 4+H, Urine Glucose (UA) Negative, Urine Ketones Negative, Urine Blood 4+H, Urine Nitrite Negative, Urine Bilirubin Negative, Urine Urobilinogen 4H, Urine Leukocyte Esterase 3+H, Urine RBC 2-4H, Urine WBC 40-60H, Urine Squamous Epithelial Cells Occasional, Urine Bacteria Few, Urine Opiates Screen Negative, Urine Barbiturates Screen Negative, Phencyclidine (PCP) Screen Negative, Urine Amphetamines Screen Negative, Urine Benzodiazepines Screen Negative, Urine Cocaine Screen PositiveH, Urine Marijuana (THC) Screen Negative Height (Feet): 6 Height (Inches): 1.00 Weight (Pounds): 175 Objective WDWN NAD clear breath sounds bilaterally without rhonchi or wheeze S1S2RR tachy without MRG NABS nontender no HSM no CCE nonfocal Yogesh Carey MD May 13, 2019 08:48
--- NOTE | 2019-05-13 08:50 | Diagnostic Imaging Report ---
EXAM: XR Abdomen, 2 Views CLINICAL HISTORY: ABD PAIN TECHNIQUE: Frontal supine views of the abdomen and pelvis. COMPARISON: CT abdomen and pelvis dated 01/20/18 FINDINGS: Intraperitoneal space: No evidence of intraperitoneal free air. Gastrointestinal tract: Nonspecific diffuse gaseous distention of small bowel and colonic loops, which otherwise remain within normal limits in diameter. Bowel gas pattern is otherwise unremarkable. Organs: The renal shadows are obscured by overlying bowel gas. Bones/joints: Degenerative changes throughout the visualized spine and hip joints. Patient is status post bilateral SI joint fusion, with 2 horizontal screws seen throughout the pelvis and SI joints. Hardware appears intact. IMPRESSION: Nonspecific diffuse gaseous distention of small bowel and colonic loops, which otherwise remain within normal limits in diameter.
[2019-05-13] MEDS: Vancomycin 1gm in D5W 275ml IVPB SCH ×2 (09:00→20:53)
[2019-05-13] MEDS: Lisinopril 10mg tab ORAL SCH (09:00)
[2019-05-13] MEDS: Aspirin Baby 81mg ORAL SCH (09:10)
[2019-05-13] MEDS: Heparin 5000 units/ml inj SUBQ SCH ×2 (09:11→20:53)
--- NOTE | 2019-05-13 11:26 | NUR ---
NURSE NOTES: Pt complaining of Chest pain. VSS BP 140/76 HR 63 Pain 8/10 to chest. Nitroglycerin given x3. ECG performed and showed 1st degree AVB. Dr. Baez informed. Will follow up and call again. Will continue to monitor. Addendum: 05/13/19 at 1131 by RHONDA AMARAL RN Dr. Baez at bedside. Cardiac MD consulted. Addendum: 05/13/19 at 1229 by RHONDA AMARAL RN Wrong patient. Patient does not have any chest pain.
--- NOTE | 2019-05-13 12:58 | NUR ---
NURSE NOTES: Dr. Carey aware of pt's blood cx coming back positive for gram positive cocci in clusters in one bottle.
[2019-05-13] MEDS: HYDROcodone/Acetamin 10/325 tab ORAL PRN ×2 (13:51→20:08)
[2019-05-13] MEDS ORDERED: Tubing IV Secondary IV ONE (16:06)
--- NOTE | 2019-05-13 19:38 | NUR ---
HAND-OFF: Report given to Marcos Gonzales RN. Patient stable requesting pain medication. Night RN aware.
--- NOTE | 2019-05-13 19:40 | NUR ---
NURSE NOTES: Got report from Emily STEPHENS. Pt in stable condition. Denies any pain. No s/s of distress or discomfort noted. Pt resting in bed comfortably. Bed in low and locked position, call light within reach, bedside table within reach. Continue to monitor.
--- NOTE | 2019-05-13 20:27 | NUR ---
CASE MANAGEMENT: REVIEW 73Y/MALE BIBA FROM [facility] CC: EPIGASTRIC PAIN X1 WEEK . HEADACHE X2 WEEKS SI: DEHYDRATION . UTI . ACUTE ENCEPHALOPATHY T 96.8 HR 120 RR 16 BP 94/42 SAT 91% NC/2L WBC 15.0 H/H 9.7/30.3 NA 133 BUN 30 AST 88 T-CREATINE KIN 673 UA: PROTEIN 4+ LEUKOCYTE ESTERASE 3+ WBC 40-60 IS: NS IVF BOLUS X1 ZOFRAN IV X1 CEFTRIAXONE IV X1 PATIENT ADMITTED TO TELEMETRY UNIT 05/12/2019 DCP: PATIENT IS FROM HOME
[2019-05-13] MEDS: Tamsulosin 0.4mg cap ORAL SCH (20:53)
[2019-05-14] VITALS (7 sets, daily range): BP systolic 104–153; BP diastolic 60–84
[2019-05-14] MEDS: HYDROcodone/Acetamin 10/325 tab ORAL PRN ×3 (00:29→15:43)
--- NOTE | 2019-05-14 02:00 | NUR ---
Microbiology called pt is + ESBL urine.
[2019-05-14] MEDS: Piperacillin/Tazobactam 3.375 GM in NS 110 ML IVPB SCH ×3 (05:41→23:28)
--- NOTE | 2019-05-14 07:00 | NUR ---
HAND-OFF: Report given to Emily STEPHENS.
--- NOTE | 2019-05-14 07:33 | NUR ---
NURSE NOTES: Patient received from Marcos Gonzales RN. Patient stable at this time receiving IV fluids and Zosyn. Pt sleeping. No s/sx of distress. RR even and unlabored on 2L NC. Helm draining well to gravity. Call light within reach, bed low and locked, side rails up x2. Will continue to monitor
[2019-05-14] MEDS: Aspirin Baby 81mg ORAL SCH (08:38)
[2019-05-14] MEDS: Heparin 5000 units/ml inj SUBQ SCH ×2 (08:40→20:13)
[2019-05-14] MEDS: Lisinopril 10mg tab ORAL SCH (08:40)
[2019-05-14] MEDS: Vancomycin 1gm in D5W 275ml IVPB SCH (08:41)
[2019-05-14] MEDS ORDERED: Vancomycin 1.25gm/NS Premix q24h IVPB SCH (10:00)
--- NOTE | 2019-05-14 10:03 | General Progress Note ---
Assessment/Plan Assessment/Plan: IMPRESSION abdominal pain possible sepsis PCM COPD toxic metabolic encephalopathy leukocytosis possible sepsis anemia hypertension sinus tachycardia UTI PLAN IV antibiotics ID eval IV hydration DVT prophylaxis monitor change as is monitor labs respiratory care as needed oxygen therapy monitor LOC for change impression, plan, and exam edited and reviewed in detail care discussed with RN Subjective Allergies: Uncoded Allergies: CONTRAST MEDIA (Adverse Reaction, Mild, Itching in the area of the neck, 01/20/18) Patient was given specifically Isovue contrast during CT of the abdomen, and when he came back. The patient was itchy and benadryl was given, no complaints of itchiness or adverse reactions so far. Subjective some confusion care noted on antibiotics confused Objective Last 24 Hour Vital Signs Date Time Temp Pulse Resp B/P (MAP) Pulse Ox O2 Delivery O2 Flow Rate FiO2 05/14/19 09:00 Nasal Cannula 2.0 05/14/19 08:40 114/60 05/14/19 08:00 98.5 98 19 114/60 (78) 99 05/14/19 04:00 98.0 98 20 104/61 (75) 95 05/14/19 04:00 91 05/14/19 00:59 98.4 05/14/19 00:00 98.6 99 16 121/68 (85) 96 05/14/19 00:00 92 05/13/19 21:00 Nasal Cannula 2.0 05/13/19 20:00 95 05/13/19 20:00 98.1 89 16 128/69 (88) 95 05/13/19 16:00 98.4 85 18 101/58 (72) 95 05/13/19 16:00 85 05/13/19 12:00 82 05/13/19 12:00 97.7 84 18 100/56 (71) 99 05/13/19 10:19 82 100/57 (71) Intake and Output 05/13/19 05/14/19 18:59 06:59 Intake Total 3890.0 ml Output Total 1200 ml Balance 2690.0 ml Intake Oral 720 ml IV Total 3170.0 ml Output Urine Total 1200 ml # Bowel Movements 1 1 Laboratory Tests 05/14/19 08:49: Vancomycin Level Trough 8.8 Height (Feet): 6 Height (Inches): 1.00 Weight (Pounds): 175 Objective WDWN NAD clear breath sounds bilaterally without rhonchi or wheeze S1S2RR tachy without MRG NABS nontender no HSM no CCE nonfocal no distress confused Yogesh Carey MD May 14, 2019 10:03
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
--- NOTE | 2019-05-14 16:02 | NUR ---
NURSE NOTES: Change in patient condition. Now restless, moaning, complaining of pain /. HR sustained at 140's and as high as 148. BP 153/84. [place] 10/325mg given to address pain. Dr. Carey contacted. Awaiting orders.
[2019-05-14] MEDS ORDERED: dilTIAZem HCl 25mg/5ml Inj IVP SCH (16:15)
--- NOTE | 2019-05-14 17:00 | NUR ---
NURSE NOTES: Orders received from Dr. Carey for Diltiazem 10mg IVP now, ECG stat and transfer to [facility]. Orders carried out and Dr. Li consulted and at bedside. Report given to Louise STEPHENS. Patient tachycardic with HR in 130's now. On venturi mask 35% on 6L. Still complaining of pain. Helm drained 1,000mL. Belongings checked and money counted to be $49.
--- NOTE | 2019-05-14 17:00 | NUR ---
NURSE NOTES: Received pt a transfer fr Telemetry and report received from Valeria Og RN,Pt awake alert oriented x3 in no resp distress,with venturi mask 35%,S-Tach on the monitor,Helm cath draining yellow urine,IV site to LFA leaking, with IVF NS at 100 ml/hr,pt febrile Temp 100.6,HOB elevated,bed lock in lowest position,bed alarm on,will continue with plans of care.
--- NOTE | 2019-05-14 17:40 | Diagnostic Imaging Report ---
Indication: Dyspnea Comparison: 05/12/2019 A single view chest radiograph was obtained. Findings: Mild pulmonary vascular congestion suspected. Heart is mildly enlarged. Lung volumes are low. Basilar atelectasis noted. Cervical compression plate noted. IMPRESSION: Mild pulmonary vascular congestion suspected. Correlate clinically
--- NOTE | 2019-05-14 19:10 | NUR ---
NURSE NOTES: Pt report received from Crystal Rubio, pt remains stable. pt is alert and oriented times 3, able to follow commands when compliant. pt is on venturi mask, satting at 95%, no acute resp distress noted. pt is on slubber hand, showing NSR, no distress noted. pt bed is low, locked, armed, bed rails up times 3, call light within easy reach. will follow plan of care.
[2019-05-14 19:24] LABS: HEMATOCRIT 26.3 % (42.0-52.0); HEMOGLOBIN 8.3 G/DL (14.2-18.0); MEAN CORPUSCULAR VOLUME 77 FL (80-99); PLATELET COUNT 95 K/UL (150-450); RED BLOOD COUNT 3.42 M/UL (4.70-6.10); WHITE BLOOD COUNT 9.3 K/UL (4.8-10.8)
[2019-05-14 19:25] LABS: NEUTROPHILS % (AUTO) 71.1 % (45.0-75.0)
[2019-05-14 19:26] LABS: BASOPHILS % (AUTO) 0.4 % (0.0-2.0); LYMPHOCYTES % (AUTO) 12.6 % (20.0-45.0); MONOCYTES % (AUTO) 14.9 % (1.0-10.0)
--- NOTE | 2019-05-14 19:30 | NUR ---
NURSE NOTES: Pt refused blood sugar check. pt refused to correct placement of venturi mask.
--- NOTE | 2019-05-14 19:37 | NUR ---
NURSE NOTES: pole tester Annmarie inserted a new IV 20 G to RFA,x3 attempts,pt is a hard stick.
--- NOTE | 2019-05-14 19:39 | NUR ---
HAND-OFF: Report given to Earle Mcghee RN..
[2019-05-14 20:00] LABS: ALANINE AMINOTRANSFERASE 42 U/L (12-78); ALBUMIN 1.9 G/DL (3.4-5.0); ALBUMIN/GLOBULIN RATIO 0.5 (1.0-2.7); ALKALINE PHOSPHATASE 68 U/L (46-116); ANION GAP 7 mmol/L (5-15); ASPARTATE AMINO TRANSFERASE 52 U/L (15-37); BILIRUBIN,TOTAL 0.3 MG/DL (0.2-1.0); BLOOD UREA NITROGEN 13 mg/dL (7-18); CARBON DIOXIDE 19 MMOL/L (21-32); CHLORIDE 108 MMOL/L (98-107); POTASSIUM 4.8 MMOL/L (3.5-5.1); SODIUM 134 MMOL/L (136-145)
[2019-05-14] MEDS: Tamsulosin 0.4mg cap ORAL SCH (20:17)
--- NOTE | 2019-05-14 20:19 | NUR ---
NURSE NOTES: Leigh from pharmacy called, stated previous RN did not put transfer orders. she gave an order to do it. will transfer orders.
--- NOTE | 2019-05-14 20:30 | Consultation ---
DATE OF CONSULTATION: 05/14/2019 CONSULTING PHYSICIAN: Kenneth Link M.D. CHIEF COMPLAINT: Abdominal pain, nausea, vomiting, and diarrhea. HISTORY OF PRESENT ILLNESS: The patient is a poor historian. The patient is known to me from prior admission in January of 2018. The patient, at that time, was evaluated for abdominal pain, fecal impaction, gallstones, and pancreatic cyst. The patient, of course, never followed in the office. Admitted to the hospital with complaint of abdominal pain and diarrhea. The patient is a poor historian. Since admission, his urine toxicology was positive for cocaine. PAST MEDICAL HISTORY: 1. History of fecal impaction. 2. Constipation. 3. BPH. 4. Hypertension. 5. Gallstones. 6. Pancreatic cyst. 7. UTI. 8. COPD. MEDICATIONS: Please see medication reconciliation list. ALLERGIES: Contrast media. FAMILY HISTORY: Noncontributory. SOCIAL HISTORY: The patient is a drug user, positive for cocaine. PHYSICAL EXAMINATION: VITAL SIGNS: Temperature 98.5, pulse is 98, respirations 19, and blood pressure is 114/60. HEENT: Normocephalic and atraumatic. Pale conjunctivae. NECK: Supple. No evidence of obvious lymphadenopathy. CARDIOVASCULAR: Regular rhythm. Plus S1 and S2. LUNGS: Decreased breath sounds bilaterally based on the supine exam. ABDOMEN: Soft. Mildly distended. Mildly tender. No rebound. No guarding. No peritoneal sign. EXTREMITIES: No cyanosis. No clubbing. No edema. LABORATORY DATA: White count is 16,000, hemoglobin 9.7, hematocrit 30, and platelet count is 173,000. Chem-7, sodium is 132, potassium 3.5, BUN is 30, and creatinine is 1.3. ASSESSMENT AND PLAN: 1. Anemia. This anemia is new for the patient. In prior admissions, the patient's hemoglobin, actually at a discharge in 2018 was 13.4, now it has gone to 9.7, so it seems that the patient had acute blood loss or acute drop in hemoglobin and hematocrit. Plan will be to send a stool for OB. Repeat CBC for tomorrow. Order anemia panel including iron, B12, and folic acid. The patient might benefit from endoscopy and colonoscopy for evaluation of the anemia if the stool OB comes back positive. We will defer that to Dr. Flood, who cover the patient tomorrow. 2. of diarrhea, possibly secondary to cocaine. According to the nurse, he has not had diarrhea since admission, since he was transferred to this unit. We will plan to monitor. If the patient's diarrhea recurs, we are going to order order stool studies. 3. of pancreatic cyst, which was seen on the CT scan in 2018. The patient will need a followup imaging. Currently now, he is allergic to contrast, so I do not think we can do a CT with contrast. The patient might benefit from MRI for followup. Kenneth Link M.D. DR: TRISTON JOB#: [id number] CC:
[2019-05-14] MEDS ORDERED: Albuterol 90mcg Inhaler 8gm INH PRN (21:00)
[2019-05-14] MEDS ORDERED: HYDROcodone/Acetamin 5/325 tab ORAL PRN (21:00)
[2019-05-14] MEDS ORDERED: HYDROcodone/Acetamin 10/325 tab ORAL PRN (21:00)
[2019-05-14] MEDS ORDERED: Omnipaue 350mg/ml 100ml vial INJ PRN (21:00)
--- NOTE | 2019-05-14 21:00 | NUR ---
NURSE NOTES: MD GUTIERREZ called back regarding PT Troponin value. understood all lab values and pt current condition. understood pt is Sinus Tach at 109, with no current abnormalities shown, other vital signs stable. MD GUTIERREZ understands VQ scan was not done yet. new orders are VQ scan (stat) and CTA Chest with contrast (STAT). stated, "do one of the imagining that can be done faster. DC the imaging that is not done. do not do both."
--- NOTE | 2019-05-14 21:30 | NUR ---
NURSE NOTES: Pt refused another IV access. pt only has 1 IV access as of now. relayed this information to Leigh Pharmacist. Leigh stated she will reschedule Zosyn, but to run Vanco. will continue to monitor pt.
--- NOTE | 2019-05-14 21:30 | NUR ---
NURSE NOTES: Pt refused Lactic acid reflux. charge machine operatorANGELO Barrett.
--- NOTE | 2019-05-14 21:30 | NUR ---
NURSE NOTES: talked to Josemanuel radiology interventional physician, stated pt is allergic to contrast. CTA chest with contrast is contra indicated at this point. Josemanuel also stated radiology medicine will arrive 2 hrs from now, this is to be given with the VQ scan imaging. pt remains stable as of now.
--- NOTE | 2019-05-14 21:40 | NUR ---
NURSE NOTES: Transferred vanco IV from TELE refrigerator med to SDU refrigerator.
[2019-05-14] MEDS: Metoprolol 25mg tab ORAL SCH (22:00)
[2019-05-14] MEDS ORDERED: Vancomycin 1.25gm/NS Premix 275 ML IVPB SCH (22:00)
[2019-05-14] MEDS ORDERED: Piperacillin/Tazobactam 3.375 GM in NS 110 ML IVPB SCH (22:00)
[2019-05-15] VITALS: BP 120/71
--- NOTE | 2019-05-15 00:18 | NUR ---
NURSE NOTES: Pt refused VQ scan. deployment technician Himanshu, charge geronimo [place] and ANGELO melton have acknowledge pt wishes.
--- NOTE | 2019-05-15 00:45 | NUR ---
NURSE NOTES: called MD salazar on urgent line. left a message stating that Pt refused VQ scan imagining. additionally, left a message stating that pt is allergic to contrast media, which is contra indicated to CTA with contrast imaging. awaiting call back. awaiting new orders.
--- NOTE | 2019-05-15 02:30 | Consultation ---
DATE OF CONSULTATION: 05/14/2019 CARDIOLOGY CONSULTATION REASON FOR CONSULTATION: Acute respiratory distress and tachycardia. HISTORY OF PRESENT ILLNESS: This is a 73-year-old male. He was admitted to the hospital several days ago for treatment of sepsis from a possible abdominal source. He has been on antimicrobials and therapy. Today, he became acutely short of breath with rapid heart rate prompting this consultation. He denied chest pain, but he did feel short of breath. He also noted abdominal discomfort. His monitored rhythm is sinus tachycardia. PAST MEDICAL HISTORY: Includes COPD, prostatic hypertrophy, cerebrovascular disease with dementia, and alcoholism. ALLERGIES: Include contrast media. MEDICATIONS: Reviewed and reconciled. FAMILY HISTORY: Noncontributory. SOCIAL HISTORY: Notable for alcoholism in the past. No smoking noted. REVIEW OF SYSTEMS: Cannot be reliably obtained from the patient at this time due to his medical conditions. PHYSICAL EXAMINATION: Blood pressure 153/84, pulse 143, respiratory rate 25, and temperature 99.2 degrees. HEENT: Temporal wasting. Oropharynx clear. NECK: Supple. noted. LUNGS: With coarse breath sounds and rhonchi. CARDIAC: Regular rhythm. Rapid rate. Normal S1 and S2 with no murmur. ABDOMEN: Soft and nontender. EXTREMITIES: No edema and there is no calf tenderness. LABORATORY AND DIAGNOSTIC DATA: Sodium 134, potassium 4.8, chloride 108, bicarb 19, BUN 13, creatinine 1, and glucose 121. Lactic acid 2.5. Troponin 0.128. Pro-natriuretic peptide 14,500 and albumin 1.9. Chest x-ray with increasing patchy infiltrates. White count 9.3 and hemoglobin 8.3. IMPRESSION: 1. Acute respiratory insufficiency. 2. Hypoxia. 3. Sinus tachycardia. 4. Anemia. 5. Lactic acidosis. 6. Acute myocardial ischemia. 7. Healthcare-acquired pneumonia. 8. Acute diastolic congestive heart failure. PLAN: 1. Nasal oxygen. 2. Cautious hydration. 3. Beta-blockade. 4. V/Q scan to assess for pulmonary embolic event. 5. DVT prophylaxis pending results of above. 6. Serial troponin levels. 7. Anti-platelet therapy with aspirin. 8. Serial lactic acid levels. 9. The patient's condition is critical and prognosis is guarded. Sanjeev Li M.D. DR: Maria Ines JOB#: [id number] CC:
--- NOTE | 2019-05-15 02:46 | NUR ---
NURSE NOTES: MD SALAZAR called backed regarding pt. relayed message that pt is allergic to contrast. stated to STOP CTA with contrast order. MD salazar stated to reorder VQ scan for AM. will carry out orders.
--- NOTE | 2019-05-15 03:20 | NUR ---
NURSE NOTES: Pt refused to have Venturi mask on.
[2019-05-15 04:00] VITALS: BP 120/59
--- NOTE | 2019-05-15 04:30 | NUR ---
NURSE NOTES: Pt refused venturi mask.
[2019-05-15 06:36] LABS: HEMATOCRIT 23.8 % (42.0-52.0); HEMOGLOBIN 7.5 G/DL (14.2-18.0); MEAN CORPUSCULAR VOLUME 76 FL (80-99); PLATELET COUNT 85 K/UL (150-450); RED BLOOD COUNT 3.13 M/UL (4.70-6.10); RED CELL DISTRIBUTION WIDTH 15.5 % (11.6-14.8); WHITE BLOOD COUNT 8.2 K/UL (4.8-10.8)
[2019-05-15 07:10] LABS: ALANINE AMINOTRANSFERASE 34 U/L (12-78); ALBUMIN 1.7 G/DL (3.4-5.0); ALBUMIN/GLOBULIN RATIO 0.4 (1.0-2.7); ALKALINE PHOSPHATASE 63 U/L (46-116); ASPARTATE AMINO TRANSFERASE 37 U/L (15-37); BILIRUBIN,TOTAL 0.3 MG/DL (0.2-1.0); CALCIUM 7.2 MG/DL (8.5-10.1); CARBON DIOXIDE 22 MMOL/L (21-32); CREATININE 0.9 MG/DL (0.55-1.30)
--- NOTE | 2019-05-15 07:10 | NUR ---
HAND-OFF: Report given to Crystal MOSES. Pt remains stable.
[2019-05-15 07:25] LABS: % IRON SATURATION 11 % (15-50); IRON 17 ug/dL (50-175); TOTAL IRON BINDING CAPACITY 158 ug/dL (250-450)
--- NOTE | 2019-05-15 07:45 | NUR ---
NURSE NOTES: Report received from Earle Mcghee RN.Pt awake,alert confused on and off,resistant to care,noted no resp distress on Venturi Mask 35%,no signs of pain or discomfort S-Tach on the monitor,Helm cath draining yellow urine,IV site to LFA intact with IVF NS at 75 ml/hr,SR up x2 HOB elevated ,bed lock in lowest position will continue with plans of care.
[2019-05-15 08:00] VITALS: BP 148/81
[2019-05-15 08:29] LABS: BLOOD UREA NITROGEN 11 mg/dL (7-18); CHLORIDE 109 MMOL/L (98-107); POTASSIUM 3.6 MMOL/L (3.5-5.1); SODIUM 135 MMOL/L (136-145)
[2019-05-15] MEDS: Heparin 5000 units/ml inj SUBQ SCH ×3 (09:00→20:19)
--- NOTE | 2019-05-15 09:02 | Infectious Diseases Prog Note ---
Assessment/Plan Assessment/Plan A: 1. E. coli UTI. 2. Positive blood culture with Staph Hominis, contamination 3. COPD. 4. Hypertension. 5. BPH. 6. Anemia. 7. Cocaine abuse. 8. Pneumonia RECOMMENDATION: Continue Zosyn Discontinue vancomycin Will f/u Ventilation perfusion scan Subjective ROS Limited/Unobtainable: Yes Constitutional: Reports: other - transferred from telemetry tostep down unit Respiratory: Reports: shortness of breath, dry cough Gastrointestinal/Abdominal: Reports: other - pain Musculoskeletal: Reports: pain, other - in feet Allergies: Uncoded Allergies: CONTRAST MEDIA (Adverse Reaction, Mild, Itching in the area of the neck, 01/20/18) Patient was given specifically Isovue contrast during CT of the abdomen, and when he came back. The patient was itchy and benadryl was given, no complaints of itchiness or adverse reactions so far. Objective Vital Signs Last 24 Hour Vital Signs Date Time Temp Pulse Resp B/P (MAP) Pulse Ox O2 Delivery O2 Flow Rate FiO2 05/15/19 04:00 106 05/15/19 04:00 97.8 103 20 120/59 (79) 95 05/15/19 00:00 102 05/15/19 00:00 98.0 103 20 120/71 (87) 98 05/14/19 22:00 107 102/64 05/14/19 21:00 Nasal Cannula 2.0 05/14/19 20:00 117 05/14/19 20:00 98.0 118 21 106/62 (77) 96 05/14/19 16:31 132 123/71 05/14/19 16:00 99.2 143 25 153/84 (107) 92 05/14/19 16:00 130 05/14/19 12:00 97.4 78 19 109/62 (78) 95 05/14/19 12:00 88 05/14/19 09:00 Nasal Cannula 2.0 Height (Feet): 6 Height (Inches): 1.00 Weight (Pounds): 175 General Appearance: no acute distress HEENT: other - dry mouth Respiratory/Chest: lungs clear, other - oxygen by nasal cannula Cardiovascular: tachycardia Abdomen: soft, non tender Extremities: no edema Neurologic/Psychiatric: alert, responsive Microbiology Date/Time Source Procedure Growth Status 05/12/19 12:40 Blood Blood Culture - Preliminary NO GROWTH AFTER 48 HOURS Resulted 05/12/19 12:26 Blood Blood Culture - Final Staph Hominis Ssp Hominis Complete 05/12/19 18:10 Stool Clostridium difficile Toxin Assay - Final Complete 05/12/19 12:30 Urine,Clean Catch Urine Culture - Final Escherichia Coli Complete Laboratory Tests Test 05/14/19 19:00 05/15/19 05:45 White Blood Count 9.3 K/UL (4.8-10.8) 8.2 K/UL (4.8-10.8) Red Blood Count 3.42 M/UL (4.70-6.10) L 3.13 M/UL (4.70-6.10) L Hemoglobin 8.3 G/DL (14.2-18.0) L 7.5 G/DL (14.2-18.0) L Hematocrit 26.3 % (42.0-52.0) L 23.8 % (42.0-52.0) L Mean Corpuscular Volume 77 FL (80-99) L 76 FL (80-99) L Mean Corpuscular Hemoglobin 24.2 PG (27.0-31.0) L 24.1 PG (27.0-31.0) L Mean Corpuscular Hemoglobin Concent 31.5 G/DL (32.0-36.0) L 31.6 G/DL (32.0-36.0) L Red Cell Distribution Width 16.0 % (11.6-14.8) H 15.5 % (11.6-14.8) H Platelet Count 95 K/UL (150-450) L 85 K/UL (150-450) L Mean Platelet Volume 8.1 FL (6.5-10.1) 8.7 FL (6.5-10.1) Neutrophils (%) (Auto) 71.1 % (45.0-75.0) % (45.0-75.0) Lymphocytes (%) (Auto) 12.6 % (20.0-45.0) L % (20.0-45.0) Monocytes (%) (Auto) 14.9 % (1.0-10.0) H % (1.0-10.0) Eosinophils (%) (Auto) 1.0 % (0.0-3.0) % (0.0-3.0) Basophils (%) (Auto) 0.4 % (0.0-2.0) % (0.0-2.0) Sodium Level 134 MMOL/L (136-145) L 135 MMOL/L (136-145) L Potassium Level 4.8 MMOL/L (3.5-5.1) 3.6 MMOL/L (3.5-5.1) Chloride Level 108 MMOL/L (98-107) H 109 MMOL/L (98-107) H Carbon Dioxide Level 19 MMOL/L (21-32) L 22 MMOL/L (21-32) Anion Gap 7 mmol/L (5-15) mmol/L (5-15) Blood Urea Nitrogen 13 mg/dL (7-18) 11 mg/dL (7-18) Creatinine 1.0 MG/DL (0.55-1.30) 0.9 MG/DL (0.55-1.30) Estimat Glomerular Filtration Rate mL/min (>60) mL/min (>60) Glucose Level 121 MG/DL (74-106) H 106 MG/DL (74-106) Lactic Acid Level 2.50 mmol/L (0.4-2.0) H 0.50 mmol/L (0.66-2.22) L Calcium Level 7.0 MG/DL (8.5-10.1) L 7.2 MG/DL (8.5-10.1) L Total Bilirubin 0.3 MG/DL (0.2-1.0) 0.3 MG/DL (0.2-1.0) Aspartate Amino Transf (AST/SGOT) 52 U/L (15-37) H 37 U/L (15-37) Alanine Aminotransferase (ALT/SGPT) 42 U/L (12-78) 34 U/L (12-78) Alkaline Phosphatase 68 U/L (46-116) 63 U/L (46-116) Troponin I 0.128 ng/mL (0.000-0.056) 0.111 ng/mL (0.000-0.056) Pro-B-Type Natriuretic Peptide 23576 pg/mL (0-125) H Total Protein 5.7 G/DL (6.4-8.2) L 6.1 G/DL (6.4-8.2) L Albumin 1.9 G/DL (3.4-5.0) L 1.7 G/DL (3.4-5.0) L Globulin 3.8 g/dL 4.4 g/dL Albumin/Globulin Ratio 0.5 (1.0-2.7) L 0.4 (1.0-2.7) L Neutrophils % (Manual) Pending Lymphocytes % (Manual) Pending Platelet Estimate Pending Platelet Morphology Pending Iron Level 17 ug/dL (50-175) L Total Iron Binding Capacity 158 ug/dL (250-450) L Percent Iron Saturation 11 % (15-50) L Unsaturated Iron Binding 141 ug/dL (112-346) Carcinoembryonic Antigen Pending Vitamin B12 Level 494 PG/ML (193-986) Folate 10.9 NG/ML (8.6-58.9) Current Medications Medications (Trade) Dose Ordered Sig/Edwige Route PRN Reason Start Time Stop Time Status Last Admin Dose Admin Acetaminophen (Tylenol) 650 mg Q4H PRN ORAL Mild Pain/Temp > 100.5 05/14/19 21:00 06/11/19 16:59 Acetaminophen/ Hydrocodone Bitart ([place] 10/325) 1 tab Q4H PRN ORAL Severe Pain (Pain Scale 7-10) 05/14/19 21:00 05/19/19 16:59 Acetaminophen/ Hydrocodone Bitart ([place] 5/325) 1 tab Q4H PRN ORAL Moderate Pain (Pain Scale 4-6) 05/14/19 21:00 05/19/19 16:59 Al Hydroxide/Mg Hydroxide (Mylanta) 30 ml Q4H PRN ORAL STOMACH UPSET 05/14/19 21:00 06/11/19 16:59 Albuterol Sulfate (Proventil MDI) 1 puff Q6H PRN INH Shortness of Breath 05/14/19 21:00 06/13/19 20:59 Aspirin (ASA) 81 mg DAILY ORAL 05/15/19 09:00 06/12/19 08:59 Heparin Sodium (Porcine) (Heparin 5000 units/ml) 5,000 units EVERY 12 HOURS SUBQ 05/15/19 09:00 06/14/19 08:59 Lisinopril (ZestriL) 10 mg DAILY ORAL 05/15/19 09:00 06/11/19 19:29 Metoprolol Tartrate (Lopressor) 25 mg Q12HR ORAL 05/14/19 22:00 06/13/19 21:59 Ondansetron HCl (Zofran) 4 mg Q6H PRN IVP Nausea & Vomiting 05/14/19 21:00 06/13/19 20:59 Pantoprazole (Protonix) 40 mg DAILY ORAL 05/15/19 09:00 06/12/19 08:59 Piperacillin Sod/ Tazobactam Sod 3.375 gm/Sodium Chloride 110 ml @ 27.5 mls/hr Q8H IVPB 05/15/19 00:00 05/22/19 00:00 05/14/19 23:28 Sodium Chloride 1,000 ml @ 75 mls/hr [id number] IV 05/14/19 21:15 06/13/19 21:14 05/14/19 22:05 Tamsulosin HCl (Flomax) 0.4 mg BEDTIME ORAL 05/15/19 21:00 06/14/19 20:59 Vancomycin HCl (Vanco rx to dose) 1 ea DAILY PRN MISC Per rx protocol 05/15/19 09:00 06/11/19 16:59 Vancomycin/Sodium Chloride 275 ml @ 183.333 mls/hr Q12HR@1000,2200 IVPB 05/14/19 22:00 05/19/19 09:59 05/14/19 22:05 Jamal Gamboa MD May 15, 2019 09:01
[2019-05-15] MEDS: Aspirin Baby 81mg ORAL SCH (09:37)
[2019-05-15] MEDS: Metoprolol 25mg tab ORAL SCH ×2 (09:38→20:24)
[2019-05-15] MEDS: Lisinopril 10mg tab ORAL SCH (09:38)
[2019-05-15] MEDS: Piperacillin/Tazobactam 3.375 GM in NS 110 ML IVPB SCH ×3 (09:45→23:05)
--- NOTE | 2019-05-15 10:34 | NUR ---
*-* NO INSURANCE INFORMATION ON THE BAR UNABLE TO SEND CLINICALS AND REVIEWS *-*
--- NOTE | 2019-05-15 10:45 | NUR ---
NURSE NOTES: Pt went down for V/Q scan,with orders off the monitor tech,accompanied by nuclear Tech [email or web address] pt back to unit awake,alert in no distress,
--- NOTE | 2019-05-15 11:30 | NUR ---
NM Lung V/Q Scan complete.
[2019-05-15 12:00] VITALS: BP 148/81
--- NOTE | 2019-05-15 12:32 | General Progress Note ---
Assessment/Plan Assessment/Plan: IMPRESSION abdominal pain possible sepsis PCM COPD toxic metabolic encephalopathy leukocytosis possible sepsis anemia hypertension sinus tachycardia UTI PLAN IV antibiotics VQ scan pending IV hydration DVT prophylaxis monitor change as is monitor labs respiratory care as needed oxygen therapy monitor LOC for change impression, plan, and exam edited and reviewed in detail care discussed with RN Subjective Allergies: Uncoded Allergies: CONTRAST MEDIA (Adverse Reaction, Mild, Itching in the area of the neck, 01/20/18) Patient was given specifically Isovue contrast during CT of the abdomen, and when he came back. The patient was itchy and benadryl was given, no complaints of itchiness or adverse reactions so far. Subjective some confusion care noted on antibiotics confused sinus tachy Objective Last 24 Hour Vital Signs Date Time Temp Pulse Resp B/P (MAP) Pulse Ox O2 Delivery O2 Flow Rate FiO2 05/15/19 09:38 122 148/81 05/15/19 09:38 148/81 05/15/19 08:00 97.2 122 26 148/81 (103) 92 05/15/19 08:00 114 05/15/19 04:00 106 05/15/19 04:00 97.8 103 20 120/59 (79) 95 05/15/19 00:00 102 05/15/19 00:00 98.0 103 20 120/71 (87) 98 05/14/19 22:00 107 102/64 05/14/19 21:00 Nasal Cannula 2.0 05/14/19 20:00 117 05/14/19 20:00 98.0 118 21 106/62 (77) 96 05/14/19 16:31 132 123/71 05/14/19 16:00 99.2 143 25 153/84 (107) 92 05/14/19 16:00 130 Intake and Output 05/14/19 05/15/19 18:59 06:59 Intake Total 2350.000 ml 1185.000 ml Output Total 2400 ml 850 ml Balance -50.000 ml 335.000 ml Intake Oral 960 ml IV Total 1390.000 ml 1185.000 ml Output Urine Total 2400 ml 850 ml # Bowel Movements 1 Laboratory Tests 05/14/19 19:00: White Blood Count 9.3, Red Blood Count 3.42L, Hemoglobin 8.3L, Hematocrit 26.3L , Mean Corpuscular Volume 77L, Mean Corpuscular Hemoglobin 24.2L, Mean Corpuscular Hemoglobin Concent 31.5L, Red Cell Distribution Width 16.0H, Platelet Count 95L, Mean Platelet Volume 8.1, Neutrophils (%) (Auto) 71.1, Lymphocytes (%) (Auto) 12.6L, Monocytes (%) (Auto) 14.9H, Eosinophils (%) (Auto ) 1.0, Basophils (%) (Auto) 0.4, Sodium Level 134L, Potassium Level 4.8, Chloride Level 108H, Carbon Dioxide Level 19L, Anion Gap 7, Blood Urea Nitrogen 13, Creatinine 1.0, Estimat Glomerular Filtration Rate , Glucose Level 121H, Lactic Acid Level 2.50H, Calcium Level 7.0L, Total Bilirubin 0.3, Aspartate Amino Transf (AST/SGOT) 52H, Alanine Aminotransferase (ALT/SGPT) 42, Alkaline Phosphatase 68, Troponin I 0.128H, Pro-B-Type Natriuretic Peptide 25288M, Total Protein 5.7L, Albumin 1.9L, Globulin 3.8, Albumin/Globulin Ratio 0.5L 05/15/19 05:45: White Blood Count 8.2, Red Blood Count 3.13L, Hemoglobin 7.5L, Hematocrit 23.8L , Mean Corpuscular Volume 76L, Mean Corpuscular Hemoglobin 24.1L, Mean Corpuscular Hemoglobin Concent 31.6L, Red Cell Distribution Width 15.5H, Platelet Count 85L, Mean Platelet Volume 8.7, Neutrophils (%) (Auto) , Lymphocytes (%) (Auto) , Monocytes (%) (Auto) , Eosinophils (%) (Auto) , Basophils (%) (Auto) , Sodium Level 135L, Potassium Level 3.6, Chloride Level 109H, Carbon Dioxide Level 22, Anion Gap , Blood Urea Nitrogen 11, Creatinine 0.9, Estimat Glomerular Filtration Rate , Glucose Level 106, Lactic Acid Level 0.50L, Calcium Level 7.2L, Total Bilirubin 0.3, Aspartate Amino Transf (AST/SGOT ) 37, Alanine Aminotransferase (ALT/SGPT) 34, Alkaline Phosphatase 63, Troponin I 0.111H, Total Protein 6.1L, Albumin 1.7L, Globulin 4.4, Albumin/Globulin Ratio 0.4L, Differential Total Cells Counted 100, Neutrophils % (Manual) 72, Lymphocytes % (Manual) 12L, Monocytes % (Manual) 15H, Eosinophils % (Manual) 1, Basophils % (Manual) 0, Band Neutrophils 0, Platelet Estimate DecreasedL, Platelet Morphology Normal, Hypochromasia 1+, Anisocytosis 1+, Microcytosis 1+, Iron Level 17L, Total Iron Binding Capacity 158L, Percent Iron Saturation 11L, Unsaturated Iron Binding 141, Carcinoembryonic Antigen [Pending], Vitamin B12 Level 494, Folate 10.9 Height (Feet): 6 Height (Inches): 1.00 Weight (Pounds): 175 Objective WDWN NAD clear breath sounds bilaterally without rhonchi or wheeze S1S2RR tachy without MRG NABS nontender no HSM no CCE nonfocal no distress confused Yogesh Carey MD May 15, 2019 12:32
[2019-05-15 16:00] VITALS: BP 150/85
--- NOTE | 2019-05-15 16:07 | Diagnostic Imaging Report ---
Indication: Chest pain Technique: A ventilation/perfusion scan was performed. Ventilation was performed utilizing 40 mCi of Technetium 99m-DTPA. Perfusion was performed with 5.5 mCi of technetium 99m-MAA injected intravenously. Multiple side by side projections obtained. Findings: Ventilation is mildly heterogeneous with a significant amount of tracer cannulation within the airway. No significant defects are identified. Perfusion is mildly heterogeneous. No significant defects are identified. No mismatched defects seen. Impression: Low probability for pulmonary embolus Interpretation of findings are based on PIOPED DANYA sánchez (2006).
--- NOTE | 2019-05-15 16:15 | Progress Note ---
DATE: 05/15/2019 CARDIOLOGY PROGRESS NOTE SUBJECTIVE: The patient refused the V/Q scan last night. His congestion and shortness of breath have improved. He remains on oxygen support however and bronchodilators. OBJECTIVE: VITAL SIGNS: Blood pressure 148/81, heart rate 122, respirations 26, afebrile. Monitored rhythm sinus tachycardia. Rare PACs. LUNGS: Bilateral rhonchi. CARDIAC: Regular rhythm. Rapid rate. Normal S1, S2. ABDOMEN: Soft. EXTREMITIES: No edema. DIAGNOSTIC AND LABORATORY DATA: Chest x-ray today reveals mild pulmonary venous congestion. White count is 8.2, hemoglobin 7.5. Troponin 0.111. Potassium 3.6, BUN 11, creatinine 0.9. Albumin 1.7. Iron panel is noted consistent with chronic disease and mild iron deficiency. IMPRESSION: 1. Acute respiratory insufficiency. 2. Possible healthcare-acquired pneumonia. 3. Possible pulmonary embolic events. 4. Acute on chronic diastolic congestive heart failure. 5. Mild lactic acidosis, resolved. 6. Anemia due to chronic disease and iron deficiency. 7. Severe protein-calorie malnutrition. 8. Acute myocardial ischemia. PLAN: 1. Packed red blood cell transfusion. 2. V/Q scan. 3. Diuresis. 4. Monitor and replace electrolytes accordingly. 5. Antimicrobials, oxygenation, and respiratory hygiene. 6. Full anticoagulation if any evidence of pulmonary embolic event. Sanjeev Li M.D. DR: ARACELI JOB#: [id number] CC:
--- NOTE | 2019-05-15 17:35 | NUR ---
NURSE NOTES: Pt's H/H 7.5/23.8,transfused 1 unit of PRBC,V/S monitored,no signs of blood transfusion reaction,will continue to monitor pt.
--- NOTE | 2019-05-15 19:10 | NUR ---
NURSE NOTES: Pt report received from Crystal Rubio RN SDU. pt remains stable. pt is alert and oriented times 3 and able to follow commands. pt is on threat monitoring analyst showing ST with no other abnormalities. pt is on venturi mask satting at 99%, no resp distress noted. pt bed is low, locked armed, bed rails up times 3. will follow plan of care. Addendum: 05/16/19 at 0105 by EVANGELIST HARGROVE RN NURSE NOTES: Pt report received from Crystal Rubio RN SDU. pt remains stable. pt is alert and oriented times 3 and able to follow commands. pt is on threat monitoring analyst showing ST with no other abnormalities. pt is on 2 L NC satting at 99%, no resp distress noted. pt bed is low, locked armed, bed rails up times 3. will follow plan of care.
--- NOTE | 2019-05-15 19:20 | NUR ---
HAND-OFF: Report given to Earle Mcghee RN ,endorsed that pt is with ongoing blood transfusion.
--- NOTE | 2019-05-15 19:24 | Cardiology Report ---
APPROVED REPORT EKG Measurement Heart [id number] Sinus tachycardia with occasional premature ventricular complexes Nonspecific ST abnormality Abnormal ECG
[2019-05-15 20:00] VITALS: BP 148/96
--- NOTE | 2019-05-15 20:10 | NUR ---
NURSE NOTES: 1 U PRBC returned to lab. checked in with CLS at lab.
[2019-05-15] MEDS ORDERED: Tamsulosin 0.4mg cap ORAL SCH (21:00)
--- NOTE | 2019-05-15 22:23 | General Progress Note ---
Assessment/Plan Assessment/Plan: Assessment - Anemia - microcytosis and iron deficiency - COPD - BPD - pancreatic Cyst - HTN Recommendations - follow CBC - await stool OB - not stable for GI endoscopy at this time Subjective Allergies: Uncoded Allergies: CONTRAST MEDIA (Adverse Reaction, Mild, Itching in the area of the neck, 01/20/18) Patient was given specifically Isovue contrast during CT of the abdomen, and when he came back. The patient was itchy and benadryl was given, no complaints of itchiness or adverse reactions so far. Subjective Eating OK no abdominal complaints Objective Last 24 Hour Vital Signs Date Time Temp Pulse Resp B/P (MAP) Pulse Ox O2 Delivery O2 Flow Rate FiO2 05/15/19 20:24 105 147/89 05/15/19 20:00 97 05/15/19 20:00 98.4 100 20 148/96 (113) 98 05/15/19 20:00 Nasal Cannula 2.0 05/15/19 16:00 108 05/15/19 16:00 97.0 117 26 150/85 (106) 97 05/15/19 12:00 Nasal Cannula 2.0 05/15/19 12:00 96.6 102 28 148/81 (103) 92 05/15/19 12:00 100 05/15/19 09:38 122 148/81 05/15/19 09:38 148/81 05/15/19 08:00 97.2 122 26 148/81 (103) 92 05/15/19 08:00 Nasal Cannula 2.0 05/15/19 08:00 114 05/15/19 04:00 106 05/15/19 04:00 97.8 103 20 120/59 (79) 95 05/15/19 00:00 102 05/15/19 00:00 98.0 103 20 120/71 (87) 98 Intake and Output 05/14/19 05/15/19 19:00 07:00 Intake Total 2322.500 ml 1085.000 ml Output Total 1200 ml 850 ml Balance 1122.500 ml 235.000 ml Intake Oral 960 ml IV Total 1362.500 ml 1085.000 ml Output Urine Total 1200 ml 850 ml # Bowel Movements 1 Laboratory Tests 05/15/19 05:45: White Blood Count 8.2, Red Blood Count 3.13L, Hemoglobin 7.5L, Hematocrit 23.8L , Mean Corpuscular Volume 76L, Mean Corpuscular Hemoglobin 24.1L, Mean Corpuscular Hemoglobin Concent 31.6L, Red Cell Distribution Width 15.5H, Platelet Count 85L, Mean Platelet Volume 8.7, Neutrophils (%) (Auto) , Lymphocytes (%) (Auto) , Monocytes (%) (Auto) , Eosinophils (%) (Auto) , Basophils (%) (Auto) , Differential Total Cells Counted 100, Neutrophils % ( Manual) 72, Lymphocytes % (Manual) 12L, Monocytes % (Manual) 15H, Eosinophils % (Manual) 1, Basophils % (Manual) 0, Band Neutrophils 0, Platelet Estimate DecreasedL, Platelet Morphology Normal, Hypochromasia 1+, Anisocytosis 1+, Microcytosis 1+, Sodium Level 135L, Potassium Level 3.6, Chloride Level 109H, Carbon Dioxide Level 22, Anion Gap , Blood Urea Nitrogen 11, Creatinine 0.9, Estimat Glomerular Filtration Rate , Glucose Level 106, Lactic Acid Level 0.50L , Calcium Level 7.2L, Iron Level 17L, Total Iron Binding Capacity 158L, Percent Iron Saturation 11L, Unsaturated Iron Binding 141, Total Bilirubin 0.3, Aspartate Amino Transf (AST/SGOT) 37, Alanine Aminotransferase (ALT/SGPT) 34, Alkaline Phosphatase 63, Troponin I 0.111H, Total Protein 6.1L, Albumin 1.7L, Globulin 4.4, Albumin/Globulin Ratio 0.4L, Carcinoembryonic Antigen [Pending], Vitamin B12 Level 494, Folate 10.9 Height (Feet): 6 Height (Inches): 1.00 Weight (Pounds): 175 Objective Elderly man NCAT supple Chest: coarse ronchi RR abd soft ND NT no edema Cristi Flood MD May 15, 2019 22:23
[2019-05-16] VITALS: BP 146/91
--- NOTE | 2019-05-16 | NUR ---
NURSE NOTES: Pt refuses to be cleaned.
[2019-05-16 04:00] VITALS: BP 157/97
--- NOTE | 2019-05-16 05:10 | NUR ---
NURSE NOTES: Pt refused lab draw.
--- NOTE | 2019-05-16 06:07 | NUR ---
NURSE NOTES: Pt refuses to be given a bath and to wear yellow gown.
--- NOTE | 2019-05-16 07:10 | NUR ---
HAND-OFF: Report given to Sindy STEPHENS SDU. Pt remains stable.
--- NOTE | 2019-05-16 07:35 | NUR ---
NURSE NOTES: Received report from Debi Mcghee RN. Patient alert and oriented x 3, able to make needs known, uncooperative. Receiving O2 via Venturi mask @ 6L/min, FiO2 35%, respirations even and unlabored. Helm catheter patent and draining well. Left forearm 20g IV site infusing NS @ 75 cc/hr, asymptomatic. Bed locked in lowest position with side rails up x 3. Bed alarm on. Patient refuses yellow gown. All needs attended to. Call light within reach. Will continue to monitor.
[2019-05-16 08:00] VITALS: BP 157/99
--- NOTE | 2019-05-16 08:23 | General Progress Note ---
Assessment/Plan Assessment/Plan: IMPRESSION abdominal pain possible sepsis PCM COPD toxic metabolic encephalopathy leukocytosis possible sepsis anemia hypertension sinus tachycardia UTI PLAN IV antibiotics VQ scan pending IV hydration DVT prophylaxis monitor change as is monitor labs for change respiratory care as needed oxygen therapy GI evaluation noted impression, plan, and exam edited and reviewed in detail care discussed with RN Subjective Allergies: Uncoded Allergies: CONTRAST MEDIA (Adverse Reaction, Mild, Itching in the area of the neck, 01/20/18) Patient was given specifically Isovue contrast during CT of the abdomen, and when he came back. The patient was itchy and benadryl was given, no complaints of itchiness or adverse reactions so far. Subjective remains confused care noted on antibiotics VQ scan noted Objective Last 24 Hour Vital Signs Date Time Temp Pulse Resp B/P (MAP) Pulse Ox O2 Delivery O2 Flow Rate FiO2 05/16/19 04:00 98.0 95 22 157/97 (117) 99 05/16/19 04:00 Venturi Mask 6.0 05/16/19 03:23 93 05/16/19 00:00 98.1 97 20 146/91 (109) 99 05/16/19 00:00 94 05/16/19 00:00 Venturi Mask 6.0 05/15/19 20:24 105 147/89 05/15/19 20:00 97 05/15/19 20:00 98.4 100 20 148/96 (113) 98 05/15/19 20:00 Nasal Cannula 2.0 05/15/19 20:00 Venturi Mask 6.0 05/15/19 16:00 108 05/15/19 16:00 97.0 117 26 150/85 (106) 97 05/15/19 12:00 Nasal Cannula 2.0 05/15/19 12:00 96.6 102 28 148/81 (103) 92 05/15/19 12:00 100 05/15/19 09:38 122 148/81 05/15/19 09:38 148/81 Intake and Output 05/15/19 05/16/19 19:00 07:00 Intake Total 770 ml 860.0 ml Output Total 2500 ml 2000 ml Balance -1730 ml -1140.0 ml Intake Oral 520 ml IV Total 860.0 ml Blood Product 250 ml Output Urine Total 2500 ml 2000 ml Height (Feet): 6 Height (Inches): 1.00 Weight (Pounds): 175 Objective WDWN NAD clear breath sounds bilaterally without rhonchi or wheeze S1S2RR tachy without MRG NABS nontender no HSM no CCE nonfocal no distress confused Yogesh Carey MD May 16, 2019 08:23
[2019-05-16] MEDS: Piperacillin/Tazobactam 3.375 GM in NS 110 ML IVPB SCH ×3 (08:33→23:42)
[2019-05-16] MEDS: Lisinopril 10mg tab ORAL SCH (08:33)
[2019-05-16] MEDS: Aspirin Baby 81mg ORAL SCH (08:33)
[2019-05-16] MEDS: Metoprolol 25mg tab ORAL SCH (08:33)
[2019-05-16] MEDS: Heparin 5000 units/ml inj SUBQ SCH ×2 (08:34→21:00)
[2019-05-16] MEDS ORDERED: NS 275ml ONE (10:59)
[2019-05-16] MEDS ORDERED: Tubing IV Blood Pump IV ONE (10:59)
[2019-05-16] MEDS ORDERED: Tubing IV Secondary IV ONE (10:59)
[2019-05-16 12:00] VITALS: BP 160/92
--- NOTE | 2019-05-16 12:55 | NUR ---
TRANSFER TO FLOOR: Patient transferred to telemetry room 220-2, per Dr. Carey. Report given to Jessica Mahoney RN. Belongings and medications given to receiving nurse.
[2019-05-16] MEDS ORDERED: Albuterol 90mcg Inhaler 8gm INH PRN (13:00)
[2019-05-16] MEDS ORDERED: HYDROcodone/Acetamin 5/325 tab ORAL PRN (13:00)
--- NOTE | 2019-05-16 13:00 | NUR ---
NURSE NOTES: REC,D PT VIA BED ESCORTED BY HERMELINDA STEPHENS STAFF OF [facility].PT AWAKE AND ALERT X3 ,DENIES CP .PT USING VENTI MASK 6L/, 35% FIO2, SAT 97% AT THIS TIME ,PT WITH F/C FRECH # 16 DRAINING WELL CLEAR URINE COLOR .PT REPOSITIONED IN BED .FULL BODY ASSESSMENT DONE. PT RECEIVING IVF,S CONNECTED TO H.L G# 20 .IVF,S INFUSING WELL .NO ACUTE DISTRESS NOTED AT THIS TIME. WILL CONT TO MONITOR.
--- NOTE | 2019-05-16 13:07 | NUR ---
NURSE NOTES: Positive OB stool reported to Dr. Flood.
[2019-05-16 16:00] VITALS: BP 143/85
--- NOTE | 2019-05-16 18:07 | General Progress Note ---
Assessment/Plan Assessment/Plan: Assessment - Anemia - microcytosis and iron deficiency - OB (+) stools - COPD - BPD - pancreatic Cyst - HTN Recommendations - follow CBC - transfuse PRN - clear liquids - message left with next of kin to discuss GI issues Subjective Allergies: Uncoded Allergies: CONTRAST MEDIA (Adverse Reaction, Mild, Itching in the area of the neck, 01/20/18) Patient was given specifically Isovue contrast during CT of the abdomen, and when he came back. The patient was itchy and benadryl was given, no complaints of itchiness or adverse reactions so far. Subjective c/o some dyspnea Stools OB (+) H&H lower Objective Last 24 Hour Vital Signs Date Time Temp Pulse Resp B/P (MAP) Pulse Ox O2 Delivery O2 Flow Rate FiO2 05/16/19 12:00 Venturi Mask 6.0 05/16/19 12:00 98.0 87 21 160/92 (114) 98 05/16/19 11:50 90 05/16/19 08:33 102 157/99 05/16/19 08:33 157/99 05/16/19 08:00 Venturi Mask 6.0 05/16/19 08:00 98.4 102 22 157/99 (118) 94 05/16/19 07:47 96 05/16/19 04:00 98.0 95 22 157/97 (117) 99 05/16/19 04:00 Venturi Mask 6.0 05/16/19 03:23 93 05/16/19 00:00 98.1 97 20 146/91 (109) 99 05/16/19 00:00 94 05/16/19 00:00 Venturi Mask 6.0 05/15/19 20:24 105 147/89 05/15/19 20:00 97 05/15/19 20:00 98.4 100 20 148/96 (113) 98 05/15/19 20:00 Nasal Cannula 2.0 05/15/19 20:00 Venturi Mask 6.0 Intake and Output 05/15/19 05/16/19 18:59 06:59 Intake Total 770 ml 860.0 ml Output Total 2500 ml 2000 ml Balance -1730 ml -1140.0 ml Intake Oral 520 ml IV Total 860.0 ml Blood Product 250 ml Output Urine Total 2500 ml 2000 ml Laboratory Tests 05/16/19 08:45: Stool Occult Blood Positive Height (Feet): 6 Height (Inches): 1.00 Weight (Pounds): 175 Objective Elderly man NCAT supple Chest: coarse ronchi RR abd soft ND NT no edema Cristi Flood MD May 16, 2019 18:07
[2019-05-16] MEDS ORDERED: Sorbitol Solution UD 30ml ORAL SCH (18:15)
--- NOTE | 2019-05-16 19:15 | NUR ---
HAND-OFF: Report given to . MAURO STEPHENS.
--- NOTE | 2019-05-16 19:30 | NUR ---
NURSE NOTES: Received patient from Ben RN. Patient in bed, on ventimask 6L 30%, no signs of respiratory distress. NS infusing via left forearm 22 gauge, no signs of infection or infiltration. Bed in low position, locked, bed alarm on, call light within reach.
[2019-05-16 20:00] VITALS: BP 137/95
[2019-05-16] MEDS ORDERED: Metoprolol 25mg tab ORAL SCH (21:00)
[2019-05-16] MEDS: Metoprolol Tartrate 50mg tab ORAL SCH (21:20)
[2019-05-16] MEDS: Tamsulosin 0.4mg cap ORAL SCH (21:20)
[2019-05-16] MEDS: HYDROcodone/Acetamin 10/325 tab ORAL PRN (21:23)
--- NOTE | 2019-05-16 21:31 | Progress Note ---
DATE: 05/16/2019 CARDIOLOGY PROGRESS NOTE SUBJECTIVE: The patient remains confused, refusing therapies at times, remaining on oxygen, monitored rhythm sinus and sinus tachycardia. We completed a detailed VQ scan that was low probability for pulmonary embolus. He remains on IV antimicrobials. OBJECTIVE: VITAL SIGNS: Blood pressure 157/99, pulse 102, respirations 22, afebrile. LUNGS: Bilateral breath with rhonchi. CARDIAC: Regular rhythm and rate. Normal S1, S2 with a fourth heart sound. ABDOMEN: Soft. EXTREMITIES: No edema. LABORATORY DATA: White count 8.2, hemoglobin 7.5 yesterday. IMPRESSION: 1. Healthcare-acquired pneumonia. 2. Probable sepsis. 3. GI bleeding. 4. Anemia. 5. Hemoccult-positive stools. 6. COPD. 7. Metabolic encephalopathy. 8. Sinus tachycardia. 9. Hypertensive heart disease. 10. Urinary tract infection. 11. Acute myocardial ischemia. PLAN: 1. Antimicrobials. 2. Respiratory hygiene. 3. Transfuse for low hemoglobin. 4. GI workup noted. 5. Titrate antihypertensives. 6. Remains tenuous and high risk. 7. Topical nitrates. Sanjeev Li M.D. DR: KAILA JOB#: [id number] CC:
[2019-05-17] VITALS: BP 128/77
[2019-05-17 04:00] VITALS: BP 148/84
[2019-05-17 06:34] LABS: BASOPHILS % (AUTO) 0.6 % (0.0-2.0); EOSINOPHILS % (AUTO) 4.1 % (0.0-3.0); HEMATOCRIT 29.1 % (42.0-52.0); HEMOGLOBIN 9.1 G/DL (14.2-18.0); LYMPHOCYTES % (AUTO) 22.6 % (20.0-45.0); MEAN CORPUSCULAR VOLUME 78 FL (80-99); MONOCYTES % (AUTO) 14.5 % (1.0-10.0); NEUTROPHILS % (AUTO) 58.1 % (45.0-75.0); PLATELET COUNT 125 K/UL (150-450); RED BLOOD COUNT 3.73 M/UL (4.70-6.10); RED CELL DISTRIBUTION WIDTH 16.5 % (11.6-14.8); WHITE BLOOD COUNT 7.9 K/UL (4.8-10.8)
[2019-05-17 07:18] LABS: ALANINE AMINOTRANSFERASE 26 U/L (12-78); ALBUMIN 1.8 G/DL (3.4-5.0); ALBUMIN/GLOBULIN RATIO 0.4 (1.0-2.7); ALKALINE PHOSPHATASE 64 U/L (46-116); ANION GAP 11 mmol/L (5-15); ASPARTATE AMINO TRANSFERASE 23 U/L (15-37); BILIRUBIN,TOTAL 0.3 MG/DL (0.2-1.0); BLOOD UREA NITROGEN 5 mg/dL (7-18); CALCIUM 7.7 MG/DL (8.5-10.1); CARBON DIOXIDE 25 MMOL/L (21-32); CHLORIDE 109 MMOL/L (98-107); CREATININE 0.6 MG/DL (0.55-1.30); POTASSIUM 3.1 MMOL/L (3.5-5.1); SODIUM 144 MMOL/L (136-145)
--- NOTE | 2019-05-17 07:21 | NUR ---
NURSE NOTES: Report received from ANGELO Alfaro. Pt. having breakfast. Teaching done regarding clear liquid diet. L FA 20g running NS @ 75mL/hr. Bed on lowest position, side rails upx2, brakes engaged, alarm on. Call light within easy reach.
--- NOTE | 2019-05-17 07:43 | NUR ---
HAND-OFF: Report given to Sravanthi STEPHENS. Plan of care endorsed.
[2019-05-17 08:00] VITALS: BP 157/89
[2019-05-17] MEDS: Piperacillin/Tazobactam 3.375 GM in NS 110 ML IVPB SCH ×3 (08:29→23:35)
[2019-05-17] MEDS: Aspirin Baby 81mg ORAL SCH (08:30)
[2019-05-17] MEDS: Metoprolol Tartrate 50mg tab ORAL SCH ×2 (08:30→20:19)
[2019-05-17] MEDS: Lisinopril 20mg tab ORAL SCH (08:31)
[2019-05-17] MEDS: Heparin 5000 units/ml inj SUBQ SCH ×2 (08:32→20:20)
[2019-05-17] MEDS ORDERED: Lisinopril 10mg tab ORAL SCH (09:00)
--- NOTE | 2019-05-17 09:17 | Infectious Diseases Prog Note ---
Assessment/Plan Assessment/Plan A: 1. E. coli UTI. 2. Positive blood culture with Staph Hominis, contamination 3. COPD. 4. Hypertension. 5. BPH. 6. Anemia. 7. Cocaine abuse. 8. Pneumonia RECOMMENDATION: Continue Zosyn Ventilation perfusion scan: negative Subjective ROS Limited/Unobtainable: Yes Constitutional: Denies: fever Respiratory: Reports: productive cough Gastrointestinal/Abdominal: Reports: no symptoms Genitourinary: Reports: no symptoms Musculoskeletal: Reports: pain Allergies: Uncoded Allergies: CONTRAST MEDIA (Adverse Reaction, Mild, Itching in the area of the neck, 01/20/18) Patient was given specifically Isovue contrast during CT of the abdomen, and when he came back. The patient was itchy and benadryl was given, no complaints of itchiness or adverse reactions so far. Objective Vital Signs Last 24 Hour Vital Signs Date Time Temp Pulse Resp B/P (MAP) Pulse Ox O2 Delivery O2 Flow Rate FiO2 05/17/19 08:31 157/89 05/17/19 08:30 77 157/89 05/17/19 08:00 97.1 77 18 157/89 (111) 96 05/17/19 04:00 78 05/17/19 04:00 97.2 78 18 148/84 (105) 100 05/17/19 00:00 79 05/17/19 00:00 97.3 87 20 128/77 (94) 93 05/16/19 21:20 92 137/95 05/16/19 21:00 Venturi Mask 6.0 05/16/19 20:00 97.3 92 20 137/95 (109) 99 05/16/19 20:00 99 05/16/19 16:00 92 05/16/19 16:00 98.4 63 18 143/85 (104) 98 05/16/19 16:00 Venturi Mask 6.0 05/16/19 12:00 Venturi Mask 6.0 05/16/19 12:00 98.0 87 21 160/92 (114) 98 05/16/19 11:50 90 Height (Feet): 6 Height (Inches): 1.00 Weight (Pounds): 147 General Appearance: no acute distress HEENT: mucous membranes moist Respiratory/Chest: lungs clear, other - oxygen by mask Cardiovascular: normal rate Abdomen: soft, non tender Extremities: no edema Neurologic/Psychiatric: alert, responsive Musculoskeletal: atrophy Laboratory Tests Test 05/17/19 05:45 White Blood Count 7.9 K/UL (4.8-10.8) Red Blood Count 3.73 M/UL (4.70-6.10) L Hemoglobin 9.1 G/DL (14.2-18.0) L Hematocrit 29.1 % (42.0-52.0) L Mean Corpuscular Volume 78 FL (80-99) L Mean Corpuscular Hemoglobin 24.5 PG (27.0-31.0) L Mean Corpuscular Hemoglobin Concent 31.4 G/DL (32.0-36.0) L Red Cell Distribution Width 16.5 % (11.6-14.8) H Platelet Count 125 K/UL (150-450) L Mean Platelet Volume 7.4 FL (6.5-10.1) Neutrophils (%) (Auto) 58.1 % (45.0-75.0) Lymphocytes (%) (Auto) 22.6 % (20.0-45.0) Monocytes (%) (Auto) 14.5 % (1.0-10.0) H Eosinophils (%) (Auto) 4.1 % (0.0-3.0) H Basophils (%) (Auto) 0.6 % (0.0-2.0) Sodium Level 144 MMOL/L (136-145) Potassium Level 3.1 MMOL/L (3.5-5.1) L Chloride Level 109 MMOL/L (98-107) H Carbon Dioxide Level 25 MMOL/L (21-32) Anion Gap 11 mmol/L (5-15) Blood Urea Nitrogen 5 mg/dL (7-18) L Creatinine 0.6 MG/DL (0.55-1.30) Estimat Glomerular Filtration Rate mL/min (>60) Glucose Level 98 MG/DL (74-106) Calcium Level 7.7 MG/DL (8.5-10.1) L Magnesium Level 1.0 MG/DL (1.8-2.4) L Total Bilirubin 0.3 MG/DL (0.2-1.0) Aspartate Amino Transf (AST/SGOT) 23 U/L (15-37) Alanine Aminotransferase (ALT/SGPT) 26 U/L (12-78) Alkaline Phosphatase 64 U/L (46-116) Troponin I 0.047 ng/mL (0.000-0.056) Pro-B-Type Natriuretic Peptide 46728 pg/mL (0-125) H Total Protein 6.4 G/DL (6.4-8.2) Albumin 1.8 G/DL (3.4-5.0) L Globulin 4.6 g/dL Albumin/Globulin Ratio 0.4 (1.0-2.7) L Current Medications Medications (Trade) Dose Ordered Sig/Edwige Route PRN Reason Start Time Stop Time Status Last Admin Dose Admin Acetaminophen (Tylenol) 650 mg Q4H PRN ORAL Mild Pain/Temp > 100.5 05/16/19 13:00 06/11/19 16:59 Acetaminophen/ Hydrocodone Bitart ([place] 10/325) 1 tab Q4H PRN ORAL Severe Pain (Pain Scale 7-10) 05/16/19 13:00 05/19/19 16:59 05/16/19 21:23 Acetaminophen/ Hydrocodone Bitart ([place] 5/325) 1 tab Q4H PRN ORAL Moderate Pain (Pain Scale 4-6) 05/16/19 13:00 05/19/19 16:59 Al Hydroxide/Mg Hydroxide (Mylanta) 30 ml Q4H PRN ORAL STOMACH UPSET 05/16/19 13:00 06/11/19 16:59 Albuterol Sulfate (Proventil MDI) 1 puff Q6H PRN INH Shortness of Breath 05/16/19 13:00 06/13/19 12:59 Aspirin (ASA) 81 mg DAILY ORAL 05/17/19 09:00 06/12/19 08:59 05/17/19 08:30 Clonidine HCl (Catapres Tab) 0.1 mg Q4H PRN ORAL SBP above 160 05/16/19 21:05 06/15/19 21:04 Heparin Sodium (Porcine) (Heparin 5000 units/ml) 5,000 units EVERY 12 HOURS SUBQ 05/16/19 21:00 06/14/19 08:59 Lisinopril (Prinivil) 20 mg DAILY ORAL 05/17/19 09:00 06/16/19 08:59 05/17/19 08:31 Metoprolol Tartrate (Lopressor) 50 mg Q12HR ORAL 05/16/19 21:05 06/15/19 21:04 05/17/19 08:30 Ondansetron HCl (Zofran) 4 mg Q6H PRN IVP Nausea & Vomiting 05/16/19 13:00 06/13/19 12:59 Pantoprazole (Protonix) 40 mg DAILY ORAL 05/17/19 09:00 06/12/19 08:59 05/17/19 08:32 Piperacillin Sod/ Tazobactam Sod 3.375 gm/Sodium Chloride 110 ml @ 27.5 mls/hr Q8H IVPB 05/16/19 16:00 05/22/19 00:00 05/17/19 08:29 Sodium Chloride 1,000 ml @ 75 mls/hr [id number] IV 05/16/19 13:00 06/13/19 21:14 05/17/19 03:10 Tamsulosin HCl (Flomax) 0.4 mg BEDTIME ORAL 05/16/19 21:00 06/14/19 20:59 05/16/19 21:20 Jamal Gamboa MD May 17, 2019 09:17
--- NOTE | 2019-05-17 10:29 | NUR ---
NURSE NOTES: Left a message to Dr. Carey regarding Pt.'s lab results, waiting for a call back.
[2019-05-17] MEDS: HYDROcodone/Acetamin 10/325 tab ORAL PRN ×2 (10:54→20:29)
[2019-05-17 12:00] VITALS: BP 140/88
--- NOTE | 2019-05-17 12:03 | NUR ---
RD ASSESSMENT & RECOMMENDATIONS SEE CARE ACTIVITY FOR COMPLETE ASSESSMENT DAILY ESTIMATED NEEDS: Needs based on Underweight 68kg 30-35 kcals/kg 5326-4309 total kcals 1-1.5 g protein/kg 68-102 g total protein 25-30 mL/kg 2968-0822 total fluid mLs NUTRITION DIAGNOSIS: Increased kcal/prot intake needs R/T underweight status as evidenced by pt w/ mild-moderate generalized wasting w/ BMI of 18.1. CURRENT DIET:CLEAR LIQUID DIET PO DIET RECOMMENDATIONS: Advance diet per MD/ add Ensure CLEAR TID w/ current CLD ADDITIONAL RECOMMENDATIONS: 1) Obtain a standing weight as able or re-calibrate bedscale wt -> weekly weight monitoring. Pt is underweight -> Pt states HT=6'4.5" (Vs EMR ht=6'1") 2) Ensure CLEAR TID w/ meals while on CLD -> Ensure Enlive TID w/ meals once diet advances 3) Monitor lytes closely, replete as needed (low K and mag) 4) MVI x 1 as supplement
--- NOTE | 2019-05-17 12:41 | NUR ---
CASE MANAGEMENT:REVIEW 05/17/19 SI: PNA. COPD. AMI. BACTEREMIA 98.0 78 18 140/88 96% ON VENTURI MASK H/H-9.1/29.1 PLT-125 K-3.1 CA-7.7 MAG-1.0 IS: IV MAG SULFATE Q1HRS X2 IV ZOSYN Q8HRS ASA PO QD LISINOPRIL PO QD LOPRESSOR PO Q12 HEPARIN SQ Q12 IVF@75/HR : TELEMETRY STATUS DCP: FROM HOME
--- NOTE | 2019-05-17 13:30 | Pulmonology Progress Note ---
Assessment/Plan Assessment/Plan Pulmonary Progress Note Assessment/Plan: IMPRESSION abdominal pain possible sepsis PCM COPD toxic metabolic encephalopathy leukocytosis possible sepsis anemia hypertension sinus tachycardia UTI PLAN IV antibiotics VQ scan pending IV hydration DVT prophylaxis monitor change as is monitor labs for change respiratory care as needed oxygen therapy GI evaluation noted impression, plan, and exam edited and reviewed in detail care discussed with RN Subjective Allergies: Uncoded Allergies: CONTRAST MEDIA (Adverse Reaction, Mild, Itching in the area of the neck, 01/20/18) Patient was given specifically Isovue contrast during CT of the abdomen, and when he came back. The patient was itchy and benadryl was given, no complaints of itchiness or adverse reactions so far. Subjective remains confused care noted on antibiotics VQ scan noted Objective Vital Signs Noted Height (Feet): 6 Height (Inches): 1.00 Weight (Pounds): 175 Objective WDWN NAD clear breath sounds bilaterally without rhonchi or wheeze [id number] tachy without MRG NABS nontender no HSM no CCE nonfocal no distress confused Subjective ROS Limited/Unobtainable: No Allergies: Uncoded Allergies: CONTRAST MEDIA (Adverse Reaction, Mild, Itching in the area of the neck, 01/20/18) Patient was given specifically Isovue contrast during CT of the abdomen, and when he came back. The patient was itchy and benadryl was given, no complaints of itchiness or adverse reactions so far. Objective Last 24 Hour Vital Signs Date Time Temp Pulse Resp B/P (MAP) Pulse Ox O2 Delivery O2 Flow Rate FiO2 05/17/19 12:00 98.0 78 18 140/88 (105) 96 05/17/19 12:00 74 05/17/19 09:00 Venturi Mask 6.0 05/17/19 08:31 157/89 05/17/19 08:30 77 157/89 05/17/19 08:00 78 05/17/19 08:00 97.1 77 18 157/89 (111) 96 05/17/19 04:00 78 05/17/19 04:00 97.2 78 18 148/84 (105) 100 05/17/19 00:00 79 05/17/19 00:00 97.3 87 20 128/77 (94) 93 05/16/19 21:20 92 137/95 05/16/19 21:00 Venturi Mask 6.0 05/16/19 20:00 97.3 92 20 137/95 (109) 99 05/16/19 20:00 99 05/16/19 16:00 92 05/16/19 16:00 98.4 63 18 143/85 (104) 98 05/16/19 16:00 Venturi Mask 6.0 Intake and Output 05/16/19 05/17/19 19:00 07:00 Intake Total 1618.625 ml 400 ml Output Total 2900 ml 1200 ml Balance -1281.375 ml -800 ml Intake Oral 830 ml 400 ml IV Total 788.625 ml Output Urine Total 2900 ml 1200 ml # Bowel Movements 6 4 Laboratory Tests 05/17/19 05:45: White Blood Count 7.9, Red Blood Count 3.73L, Hemoglobin 9.1L, Hematocrit 29.1L , Mean Corpuscular Volume 78L, Mean Corpuscular Hemoglobin 24.5L, Mean Corpuscular Hemoglobin Concent 31.4L, Red Cell Distribution Width 16.5H, Platelet Count 125L, Mean Platelet Volume 7.4, Neutrophils (%) (Auto) 58.1, Lymphocytes (%) (Auto) 22.6, Monocytes (%) (Auto) 14.5H, Eosinophils (%) (Auto) 4.1H, Basophils (%) (Auto) 0.6, Sodium Level 144, Potassium Level 3.1L, Chloride Level 109H, Carbon Dioxide Level 25, Anion Gap 11, Blood Urea Nitrogen 5L, Creatinine 0.6, Estimat Glomerular Filtration Rate , Glucose Level 98, Calcium Level 7.7L, Magnesium Level 1.0L, Total Bilirubin 0.3, Aspartate Amino Transf (AST/SGOT) 23, Alanine Aminotransferase (ALT/SGPT) 26, Alkaline Phosphatase 64, Troponin I 0.047, Pro-B-Type Natriuretic Peptide 57909N, Total Protein 6.4, Albumin 1.8L, Globulin 4.6, Albumin/Globulin Ratio 0.4L Current Medications Medications (Trade) Dose Ordered Sig/Edwige Route PRN Reason Start Time Stop Time Status Last Admin Dose Admin Acetaminophen (Tylenol) 650 mg Q4H PRN ORAL Mild Pain/Temp > 100.5 05/16/19 13:00 06/11/19 16:59 Acetaminophen/ Hydrocodone Bitart ([place] 10/325) 1 tab Q4H PRN ORAL Severe Pain (Pain Scale 7-10) 05/16/19 13:00 05/19/19 16:59 05/17/19 10:54 Acetaminophen/ Hydrocodone Bitart ([place] 5/325) 1 tab Q4H PRN ORAL Moderate Pain (Pain Scale 4-6) 05/16/19 13:00 05/19/19 16:59 Al Hydroxide/Mg Hydroxide (Mylanta) 30 ml Q4H PRN ORAL STOMACH UPSET 05/16/19 13:00 06/11/19 16:59 Albuterol Sulfate (Proventil MDI) 1 puff Q6H PRN INH Shortness of Breath 05/16/19 13:00 06/13/19 12:59 Aspirin (ASA) 81 mg DAILY ORAL 05/17/19 09:00 06/12/19 08:59 05/17/19 08:30 Clonidine HCl (Catapres Tab) 0.1 mg Q4H PRN ORAL SBP above 160 05/16/19 21:05 06/15/19 21:04 Heparin Sodium (Porcine) (Heparin 5000 units/ml) 5,000 units EVERY 12 HOURS SUBQ 05/16/19 21:00 06/14/19 08:59 Lisinopril (Prinivil) 20 mg DAILY ORAL 05/17/19 09:00 06/16/19 08:59 05/17/19 08:31 Metoprolol Tartrate (Lopressor) 50 mg Q12HR ORAL 05/16/19 21:05 06/15/19 21:04 05/17/19 08:30 Ondansetron HCl (Zofran) 4 mg Q6H PRN IVP Nausea & Vomiting 05/16/19 13:00 06/13/19 12:59 Pantoprazole (Protonix) 40 mg DAILY ORAL 05/17/19 09:00 06/12/19 08:59 05/17/19 08:32 Piperacillin Sod/ Tazobactam Sod 3.375 gm/Sodium Chloride 110 ml @ 27.5 mls/hr Q8H IVPB 05/16/19 16:00 05/22/19 00:00 05/17/19 08:29 Sodium Chloride 1,000 ml @ 75 mls/hr [id number] IV 05/16/19 13:00 06/13/19 21:14 05/17/19 03:10 Tamsulosin HCl (Flomax) 0.4 mg BEDTIME ORAL 05/16/19 21:00 06/14/19 20:59 05/16/19 21:20 Sanjeev Ramon MD May 17, 2019 13:30
[2019-05-17 16:03] VITALS: BP 135/77
--- NOTE | 2019-05-17 17:02 | NUR ---
HOMELESS COORDINATOR HC spoke with patient and patient is alert and oriented. Patient does not have a contact number. Patient states he is chronically homeless. Patient uses walker at bed side. Patient states he has been living on [address] for 9months. Patient states he left his sister house because the kids were irritating him. Patient has a electrical contacts adjuster, (sister/ caregiver) Danae Green [phone]. HC spoke with Danae, and she stated patient was living at [facility] and decided to leave. Danae states patient did not want to live in [place]. Danae also states patient is welcomed back if transportation can be provided because she doesn't drive. Patient state he receives $51 in SSI and has no substance abuse. Patient states he struggles with paranoia. CM is looking into a snf placement upon discharge. Patient continues to require medical intervention. Will continue to monitor and assist as needed.
--- NOTE | 2019-05-17 19:30 | NUR ---
NURSE NOTES: Received report from ANGELO Fishman. Patient is asleep, lying in semi garland's; resting comfortably. No signs of distress noted. Checked IV site and flushed. No erythema, bleeding or infiltration noted. With davis catheter draining well to gravity. Bed at lowest position, brakes on, siderails x3. Call light within reach. Will continue to monitor. Addendum: 05/18/19 at 0049 by Janelle Hutchison RN On Venturi mask FiO2 30% at 6LPM.
--- NOTE | 2019-05-17 19:44 | NUR ---
HAND-OFF: Report given to ANGELO Luis. Plan of care endorsed.
[2019-05-17 20:00] VITALS: BP 152/72
[2019-05-17] MEDS: Tamsulosin 0.4mg cap ORAL SCH (20:19)
[2019-05-17] MEDS ORDERED: Sorbitol Solution UD 30ml ORAL ONE (21:45)
--- NOTE | 2019-05-17 21:47 | General Progress Note ---
Assessment/Plan Assessment/Plan: Assessment - Anemia - microcytosis and iron deficiency - OB (+) stools - COPD - BPD - pancreatic Cyst - HTN Recommendations - follow CBC - transfuse PRN - clear liquids - mEGD/Colon Wednesday Subjective Allergies: Uncoded Allergies: CONTRAST MEDIA (Adverse Reaction, Mild, Itching in the area of the neck, 01/20/18) Patient was given specifically Isovue contrast during CT of the abdomen, and when he came back. The patient was itchy and benadryl was given, no complaints of itchiness or adverse reactions so far. Subjective feels OK no abd complaints d/w sister, Dnaae, who agrees with GI w/u Objective Last 24 Hour Vital Signs Date Time Temp Pulse Resp B/P (MAP) Pulse Ox O2 Delivery O2 Flow Rate FiO2 05/17/19 20:19 82 145/80 05/17/19 20:00 97.1 75 19 152/72 (98) 100 75 05/17/19 16:03 98.3 73 20 135/77 (96) 99 73 73 05/17/19 16:00 75 05/17/19 12:00 98.0 78 18 140/88 (105) 96 05/17/19 12:00 74 05/17/19 09:00 Venturi Mask 6.0 05/17/19 08:31 157/89 05/17/19 08:30 77 157/89 05/17/19 08:00 78 05/17/19 08:00 97.1 77 18 157/89 (111) 96 05/17/19 04:00 78 05/17/19 04:00 97.2 78 18 148/84 (105) 100 05/17/19 00:00 79 05/17/19 00:00 97.3 87 20 128/77 (94) 93 Intake and Output 05/16/19 05/17/19 18:59 06:59 Intake Total 1618.625 ml 400 ml Output Total 2900 ml 1200 ml Balance -1281.375 ml -800 ml Intake Oral 830 ml 400 ml IV Total 788.625 ml Output Urine Total 2900 ml 1200 ml # Bowel Movements 6 4 Laboratory Tests 05/17/19 05:45: White Blood Count 7.9, Red Blood Count 3.73L, Hemoglobin 9.1L, Hematocrit 29.1L , Mean Corpuscular Volume 78L, Mean Corpuscular Hemoglobin 24.5L, Mean Corpuscular Hemoglobin Concent 31.4L, Red Cell Distribution Width 16.5H, Platelet Count 125L, Mean Platelet Volume 7.4, Neutrophils (%) (Auto) 58.1, Lymphocytes (%) (Auto) 22.6, Monocytes (%) (Auto) 14.5H, Eosinophils (%) (Auto) 4.1H, Basophils (%) (Auto) 0.6, Sodium Level 144, Potassium Level 3.1L, Chloride Level 109H, Carbon Dioxide Level 25, Anion Gap 11, Blood Urea Nitrogen 5L, Creatinine 0.6, Estimat Glomerular Filtration Rate , Glucose Level 98, Calcium Level 7.7L, Magnesium Level 1.0L, Total Bilirubin 0.3, Aspartate Amino Transf (AST/SGOT) 23, Alanine Aminotransferase (ALT/SGPT) 26, Alkaline Phosphatase 64, Troponin I 0.047, Pro-B-Type Natriuretic Peptide 83373C, Total Protein 6.4, Albumin 1.8L, Globulin 4.6, Albumin/Globulin Ratio 0.4L Height (Feet): 6 Height (Inches): 1.00 Weight (Pounds): 147 Objective Elderly man NCAT supple Chest: coarse ronchi RR abd soft ND NT no edema Cristi Flood MD May 17, 2019 21:47
--- NOTE | 2019-05-17 21:59 | NUR ---
NURSE NOTES: Received order from Dr Flood, to change IV fluid to NS + KCl 20 mEq @75cc/hr. Noted and carried out.
[2019-05-17] MEDS: NS w/KCl 20mEq 1000ml 1,000 ML IV SCH (22:08)
[2019-05-18] VITALS: BP 156/77
--- NOTE | 2019-05-18 02:43 | NUR ---
NURSE NOTES: Resting throughout the night. No significant change of condition noted. Will continue to monitor.
--- NOTE | 2019-05-18 03:01 | Progress Note ---
DATE: 05/16/2019 CARDIOLOGY PROGRESS NOTE SUBJECTIVE: The patient remains on antimicrobial therapy. Abdominal pain has decreased. Diagnostic GI workup is planned. OBJECTIVE: VITAL SIGNS: Blood pressure 152/76, pulse 75, respiratory rate 19, and afebrile. LUNGS: Bilateral breath sounds. CARDIAC: Regular rhythm and rate. Normal S1 and S2 with a fourth heart sound. ABDOMEN: Soft. EXTREMITIES: Trace edema. LABORATORY DATA: Labs are reviewed. Cardiac monitoring sinus. V/Q was low probability. IMPRESSION: 1. Resolved lactic acidosis. 2. Acute on chronic diastolic congestive heart failure, now clinically compensated. No evidence of acute pulmonary embolic event. 3. Healthcare-acquired pneumonia with respiratory insufficiency. 4. Anemia of chronic disease and iron deficiency. 5. Protein-calorie malnutrition. 6. Resolved myocardial ischemia. PLAN: 1. No anticoagulation. 2. Transfuse for hemoglobin less than 8 grams. 3. Diuresis based on clinical parameters. 4. Replace electrolytes as needed. 5. Antimicrobials and respiratory hygiene. 6. Stable for GI intervention from cardiovascular standpoint. Sanjeev Li M.D. DR: ARTHUR JOB#: [id number] CC:
[2019-05-18 04:00] VITALS: BP 139/80
[2019-05-18 06:58] LABS: BASOPHILS % (AUTO) 0.6 % (0.0-2.0); EOSINOPHILS % (AUTO) 4.2 % (0.0-3.0); HEMATOCRIT 29.2 % (42.0-52.0); HEMOGLOBIN 9.3 G/DL (14.2-18.0); MEAN CORPUSCULAR VOLUME 78 FL (80-99); MONOCYTES % (AUTO) 13.8 % (1.0-10.0); NEUTROPHILS % (AUTO) 58.4 % (45.0-75.0); PLATELET COUNT 160 K/UL (150-450); RED BLOOD COUNT 3.76 M/UL (4.70-6.10); RED CELL DISTRIBUTION WIDTH 16.3 % (11.6-14.8); WHITE BLOOD COUNT 7.5 K/UL (4.8-10.8)
[2019-05-18 07:04] LABS: ANION GAP 10 mmol/L (5-15); BLOOD UREA NITROGEN 5 mg/dL (7-18); CALCIUM 7.9 MG/DL (8.5-10.1); CARBON DIOXIDE 24 MMOL/L (21-32); CHLORIDE 109 MMOL/L (98-107); CREATININE 0.7 MG/DL (0.55-1.30); POTASSIUM 3.4 MMOL/L (3.5-5.1); SODIUM 143 MMOL/L (136-145)
--- NOTE | 2019-05-18 07:17 | NUR ---
NURSE NOTES: Report received from ANGELO Luis. Pt. sleeping comfortably. Denies SOB in RA at this time. Reminder given regarding need of clear liquid diet and upcoming procedure 05/19. Helped reposition for comfort. IV running site intact. Bed on lowest position, side rails upx2, brakes engaged. Call light left within easy reach.
--- NOTE | 2019-05-18 07:20 | NUR ---
HAND-OFF: Report given to ANGELO Fishman. Plan of care endorsed.
[2019-05-18 08:00] VITALS: BP 159/78
[2019-05-18] MEDS: Piperacillin/Tazobactam 3.375 GM in NS 110 ML IVPB SCH ×3 (08:24→23:16)
[2019-05-18] MEDS: Aspirin Baby 81mg ORAL SCH (08:24)
[2019-05-18] MEDS: Metoprolol Tartrate 50mg tab ORAL SCH ×2 (08:25→20:24)
[2019-05-18] MEDS: Lisinopril 20mg tab ORAL SCH (08:25)
[2019-05-18] MEDS: HYDROcodone/Acetamin 10/325 tab ORAL PRN ×2 (08:26→20:23)
[2019-05-18] MEDS: Heparin 5000 units/ml inj SUBQ SCH ×2 (08:29→20:18)
[2019-05-18] MEDS ORDERED: Nulytely 4L ORAL ONE (09:00)
--- NOTE | 2019-05-18 10:28 | Infectious Diseases Prog Note ---
Assessment/Plan Assessment/Plan A: 1. E. coli UTI. 2. Positive blood culture with Staph Hominis, contamination 3. COPD. 4. Hypertension. 5. BPH. 6. Anemia. 7. Cocaine abuse. 8. Pneumonia RECOMMENDATION: Continue Zosyn until tomorrow will have EGD & colonoscopy tomorrow Subjective ROS Limited/Unobtainable: No Constitutional: Reports: no symptoms Respiratory: Reports: no symptoms Gastrointestinal/Abdominal: Reports: no symptoms Genitourinary: Reports: no symptoms Allergies: Uncoded Allergies: CONTRAST MEDIA (Adverse Reaction, Mild, Itching in the area of the neck, 01/20/18) Patient was given specifically Isovue contrast during CT of the abdomen, and when he came back. The patient was itchy and benadryl was given, no complaints of itchiness or adverse reactions so far. Objective Vital Signs Last 24 Hour Vital Signs Date Time Temp Pulse Resp B/P (MAP) Pulse Ox O2 Delivery O2 Flow Rate FiO2 05/18/19 08:25 76 159/78 05/18/19 08:25 159/78 05/18/19 08:00 97.7 76 18 159/78 (105) 95 05/18/19 04:00 97.7 80 20 139/80 (99) 97 80 05/18/19 04:00 75 05/18/19 00:00 78 05/18/19 00:00 97.2 79 20 156/77 (103) 100 79 05/17/19 21:00 Venturi Mask 6.0 05/17/19 20:59 98.3 05/17/19 20:19 82 145/80 05/17/19 20:00 97.1 75 19 152/72 (98) 100 75 05/17/19 20:00 76 05/17/19 16:03 98.3 73 20 135/77 (96) 99 73 73 05/17/19 16:00 75 05/17/19 12:00 98.0 78 18 140/88 (105) 96 05/17/19 12:00 74 Height (Feet): 6 Height (Inches): 1.00 Weight (Pounds): 147 General Appearance: no acute distress HEENT: mucous membranes moist Respiratory/Chest: lungs clear Cardiovascular: normal rate Abdomen: soft, non tender Genitourinary: other - Helm catheter Extremities: no edema Neurologic/Psychiatric: alert, responsive Laboratory Tests Test 05/18/19 05:49 White Blood Count 7.5 K/UL (4.8-10.8) Red Blood Count 3.76 M/UL (4.70-6.10) L Hemoglobin 9.3 G/DL (14.2-18.0) L Hematocrit 29.2 % (42.0-52.0) L Mean Corpuscular Volume 78 FL (80-99) L Mean Corpuscular Hemoglobin 24.6 PG (27.0-31.0) L Mean Corpuscular Hemoglobin Concent 31.6 G/DL (32.0-36.0) L Red Cell Distribution Width 16.3 % (11.6-14.8) H Platelet Count 160 K/UL (150-450) Mean Platelet Volume 6.8 FL (6.5-10.1) Neutrophils (%) (Auto) 58.4 % (45.0-75.0) Lymphocytes (%) (Auto) 23.0 % (20.0-45.0) Monocytes (%) (Auto) 13.8 % (1.0-10.0) H Eosinophils (%) (Auto) 4.2 % (0.0-3.0) H Basophils (%) (Auto) 0.6 % (0.0-2.0) Sodium Level 143 MMOL/L (136-145) Potassium Level 3.4 MMOL/L (3.5-5.1) L Chloride Level 109 MMOL/L (98-107) H Carbon Dioxide Level 24 MMOL/L (21-32) Anion Gap 10 mmol/L (5-15) Blood Urea Nitrogen 5 mg/dL (7-18) L Creatinine 0.7 MG/DL (0.55-1.30) Estimat Glomerular Filtration Rate mL/min (>60) Glucose Level 93 MG/DL (74-106) Calcium Level 7.9 MG/DL (8.5-10.1) L Magnesium Level 1.3 MG/DL (1.8-2.4) L Current Medications Medications (Trade) Dose Ordered Sig/Edwige Route PRN Reason Start Time Stop Time Status Last Admin Dose Admin Acetaminophen (Tylenol) 650 mg Q4H PRN ORAL Mild Pain/Temp > 100.5 05/16/19 13:00 06/11/19 16:59 Acetaminophen/ Hydrocodone Bitart ([place] 10/325) 1 tab Q4H PRN ORAL Severe Pain (Pain Scale 7-10) 05/16/19 13:00 05/19/19 16:59 05/18/19 08:26 Acetaminophen/ Hydrocodone Bitart ([place] 5/325) 1 tab Q4H PRN ORAL Moderate Pain (Pain Scale 4-6) 05/16/19 13:00 05/19/19 16:59 Al Hydroxide/Mg Hydroxide (Mylanta) 30 ml Q4H PRN ORAL STOMACH UPSET 05/16/19 13:00 06/11/19 16:59 Albuterol Sulfate (Proventil MDI) 1 puff Q6H PRN INH Shortness of Breath 05/16/19 13:00 06/13/19 12:59 Aspirin (ASA) 81 mg DAILY ORAL 05/17/19 09:00 06/12/19 08:59 05/18/19 08:24 Clonidine HCl (Catapres Tab) 0.1 mg Q4H PRN ORAL SBP above 160 05/16/19 21:05 06/15/19 21:04 Heparin Sodium (Porcine) (Heparin 5000 units/ml) 5,000 units EVERY 12 HOURS SUBQ 05/16/19 21:00 06/14/19 08:59 Lisinopril (Prinivil) 20 mg DAILY ORAL 05/17/19 09:00 06/16/19 08:59 05/18/19 08:25 Metoprolol Tartrate (Lopressor) 50 mg Q12HR ORAL 05/16/19 21:05 06/15/19 21:04 05/18/19 08:25 Ondansetron HCl (Zofran) 4 mg Q6H PRN IVP Nausea & Vomiting 05/16/19 13:00 06/13/19 12:59 Pantoprazole (Protonix) 40 mg DAILY ORAL 05/17/19 09:00 06/12/19 08:59 05/18/19 08:25 Piperacillin Sod/ Tazobactam Sod 3.375 gm/Sodium Chloride 110 ml @ 27.5 mls/hr Q8H IVPB 05/16/19 16:00 05/22/19 00:00 05/18/19 08:24 Potassium Chloride/Sodium Chloride 1,000 ml @ 75 mls/hr [id number] IV 05/17/19 22:30 06/16/19 22:29 05/17/19 22:08 Tamsulosin HCl (Flomax) 0.4 mg BEDTIME ORAL 05/16/19 21:00 06/14/19 20:59 05/17/19 20:19 Jamal Gamboa MD May 18, 2019 10:28
--- NOTE | 2019-05-18 10:32 | General Progress Note ---
Assessment/Plan Assessment/Plan: IMPRESSION abdominal pain possible sepsis PCM COPD toxic metabolic encephalopathy leukocytosis possible sepsis anemia hypertension sinus tachycardia UTI PLAN IV antibiotics DVT prophylaxis monitor change as is monitor labs for change respiratory care as needed oxygen therapy care reviewed and discussed impression, plan, and exam edited and reviewed in detail care discussed with RN Subjective Allergies: Uncoded Allergies: CONTRAST MEDIA (Adverse Reaction, Mild, Itching in the area of the neck, 01/20/18) Patient was given specifically Isovue contrast during CT of the abdomen, and when he came back. The patient was itchy and benadryl was given, no complaints of itchiness or adverse reactions so far. Subjective remains confused no change overall care noted Objective Last 24 Hour Vital Signs Date Time Temp Pulse Resp B/P (MAP) Pulse Ox O2 Delivery O2 Flow Rate FiO2 05/18/19 08:25 76 159/78 05/18/19 08:25 159/78 05/18/19 08:00 97.7 76 18 159/78 (105) 95 05/18/19 04:00 97.7 80 20 139/80 (99) 97 80 05/18/19 04:00 75 05/18/19 00:00 78 05/18/19 00:00 97.2 79 20 156/77 (103) 100 79 05/17/19 21:00 Venturi Mask 6.0 05/17/19 20:59 98.3 05/17/19 20:19 82 145/80 05/17/19 20:00 97.1 75 19 152/72 (98) 100 75 05/17/19 20:00 76 05/17/19 16:03 98.3 73 20 135/77 (96) 99 73 73 05/17/19 16:00 75 05/17/19 12:00 98.0 78 18 140/88 (105) 96 05/17/19 12:00 74 Intake and Output 05/17/19 05/18/19 19:00 07:00 Intake Total 960 ml 418.95 ml Output Total 3100 ml Balance 960 ml -2681.05 ml Intake Oral 960 ml IV Total 418.95 ml Output Urine Total 3100 ml # Bowel Movements 2 2 Laboratory Tests 05/18/19 05:49: White Blood Count 7.5, Red Blood Count 3.76L, Hemoglobin 9.3L, Hematocrit 29.2L , Mean Corpuscular Volume 78L, Mean Corpuscular Hemoglobin 24.6L, Mean Corpuscular Hemoglobin Concent 31.6L, Red Cell Distribution Width 16.3H, Platelet Count 160, Mean Platelet Volume 6.8, Neutrophils (%) (Auto) 58.4, Lymphocytes (%) (Auto) 23.0, Monocytes (%) (Auto) 13.8H, Eosinophils (%) (Auto) 4.2H, Basophils (%) (Auto) 0.6, Sodium Level 143, Potassium Level 3.4L, Chloride Level 109H, Carbon Dioxide Level 24, Anion Gap 10, Blood Urea Nitrogen 5L, Creatinine 0.7, Estimat Glomerular Filtration Rate , Glucose Level 93, Calcium Level 7.9L, Magnesium Level 1.3L Height (Feet): 6 Height (Inches): 1.00 Weight (Pounds): 147 Objective WDWN NAD clear breath sounds bilaterally without rhonchi or wheeze [id number] tachy without MRG NABS nontender no HSM no CCE nonfocal no distress confused Yogesh Carey MD May 18, 2019 10:32
[2019-05-18 12:00] VITALS: BP 145/89
--- NOTE | 2019-05-18 13:10 | General Progress Note ---
Assessment/Plan Assessment/Plan: Assessment - Anemia - microcytosis and iron deficiency - OB (+) stools - COPD - BPD - pancreatic Cyst - HTN Recommendations - follow CBC - transfuse PRN - clear liquids - EGD/Colon Wednesday Subjective Allergies: Uncoded Allergies: CONTRAST MEDIA (Adverse Reaction, Mild, Itching in the area of the neck, 01/20/18) Patient was given specifically Isovue contrast during CT of the abdomen, and when he came back. The patient was itchy and benadryl was given, no complaints of itchiness or adverse reactions so far. Subjective feels OK no abd complaints for EGD/Colon in am Objective Last 24 Hour Vital Signs Date Time Temp Pulse Resp B/P (MAP) Pulse Ox O2 Delivery O2 Flow Rate FiO2 05/18/19 08:25 76 159/78 05/18/19 08:25 159/78 05/18/19 08:00 97.7 76 18 159/78 (105) 95 05/18/19 08:00 75 05/18/19 04:00 97.7 80 20 139/80 (99) 97 80 05/18/19 04:00 75 05/18/19 00:00 78 05/18/19 00:00 97.2 79 20 156/77 (103) 100 79 05/17/19 21:00 Venturi Mask 6.0 05/17/19 20:59 98.3 05/17/19 20:19 82 145/80 05/17/19 20:00 97.1 75 19 152/72 (98) 100 75 05/17/19 20:00 76 05/17/19 16:03 98.3 73 20 135/77 (96) 99 73 73 05/17/19 16:00 75 Intake and Output 05/17/19 05/18/19 19:00 07:00 Intake Total 960 ml 418.95 ml Output Total 3100 ml Balance 960 ml -2681.05 ml Intake Oral 960 ml IV Total 418.95 ml Output Urine Total 3100 ml # Bowel Movements 2 2 Laboratory Tests 05/18/19 05:49: White Blood Count 7.5, Red Blood Count 3.76L, Hemoglobin 9.3L, Hematocrit 29.2L , Mean Corpuscular Volume 78L, Mean Corpuscular Hemoglobin 24.6L, Mean Corpuscular Hemoglobin Concent 31.6L, Red Cell Distribution Width 16.3H, Platelet Count 160, Mean Platelet Volume 6.8, Neutrophils (%) (Auto) 58.4, Lymphocytes (%) (Auto) 23.0, Monocytes (%) (Auto) 13.8H, Eosinophils (%) (Auto) 4.2H, Basophils (%) (Auto) 0.6, Sodium Level 143, Potassium Level 3.4L, Chloride Level 109H, Carbon Dioxide Level 24, Anion Gap 10, Blood Urea Nitrogen 5L, Creatinine 0.7, Estimat Glomerular Filtration Rate , Glucose Level 93, Calcium Level 7.9L, Magnesium Level 1.3L Height (Feet): 6 Height (Inches): 1.00 Weight (Pounds): 147 Objective Elderly man NCAT supple Chest: coarse ronchi RR abd soft ND NT no edema Cristi Flood MD May 18, 2019 13:10
[2019-05-18 16:00] VITALS: BP 146/82
--- NOTE | 2019-05-18 16:30 | NUR ---
NURSE NOTES: Nurse report given by ANGELO Fishman. Patient's awake and laying bed, eyes opening spontaneously, no s/s of distress or SOB, AO x 2. Patient's unclear with the EGD/Colon procedure tomorrow, will get consent with family member. Bed low and locked, call light within reach, side rails x 3, bed alarm is armed. IVs are running medication, patent, no s/s of infiltration or tenderness. Helm is in placed and drained well. Will continue to monitor.
--- NOTE | 2019-05-18 16:50 | NUR ---
NURSE NOTES: Tried to reach family member regarding consent for patient to have EGD/Colonoscopy procedure, d/t patient's condition not alert/oriented enough to understand about the procedure. Left message to Arnulfo, brother. Awaiting for response.
[2019-05-18] MEDS: NS w/KCl 20mEq 1000ml 1,000 ML IV SCH (18:06)
--- NOTE | 2019-05-18 19:15 | NUR ---
NURSE NOTES: Received report from ANGELO Lackey. Patient is asleep, arousable to name, lying semi garland's; resting comfortably. A/Ox2-3. Denies pain at this time. No signs of acute distress noted. Checked IV site and flushed. No erythema, bleeding or infiltration noted. On davis catheter draining well to gravity. Bed at lowest position, brakes on, [id number]. Call light within reach. Will continue to monitor. Addendum: 05/19/19 at 0410 by Janelle Hutchison RN On venturi mask FiO2 30% at 6LPM.
--- NOTE | 2019-05-18 19:17 | NUR ---
HAND-OFF: Report given to ANGELO Luis. Patient's stable. Plan of care endorsed. .
--- NOTE | 2019-05-18 19:20 | NUR ---
NURSE NOTES: Consent obtained thru telephone from Arnulfo Arroyo (george) by 2 RNs. Signed consent and placed on chart.
[2019-05-18 20:00] VITALS: BP_SYST 163; BP_SYST 164; BP_DIAS 70; BP_DIAS 86
[2019-05-18] MEDS: Tamsulosin 0.4mg cap ORAL SCH (20:23)
[2019-05-19] VITALS (9 sets, daily range): BP systolic 122–165; BP diastolic 53–95
[2019-05-19] MEDS: NS w/KCl 20mEq 1000ml 1,000 ML IV SCH ×2 (01:10→14:57)
--- NOTE | 2019-05-19 03:58 | NUR ---
NURSE NOTES: Resting throughout the night. No significant change of condition noted. Will continue to monitor.
[2019-05-19 06:39] LABS: BASOPHILS % (AUTO) 0.7 % (0.0-2.0); EOSINOPHILS % (AUTO) 2.3 % (0.0-3.0); LYMPHOCYTES % (AUTO) 25.1 % (20.0-45.0); MEAN CORPUSCULAR VOLUME 78 FL (80-99); MONOCYTES % (AUTO) 11.1 % (1.0-10.0); NEUTROPHILS % (AUTO) 60.8 % (45.0-75.0); PLATELET COUNT 183 K/UL (150-450); RED BLOOD COUNT 3.96 M/UL (4.70-6.10); RED CELL DISTRIBUTION WIDTH 16.5 % (11.6-14.8); WHITE BLOOD COUNT 9.5 K/UL (4.8-10.8)
[2019-05-19 06:53] LABS: ANION GAP 9 mmol/L (5-15); BLOOD UREA NITROGEN 4 mg/dL (7-18); CALCIUM 8.5 MG/DL (8.5-10.1); CARBON DIOXIDE 25 MMOL/L (21-32); CHLORIDE 110 MMOL/L (98-107); CREATININE 0.7 MG/DL (0.55-1.30); SODIUM 144 MMOL/L (136-145)
--- NOTE | 2019-05-19 07:23 | NUR ---
HAND-OFF: Report given to ANGELO Garcia. Plan of care endorsed.
--- NOTE | 2019-05-19 07:44 | NUR ---
NURSE NOTES: PT AWAKE ALERT, NO DISTRESS. NO SOB. CALL LIGHT WITHIN REACH. WILL MONITOR. NO C/O PAIN.
[2019-05-19] MEDS: Piperacillin/Tazobactam 3.375 GM in NS 110 ML IVPB SCH (08:00)
[2019-05-19] MEDS: Heparin 5000 units/ml inj SUBQ SCH ×2 (08:21→21:00)
[2019-05-19] MEDS: Metoprolol Tartrate 50mg tab ORAL SCH ×2 (08:21→21:00)
[2019-05-19] MEDS: Lisinopril 20mg tab ORAL SCH (08:21)
[2019-05-19] MEDS: Aspirin Baby 81mg ORAL SCH (08:21)
--- NOTE | 2019-05-19 08:34 | NUR ---
CASE MANAGEMENT:REVIEW 05/19/19 SI: PNA. COPD. AMI. BACTEREMIA 97.7 78 18 163/95 98% ON RA H/H-10.0/31.0 IS: IV ZOSYN Q8HRS ASA PO QD LISINOPRIL PO QD LOPRESSOR PO Q12 HEPARIN SQ Q12 IVF@75/HR FLOMAX PO QHS : TELEMETRY STATUS DCP: FROM HOME PLAN: EGD/COLONOSCOPY SCHEDULED FOR TODAY BY DR SCHMITT
[2019-05-19] MEDS ORDERED: fentaNYL 100 mcg/2 mL IV ONE (08:40)
[2019-05-19] MEDS ORDERED: Propofol 200mg/20ml IV ONE (09:00)
[2019-05-19] MEDS ORDERED: NS 500ML IVPB ONE (09:05)
--- NOTE | 2019-05-19 09:14 | Pre-Procedure Note/Attestation ---
Pre-Procedure Note/Attestation Complete Prior to Procedure Planned Procedure: not applicable Procedure Narrative: esophagogastroduodenoscopy colon Indications for Procedure Pre-Operative Diagnosis: anemia, ob + Attestation I attest that I discussed the nature of the procedure; its benefits; risks and complications; and alternatives (and the risks and benefits of such alternatives ), prior to the procedure, with the patient (or the patient's legal insurance verification representative). I attest that, if there was a reasonable possibility of needing a blood transfusion, the patient (or the patient's legal insurance verification representative) was given the [facility] standardized written summary, pursuant to the [place] Blood Safety Act ([place] Health and Safety Code # 1645, as amended). I attest that I re-evaluated the patient just prior to the surgery and that there has been no change in the patient's H&P, except as documented below: Cristi Flood MD May 19, 2019 09:14
--- NOTE | 2019-05-19 09:14 | General Progress Note ---
Assessment/Plan Assessment/Plan: Assessment - Hypokalemia and hypomagnesemia - corrected - Anemia - microcytosis and iron deficiency - OB (+) stools - COPD - BPD - pancreatic Cyst - HTN Recommendations - follow labs - transfuse PRN - NPO - EGD/Colon today POST PROCEDURE ADDENDUM EGD: Gastritis and Duodenitis Colon: Diverticulosis Subjective Allergies: Uncoded Allergies: CONTRAST MEDIA (Adverse Reaction, Mild, Itching in the area of the neck, 01/20/18) Patient was given specifically Isovue contrast during CT of the abdomen, and when he came back. The patient was itchy and benadryl was given, no complaints of itchiness or adverse reactions so far. Subjective feels OK no abd complaints received K and Mg supplementation yesterday Objective Last 24 Hour Vital Signs Date Time Temp Pulse Resp B/P (MAP) Pulse Ox O2 Delivery O2 Flow Rate FiO2 05/19/19 08:21 78 163/95 05/19/19 08:21 163/95 05/19/19 07:40 97.7 78 18 163/95 (117) 98 05/19/19 04:00 72 05/19/19 04:00 97.7 78 18 164/89 (114) 98 05/19/19 00:00 68 05/19/19 00:00 98.5 72 18 158/89 (112) 99 05/18/19 21:00 Room Air 05/18/19 20:53 97.0 05/18/19 20:24 76 146/82 05/18/19 20:00 98.2 80 18 163/86 (111) 98 05/18/19 20:00 78 05/18/19 16:00 97.0 71 18 146/82 (103) 96 05/18/19 16:00 76 05/18/19 12:00 72 05/18/19 12:00 97.2 73 20 145/89 (107) 94 Intake and Output 05/18/19 05/19/19 19:00 07:00 Intake Total 360 ml 775.17 ml Output Total 2800 ml 1000 ml Balance -2440 ml -224.83 ml Intake Oral 360 ml 120 ml IV Total 655.17 ml Output Urine Total 2800 ml 1000 ml # Bowel Movements 3 3 Laboratory Tests 05/19/19 06:03: White Blood Count 9.5, Red Blood Count 3.96L, Hemoglobin 10.0L, Hematocrit 31.0L , Mean Corpuscular Volume 78L, Mean Corpuscular Hemoglobin 25.2L, Mean Corpuscular Hemoglobin Concent 32.2, Red Cell Distribution Width 16.5H, Platelet Count 183, Mean Platelet Volume 8.0, Neutrophils (%) (Auto) 60.8, Lymphocytes (%) (Auto) 25.1, Monocytes (%) (Auto) 11.1H, Eosinophils (%) (Auto) 2.3, Basophils (%) (Auto) 0.7, Sodium Level 144, Potassium Level 4.0, Chloride Level 110H, Carbon Dioxide Level 25, Anion Gap 9, Blood Urea Nitrogen 4L, Creatinine 0.7, Estimat Glomerular Filtration Rate , Glucose Level 106, Calcium Level 8.5, Magnesium Level 1.8 Height (Feet): 6 Height (Inches): 1.00 Weight (Pounds): 147 Objective Elderly man NCAT supple Chest: coarse ronchi RR abd soft ND NT no edema Cristi Flood MD May 19, 2019 09:14
--- NOTE | 2019-05-19 09:36 | Anethesia Preoperative Eval ---
Anesthesia Pre-op PMH/ROS General Date of Evaluation: May 19, 2019 Time of Evaluation: 08:56 Anesthesiologist: Ruthann ASA Score: ASA 4 Mallampati Score Class I : Soft palate, uvula, fauces, pillars visible Class II: Soft palate, uvula, fauces visible Class III: Soft palate, base of uvula visible Class IV: Only hard plate visible Mallampati Classification: Class II Surgeon: Lucía Diagnosis: Abdominal pain Surgical Procedure: EGD Colonoscopy Anesthesia History: none Family History: no anesthesia problems Allergies: Uncoded Allergies: CONTRAST MEDIA (Adverse Reaction, Mild, Itching in the area of the neck, 01/20/18) Patient was given specifically Isovue contrast during CT of the abdomen, and when he came back. The patient was itchy and benadryl was given, no complaints of itchiness or adverse reactions so far. Medications: see eMAR Patient NPO?: Yes Past Medical History Cardiovascular: Reports: HTN; Denies: CAD, PR, valve dz, arrhythmia, other Pulmonary: Denies: asthma, COPD, [place], other Gastrointestinal/Genitourinary: Reports: GERD; Denies: CRI, ESRD, other Neurologic/Psychiatric: Reports: dementia; Denies: CVA, depression/anxiety, TIA, other Endocrine: Reports: hypothyroidism; Denies: DM, steroids, other HEENT: Denies: cataract (L), cataract (R), glaucoma, [place] (L), [place] (R), other Hematology/Immune: Reports: anemia; Denies: DVT, bleeding disorder, other Musculoskeletal/Integumentary: Reports: OA; Denies: RA, DJD, DDD, edema, other Other: other - malnourished PMH Narrative: as above PSxH Narrative: See H&P Anesthesia Pre-op Phys. Exam Physician Exam Last Vital Signs Date Time Temp Pulse Resp B/P (MAP) Pulse Ox O2 Delivery O2 Flow Rate FiO2 05/19/19 08:21 78 163/95 05/19/19 07:40 97.7 18 98 05/18/19 21:00 Room Air 05/17/19 21:00 6.0 Constitutional: NAD Neurologic: other - unable to obtaine Cardiovascular: RRR Respiratory: CTA Gastrointestinal: S/NT/ND Airway Exam Mallampati Score: Class II MO: limited Neck: stiff ROM: limited Teeth: missing Dentures: no upper, no lower Anesthesia Pre-op A/P Labs Hematology Test 05/19/19 06:03 White Blood Count 9.5 K/UL (4.8-10.8) Red Blood Count 3.96 M/UL (4.70-6.10) L Hemoglobin 10.0 G/DL (14.2-18.0) L Hematocrit 31.0 % (42.0-52.0) L Mean Corpuscular Volume 78 FL (80-99) L Mean Corpuscular Hemoglobin 25.2 PG (27.0-31.0) L Mean Corpuscular Hemoglobin Concent 32.2 G/DL (32.0-36.0) Red Cell Distribution Width 16.5 % (11.6-14.8) H Platelet Count 183 K/UL (150-450) Mean Platelet Volume 8.0 FL (6.5-10.1) Neutrophils (%) (Auto) 60.8 % (45.0-75.0) Lymphocytes (%) (Auto) 25.1 % (20.0-45.0) Monocytes (%) (Auto) 11.1 % (1.0-10.0) H Eosinophils (%) (Auto) 2.3 % (0.0-3.0) Basophils (%) (Auto) 0.7 % (0.0-2.0) Chemistry Test 05/19/19 06:03 Sodium Level 144 MMOL/L (136-145) Potassium Level 4.0 MMOL/L (3.5-5.1) Chloride Level 110 MMOL/L (98-107) H Carbon Dioxide Level 25 MMOL/L (21-32) Anion Gap 9 mmol/L (5-15) Blood Urea Nitrogen 4 mg/dL (7-18) L Creatinine 0.7 MG/DL (0.55-1.30) Estimat Glomerular Filtration Rate mL/min (>60) Glucose Level 106 MG/DL (74-106) Calcium Level 8.5 MG/DL (8.5-10.1) Magnesium Level 1.8 MG/DL (1.8-2.4) Risk Assessment & Plan Assessment: ASA 4 Plan: Wellington Weir MD May 19, 2019 09:36
--- NOTE | 2019-05-19 10:00 | Infectious Diseases Prog Note ---
"Assessment/Plan Assessment/Plan antibiotics : zosyn A 1. e.coli UTI s/p rx 2. + blood culture with coag neg staph likely contaminated 3. COPD 4. BPH 5. hypertension P 1. d/c zosyn 2. observe off antibiotics 3. EGD | colonoscopy planned Subjective ROS Limited/Unobtainable: Yes Allergies: Uncoded Allergies: CONTRAST MEDIA (Adverse Reaction, Mild, Itching in the area of the neck, 01/20/18) Patient was given specifically Isovue contrast during CT of the abdomen, and when he came back. The patient was itchy and benadryl was given, no complaints of itchiness or adverse reactions so far. Objective Vital Signs Last 24 Hour Vital Signs Date Time Temp Pulse Resp B/P (MAP) Pulse Ox O2 Delivery O2 Flow Rate FiO2 05/19/19 08:21 78 163/95 05/19/19 08:21 163/95 05/19/19 07:40 97.7 78 18 163/95 (117) 98 05/19/19 04:00 72 05/19/19 04:00 97.7 78 18 164/89 (114) 98 05/19/19 00:00 68 05/19/19 00:00 98.5 72 18 158/89 (112) 99 05/18/19 21:00 Room Air 05/18/19 20:53 97.0 05/18/19 20:24 76 146/82 05/18/19 20:00 98.2 80 18 163/86 (111) 98 05/18/19 20:00 78 05/18/19 16:00 97.0 71 18 146/82 (103) 96 05/18/19 16:00 76 05/18/19 12:00 72 05/18/19 12:00 97.2 73 20 145/89 (107) 94 Height (Feet): 6 Height (Inches): 1.00 Weight (Pounds): 147 Respiratory/Chest: lungs clear Cardiovascular: normal rate, regular rhythm, no gallop/murmur Abdomen: soft, non tender Extremities: no edema Laboratory Tests Test 05/19/19 06:03 White Blood Count 9.5 K/UL (4.8-10.8) Red Blood Count 3.96 M/UL (4.70-6.10) L Hemoglobin 10.0 G/DL (14.2-18.0) L Hematocrit 31.0 % (42.0-52.0) L Mean Corpuscular Volume 78 FL (80-99) L Mean Corpuscular Hemoglobin 25.2 PG (27.0-31.0) L Mean Corpuscular Hemoglobin Concent 32.2 G/DL (32.0-36.0) Red Cell Distribution Width 16.5 % (11.6-14.8) H Platelet Count 183 K/UL (150-450) Mean Platelet Volume 8.0 FL (6.5-10.1) Neutrophils (%) (Auto) 60.8 % (45.0-75.0) Lymphocytes (%) (Auto) 25.1 % (20.0-45.0) Monocytes (%) (Auto) 11.1 % (1.0-10.0) H Eosinophils (%) (Auto) 2.3 % (0.0-3.0) Basophils (%) (Auto) 0.7 % (0.0-2.0) Sodium Level 144 MMOL/L (136-145) Potassium Level 4.0 MMOL/L (3.5-5.1) Chloride Level 110 MMOL/L (98-107) H Carbon Dioxide Level 25 MMOL/L (21-32) Anion Gap 9 mmol/L (5-15) Blood Urea Nitrogen 4 mg/dL (7-18) L Creatinine 0.7 MG/DL (0.55-1.30) Estimat Glomerular Filtration Rate mL/min (>60) Glucose Level 106 MG/DL (74-106) Calcium Level 8.5 MG/DL (8.5-10.1) Magnesium Level 1.8 MG/DL (1.8-2.4) Current Medications Medications (Trade) Dose Ordered Sig/Edwige Route PRN Reason Start Time Stop Time Status Last Admin Dose Admin Acetaminophen (Tylenol) 650 mg Q4H PRN ORAL Mild Pain/Temp > 100.5 05/16/19 13:00 06/11/19 16:59 Acetaminophen/ Hydrocodone Bitart ([place] 10/325) 1 tab Q4H PRN ORAL Severe Pain (Pain Scale 7-10) 05/16/19 13:00 05/19/19 16:59 05/18/19 20:23 Acetaminophen/ Hydrocodone Bitart ([place] 5/325) 1 tab Q4H PRN ORAL Moderate Pain (Pain Scale 4-6) 05/16/19 13:00 05/19/19 16:59 Al Hydroxide/Mg Hydroxide (Mylanta) 30 ml Q4H PRN ORAL STOMACH UPSET 05/16/19 13:00 06/11/19 16:59 Albuterol Sulfate (Proventil MDI) 1 puff Q6H PRN INH Shortness of Breath 05/16/19 13:00 06/13/19 12:59 Aspirin (ASA) 81 mg DAILY ORAL 05/17/19 09:00 06/12/19 08:59 05/18/19 08:24 Clonidine HCl (Catapres Tab) 0.1 mg Q4H PRN ORAL SBP above 160 05/16/19 21:05 06/15/19 21:04 Heparin Sodium (Porcine) (Heparin 5000 units/ml) 5,000 units EVERY 12 HOURS SUBQ 05/16/19 21:00 06/14/19 08:59 Lisinopril (Prinivil) 20 mg DAILY ORAL 05/17/19 09:00 06/16/19 08:59 05/19/19 08:21 Metoprolol Tartrate (Lopressor) 50 mg Q12HR ORAL 05/16/19 21:05 06/15/19 21:04 05/19/19 08:21 Ondansetron HCl (Zofran) 4 mg Q6H PRN IVP Nausea & Vomiting 05/16/19 13:00 06/13/19 12:59 Pantoprazole (Protonix) 40 mg DAILY ORAL 05/17/19 09:00 06/12/19 08:59 05/19/19 08:21 Piperacillin Sod/ Tazobactam Sod 3.375 gm/Sodium Chloride 110 ml @ 27.5 mls/hr Q8H IVPB 05/16/19 16:00 05/19/19 23:59 05/19/19 08:00 Potassium Chloride/Sodium Chloride 1,000 ml @ 75 mls/hr [id number] IV 05/17/19 22:30 06/16/19 22:29 05/18/19 18:06 Tamsulosin HCl (Flomax) 0.4 mg BEDTIME ORAL 05/16/19 21:00 06/14/19 20:59 05/18/19 20:23 Gonzalez Monson MD May 19, 2019 10:00"
--- NOTE | 2019-05-19 10:07 | Immediate Post-Op Evaluation ---
Immediate Post-Op Evalulation Immediate Post-Op Evalulation Procedure: EGD Colonoscopy Date of Evaluation: May 19, 2019 Time of Evaluation: 10:06 IV Fluids: 400 Blood Products: none Estimated Blood Loss: none Urinary Output: none Blood Pressure Systolic: 154 Blood Pressure Diastolic: 72 Pulse Rate: 68 Respiratory Rate: 20 O2 Sat by Pulse Oximetry: 98 Temperature (Fahrenheit): 97.6 Pain Score (1-10): 1 Nausea: No Vomiting: No Complications none Patient Status: awake, patent, none Hydration Status: adequate Wellington Beavers MD May 19, 2019 10:07
[2019-05-19] MEDS ORDERED: 1/2 NS 1000ml IV ONE (10:49)
--- NOTE | 2019-05-19 11:04 | NUR ---
pt refused to have wound photos taken at this time, will attempt later
--- NOTE | 2019-05-19 11:26 | NUR ---
RD ASSESSMENT & RECOMMENDATIONS SEE CARE ACTIVITY FOR COMPLETE ASSESSMENT DAILY ESTIMATED NEEDS: Needs based on Underweight 68kg 30-35 kcals/kg 3073-8743 total kcals 1-1.5 g protein/kg 68-102 g total protein 25-30 mL/kg 8454-5597 total fluid mLs NUTRITION DIAGNOSIS: * Increased kcal/prot intake needs R/T underweight status as evidenced by pt w/ mild-moderate generalized wasting w/ BMI of 18.1. * Decreased sodium intake needs R/T cardiac dx as evidenced by CHF dx w/ elev BNP (84339), HTN, pt on hypotensive meds, h/o CVA. CURRENT DIET:SOFT-> CLD-> NPO-> REGULAR DIET PO DIET RECOMMENDATIONS: LOW NA/ texture as tolerated (pt is edentulous) + Ensure Enlive TID w/ meal ADDITIONAL RECOMMENDATIONS: 1) Obtain a standing weight as able or re-calibrate bedscale wt 2) Ensure Enlive TID w/ meals 3) Snacks BID in b/w meals 4) MVI x 1 as supplement 5) Monitor tolerance to texture w/ edentulous status 6) Monitor lytes, replete as needed
--- NOTE | 2019-05-19 11:55 | Pulmonology Progress Note ---
Assessment/Plan Assessment/Plan Pulmonary Progress Note Assessment/Plan: IMPRESSION abdominal pain sp colonoscopy possible sepsis PCM COPD toxic metabolic encephalopathy leukocytosis possible sepsis anemia hypertension sinus tachycardia UTI PLAN antibiotics VQ scan noted IV hydration DVT prophylaxis monitor change as is monitor labs for change respiratory care as needed oxygen therapy GI evaluation noted impression, plan, and exam edited and reviewed in detail care discussed with RN Subjective Allergies: Uncoded Allergies: CONTRAST MEDIA (Adverse Reaction, Mild, Itching in the area of the neck, 01/20/18) Patient was given specifically Isovue contrast during CT of the abdomen, and when he came back. The patient was itchy and benadryl was given, no complaints of itchiness or adverse reactions so far. Subjective remains confused care noted on antibiotics VQ scan noted Objective Vital Signs Noted Height (Feet): 6 Height (Inches): 1.00 Weight (Pounds): 175 Objective WDWN NAD clear breath sounds bilaterally without rhonchi or wheeze S1S2RR tachy without MRG NABS nontender no HSM no CCE nonfocal no distress confused Subjective ROS Limited/Unobtainable: No Allergies: Uncoded Allergies: CONTRAST MEDIA (Adverse Reaction, Mild, Itching in the area of the neck, 01/20/18) Patient was given specifically Isovue contrast during CT of the abdomen, and when he came back. The patient was itchy and benadryl was given, no complaints of itchiness or adverse reactions so far. Objective Last 24 Hour Vital Signs Date Time Temp Pulse Resp B/P (MAP) Pulse Ox O2 Delivery O2 Flow Rate FiO2 05/19/19 10:20 97.8 66 20 152/86 98 Nasal Cannula 3 05/19/19 10:12 68 21 156/89 98 Nasal Cannula 3 05/19/19 10:07 66 18 165/89 98 Nasal Cannula 3 05/19/19 10:07 68 20 98 05/19/19 10:02 97.0 68 23 155/85 94 Nasal Cannula 3 05/19/19 09:00 Room Air 05/19/19 08:21 78 163/95 05/19/19 08:21 163/95 05/19/19 07:46 80 05/19/19 07:40 97.7 78 18 163/95 (117) 98 05/19/19 04:00 72 05/19/19 04:00 97.7 78 18 164/89 (114) 98 05/19/19 00:00 68 05/19/19 00:00 98.5 72 18 158/89 (112) 99 05/18/19 21:00 Room Air 05/18/19 20:53 97.0 05/18/19 20:24 76 146/82 05/18/19 20:00 98.2 80 18 163/86 (111) 98 05/18/19 20:00 78 05/18/19 16:00 97.0 71 18 146/82 (103) 96 05/18/19 16:00 76 05/18/19 12:00 72 05/18/19 12:00 97.2 73 20 145/89 (107) 94 Intake and Output 05/18/19 05/19/19 19:00 07:00 Intake Total 360 ml 775.17 ml Output Total 2800 ml 1000 ml Balance -2440 ml -224.83 ml Intake Oral 360 ml 120 ml IV Total 655.17 ml Output Urine Total 2800 ml 1000 ml # Bowel Movements 3 3 Laboratory Tests 05/19/19 06:03: White Blood Count 9.5, Red Blood Count 3.96L, Hemoglobin 10.0L, Hematocrit 31.0L , Mean Corpuscular Volume 78L, Mean Corpuscular Hemoglobin 25.2L, Mean Corpuscular Hemoglobin Concent 32.2, Red Cell Distribution Width 16.5H, Platelet Count 183, Mean Platelet Volume 8.0, Neutrophils (%) (Auto) 60.8, Lymphocytes (%) (Auto) 25.1, Monocytes (%) (Auto) 11.1H, Eosinophils (%) (Auto) 2.3, Basophils (%) (Auto) 0.7, Sodium Level 144, Potassium Level 4.0, Chloride Level 110H, Carbon Dioxide Level 25, Anion Gap 9, Blood Urea Nitrogen 4L, Creatinine 0.7, Estimat Glomerular Filtration Rate , Glucose Level 106, Calcium Level 8.5, Magnesium Level 1.8 Current Medications Medications (Trade) Dose Ordered Sig/Edwige Route PRN Reason Start Time Stop Time Status Last Admin Dose Admin Acetaminophen (Tylenol) 650 mg Q4H PRN ORAL Mild Pain/Temp > 100.5 05/16/19 13:00 06/11/19 16:59 Acetaminophen/ Hydrocodone Bitart ([place] 10/325) 1 tab Q4H PRN ORAL Severe Pain (Pain Scale 7-10) 05/16/19 13:00 05/19/19 16:59 05/18/19 20:23 Acetaminophen/ Hydrocodone Bitart ([place] 5/325) 1 tab Q4H PRN ORAL Moderate Pain (Pain Scale 4-6) 05/16/19 13:00 05/19/19 16:59 Al Hydroxide/Mg Hydroxide (Mylanta) 30 ml Q4H PRN ORAL STOMACH UPSET 05/16/19 13:00 06/11/19 16:59 Albuterol Sulfate (Proventil MDI) 1 puff Q6H PRN INH Shortness of Breath 05/16/19 13:00 06/13/19 12:59 Aspirin (ASA) 81 mg DAILY ORAL 05/17/19 09:00 06/12/19 08:59 05/18/19 08:24 Clonidine HCl (Catapres Tab) 0.1 mg Q4H PRN ORAL SBP above 160 05/16/19 21:05 06/15/19 21:04 Heparin Sodium (Porcine) (Heparin 5000 units/ml) 5,000 units EVERY 12 HOURS SUBQ 05/16/19 21:00 06/14/19 08:59 Lisinopril (Prinivil) 20 mg DAILY ORAL 05/17/19 09:00 06/16/19 08:59 05/19/19 08:21 Metoprolol Tartrate (Lopressor) 50 mg Q12HR ORAL 05/16/19 21:05 06/15/19 21:04 05/19/19 08:21 Ondansetron HCl (Zofran) 4 mg Q6H PRN IVP Nausea & Vomiting 05/16/19 13:00 06/13/19 12:59 Pantoprazole (Protonix) 40 mg DAILY ORAL 05/17/19 09:00 06/12/19 08:59 05/19/19 08:21 Potassium Chloride/Sodium Chloride 1,000 ml @ 75 mls/hr [id number] IV 05/17/19 22:30 06/16/19 22:29 05/18/19 18:06 Tamsulosin HCl (Flomax) 0.4 mg BEDTIME ORAL 05/16/19 21:00 06/14/19 20:59 05/18/19 20:23 Sanjeev Ramon MD May 19, 2019 11:55
--- NOTE | 2019-05-19 19:02 | Endoscopy Procedure Note ---
Endoscopy Procedure Note General Indication for Procedure: anemia Procedures Performed: EGD, colonoscopy Operative Findings/Diagnosis: gastritis, duodenitis, diverticulosis Specimen: yes Pt Tolerated Procedure Well: Yes Estimated Blood Loss: none Anesthesia Anesthesiologist: cristobal Anesthesia: MAC Medications Medication Given: see anesthesia record Inserted Devices Implant(s) used?: No GI Core Measures 50 yrs or older w/o bx or poly: Not Applicable 10yrs. F/U recommended: Not Applicable Cristi Flood MD May 19, 2019 19:02
--- NOTE | 2019-05-19 19:03 | Brief Operative Note ---
Immediate Post Operative Note Operative Note Pre-op Diagnosis: anemia, ob + Specimen: yes Complications: none Fluids: per anesthesia Implant(s) used?: No Cristi Flood MD May 19, 2019 19:03
--- NOTE | 2019-05-19 19:20 | NUR ---
HAND-OFF: Report given to PAOLA STEPHENS.
--- NOTE | 2019-05-19 19:30 | NUR ---
NURSE NOTES: Received report from ANGELO Garcia. Patient is asleep, arousable to name, lying semi garland's; resting comfortably. A/Ox2-3. Denies pain at this time. Is irritable and does not want to be bothered at this time. IV patent. No erythema, bleeding or infiltration noted. On 3 way davis catheter, draining well to gravity. Bed at lowest position, locked, siderails x 3. Call light within reach. Will continue to monitor.
--- NOTE | 2019-05-19 20:15 | Operative Note - Dictated ---
DATE OF OPERATION: 05/19/2019 GASTROENTEROLOGY PROCEDURE REPORT PROCEDURE: Upper gastrointestinal endoscopy with biopsy as well as colonoscopy. SURGEON: Cristi Flood M.D. ANESTHESIA: Please see the separate anesthesiologist notes for details. PRE-ENDOSCOPIC DIAGNOSIS: Anemia. POST-ENDOSCOPIC DIAGNOSES: 1. Erosive gastritis and duodenitis, status post biopsy of the antrum. 2. Sigmoid diverticulosis. 3. No evidence of malignancy identified. DESCRIPTION OF PROCEDURE: The procedure, its risks, indications, alternatives, and possible complications were explained to the patient's family as well as the patient and informed consent was obtained. The diagnostic upper endoscope was introduced through oropharynx and advanced to the duodenum. It was gradually withdrawn. Then, a rectal exam was done and the colonoscope was introduced in the rectum and advanced to the cecum. The colonoscope was then gradually withdrawn and the mucosa examined carefully. The findings and procedures were as listed above. There is no evidence of mass-like lesions or malignancies. The colonoscope was removed and the patient was sent to Recovery in good condition. COMPLICATIONS: None. RECOMMENDATIONS: 1. Resume oral diet. 2. Follow up biopsy results. 3. Monitor CBC. Cristi Flood M.D. DR: ROBERT JOB#: [id number] CC:
--- NOTE | 2019-05-19 20:34 | NUR ---
NURSE NOTES: Entered pt room to take BP and pt became upset and would not let us take it. Will re attempt as pt has medications that will be due.
[2019-05-19] MEDS: Tamsulosin 0.4mg cap ORAL SCH (21:00)
--- NOTE | 2019-05-19 21:00 | NUR ---
NURSE NOTES: Pt refused to take medication and refused all vital signs, I tried to apply optifoam to protect sacral but pt refused. Pt is refusing to be repositioned and is encouraged to reposition self as he is able. Pt refuses any assistance offered.
[2019-05-20 04:00] VITALS: BP 176/92
[2019-05-20] MEDS: NS w/KCl 20mEq 1000ml 1,000 ML IV SCH ×2 (04:45→17:57)
--- NOTE | 2019-05-20 04:52 | NUR ---
NURSE NOTES: Pt allowed us to take vital signs and BP is 176/92 as he refused his lopressor the previous evening. I attempted to give him clonidine 0.1 mg for SBP >160 however he refused it, despite education . Pt states he has pain which he never mentioned earlier in the evening and he will not take it because he stated the pain medication got cancelled and he is upset.
--- NOTE | 2019-05-20 08:00 | NUR ---
NURSE NOTES: pt is refusing to get V/S taken notified primary doctor.
--- NOTE | 2019-05-20 08:17 | NUR ---
HAND-OFF: Report given to ANGELO Burciaga.
--- NOTE | 2019-05-20 08:33 | NUR ---
NURSE NOTES: pt. awake and refusing blood pressure monitoring. 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 Call light within reach. Bed is locked and in lowest position. Will continue to monitor pt and follow plans of care.
[2019-05-20] MEDS: Heparin 5000 units/ml inj SUBQ SCH ×2 (09:00→20:55)
[2019-05-20 09:10] VITALS: BP 165/94
--- NOTE | 2019-05-20 09:20 | NUR ---
NURSE NOTES: pt refuses to get V/s taken. After talking to pt few times he accepted only to get B/P taken nothing else.
[2019-05-20] MEDS: Lisinopril 20mg tab ORAL SCH (09:40)
[2019-05-20] MEDS: Metoprolol Tartrate 50mg tab ORAL SCH ×3 (09:40→21:50)
[2019-05-20] MEDS: Aspirin Baby 81mg ORAL SCH (09:40)
--- NOTE | 2019-05-20 11:05 | NUR ---
NURSE NOTES: pt doctor Tristen, reinstate order for [place] and as per how original order is.
[2019-05-20] MEDS: HYDROcodone/Acetamin 10/325 tab ORAL PRN ×3 (11:09→21:44)
--- NOTE | 2019-05-20 12:00 | NUR ---
NURSE NOTES: pt is refusing to V/s once again.
[2019-05-20] MEDS ORDERED: Tubing IV Secondary IV ONE (13:05)
--- NOTE | 2019-05-20 14:15 | Pulmonology Progress Note ---
Assessment/Plan Assessment/Plan Pulmonary Progress Note Assessment/Plan: IMPRESSION abdominal pain improving sp colonoscopy possible sepsis PCM COPD toxic metabolic encephalopathy leukocytosis possible sepsis anemia hypertension sinus tachycardia UTI PLAN antibiotics VQ scan noted IV hydration DVT prophylaxis monitor change as is monitor labs for change respiratory care as needed oxygen therapy GI evaluation noted impression, plan, and exam edited and reviewed in detail care discussed with RN Subjective Allergies: Uncoded Allergies: CONTRAST MEDIA (Adverse Reaction, Mild, Itching in the area of the neck, 01/20/18) Patient was given specifically Isovue contrast during CT of the abdomen, and when he came back. The patient was itchy and benadryl was given, no complaints of itchiness or adverse reactions so far. Subjective no new complaints care noted on antibiotics VQ scan noted Objective Vital Signs Noted Height (Feet): 6 Height (Inches): 1.00 Weight (Pounds): 175 Objective WDWN NAD clear breath sounds bilaterally without rhonchi or wheeze S1S2RR without MRG NABS nontender no HSM no CCE nonfocal no distress less confused Subjective ROS Limited/Unobtainable: No Allergies: Uncoded Allergies: CONTRAST MEDIA (Adverse Reaction, Mild, Itching in the area of the neck, 01/20/18) Patient was given specifically Isovue contrast during CT of the abdomen, and when he came back. The patient was itchy and benadryl was given, no complaints of itchiness or adverse reactions so far. Objective Last 24 Hour Vital Signs Date Time Temp Pulse Resp B/P (MAP) Pulse Ox O2 Delivery O2 Flow Rate FiO2 05/20/19 09:40 86 165/94 05/20/19 09:40 165/94 05/20/19 09:10 165/94 (117) 05/20/19 08:00 81 05/20/19 04:00 97.2 80 24 176/92 (120) 95 05/20/19 03:41 83 05/20/19 03:37 80 05/20/19 00:00 74 05/20/19 00:00 77 05/19/19 21:00 Room Air 05/19/19 21:00 70 150/91 05/19/19 20:00 83 05/19/19 16:57 97.0 70 18 163/91 (115) 98 05/19/19 15:49 80 Intake and Output 05/19/19 05/20/19 19:00 07:00 Intake Total 1385.0 ml Output Total 1700 ml 2100 ml Balance -315.0 ml -2100 ml Intake Oral 600 ml IV Total 785.0 ml Output Urine Total 1700 ml 2100 ml # Voids 5 # Bowel Movements 2 3 Current Medications Medications (Trade) Dose Ordered Sig/Edwige Route PRN Reason Start Time Stop Time Status Last Admin Dose Admin Acetaminophen (Tylenol) 650 mg Q4H PRN ORAL Mild Pain/Temp > 100.5 05/16/19 13:00 06/11/19 16:59 Acetaminophen/ Hydrocodone Bitart ([place] 10/325) 1 tab Q4H PRN ORAL For Pain 05/20/19 11:00 05/27/19 10:59 05/20/19 11:09 Acetaminophen/ Hydrocodone Bitart ([place] 5/325) 1 tab Q4H PRN ORAL Moderate Pain (Pain Scale 4-6) 05/20/19 11:00 05/27/19 10:59 Al Hydroxide/Mg Hydroxide (Mylanta) 30 ml Q4H PRN ORAL STOMACH UPSET 05/16/19 13:00 06/11/19 16:59 Albuterol Sulfate (Proventil MDI) 1 puff Q6H PRN INH Shortness of Breath 05/16/19 13:00 06/13/19 12:59 Aspirin (ASA) 81 mg DAILY ORAL 05/17/19 09:00 06/12/19 08:59 05/20/19 09:40 Clonidine HCl (Catapres Tab) 0.1 mg Q4H PRN ORAL SBP above 160 05/16/19 21:05 06/15/19 21:04 Heparin Sodium (Porcine) (Heparin 5000 units/ml) 5,000 units EVERY 12 HOURS SUBQ 05/16/19 21:00 06/14/19 08:59 Lisinopril (Prinivil) 20 mg DAILY ORAL 05/17/19 09:00 06/16/19 08:59 05/20/19 09:40 Metoprolol Tartrate (Lopressor) 50 mg Q12HR ORAL 05/16/19 21:05 06/15/19 21:04 05/20/19 09:40 Ondansetron HCl (Zofran) 4 mg Q6H PRN IVP Nausea & Vomiting 05/16/19 13:00 06/13/19 12:59 Pantoprazole (Protonix) 40 mg DAILY ORAL 05/17/19 09:00 06/12/19 08:59 05/20/19 09:40 Potassium Chloride/Sodium Chloride 1,000 ml @ 75 mls/hr [id number] IV 05/17/19 22:30 06/16/19 22:29 05/20/19 04:45 Tamsulosin HCl (Flomax) 0.4 mg BEDTIME ORAL 05/16/19 21:00 06/14/19 20:59 05/18/19 20:23 Sanjeev Ramon MD May 20, 2019 14:15
--- NOTE | 2019-05-20 17:00 | General Progress Note ---
Assessment/Plan Assessment/Plan: Assessment - Hypokalemia and hypomagnesemia - corrected - Anemia - microcytosis and iron deficiency - OB (+) stools - gastritis, duodenitis, diverticulosis - COPD - BPD - pancreatic Cyst - HTN Recommendations - follow labs - transfuse PRN - push po Subjective Allergies: Uncoded Allergies: CONTRAST MEDIA (Adverse Reaction, Mild, Itching in the area of the neck, 01/20/18) Patient was given specifically Isovue contrast during CT of the abdomen, and when he came back. The patient was itchy and benadryl was given, no complaints of itchiness or adverse reactions so far. Subjective feels OK no abd complaints Objective Last 24 Hour Vital Signs Date Time Temp Pulse Resp B/P (MAP) Pulse Ox O2 Delivery O2 Flow Rate FiO2 05/20/19 09:40 86 165/94 05/20/19 09:40 165/94 05/20/19 09:10 165/94 (117) 05/20/19 09:00 Room Air 05/20/19 08:00 81 05/20/19 04:00 97.2 80 24 176/92 (120) 95 05/20/19 03:41 83 05/20/19 03:37 80 05/20/19 00:00 74 05/20/19 00:00 77 05/19/19 21:00 Room Air 05/19/19 21:00 70 150/91 05/19/19 20:00 83 Intake and Output 05/19/19 05/20/19 19:00 07:00 Intake Total 1385.0 ml Output Total 1700 ml 2100 ml Balance -315.0 ml -2100 ml Intake Oral 600 ml IV Total 785.0 ml Output Urine Total 1700 ml 2100 ml # Voids 5 # Bowel Movements 2 3 Height (Feet): 6 Height (Inches): 1.00 Weight (Pounds): 147 Objective Elderly man NCAT supple Chest: coarse ronchi RR abd soft ND NT no edema Cristi Flood MD May 20, 2019 17:00
--- NOTE | 2019-05-20 19:33 | NUR ---
HAND-OFF: Report given to Kenzie/ANGELO, pt in stable condition.
--- NOTE | 2019-05-20 19:34 | NUR ---
NURSE NOTES: pt. awake and alert x 2-3. He had a blanket covering his head. and has been refusing blood pressure monitoring and any vital signs. Pt is on rn hemodialysis charge no signs signs of cardiac distress at this time, on room air. Call light within reach. Bed is locked and in lowest position, bed alarm on, fal precautions in place. Will continue to monitor pt and follow plans of care.
--- NOTE | 2019-05-20 19:50 | NUR ---
NURSE NOTES: Pt is refusing to allow photos to be obtained. I will try again.
[2019-05-20 20:00] VITALS: BP 164/91
[2019-05-20] MEDS: Tamsulosin 0.4mg cap ORAL SCH (21:00)
[2019-05-21] VITALS: BP 154/78
[2019-05-21 04:00] VITALS: BP 146/72
--- NOTE | 2019-05-21 06:16 | NUR ---
NURSE NOTES: Pt refuses to allow us to take pictures
[2019-05-21] MEDS: NS w/KCl 20mEq 1000ml 1,000 ML IV SCH ×2 (06:30→20:01)
--- NOTE | 2019-05-21 06:58 | NUR ---
HAND-OFF: Report given to ANGELO Burciaga.
[2019-05-21 08:00] VITALS: BP 161/80
[2019-05-21] MEDS: Heparin 5000 units/ml inj SUBQ SCH ×2 (09:00→20:01)
--- NOTE | 2019-05-21 09:09 | General Progress Note ---
Assessment/Plan Assessment/Plan: Assessment - Hypokalemia and hypomagnesemia - corrected - Anemia - microcytosis and iron deficiency - OB (+) stools - gastritis, duodenitis, diverticulosis - COPD - BPD - pancreatic Cyst - HTN Recommendations - follow CBC and Fe as outpatient - transfuse PRN - push po Subjective Allergies: Uncoded Allergies: CONTRAST MEDIA (Adverse Reaction, Mild, Itching in the area of the neck, 01/20/18) Patient was given specifically Isovue contrast during CT of the abdomen, and when he came back. The patient was itchy and benadryl was given, no complaints of itchiness or adverse reactions so far. Subjective feels OK no abd complaints Objective Last 24 Hour Vital Signs Date Time Temp Pulse Resp B/P (MAP) Pulse Ox O2 Delivery O2 Flow Rate FiO2 05/21/19 04:00 97.5 76 18 146/72 (96) 92 05/21/19 04:00 72 05/21/19 00:00 97.6 77 19 154/78 (103) 92 05/21/19 00:00 78 05/20/19 21:50 89 164/91 05/20/19 21:00 Room Air 05/20/19 20:00 98.0 89 21 164/91 (115) 96 05/20/19 20:00 78 05/20/19 16:00 79 05/20/19 12:00 76 05/20/19 09:40 86 165/94 05/20/19 09:40 165/94 05/20/19 09:10 165/94 (117) Intake and Output 05/20/19 05/21/19 19:00 07:00 Intake Total 480 ml Output Total 2400 ml 1300 ml Balance -1920 ml -1300 ml Intake Oral 480 ml Output Urine Total 2400 ml 1300 ml # Bowel Movements 5 Height (Feet): 6 Height (Inches): 1.00 Weight (Pounds): 147 Objective Elderly man NCAT supple Chest: coarse ronchi RR abd soft ND NT no edema Cristi Flood MD May 21, 2019 09:09
[2019-05-21] MEDS: Aspirin Baby 81mg ORAL SCH (09:58)
[2019-05-21] MEDS: HYDROcodone/Acetamin 10/325 tab ORAL PRN ×2 (09:58→20:01)
[2019-05-21] MEDS: Lisinopril 20mg tab ORAL SCH (09:58)
[2019-05-21] MEDS: Metoprolol Tartrate 50mg tab ORAL SCH ×2 (09:59→20:00)
--- NOTE | 2019-05-21 10:24 | NUR ---
CASE MANAGEMENT:REVIEW 05/20/2019 SI: PNA. COPD. AMI. BACTEREMIA T 98 HR 89 RR 21 B/P 164/91 SATS 96% ON RA LABS: NONE TODAY IS: IV ZOSYN Q8HRS ASA PO QD LISINOPRIL PO QD LOPRESSOR PO Q12 HEPARIN SQ Q12 IVF@75/HR FLOMAX PO QHS : TELEMETRY STATUS DCP: FROM HOME PLAN: EGD/COLONOSCOPY >>> Operative Findings/Diagnosis: gastritis, duodenitis, diverticulosis 05/21/2019 SI: PNA. COPD. AMI. BACTEREMIA T 97.5 HR 76 RR 18 B/P 146/72 SATS 92% ON RA LABS: NONE TODAY IS: IV ZOSYN Q8HRS ASA PO QD LISINOPRIL PO QD LOPRESSOR PO Q12 HEPARIN SQ Q12 IVF@75/HR FLOMAX PO QHS : TELEMETRY STATUS DCP: FROM HOME
--- NOTE | 2019-05-21 11:36 | Infectious Diseases Prog Note ---
Assessment/Plan Assessment/Plan A: 1. E. coli UTI treated 2. Positive blood culture with Staph Hominis, contamination 3. COPD. 4. Hypertension. 5. BPH. 6. Anemia. 7. Cocaine abuse. 8. Pneumonia 9. Duodenitis & gastritis\ 10 Diverticulosis RECOMMENDATION: Observe off antibiotic Subjective ROS Limited/Unobtainable: Yes Constitutional: Reports: other - dosen't feel good Respiratory: Reports: no symptoms Genitourinary: Reports: no symptoms Musculoskeletal: Reports: pain, other - in both legs Allergies: Uncoded Allergies: CONTRAST MEDIA (Adverse Reaction, Mild, Itching in the area of the neck, 01/20/18) Patient was given specifically Isovue contrast during CT of the abdomen, and when he came back. The patient was itchy and benadryl was given, no complaints of itchiness or adverse reactions so far. Objective Vital Signs Last 24 Hour Vital Signs Date Time Temp Pulse Resp B/P (MAP) Pulse Ox O2 Delivery O2 Flow Rate FiO2 05/21/19 09:59 74 161/80 05/21/19 09:58 161/80 05/21/19 04:00 97.5 76 18 146/72 (96) 92 05/21/19 04:00 72 05/21/19 00:00 97.6 77 19 154/78 (103) 92 05/21/19 00:00 78 05/20/19 21:50 89 164/91 05/20/19 21:00 Room Air 05/20/19 20:00 98.0 89 21 164/91 (115) 96 05/20/19 20:00 78 05/20/19 16:00 79 05/20/19 12:00 76 Height (Feet): 6 Height (Inches): 1.00 Weight (Pounds): 147 General Appearance: no acute distress HEENT: mucous membranes moist Respiratory/Chest: lungs clear Cardiovascular: normal rate Abdomen: soft, non tender Extremities: no edema, other - 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 Skin: no lesions Neurologic/Psychiatric: alert, responsive Current Medications Medications (Trade) Dose Ordered Sig/Edwige Route PRN Reason Start Time Stop Time Status Last Admin Dose Admin Acetaminophen (Tylenol) 650 mg Q4H PRN ORAL Mild Pain/Temp > 100.5 05/16/19 13:00 06/11/19 16:59 Acetaminophen/ Hydrocodone Bitart ([place] 10/325) 1 tab Q4H PRN ORAL For Pain 05/20/19 11:00 05/27/19 10:59 05/21/19 09:58 Acetaminophen/ Hydrocodone Bitart ([place] 5/325) 1 tab Q4H PRN ORAL Moderate Pain (Pain Scale 4-6) 05/20/19 11:00 05/27/19 10:59 Al Hydroxide/Mg Hydroxide (Mylanta) 30 ml Q4H PRN ORAL STOMACH UPSET 05/16/19 13:00 06/11/19 16:59 Albuterol Sulfate (Proventil MDI) 1 puff Q6H PRN INH Shortness of Breath 05/16/19 13:00 06/13/19 12:59 Aspirin (ASA) 81 mg DAILY ORAL 05/17/19 09:00 06/12/19 08:59 05/21/19 09:58 Clonidine HCl (Catapres Tab) 0.1 mg Q4H PRN ORAL SBP above 160 05/16/19 21:05 06/15/19 21:04 Heparin Sodium (Porcine) (Heparin 5000 units/ml) 5,000 units EVERY 12 HOURS SUBQ 05/16/19 21:00 06/14/19 08:59 Lisinopril (Prinivil) 20 mg DAILY ORAL 05/17/19 09:00 06/16/19 08:59 05/21/19 09:58 Metoprolol Tartrate (Lopressor) 50 mg Q12HR ORAL 05/16/19 21:05 06/15/19 21:04 05/21/19 09:59 Ondansetron HCl (Zofran) 4 mg Q6H PRN IVP Nausea & Vomiting 05/16/19 13:00 06/13/19 12:59 Pantoprazole (Protonix) 40 mg DAILY ORAL 05/17/19 09:00 06/12/19 08:59 05/21/19 09:59 Potassium Chloride/Sodium Chloride 1,000 ml @ 75 mls/hr [id number] IV 05/17/19 22:30 06/16/19 22:29 05/21/19 06:30 Tamsulosin HCl (Flomax) 0.4 mg BEDTIME ORAL 05/16/19 21:00 06/14/19 20:59 05/18/19 20:23 Jamal Gamboa MD May 21, 2019 11:36
[2019-05-21 12:00] VITALS: BP 145/83
--- NOTE | 2019-05-21 14:45 | Pulmonology Progress Note ---
Assessment/Plan Assessment/Plan Pulmonary Progress Note Assessment/Plan: IMPRESSION abdominal pain improving sp colonoscopy possible sepsis PCM COPD toxic metabolic encephalopathy leukocytosis possible sepsis anemia hypertension sinus tachycardia UTI PLAN antibiotics VQ scan noted IV hydration DVT prophylaxis monitor change as is monitor labs for change respiratory care as needed oxygen therapy GI evaluation noted impression, plan, and exam edited and reviewed in detail care discussed with RN Subjective Stable ON Allergies: Uncoded Allergies: CONTRAST MEDIA (Adverse Reaction, Mild, Itching in the area of the neck, 01/20/18) Patient was given specifically Isovue contrast during CT of the abdomen, and when he came back. The patient was itchy and benadryl was given, no complaints of itchiness or adverse reactions so far. Subjective no new complaints care noted on antibiotics VQ scan noted Objective Vital Signs Noted Height (Feet): 6 Height (Inches): 1.00 Weight (Pounds): 175 Objective WDWN NAD clear breath sounds bilaterally without rhonchi or wheeze S1S2RR without MRG NABS nontender no HSM no CCE nonfocal no distress less confused Subjective ROS Limited/Unobtainable: No Allergies: Uncoded Allergies: CONTRAST MEDIA (Adverse Reaction, Mild, Itching in the area of the neck, 01/20/18) Patient was given specifically Isovue contrast during CT of the abdomen, and when he came back. The patient was itchy and benadryl was given, no complaints of itchiness or adverse reactions so far. Objective Last 24 Hour Vital Signs Date Time Temp Pulse Resp B/P (MAP) Pulse Ox O2 Delivery O2 Flow Rate FiO2 05/21/19 12:00 80 05/21/19 12:00 97.6 81 18 145/83 (103) 96 05/21/19 09:59 74 161/80 05/21/19 09:58 161/80 05/21/19 09:00 Room Air 05/21/19 08:00 97 05/21/19 08:00 97.7 74 20 161/80 (107) 92 05/21/19 04:00 97.5 76 18 146/72 (96) 92 05/21/19 04:00 72 05/21/19 00:00 97.6 77 19 154/78 (103) 92 05/21/19 00:00 78 05/20/19 21:50 89 164/91 05/20/19 21:00 Room Air 05/20/19 20:00 98.0 89 21 164/91 (115) 96 05/20/19 20:00 78 05/20/19 16:00 79 Intake and Output 05/20/19 05/21/19 19:00 07:00 Intake Total 480 ml Output Total 2400 ml 1300 ml Balance -1920 ml -1300 ml Intake Oral 480 ml Output Urine Total 2400 ml 1300 ml # Bowel Movements 5 Current Medications Medications (Trade) Dose Ordered Sig/Edwige Route PRN Reason Start Time Stop Time Status Last Admin Dose Admin Acetaminophen (Tylenol) 650 mg Q4H PRN ORAL Mild Pain/Temp > 100.5 05/16/19 13:00 06/11/19 16:59 Acetaminophen/ Hydrocodone Bitart ([place] 10/325) 1 tab Q4H PRN ORAL For Pain 05/20/19 11:00 05/27/19 10:59 05/21/19 09:58 Acetaminophen/ Hydrocodone Bitart ([place] 5/325) 1 tab Q4H PRN ORAL Moderate Pain (Pain Scale 4-6) 05/20/19 11:00 05/27/19 10:59 Al Hydroxide/Mg Hydroxide (Mylanta) 30 ml Q4H PRN ORAL STOMACH UPSET 05/16/19 13:00 06/11/19 16:59 Albuterol Sulfate (Proventil MDI) 1 puff Q6H PRN INH Shortness of Breath 05/16/19 13:00 06/13/19 12:59 Aspirin (ASA) 81 mg DAILY ORAL 05/17/19 09:00 06/12/19 08:59 05/21/19 09:58 Clonidine HCl (Catapres Tab) 0.1 mg Q4H PRN ORAL SBP above 160 05/16/19 21:05 06/15/19 21:04 Heparin Sodium (Porcine) (Heparin 5000 units/ml) 5,000 units EVERY 12 HOURS SUBQ 05/16/19 21:00 06/14/19 08:59 Lisinopril (Prinivil) 20 mg DAILY ORAL 05/17/19 09:00 06/16/19 08:59 05/21/19 09:58 Metoprolol Tartrate (Lopressor) 50 mg Q12HR ORAL 05/16/19 21:05 06/15/19 21:04 05/21/19 09:59 Ondansetron HCl (Zofran) 4 mg Q6H PRN IVP Nausea & Vomiting 05/16/19 13:00 06/13/19 12:59 Pantoprazole (Protonix) 40 mg DAILY ORAL 05/17/19 09:00 06/12/19 08:59 05/21/19 09:59 Potassium Chloride/Sodium Chloride 1,000 ml @ 75 mls/hr [id number] IV 05/17/19 22:30 06/16/19 22:29 05/21/19 06:30 Tamsulosin HCl (Flomax) 0.4 mg BEDTIME ORAL 05/16/19 21:00 06/14/19 20:59 05/18/19 20:23 Sanjeev Ramon MD May 21, 2019 14:45
[2019-05-21 16:00] VITALS: BP 146/75
[2019-05-21 20:00] VITALS: BP 159/92
[2019-05-21] MEDS: Tamsulosin 0.4mg cap ORAL SCH (20:01)
--- NOTE | 2019-05-21 20:30 | NUR ---
NURSE NOTES: pt. awake and alert x 2-3. Pt is on minister helper no signs signs of cardiac distress at this time, on room air. Call light within reach. Bed is locked and in lowest position, bed alarm on, fall precautions in place. Will continue to monitor pt and follow plans of care.
--- NOTE | 2019-05-21 20:33 | NUR ---
HAND-OFF: Report given to Kenzie/ANGELO.
[2019-05-22] VITALS: BP 137/75
[2019-05-22 04:00] VITALS: BP 139/80
--- NOTE | 2019-05-22 07:10 | NUR ---
HAND-OFF: Report given to ANGELO Diaz.
--- NOTE | 2019-05-22 07:45 | NUR ---
NURSE NOTES: Patient received from Kenzie. Patient stable eating breakfast in bed. No complaints of pain no s/sx of distress. RR even and unlabored on RA. Helm draining well to gravity. Side rails up x2, call light within reach, bed low and locked. Will continue to monitor.
[2019-05-22 08:00] VITALS: BP 145/79
--- NOTE | 2019-05-22 08:48 | General Progress Note ---
Assessment/Plan Assessment/Plan: IMPRESSION abdominal pain possible sepsis PCM COPD toxic metabolic encephalopathy leukocytosis possible sepsis anemia hypertension sinus tachycardia UTI PLAN IV antibiotics off DVT prophylaxis monitor change as is monitor labs for change respiratory care as needed dc to snf impression, plan, and exam edited and reviewed in detail care discussed with RN Subjective ROS Limited/Unobtainable: Yes Allergies: Uncoded Allergies: CONTRAST MEDIA (Adverse Reaction, Mild, Itching in the area of the neck, 01/20/18) Patient was given specifically Isovue contrast during CT of the abdomen, and when he came back. The patient was itchy and benadryl was given, no complaints of itchiness or adverse reactions so far. Subjective remains confused no change overall very weak Objective Last 24 Hour Vital Signs Date Time Temp Pulse Resp B/P (MAP) Pulse Ox O2 Delivery O2 Flow Rate FiO2 05/22/19 08:38 81 18 91 Room Air 21 05/22/19 08:20 Room Air 05/22/19 08:00 97.5 82 18 145/79 (101) 93 05/22/19 04:00 71 05/22/19 04:00 97.9 88 20 139/80 (99) 93 05/22/19 00:00 71 05/22/19 00:00 96.2 85 21 137/75 (95) 92 05/21/19 21:00 Room Air 05/21/19 20:00 96.8 83 20 159/92 (114) 92 05/21/19 20:00 85 05/21/19 20:00 83 159/92 05/21/19 16:00 77 05/21/19 16:00 97.5 76 20 146/75 (98) 97 05/21/19 12:00 80 05/21/19 12:00 97.6 81 18 145/83 (103) 96 05/21/19 09:59 74 161/80 05/21/19 09:58 161/80 05/21/19 09:00 Room Air Intake and Output 05/21/19 05/22/19 18:59 06:59 Intake Total 600 ml Output Total 1300 ml 1500 ml Balance -700 ml -1500 ml Intake Oral 600 ml Output Urine Total 1300 ml 1500 ml Height (Feet): 6 Height (Inches): 1.00 Weight (Pounds): 147 Objective WDWN NAD clear breath sounds bilaterally without rhonchi or wheeze S1S2RR tachy without MRG NABS nontender no HSM no CCE nonfocal no distress confused Yogesh Carey MD May 22, 2019 08:48
[2019-05-22] MEDS: HYDROcodone/Acetamin 10/325 tab ORAL PRN ×3 (08:52→23:42)
[2019-05-22] MEDS: Lisinopril 20mg tab ORAL SCH (08:52)
[2019-05-22] MEDS: Aspirin Baby 81mg ORAL SCH (08:53)
[2019-05-22] MEDS: Heparin 5000 units/ml inj SUBQ SCH ×2 (08:53→21:00)
[2019-05-22] MEDS: Metoprolol Tartrate 50mg tab ORAL SCH ×2 (08:53→21:15)
--- NOTE | 2019-05-22 08:57 | General Progress Note ---
Assessment/Plan Assessment/Plan: Assessment - Hypokalemia and hypomagnesemia - corrected - Anemia - microcytosis and iron deficiency - OB (+) stools - gastritis, duodenitis, diverticulosis - COPD - BPD - pancreatic Cyst - HTN Recommendations - follow CBC and Fe as outpatient - transfuse PRN - push po Subjective Allergies: Uncoded Allergies: CONTRAST MEDIA (Adverse Reaction, Mild, Itching in the area of the neck, 01/20/18) Patient was given specifically Isovue contrast during CT of the abdomen, and when he came back. The patient was itchy and benadryl was given, no complaints of itchiness or adverse reactions so far. Subjective feels OK no abd complaints Tolerating PO Objective Last 24 Hour Vital Signs Date Time Temp Pulse Resp B/P (MAP) Pulse Ox O2 Delivery O2 Flow Rate FiO2 05/22/19 08:53 81 145/79 05/22/19 08:52 145/79 05/22/19 08:38 81 18 91 Room Air 21 05/22/19 08:20 Room Air 05/22/19 08:00 97.5 82 18 145/79 (101) 93 05/22/19 04:00 71 05/22/19 04:00 97.9 88 20 139/80 (99) 93 05/22/19 00:00 71 05/22/19 00:00 96.2 85 21 137/75 (95) 92 05/21/19 21:00 Room Air 05/21/19 20:00 96.8 83 20 159/92 (114) 92 05/21/19 20:00 85 05/21/19 20:00 83 159/92 05/21/19 16:00 77 05/21/19 16:00 97.5 76 20 146/75 (98) 97 05/21/19 12:00 80 05/21/19 12:00 97.6 81 18 145/83 (103) 96 05/21/19 09:59 74 161/80 05/21/19 09:58 161/80 05/21/19 09:00 Room Air Intake and Output 05/21/19 05/22/19 18:59 06:59 Intake Total 600 ml Output Total 1300 ml 1500 ml Balance -700 ml -1500 ml Intake Oral 600 ml Output Urine Total 1300 ml 1500 ml Height (Feet): 6 Height (Inches): 1.00 Weight (Pounds): 147 Objective Elderly man NCAT supple Chest: coarse ronchi RR abd soft ND NT no edema Cristi Flood MD May 22, 2019 08:57
[2019-05-22] MEDS: NS w/KCl 20mEq 1000ml 1,000 ML IV SCH (08:58)
--- NOTE | 2019-05-22 10:35 | NUR ---
NURSE NOTES: Discharge order noted. BARRON Griffith called and stated that [facility] has not responded yet.
--- NOTE | 2019-05-22 11:01 | Infectious Diseases Prog Note ---
Assessment/Plan Assessment/Plan antibiotics : none A 1. e.coli UTI s/p rx 2. + blood culture with coag neg staph likely contaminated 3. COPD 4. BPH 5. hypertension P 1. observe off antibiotics Subjective Constitutional: Denies: fever Respiratory: Reports: shortness of breath, productive cough Gastrointestinal/Abdominal: Reports: nausea; Denies: vomiting, diarrhea Musculoskeletal: Denies: pain Allergies: Uncoded Allergies: CONTRAST MEDIA (Adverse Reaction, Mild, Itching in the area of the neck, 01/20/18) Patient was given specifically Isovue contrast during CT of the abdomen, and when he came back. The patient was itchy and benadryl was given, no complaints of itchiness or adverse reactions so far. Objective Vital Signs Last 24 Hour Vital Signs Date Time Temp Pulse Resp B/P (MAP) Pulse Ox O2 Delivery O2 Flow Rate FiO2 05/22/19 08:53 81 145/79 05/22/19 08:52 145/79 05/22/19 08:38 81 18 91 Room Air 21 05/22/19 08:20 Room Air 05/22/19 08:00 97.5 82 18 145/79 (101) 93 05/22/19 04:00 71 05/22/19 04:00 97.9 88 20 139/80 (99) 93 05/22/19 00:00 71 05/22/19 00:00 96.2 85 21 137/75 (95) 92 05/21/19 21:00 Room Air 05/21/19 20:00 96.8 83 20 159/92 (114) 92 05/21/19 20:00 85 05/21/19 20:00 83 159/92 05/21/19 16:00 77 05/21/19 16:00 97.5 76 20 146/75 (98) 97 05/21/19 12:00 80 05/21/19 12:00 97.6 81 18 145/83 (103) 96 Height (Feet): 6 Height (Inches): 1.00 Weight (Pounds): 147 Respiratory/Chest: lungs clear Cardiovascular: normal rate, regular rhythm, no gallop/murmur Abdomen: soft, non tender Extremities: no edema Current Medications Medications (Trade) Dose Ordered Sig/Edwige Route PRN Reason Start Time Stop Time Status Last Admin Dose Admin Acetaminophen (Tylenol) 650 mg Q4H PRN ORAL Mild Pain/Temp > 100.5 05/16/19 13:00 06/11/19 16:59 Acetaminophen/ Hydrocodone Bitart ([place] 10/325) 1 tab Q4H PRN ORAL For Pain 05/20/19 11:00 05/27/19 10:59 05/22/19 08:52 Acetaminophen/ Hydrocodone Bitart ([place] 5/325) 1 tab Q4H PRN ORAL Moderate Pain (Pain Scale 4-6) 05/20/19 11:00 05/27/19 10:59 Al Hydroxide/Mg Hydroxide (Mylanta) 30 ml Q4H PRN ORAL STOMACH UPSET 05/16/19 13:00 06/11/19 16:59 Albuterol Sulfate (Proventil MDI) 1 puff Q6H PRN INH Shortness of Breath 05/16/19 13:00 06/13/19 12:59 Aspirin (ASA) 81 mg DAILY ORAL 05/17/19 09:00 06/12/19 08:59 05/22/19 08:53 Clonidine HCl (Catapres Tab) 0.1 mg Q4H PRN ORAL SBP above 160 05/16/19 21:05 06/15/19 21:04 Heparin Sodium (Porcine) (Heparin 5000 units/ml) 5,000 units EVERY 12 HOURS SUBQ 05/16/19 21:00 06/14/19 08:59 Lisinopril (Prinivil) 20 mg DAILY ORAL 05/17/19 09:00 06/16/19 08:59 05/22/19 08:52 Metoprolol Tartrate (Lopressor) 50 mg Q12HR ORAL 05/16/19 21:05 06/15/19 21:04 05/22/19 08:53 Ondansetron HCl (Zofran) 4 mg Q6H PRN IVP Nausea & Vomiting 05/16/19 13:00 06/13/19 12:59 Pantoprazole (Protonix) 40 mg DAILY ORAL 05/17/19 09:00 06/12/19 08:59 05/22/19 08:52 Potassium Chloride/Sodium Chloride 1,000 ml @ 75 mls/hr [id number] IV 05/17/19 22:30 06/16/19 22:29 05/22/19 08:58 Tamsulosin HCl (Flomax) 0.4 mg BEDTIME ORAL 05/16/19 21:00 06/14/19 20:59 05/21/19 20:01 Gonzalez Monson MD May 22, 2019 11:01
[2019-05-22] MEDS ORDERED: PANTOPRAZOLE SO40 MG ORAL (11:43)
[2019-05-22] MEDS ORDERED: CATAPRES0.1 MG ORAL (11:43)
[2019-05-22] MEDS ORDERED: METOPROLOL TART50 M1 ORAL (11:44)
[2019-05-22] MEDS ORDERED: HEPARIN SO5000 UNIT2 SUBQ (11:46)
[2019-05-22 12:00] VITALS: BP 122/63
--- NOTE | 2019-05-22 12:38 | NUR ---
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
--- NOTE | 2019-05-22 15:14 | NUR ---
DISCHARGE PLANNING REFERRED TO [facility] T: [phone] MULTIPLE F/U CALLS PLACED REGARDING ACCEPTANCE AND EACH TIME WAS TOLD THEY ARE STILL REVIEWING CLINICALS Addendum: 05/22/19 at 1636 by RIKI BARILLAS LVN LVN [facility] UNABLE TO ACCEPT MESSAGE LEFT FOR DR HUNT
[2019-05-22 16:00] VITALS: BP 123/62
--- NOTE | 2019-05-22 19:14 | NUR ---
HAND-OFF: Report given to Jazlyn Rodriguez RN. Patient stable. Plan of care endorsed. Endorsed that pt needs a new IV.
[2019-05-22 20:00] VITALS: BP 137/70
--- NOTE | 2019-05-22 20:00 | NUR ---
NURSE NOTES: Report received from Zohra Og RN. Patient is observed in bed, awake, alert, oriented, and able to make needs known. Respiratory even and unlabored. Denies pain at this time. IV site is asymptomatic, patent, and intact. Bed is in lowest position with side rails up x2 and brakes are engaged. Bed alarm is on. Encouraged patient to use call light when in need of assistance, pt verbalized understanding. Will continue to monitor.
--- NOTE | 2019-05-22 20:31 | NUR ---
NURSE NOTES: Notified Dr. Carey regarding patient's elevated BNP. Per , d/c IVF.
[2019-05-22] MEDS: Tamsulosin 0.4mg cap ORAL SCH (21:14)
[2019-05-23] VITALS: BP 133/72
--- NOTE | 2019-05-23 | NUR ---
NURSE NOTES: Pt is asleep but arousable by voice. Denies pain at this time. VSS. Will continue to monitor.
--- NOTE | 2019-05-23 01:00 | NUR ---
NURSE NOTES: Sleeping at this time, resp even. no apparent c/o noted. Call light w/in reach.
[2019-05-23 04:00] VITALS: BP 131/78
--- NOTE | 2019-05-23 07:19 | NUR ---
HAND-OFF: Report given to Erick STEPHENS. Endorsed plan of care.
--- NOTE | 2019-05-23 07:23 | NUR ---
NURSE NOTES: HANDOFF RECEIVED FROM ANGELO CREWS. PATIENT RECEIVED SLEEPING IN BED, NO ACUTE SIGNS OF DISTRESS NOTED. IV SITE IS CLEAN DRY AND INTACT, SALINE LOCKED. BED IN THE LOW AND LOCKED POSITION WITH CALL LIGHT WITHIN REACH, WILL CONTINUE TO MONITOR.
[2019-05-23 08:00] VITALS: BP 150/78
--- NOTE | 2019-05-23 09:05 | General Progress Note ---
Assessment/Plan Assessment/Plan: IMPRESSION abdominal pain possible sepsis PCM COPD toxic metabolic encephalopathy leukocytosis possible sepsis anemia hypertension sinus tachycardia UTI PLAN IV antibiotics off DVT prophylaxis monitor change as is monitor labs for change respiratory care as needed dc to snf pending approval impression, plan, and exam edited and reviewed in detail care discussed with RN Subjective Allergies: Uncoded Allergies: CONTRAST MEDIA (Adverse Reaction, Mild, Itching in the area of the neck, 01/20/18) Patient was given specifically Isovue contrast during CT of the abdomen, and when he came back. The patient was itchy and benadryl was given, no complaints of itchiness or adverse reactions so far. Subjective remains confused and weak no change overall very weak Objective Last 24 Hour Vital Signs Date Time Temp Pulse Resp B/P (MAP) Pulse Ox O2 Delivery O2 Flow Rate FiO2 05/23/19 08:00 97.8 79 18 150/78 (102) 96 05/23/19 04:00 98.5 74 20 131/78 (95) 93 05/23/19 03:26 73 05/23/19 00:00 98.1 76 19 133/72 (92) 93 05/22/19 23:36 82 05/22/19 21:15 81 137/70 05/22/19 20:26 Room Air 05/22/19 20:16 73 18 93 Room Air 21 05/22/19 20:00 98.4 81 20 137/70 (92) 93 05/22/19 19:03 81 05/22/19 16:00 70 05/22/19 16:00 98.4 73 20 123/62 (82) 93 05/22/19 12:00 97.7 73 16 122/63 (82) 93 05/22/19 12:00 73 Intake and Output 05/22/19 05/23/19 18:59 06:59 Intake Total 1380 ml Output Total 1200 ml 1500 ml Balance 180 ml -1500 ml Intake Oral 480 ml IV Total 900 ml Output Urine Total 1200 ml 1500 ml # Voids 2 # Bowel Movements 1 Height (Feet): 6 Height (Inches): 1.00 Weight (Pounds): 147 Objective WDWN NAD clear breath sounds bilaterally without rhonchi or wheeze S1S2RR tachy without MRG NABS nontender no HSM no CCE nonfocal no distress confused Yogesh Carey MD May 23, 2019 09:05
[2019-05-23] MEDS: Aspirin Baby 81mg ORAL SCH (09:19)
[2019-05-23] MEDS: Metoprolol Tartrate 50mg tab ORAL SCH ×2 (09:19→21:01)
[2019-05-23] MEDS: Lisinopril 20mg tab ORAL SCH (09:20)
--- NOTE | 2019-05-23 09:20 | NUR ---
CASE MANAGEMENT:REVIEW 05/23/19 SI: PNA. COPD. AMI. BACTEREMIA 97.8 79 18 150/78 96% ON RA IS: ASA PO QD PROTONIX PO QD LISINOPRIL PO QD LOPRESSOR PO Q12 : TELEMETRY STATUS
[2019-05-23] MEDS: Heparin 5000 units/ml inj SUBQ SCH ×2 (09:22→09:26)
--- NOTE | 2019-05-23 09:25 | NUR ---
DISCHARGE PLANNING UPDATE [facility] DECLINED PATIENT [facility] DECLINED PATIENT HAVE NOW FAXED TO [facility] ~ WAITING FOR A RESPONSE
[2019-05-23] MEDS: HYDROcodone/Acetamin 5/325 tab ORAL PRN ×2 (09:32→21:06)
--- NOTE | 2019-05-23 11:21 | Infectious Diseases Prog Note ---
Assessment/Plan Assessment/Plan antibiotics : none A 1. e.coli UTI s/p rx 2. + blood culture with coag neg staph likely contaminated 3. COPD 4. BPH 5. hypertension P 1. observe off antibiotics Subjective ROS Limited/Unobtainable: Yes Allergies: Uncoded Allergies: CONTRAST MEDIA (Adverse Reaction, Mild, Itching in the area of the neck, 01/20/18) Patient was given specifically Isovue contrast during CT of the abdomen, and when he came back. The patient was itchy and benadryl was given, no complaints of itchiness or adverse reactions so far. Objective Vital Signs Last 24 Hour Vital Signs Date Time Temp Pulse Resp B/P (MAP) Pulse Ox O2 Delivery O2 Flow Rate FiO2 05/23/19 09:20 150/78 05/23/19 09:19 79 150/78 05/23/19 09:00 Room Air 05/23/19 08:00 77 05/23/19 08:00 97.8 79 18 150/78 (102) 96 05/23/19 04:00 98.5 74 20 131/78 (95) 93 05/23/19 03:26 73 05/23/19 00:00 98.1 76 19 133/72 (92) 93 05/22/19 23:36 82 05/22/19 21:15 81 137/70 05/22/19 20:26 Room Air 05/22/19 20:16 73 18 93 Room Air 21 05/22/19 20:00 98.4 81 20 137/70 (92) 93 05/22/19 19:03 81 05/22/19 16:00 70 05/22/19 16:00 98.4 73 20 123/62 (82) 93 05/22/19 12:00 97.7 73 16 122/63 (82) 93 05/22/19 12:00 73 Height (Feet): 6 Height (Inches): 1.00 Weight (Pounds): 147 Respiratory/Chest: lungs clear Cardiovascular: normal rate, regular rhythm, no gallop/murmur Abdomen: soft, non tender Extremities: no edema Current Medications Medications (Trade) Dose Ordered Sig/Edwige Route PRN Reason Start Time Stop Time Status Last Admin Dose Admin Acetaminophen (Tylenol) 650 mg Q4H PRN ORAL Mild Pain/Temp > 100.5 05/16/19 13:00 06/11/19 16:59 Acetaminophen/ Hydrocodone Bitart ([place] 10/325) 1 tab Q4H PRN ORAL For Pain 05/20/19 11:00 05/27/19 10:59 05/22/19 23:42 Acetaminophen/ Hydrocodone Bitart ([place] 5/325) 1 tab Q4H PRN ORAL Moderate Pain (Pain Scale 4-6) 05/20/19 11:00 05/27/19 10:59 05/23/19 09:32 Al Hydroxide/Mg Hydroxide (Mylanta) 30 ml Q4H PRN ORAL STOMACH UPSET 05/16/19 13:00 06/11/19 16:59 Albuterol Sulfate (Proventil MDI) 1 puff Q6H PRN INH Shortness of Breath 05/16/19 13:00 06/13/19 12:59 Aspirin (ASA) 81 mg DAILY ORAL 05/17/19 09:00 06/12/19 08:59 05/23/19 09:19 Clonidine HCl (Catapres Tab) 0.1 mg Q4H PRN ORAL SBP above 160 05/16/19 21:05 06/15/19 21:04 Heparin Sodium (Porcine) (Heparin 5000 units/ml) 5,000 units EVERY 12 HOURS SUBQ 05/16/19 21:00 06/14/19 08:59 05/23/19 09:22 Lisinopril (Prinivil) 20 mg DAILY ORAL 05/17/19 09:00 06/16/19 08:59 05/23/19 09:20 Metoprolol Tartrate (Lopressor) 50 mg Q12HR ORAL 05/16/19 21:05 06/15/19 21:04 05/23/19 09:19 Ondansetron HCl (Zofran) 4 mg Q6H PRN IVP Nausea & Vomiting 05/16/19 13:00 06/13/19 12:59 Pantoprazole (Protonix) 40 mg DAILY ORAL 05/17/19 09:00 06/12/19 08:59 05/23/19 09:19 Tamsulosin HCl (Flomax) 0.4 mg BEDTIME ORAL 05/16/19 21:00 06/14/19 20:59 05/22/19 21:14 Gonzalez Monson MD May 23, 2019 11:21
--- NOTE | 2019-05-23 11:25 | NUR ---
PT EVALUATION NOTE Patient seen for initial evaluation, see complete evaluation for details. Patient presents with generalized weakness, impaired balance and decreased safety awareness which affects patient's ability to perform mobility tasks safely. Patient requires SBA for bed mobility and transfers with four wheeled walker. Patient able to ambulate 40 ft with four wheeled walker and SBA, slow pace, slightly unsteady with c/o fatigue after ambulation. Patient will benefit from skilled inpatient PT intervention to address strength, balance and safety to improve level of functional mobility. Recommend discharge to SNF for further rehab to increase independence with mobility tasks. Addendum: 05/23/19 at 1235 by IMELDA ACOSTA PT Amended: Links added.
[2019-05-23 12:00] VITALS: BP 128/67
--- NOTE | 2019-05-23 12:59 | Cardiology Report ---
APPROVED REPORT EKG Measurement Heart [id number] Sinus tachycardia with premature atrial complexes with aberrant conduction Low voltage QRS Abnormal ECG
[2019-05-23 16:00] VITALS: BP 122/64
--- NOTE | 2019-05-23 19:25 | NUR ---
NURSE NOTES: Received report from ANGELO Suarez. Pt AAOX4, resting in bed, watching TV shows at this time. no c/o pain noted. updated pt's board. call light w/in reach.
--- NOTE | 2019-05-23 19:34 | NUR ---
HAND-OFF: Report given to ANGELO TATE.
[2019-05-23 20:00] VITALS: BP 123/60
--- NOTE | 2019-05-23 21:00 | NUR ---
NURSE NOTES: Pt resting in bed, given crackers as requested, no nausea noted. Pt c/o generalized pain, elevated bilat legs on pillow. Given scheduled QHS meds as well as [place], will monitor.
[2019-05-23] MEDS: Tamsulosin 0.4mg cap ORAL SCH (21:01)
--- NOTE | 2019-05-23 22:59 | General Progress Note ---
Assessment/Plan Assessment/Plan: Assessment - Hypokalemia and hypomagnesemia - corrected - Anemia - microcytosis and iron deficiency - OB (+) stools - gastritis, duodenitis, diverticulosis - COPD - BPD - pancreatic Cyst - HTN Recommendations - follow CBC and Fe as outpatient - transfuse PRN - push po Subjective Allergies: Uncoded Allergies: CONTRAST MEDIA (Adverse Reaction, Mild, Itching in the area of the neck, 01/20/18) Patient was given specifically Isovue contrast during CT of the abdomen, and when he came back. The patient was itchy and benadryl was given, no complaints of itchiness or adverse reactions so far. Subjective feels OK no abd complaints Tolerating PO Objective Last 24 Hour Vital Signs Date Time Temp Pulse Resp B/P (MAP) Pulse Ox O2 Delivery O2 Flow Rate FiO2 05/23/19 21:01 79 123/60 05/23/19 21:00 Room Air 05/23/19 20:11 79 18 94 Room Air 21 05/23/19 20:00 98.6 79 20 123/60 (81) 96 05/23/19 20:00 79 05/23/19 16:00 73 05/23/19 16:00 98.1 73 20 122/64 (83) 95 05/23/19 12:00 74 05/23/19 12:00 98.6 72 18 128/67 (87) 95 05/23/19 09:20 150/78 05/23/19 09:19 79 150/78 05/23/19 09:00 Room Air 05/23/19 08:00 77 05/23/19 08:00 97.8 79 18 150/78 (102) 96 05/23/19 04:00 98.5 74 20 131/78 (95) 93 05/23/19 03:26 73 05/23/19 00:00 98.1 76 19 133/72 (92) 93 05/22/19 23:36 82 Intake and Output 05/22/19 05/23/19 19:00 07:00 Intake Total 1305 ml Output Total 1200 ml 1500 ml Balance 105 ml -1500 ml Intake Oral 480 ml IV Total 825 ml Output Urine Total 1200 ml 1500 ml # Voids 2 # Bowel Movements 1 Height (Feet): 6 Height (Inches): 1.00 Weight (Pounds): 147 Objective Elderly man NCAT supple Chest: coarse ronchi RR abd soft ND NT no edema Cristi Flood MD May 23, 2019 22:59
--- NOTE | 2019-05-24 03:00 | Progress Note ---
DATE: 05/19/2019 CARDIOLOGY PROGRESS NOTE SUBJECTIVE: The patient without new distress. Endoscopy completed without complications. Findings include duodenitis and gastritis. Colonoscopy completed as well and findings included there is diverticulosis with no active bleeding. OBJECTIVE: VITAL SIGNS: Reviewed. LUNGS: With few rhonchi. CARDIAC: Regular. ABDOMEN: Soft, slightly distended. EXTREMITIES: There is no edema. IMPRESSION: 1. Status post endoscopy, hemodynamically stable. 2. Recovering acute pulmonary healthcare-acquired infection with underlying COPD. 3. No evidence of acute pulmonary embolic event. 4. Hypertension is controlled and there is no current signs of acute congestive heart failure. PLAN: 1. Maintenance hydration until diet resumed. 2. Antimicrobials. 3. Respiratory hygiene. 4. No change in cardiovascular regimen for now. 5. Continue iron replacement. Sanjeev Li M.D. DR: EMMANUEL JOB#: [id number] CC:
--- NOTE | 2019-05-24 03:00 | Progress Note ---
DATE: 05/20/2019 CARDIOLOGY PROGRESS NOTE SUBJECTIVE: Endoscopy and colonoscopy completed yesterday. Findings reviewed. The patient without new distress. Remains confused. PHYSICAL EXAMINATION: VITAL SIGNS: Blood pressure 165/94, pulse 81, respirations 24. LUNGS: With few rhonchi. No wheezing. CARDIAC: Regular rhythm and rate. Normal S1, S2 with a fourth heart sound. ABDOMEN: Soft. No tenderness. EXTREMITIES: No edema. IMPRESSION: 1. No signs of acute congestive heart failure. 2. COPD exacerbation, improved. 3. Lactic acidosis, resolved. 4. Healthcare-acquired pneumonia, on antimicrobials. 5. Metabolic encephalopathy. 6. Acute on chronic respiratory acidosis. 7. Hypertensive heart disease with rising blood pressure trend. PLAN: 1. Resume oral antihypertensives, respiratory hygiene, antimicrobials. 2. DVT prophylaxis. 3. Iron replacement. 4. Reassess need for additional antihypertensive therapy to follow. Sanjeev Li M.D. DR: EMMANUEL JOB#: [id number] CC:
--- NOTE | 2019-05-24 03:15 | Progress Note ---
DATE: 05/18/2019 CARDIOLOGY PROGRESS NOTE Late Entry SUBJECTIVE: The patient remains confused, in no respiratory distress. OBJECTIVE: VITAL SIGNS: Blood pressure 159/78, pulse 76, respirations 18, and afebrile. Oxygen saturation adequate on a Venturi mask. LUNGS: Bilateral breath sounds and rhonchi. HEART: Regular rhythm and rate. Normal S1 and S2. ABDOMEN: Soft. EXTREMITIES: No edema. LABORATORY DATA: White count 7.5 and hemoglobin 9.3. Sodium 143, potassium 3.4, bicarb 24, BUN 5, creatinine 0.7, and magnesium 1.3. IMPRESSION: 1. Respiratory insufficiency. 2. Acute on chronic respiratory acidosis. 3. Chronic diastolic congestive heart failure. 4. Healthcare-acquired pneumonia, recovered. 5. Myocardial ischemia. 6. Resolved lactic acidosis. 7. Anemia requiring transfusions. 8. Hypomagnesemia. PLAN: 1. Replace magnesium intravenously. 2. Antimicrobials. 3. Respiratory hygiene. 4. Monitor clinical parameters and acid base status. 5. Stool occult blood testing. Consideration for further Gastroenterology intervention if active bleeding suspected. Sanjeev Li M.D. DR: BETHANY JOB#: [id number] CC: NATANAEL
--- NOTE | 2019-05-24 07:15 | Progress Note ---
DATE: 05/21/2019 CARDIOLOGY PROGRESS NOTE Late Entry SUBJECTIVE: The patient remains confused, in no respiratory distress; occasionally refusing therapy. OBJECTIVE: VITAL SIGNS: Blood pressure 159/92, pulse 83, respirations 20, and afebrile. Oxygen saturation adequate on a Venturi mask. LUNGS: Bilateral breath sounds and rhonchi. HEART: Regular rhythm and rate. Normal S1 and S2. ABDOMEN: Soft. EXTREMITIES: No edema. LABORATORY DATA: no new data IMPRESSION: 1. Respiratory insufficiency. 2. Acute on chronic respiratory acidosis. 3. Chronic diastolic congestive heart failure. 4. Healthcare-acquired pneumonia, recovered. 5. Myocardial ischemia resolved. 6. Resolved lactic acidosis. 7. Anemia requiring transfusions. 8. Hypomagnesemia. 9. Hypertensive heart disease with labile BP. PLAN: 1. Replace magnesium and lytes as needed. 2. Antimicrobials. 3. Respiratory hygiene. 4. Monitor clinical parameters and acid base status. 5. Continue titration of cardiovascular meds to achieve negative fluid balance and optimal BP parameters; trend pBNP. Sanjeev Li M.D. DR: BETHANY JOB#: [id number] CC: NATANAEL
--- NOTE | 2019-05-24 07:16 | NUR ---
HAND-OFF: Report given to ANGELO Trujillo.
[2019-05-24 08:00] VITALS: BP 127/63
[2019-05-24 08:14] LABS: BASOPHILS % (AUTO) 0.6 % (0.0-2.0); EOSINOPHILS % (AUTO) 1.6 % (0.0-3.0); HEMATOCRIT 31.3 % (42.0-52.0); HEMOGLOBIN 9.7 G/DL (14.2-18.0); LYMPHOCYTES % (AUTO) 22.3 % (20.0-45.0); MEAN CORPUSCULAR VOLUME 80 FL (80-99); MONOCYTES % (AUTO) 9.1 % (1.0-10.0); NEUTROPHILS % (AUTO) 66.4 % (45.0-75.0); PLATELET COUNT 239 K/UL (150-450); RED BLOOD COUNT 3.94 M/UL (4.70-6.10); RED CELL DISTRIBUTION WIDTH 17.7 % (11.6-14.8); WHITE BLOOD COUNT 13.3 K/UL (4.8-10.8)
--- NOTE | 2019-05-24 08:16 | NUR ---
NURSE NOTES: Received patient from Jaswinder Gomez. patient is awake, lying comfortably in bed. no complain of pain or discomfort at this time. fall precautions in place. will follow.
[2019-05-24 09:29] LABS: ALANINE AMINOTRANSFERASE 37 U/L (12-78); ALBUMIN 2.5 G/DL (3.4-5.0); ALBUMIN/GLOBULIN RATIO 0.5 (1.0-2.7); ALKALINE PHOSPHATASE 88 U/L (46-116); ANION GAP 4 mmol/L (5-15); ASPARTATE AMINO TRANSFERASE 35 U/L (15-37); BILIRUBIN,TOTAL 0.3 MG/DL (0.2-1.0); BLOOD UREA NITROGEN 26 mg/dL (7-18); CALCIUM 8.7 MG/DL (8.5-10.1); CARBON DIOXIDE 34 MMOL/L (21-32); CHLORIDE 102 MMOL/L (98-107); CREATININE 0.8 MG/DL (0.55-1.30); POTASSIUM 4.2 MMOL/L (3.5-5.1); SODIUM 140 MMOL/L (136-145)
[2019-05-24] MEDS: Aspirin Baby 81mg ORAL SCH (09:36)
[2019-05-24] MEDS: Metoprolol Tartrate 50mg tab ORAL SCH ×2 (09:37→21:42)
[2019-05-24] MEDS: Lisinopril 20mg tab ORAL SCH (09:37)
[2019-05-24] MEDS: Heparin 5000 units/ml inj SUBQ SCH ×2 (09:38→21:00)
[2019-05-24] MEDS: HYDROcodone/Acetamin 10/325 tab ORAL PRN (09:48)
--- NOTE | 2019-05-24 10:36 | Infectious Diseases Prog Note ---
Assessment/Plan Assessment/Plan antibiotics : none A 1. e.coli UTI s/p rx 2. + blood culture with coag neg staph likely contaminated 3. COPD 4. BPH 5. hypertension 6. leucocytosis P 1. UA and urine culture 2. cxr 3. observe off antibiotics Subjective ROS Limited/Unobtainable: Yes Allergies: Uncoded Allergies: CONTRAST MEDIA (Adverse Reaction, Mild, Itching in the area of the neck, 01/20/18) Patient was given specifically Isovue contrast during CT of the abdomen, and when he came back. The patient was itchy and benadryl was given, no complaints of itchiness or adverse reactions so far. Objective Vital Signs Last 24 Hour Vital Signs Date Time Temp Pulse Resp B/P (MAP) Pulse Ox O2 Delivery O2 Flow Rate FiO2 05/24/19 09:37 79 127/63 05/24/19 09:37 127/63 05/24/19 08:00 96.5 79 18 127/63 (84) 98 05/24/19 04:00 70 05/24/19 00:00 75 05/24/19 00:00 75 05/23/19 21:01 79 123/60 05/23/19 21:00 Room Air 05/23/19 20:11 79 18 94 Room Air 21 05/23/19 20:00 98.6 79 20 123/60 (81) 96 05/23/19 20:00 79 05/23/19 16:00 73 05/23/19 16:00 98.1 73 20 122/64 (83) 95 05/23/19 12:00 74 05/23/19 12:00 98.6 72 18 128/67 (87) 95 Height (Feet): 6 Height (Inches): 1.00 Weight (Pounds): 161 Respiratory/Chest: lungs clear Cardiovascular: normal rate, regular rhythm, no gallop/murmur Abdomen: soft, non tender Extremities: no edema Laboratory Tests Test 05/24/19 07:10 White Blood Count 13.3 K/UL (4.8-10.8) H Red Blood Count 3.94 M/UL (4.70-6.10) L Hemoglobin 9.7 G/DL (14.2-18.0) L Hematocrit 31.3 % (42.0-52.0) L Mean Corpuscular Volume 80 FL (80-99) Mean Corpuscular Hemoglobin 24.8 PG (27.0-31.0) L Mean Corpuscular Hemoglobin Concent 31.1 G/DL (32.0-36.0) L Red Cell Distribution Width 17.7 % (11.6-14.8) H Platelet Count 239 K/UL (150-450) Mean Platelet Volume 7.0 FL (6.5-10.1) Neutrophils (%) (Auto) 66.4 % (45.0-75.0) Lymphocytes (%) (Auto) 22.3 % (20.0-45.0) Monocytes (%) (Auto) 9.1 % (1.0-10.0) Eosinophils (%) (Auto) 1.6 % (0.0-3.0) Basophils (%) (Auto) 0.6 % (0.0-2.0) Sodium Level 140 MMOL/L (136-145) Potassium Level 4.2 MMOL/L (3.5-5.1) Chloride Level 102 MMOL/L (98-107) Carbon Dioxide Level 34 MMOL/L (21-32) H Anion Gap 4 mmol/L (5-15) L Blood Urea Nitrogen 26 mg/dL (7-18) H Creatinine 0.8 MG/DL (0.55-1.30) Estimat Glomerular Filtration Rate mL/min (>60) Glucose Level 91 MG/DL (74-106) Calcium Level 8.7 MG/DL (8.5-10.1) Magnesium Level 1.5 MG/DL (1.8-2.4) L Total Bilirubin 0.3 MG/DL (0.2-1.0) Aspartate Amino Transf (AST/SGOT) 35 U/L (15-37) Alanine Aminotransferase (ALT/SGPT) 37 U/L (12-78) Alkaline Phosphatase 88 U/L (46-116) Pro-B-Type Natriuretic Peptide 3095 pg/mL (0-125) H Total Protein 7.3 G/DL (6.4-8.2) Albumin 2.5 G/DL (3.4-5.0) L Globulin 4.8 g/dL Albumin/Globulin Ratio 0.5 (1.0-2.7) L Current Medications Medications (Trade) Dose Ordered Sig/Edwige Route PRN Reason Start Time Stop Time Status Last Admin Dose Admin Acetaminophen (Tylenol) 650 mg Q4H PRN ORAL Mild Pain/Temp > 100.5 05/16/19 13:00 06/11/19 16:59 Acetaminophen/ Hydrocodone Bitart ([place] 10/325) 1 tab Q4H PRN ORAL For Pain 05/20/19 11:00 05/27/19 10:59 05/24/19 09:48 Acetaminophen/ Hydrocodone Bitart ([place] 5/325) 1 tab Q4H PRN ORAL Moderate Pain (Pain Scale 4-6) 05/20/19 11:00 05/27/19 10:59 05/23/19 21:06 Al Hydroxide/Mg Hydroxide (Mylanta) 30 ml Q4H PRN ORAL STOMACH UPSET 05/16/19 13:00 06/11/19 16:59 Albuterol Sulfate (Proventil MDI) 1 puff Q6H PRN INH Shortness of Breath 05/16/19 13:00 06/13/19 12:59 Aspirin (ASA) 81 mg DAILY ORAL 05/17/19 09:00 06/12/19 08:59 05/24/19 09:36 Clonidine HCl (Catapres Tab) 0.1 mg Q4H PRN ORAL SBP above 160 05/16/19 21:05 06/15/19 21:04 Heparin Sodium (Porcine) (Heparin 5000 units/ml) 5,000 units EVERY 12 HOURS SUBQ 05/16/19 21:00 06/14/19 08:59 05/24/19 09:38 Lisinopril (Prinivil) 20 mg DAILY ORAL 05/17/19 09:00 06/16/19 08:59 05/24/19 09:37 Metoprolol Tartrate (Lopressor) 50 mg Q12HR ORAL 05/16/19 21:05 06/15/19 21:04 05/24/19 09:37 Ondansetron HCl (Zofran) 4 mg Q6H PRN IVP Nausea & Vomiting 05/16/19 13:00 06/13/19 12:59 Pantoprazole (Protonix) 40 mg DAILY ORAL 05/17/19 09:00 06/12/19 08:59 05/24/19 09:37 Tamsulosin HCl (Flomax) 0.4 mg BEDTIME ORAL 05/16/19 21:00 06/14/19 20:59 05/23/19 21:01 Gonzalez Monson MD May 24, 2019 10:36
--- NOTE | 2019-05-24 11:01 | NUR ---
RAD. DEPT. CXR DONE @ 6397. -Joanne HAMMER
[2019-05-24 12:00] VITALS: BP 123/60
--- NOTE | 2019-05-24 12:07 | Diagnostic Imaging Report ---
Indication: Dyspnea Comparison: 05/14/2019 A single view chest radiograph was obtained. Findings: Mild pulmonary vascular congestion appears slightly improved since the last exam. Heart size is relatively normal. There is probable mild atelectasis at the right lung base again noted. IMPRESSION: Improved pulmonary vascular congestion
--- NOTE | 2019-05-24 14:09 | NUR ---
DISCHARGE PLANNING UPDATE [place].......DECLINED PATIENT [facility].......DECLINED PATIENT [facility]........DECLINED PATIENT [facility]ERIAL [facility]......DECLINED LORENZO HESTER.........DECLINED [facility]..............DECLINED [place]...............DECLINED CV [facility].................DECLINED REFERRED PATIENT TO [facility] LEFT MESSAGE FOR CHARLEE REGARDING B&C PLACEMENT
[2019-05-24 14:55] LABS: APPEARANCE,URINE SLIGHTLY CLOUDY; BILIRUBIN, URINE NEGATIVE (NEGATIVE); COLOR,URINE YELLOW; GLUCOSE, URINE (UA) NEGATIVE (NEGATIVE); KETONES,URINE NEGATIVE (NEGATIVE); LEUKOCYTE ESTERASE ,URINE 3+ (NEGATIVE); NITRITE,URINE POSITIVE (NEGATIVE); PH,URINE 7 (4.5-8.0); PROTEIN,URINE 2+ (NEGATIVE); UROBILINOGEN,URINE NORMAL MG/DL (0.0-1.0)
--- NOTE | 2019-05-24 15:35 | Pulmonology Progress Note ---
Assessment/Plan Assessment/Plan Pulmonary Progress Note Assessment/Plan: IMPRESSION abdominal pain improving sp colonoscopy possible sepsis PCM COPD toxic metabolic encephalopathy leukocytosis possible sepsis anemia hypertension sinus tachycardia UTI PLAN antibiotics VQ scan noted IV hydration DVT prophylaxis monitor change as is monitor labs for change respiratory care as needed oxygen therapy GI evaluation noted impression, plan, and exam edited and reviewed in detail care discussed with RN Subjective Stable ON Allergies: Uncoded Allergies: CONTRAST MEDIA (Adverse Reaction, Mild, Itching in the area of the neck, 01/20/18) Patient was given specifically Isovue contrast during CT of the abdomen, and when he came back. The patient was itchy and benadryl was given, no complaints of itchiness or adverse reactions so far. Subjective no new complaints care noted on antibiotics VQ scan noted Objective Vital Signs Noted Height (Feet): 6 Height (Inches): 1.00 Weight (Pounds): 175 Objective WDWN NAD clear breath sounds bilaterally without rhonchi or wheeze S1S2RR without MRG NABS nontender no HSM no CCE nonfocal no distress less confused Subjective ROS Limited/Unobtainable: No Allergies: Uncoded Allergies: CONTRAST MEDIA (Adverse Reaction, Mild, Itching in the area of the neck, 01/20/18) Patient was given specifically Isovue contrast during CT of the abdomen, and when he came back. The patient was itchy and benadryl was given, no complaints of itchiness or adverse reactions so far. Objective Last 24 Hour Vital Signs Date Time Temp Pulse Resp B/P (MAP) Pulse Ox O2 Delivery O2 Flow Rate FiO2 05/24/19 12:00 98.3 79 20 123/60 (81) 96 05/24/19 12:00 66 05/24/19 11:33 68 20 97 Room Air 21 05/24/19 10:18 96.5 05/24/19 09:37 79 127/63 05/24/19 09:37 127/63 05/24/19 09:00 Room Air 05/24/19 08:00 96.5 79 18 127/63 (84) 98 05/24/19 08:00 76 05/24/19 04:00 70 05/24/19 00:00 75 05/24/19 00:00 75 05/23/19 21:01 79 123/60 05/23/19 21:00 Room Air 05/23/19 20:11 79 18 94 Room Air 21 05/23/19 20:00 98.6 79 20 123/60 (81) 96 05/23/19 20:00 79 05/23/19 16:00 73 05/23/19 16:00 98.1 73 20 122/64 (83) 95 Intake and Output 05/23/19 05/24/19 18:59 06:59 Intake Total 1300 ml Output Total 1400 ml Balance -100 ml Intake Oral 1300 ml Output Urine Total 1400 ml # Voids 2 # Bowel Movements 2 1 Laboratory Tests 05/24/19 07:10: White Blood Count 13.3H, Red Blood Count 3.94L, Hemoglobin 9.7L, Hematocrit 31.3L, Mean Corpuscular Volume 80, Mean Corpuscular Hemoglobin 24.8L, Mean Corpuscular Hemoglobin Concent 31.1L, Red Cell Distribution Width 17.7H, Platelet Count 239, Mean Platelet Volume 7.0, Neutrophils (%) (Auto) 66.4, Lymphocytes (%) (Auto) 22.3, Monocytes (%) (Auto) 9.1, Eosinophils (%) (Auto) 1.6, Basophils (%) (Auto) 0.6, Sodium Level 140, Potassium Level 4.2, Chloride Level 102, Carbon Dioxide Level 34H, Anion Gap 4L, Blood Urea Nitrogen 26H, Creatinine 0.8, Estimat Glomerular Filtration Rate , Glucose Level 91, Calcium Level 8.7, Magnesium Level 1.5L, Total Bilirubin 0.3, Aspartate Amino Transf ( AST/SGOT) 35, Alanine Aminotransferase (ALT/SGPT) 37, Alkaline Phosphatase 88, Pro-B-Type Natriuretic Peptide 3095H, Total Protein 7.3, Albumin 2.5L, Globulin 4.8, Albumin/Globulin Ratio 0.5L 05/24/19 14:30: Urine Color Yellow, Urine Appearance Slightly cloudy, Urine pH 7, Urine Specific [place] 1.005, Urine Protein 2+H, Urine Glucose (UA) Negative, Urine Ketones Negative, Urine Blood 1+H, Urine Nitrite PositiveH, Urine Bilirubin Negative, Urine Urobilinogen Normal, Urine Leukocyte Esterase 3+H, Urine RBC 2- 4H, Urine WBC 20-30H, Urine Squamous Epithelial Cells Few, Urine Bacteria Few Current Medications Medications (Trade) Dose Ordered Sig/Edwige Route PRN Reason Start Time Stop Time Status Last Admin Dose Admin Acetaminophen (Tylenol) 650 mg Q4H PRN ORAL Mild Pain/Temp > 100.5 05/16/19 13:00 06/11/19 16:59 Acetaminophen/ Hydrocodone Bitart ([place] 10/325) 1 tab Q4H PRN ORAL For Pain 05/20/19 11:00 05/27/19 10:59 05/24/19 09:48 Acetaminophen/ Hydrocodone Bitart ([place] 5/325) 1 tab Q4H PRN ORAL Moderate Pain (Pain Scale 4-6) 05/20/19 11:00 05/27/19 10:59 05/23/19 21:06 Al Hydroxide/Mg Hydroxide (Mylanta) 30 ml Q4H PRN ORAL STOMACH UPSET 05/16/19 13:00 06/11/19 16:59 Albuterol Sulfate (Proventil MDI) 1 puff Q6H PRN INH Shortness of Breath 05/16/19 13:00 06/13/19 12:59 Aspirin (ASA) 81 mg DAILY ORAL 05/17/19 09:00 06/12/19 08:59 05/24/19 09:36 Clonidine HCl (Catapres Tab) 0.1 mg Q4H PRN ORAL SBP above 160 05/16/19 21:05 06/15/19 21:04 Heparin Sodium (Porcine) (Heparin 5000 units/ml) 5,000 units EVERY 12 HOURS SUBQ 05/16/19 21:00 06/14/19 08:59 05/24/19 09:38 Lisinopril (Prinivil) 20 mg DAILY ORAL 05/17/19 09:00 06/16/19 08:59 05/24/19 09:37 Metoprolol Tartrate (Lopressor) 50 mg Q12HR ORAL 05/16/19 21:05 06/15/19 21:04 05/24/19 09:37 Ondansetron HCl (Zofran) 4 mg Q6H PRN IVP Nausea & Vomiting 05/16/19 13:00 06/13/19 12:59 Pantoprazole (Protonix) 40 mg DAILY ORAL 05/17/19 09:00 06/12/19 08:59 05/24/19 09:37 Tamsulosin HCl (Flomax) 0.4 mg BEDTIME ORAL 05/16/19 21:00 06/14/19 20:59 05/23/19 21:01 Sanjeev Ramon MD May 24, 2019 15:35
[2019-05-24 16:00] VITALS: BP 113/69
--- NOTE | 2019-05-24 16:19 | Cardiology Report ---
APPROVED REPORT EKG Measurement Heart [id number] CT 164P44 [id number] Normal sinus rhythm Indeterminate axis T wave abnormality, consider anterolateral ischemia Prolonged QT Abnormal ECG
--- NOTE | 2019-05-24 18:36 | NUR ---
NURSE NOTES: Received patient from tele. Patient is awake, alert and orientedx4. Denies any pain or discomfort @ this time. Belongings were checked by two RN's. Re-orientation given about the unit. davis is intact draining yellowish urine. Bed is in lowest position and locked. Bed alarm is on. will continue plan of care.
--- NOTE | 2019-05-24 18:40 | NUR ---
TRANSFER TO FLOOR: Patient transferred to [facility], per Dr. Carey's order. Report given to Purnima Amezcua Rn. Belongings transfrred with patient. Plan of care endorsed.
[2019-05-24] MEDS ORDERED: Albuterol 90mcg Inhaler 8gm INH PRN (19:00)
[2019-05-24] MEDS ORDERED: HYDROcodone/Acetamin 10/325 tab ORAL PRN (19:00)
--- NOTE | 2019-05-24 19:24 | NUR ---
HAND-OFF: Report given to Minsu.
--- NOTE | 2019-05-24 19:35 | NUR ---
NURSE NOTES: Received report from ANGELO Santacruz. Patient asleep. Breathing unlabored on room air without distress. No s/s of discomfort or pain noted at this time. Ehlm intact draining urine. Bed placed at the lowest with alarm, brake, and siderails up for safety. Call light placed within reach. will continue to monitor and provide care as ordered.
[2019-05-24 20:00] VITALS: BP 134/73
[2019-05-24] MEDS: Tamsulosin 0.4mg cap ORAL SCH (21:42)
--- NOTE | 2019-05-24 21:42 | NUR ---
NURSE NOTES: Patient refused heparin. Purpose of the medication, action of the medication, and side effect explained. Patient continued to refused heparin. Will continue to monitor.
--- NOTE | 2019-05-24 23:25 | General Progress Note ---
Assessment/Plan Assessment/Plan: Assessment - Hypokalemia and hypomagnesemia - corrected - Anemia - microcytosis and iron deficiency - OB (+) stools - gastritis, duodenitis, diverticulosis - COPD - BPD - pancreatic Cyst - HTN Recommendations - follow CBC and Fe as outpatient - transfuse PRN - push po Subjective Allergies: Uncoded Allergies: CONTRAST MEDIA (Adverse Reaction, Mild, Itching in the area of the neck, 01/20/18) Patient was given specifically Isovue contrast during CT of the abdomen, and when he came back. The patient was itchy and benadryl was given, no complaints of itchiness or adverse reactions so far. Subjective feels OK no abd complaints Tolerating PO Objective Last 24 Hour Vital Signs Date Time Temp Pulse Resp B/P (MAP) Pulse Ox O2 Delivery O2 Flow Rate FiO2 05/24/19 21:42 79 132/81 05/24/19 21:00 Room Air 05/24/19 20:00 98.8 79 18 134/73 (93) 96 05/24/19 16:00 77 05/24/19 16:00 98.5 75 19 113/69 (84) 94 05/24/19 12:00 98.3 79 20 123/60 (81) 96 05/24/19 12:00 66 05/24/19 11:33 68 20 97 Room Air 21 05/24/19 10:18 96.5 05/24/19 09:37 79 127/63 05/24/19 09:37 127/63 05/24/19 09:00 Room Air 05/24/19 08:00 96.5 79 18 127/63 (84) 98 05/24/19 08:00 76 05/24/19 04:00 70 05/24/19 00:00 75 05/24/19 00:00 75 Intake and Output 05/23/19 05/24/19 19:00 07:00 Intake Total 1300 ml 120 ml Output Total 1400 ml Balance -100 ml 120 ml Intake Oral 1300 ml 120 ml Output Urine Total 1400 ml # Voids 2 # Bowel Movements 2 1 Laboratory Tests 05/24/19 07:10: White Blood Count 13.3H, Red Blood Count 3.94L, Hemoglobin 9.7L, Hematocrit 31.3L, Mean Corpuscular Volume 80, Mean Corpuscular Hemoglobin 24.8L, Mean Corpuscular Hemoglobin Concent 31.1L, Red Cell Distribution Width 17.7H, Platelet Count 239, Mean Platelet Volume 7.0, Neutrophils (%) (Auto) 66.4, Lymphocytes (%) (Auto) 22.3, Monocytes (%) (Auto) 9.1, Eosinophils (%) (Auto) 1.6, Basophils (%) (Auto) 0.6, Sodium Level 140, Potassium Level 4.2, Chloride Level 102, Carbon Dioxide Level 34H, Anion Gap 4L, Blood Urea Nitrogen 26H, Creatinine 0.8, Estimat Glomerular Filtration Rate , Glucose Level 91, Calcium Level 8.7, Magnesium Level 1.5L, Total Bilirubin 0.3, Aspartate Amino Transf ( AST/SGOT) 35, Alanine Aminotransferase (ALT/SGPT) 37, Alkaline Phosphatase 88, Pro-B-Type Natriuretic Peptide 3095H, Total Protein 7.3, Albumin 2.5L, Globulin 4.8, Albumin/Globulin Ratio 0.5L 05/24/19 14:30: Urine Color Yellow, Urine Appearance Slightly cloudy, Urine pH 7, Urine Specific [place] 1.005, Urine Protein 2+H, Urine Glucose (UA) Negative, Urine Ketones Negative, Urine Blood 1+H, Urine Nitrite PositiveH, Urine Bilirubin Negative, Urine Urobilinogen Normal, Urine Leukocyte Esterase 3+H, Urine RBC 2- 4H, Urine WBC 20-30H, Urine Squamous Epithelial Cells Few, Urine Bacteria Few Height (Feet): 6 Height (Inches): 1.00 Weight (Pounds): 161 Objective Elderly man NCAT supple Chest: coarse ronchi RR abd soft ND NT no edema Cristi Flood MD May 24, 2019 23:25
--- NOTE | 2019-05-24 23:59 | NUR ---
NURSE NOTES: Patient had two IV site on the left forearm. Upper IV site removed due to resistance when flushing, pain, and request per patient. Lower IV site intact, dry, clean, and patent. Flushed and kept saline locked.
[2019-05-25] VITALS: BP 134/66
--- NOTE | 2019-05-25 02:46 | Progress Note ---
DATE: 05/24/2019 CARDIOLOGY PROGRESS NOTE SUBJECTIVE: No new complaints. Placement remains an issue. Abdominal pain has decreased. OBJECTIVE: VITAL SIGNS: Blood pressure 132/81, pulse 79, and respirations 18. LUNGS: Diminished breath sounds. HEART: Regular rhythm and rate. Normal S1, S2. ABDOMEN: Soft. EXTREMITIES: No edema. LABORATORY DATA: White count 13.3 and hemoglobin 9.7. Urinalysis with 20 to 30 white cells. BUN 26 and creatinine 0.8 and pro-natriuretic peptide has decreased from 24,000 to 3,000. Magnesium is 1.5. IMPRESSION: Overall improved with regard to cardiovascular parameters. Still with hypomagnesemia. PLAN: 1. Intravenous magnesium. 2. Respiratory hygiene. 3. Maintain current cardiovascular regimen. 4. Monitor volume status. 5. DVT prophylaxis if the patient agreeable. Sanjeev Li M.D. DR: KERRIE JOB#: [id number] CC:
--- NOTE | 2019-05-25 03:02 | Progress Note ---
DATE: 05/22/2019 CARDIOLOGY PROGRESS NOTE Late entry. SUBJECTIVE: Blood pressure parameters have improved. The patient continues to have negative fluid balance based on nursing data. He denies shortness of breath. He is lying flat. OBJECTIVE: VITAL SIGNS: Blood pressure 139/80, pulse 88, and respirations 20. LUNGS: Slightly elevated jugular venous pressure. LUNGS: Diminished breath sounds. HEART: Regular rhythm and rate. Normal S1, S2 with a fourth heart sound. ABDOMEN: Soft. No focal tenderness. EXTREMITIES: Without edema. LABORATORY DATA: No new laboratory studies. IMPRESSION: 1. Acute on chronic diastolic congestive heart failure. 2. Chronic obstructive pulmonary disease, resolving. 3. Metabolic and toxic encephalopathies. 4. Hypertensive heart disease with improving blood pressure parameters. 5. Secondary sinus tachycardia, resolved. PLAN: 1. Continue titration of cardiovascular regimen. 2. Cautious use of beta-melchor with underlying lung disease. 3. Maintain negative fluid balance. 4. Recheck radiograph and laboratory studies including natriuretic peptide assay. 5. We will adjust final regimen in anticipation of discharge to snf facility. Sanjeev Li M.D. DR: KERRIE JOB#: [id number] CC:
--- NOTE | 2019-05-25 07:48 | NUR ---
HAND-OFF: Report given to ANGELO Whyte. Patient asleep, breathing unlabored on room air without distress.
--- NOTE | 2019-05-25 07:50 | NUR ---
NURSE NOTES: Received report from Minsestefany, RN. Pt is alert and awake, on RA, no apparent distress noted. Helm is in place and draining urine by gravity, IV site is intact. Dressing on heel intact. Bed locked in lowest position, side rails up, call light within reach. Will continue to monitor.
--- NOTE | 2019-05-25 08:28 | General Progress Note ---
Assessment/Plan Assessment/Plan: IMPRESSION abdominal pain resolved sepsis PCM COPD toxic metabolic encephalopathy leukocytosis, resolved anemia hypertension sinus tachycardia UTI PLAN IV antibiotics off DVT prophylaxis monitor change as is monitor labs for change respiratory care as needed dc planning per CM impression, plan, and exam edited and reviewed in detail care discussed with RN Subjective Allergies: Uncoded Allergies: CONTRAST MEDIA (Adverse Reaction, Mild, Itching in the area of the neck, 01/20/18) Patient was given specifically Isovue contrast during CT of the abdomen, and when he came back. The patient was itchy and benadryl was given, no complaints of itchiness or adverse reactions so far. Subjective difficulty with placement no change overall remains weak Objective Last 24 Hour Vital Signs Date Time Temp Pulse Resp B/P (MAP) Pulse Ox O2 Delivery O2 Flow Rate FiO2 05/25/19 00:49 94 05/25/19 00:25 70 18 95 Room Air 21 05/25/19 00:00 98.2 72 20 134/66 (88) 05/24/19 21:42 79 132/81 05/24/19 21:00 Room Air 05/24/19 20:00 98.8 79 18 134/73 (93) 96 05/24/19 16:00 77 05/24/19 16:00 98.5 75 19 113/69 (84) 94 05/24/19 12:00 98.3 79 20 123/60 (81) 96 05/24/19 12:00 66 05/24/19 11:33 68 20 97 Room Air 21 05/24/19 10:18 96.5 05/24/19 09:37 79 127/63 05/24/19 09:37 127/63 05/24/19 09:00 Room Air Intake and Output 05/24/19 05/25/19 19:00 07:00 Intake Total 320 ml 560 ml Output Total 2400 ml 1200 ml Balance -2080 ml -640 ml Intake Oral 320 ml 360 ml IV Total 200 ml Output Urine Total 2400 ml 1200 ml Laboratory Tests 05/24/19 14:30: Urine Color Yellow, Urine Appearance Slightly cloudy, Urine pH 7, Urine Specific [place] 1.005, Urine Protein 2+H, Urine Glucose (UA) Negative, Urine Ketones Negative, Urine Blood 1+H, Urine Nitrite PositiveH, Urine Bilirubin Negative, Urine Urobilinogen Normal, Urine Leukocyte Esterase 3+H, Urine RBC 2- 4H, Urine WBC 20-30H, Urine Squamous Epithelial Cells Few, Urine Bacteria Few Height (Feet): 6 Height (Inches): 1.00 Weight (Pounds): 161 Objective WDWN NAD clear breath sounds bilaterally without rhonchi or wheeze S1S2RR tachy without MRG NABS nontender no HSM no CCE nonfocal no distress confused Yogesh Carey MD May 25, 2019 08:28
[2019-05-25] MEDS: Metoprolol Tartrate 50mg tab ORAL SCH ×2 (09:00→21:58)
[2019-05-25] MEDS: Lisinopril 20mg tab ORAL SCH (09:00)
[2019-05-25] MEDS: Heparin 5000 units/ml inj SUBQ SCH ×2 (09:00→22:01)
[2019-05-25] MEDS: Aspirin Baby 81mg ORAL SCH (09:00)
--- NOTE | 2019-05-25 09:30 | NUR ---
NURSE NOTES: Pt refused V/S and all AM meds. RN discussed purpose, action, and side effects of medications. Pt still refused. Will continue to monitor.
--- NOTE | 2019-05-25 10:20 | NUR ---
CASE MANAGEMENT:REVIEW 05/24/19 SI: PNA. COPD. AMI. BACTEREMIA 96.5 79 18 127/63 98% ON RA WBC=13.3 H/H-9.7/31.3 IS: ASA PO QD PROTONIX PO QD LISINOPRIL PO QD LOPRESSOR PO Q12 : TELEMETRY STATUS DCP: HOMELESS PLAN: DOWN GRADE TO MED/SURG 05/25/19 SI: PNA. COPD. AMI. BACTEREMIA 98.2 72 20 134/66 95% ON RA IS: ASA PO QD PROTONIX PO QD LISINOPRIL PO QD LOPRESSOR PO Q12 : MED/SURG STATUS DCP: HOMELESS PLAN: PATIENT HAS BEEN REFERRED TO MULTIPLE SNF'S AND NONE WILL ACCEPT D/T HIS DRINKING HABITS PATIENT IS REFUSING TO LIVE WITH HIS SISTER IN [place] AND IS REQUESTING O BE PLACED IN A BOARD AND CARE
--- NOTE | 2019-05-25 10:25 | NUR ---
DISCHARGE PLAN PATIENT REQUESTED TO BE PLACED IN A BOARD AND CARE HE WILL DISCHARGE TO [facility] BOARD AND CARE [facility] [place] [address] COMPRESSOR STATION OPERATOR: CHARLEE Avila; [phone] PATIENT NEEDS TO BE SENT BY AMBULANCE DANIELS NEEDS TO BE DC'D...AND VERIFY HE'S CONTINENT PRESCRIPTIONS NEED TO BE OBTAINED/CALLED IN
--- NOTE | 2019-05-25 10:50 | NUR ---
PT NOTE Attempted to see patient for PT treatment. Patient declining to participate with PT, irritable. Deidra Mills RN notified, will re-attempt later as schedule permits.
--- NOTE | 2019-05-25 11:30 | NUR ---
RD ASSESSMENT & RECOMMENDATIONS SEE CARE ACTIVITY FOR COMPLETE ASSESSMENT DAILY ESTIMATED NEEDS: Needs based on Underweight 68kg 30-35 kcals/kg 9114-8096 total kcals 1-1.5 g protein/kg 68-102 g total protein 25-30 mL/kg 7821-3736 total fluid mLs NUTRITION DIAGNOSIS: * Increased kcal/prot intake needs R/T underweight status as evidenced by pt w/ mild-moderate generalized wasting w/ BMI of 18.1. * Decreased sodium intake needs R/T cardiac dx as evidenced by CHF dx w/ elev BNP (36283-> 3095), HTN, pt on hypotensive meds, h/o CVA. CURRENT DIET: REGULAR DIET PO DIET RECOMMENDATIONS: LOW NA/ texture as tolerated (pt is edentulous) + Ensure Enlive TID w/ meal ADDITIONAL RECOMMENDATIONS: 1) Obtain a standing weight as able or re-calibrate bedscale wt 2) Ensure Enlive TID w/ meals 3) Snacks BID in b/w meals 4) MVI x 1 as supplement 5) Monitor tolerance to texture w/ edentulous status 6) Monitor lytes, replete as needed- Mg 1.5
--- NOTE | 2019-05-25 12:00 | NUR ---
NURSE NOTES: Nanette davis per Dr. Carey's order.
--- NOTE | 2019-05-25 15:05 | Infectious Diseases Prog Note ---
Assessment/Plan Assessment/Plan A: 1. UTI 2. Positive blood culture with Staph Hominis, contamination 3. COPD. 4. Hypertension. 5. BPH. 6. Anemia. 7. Cocaine abuse. 8. Pneumonia 9. Duodenitis & gastritis 10 Diverticulosis RECOMMENDATION: start on Meropenem Subjective ROS Limited/Unobtainable: Yes Constitutional: Reports: fever Respiratory: Reports: no symptoms Gastrointestinal/Abdominal: Reports: no symptoms Genitourinary: Reports: other - suprapubic pain Musculoskeletal: Reports: pain Allergies: Uncoded Allergies: CONTRAST MEDIA (Adverse Reaction, Mild, Itching in the area of the neck, 01/20/18) Patient was given specifically Isovue contrast during CT of the abdomen, and when he came back. The patient was itchy and benadryl was given, no complaints of itchiness or adverse reactions so far. Objective Vital Signs Last 24 Hour Vital Signs Date Time Temp Pulse Resp B/P (MAP) Pulse Ox O2 Delivery O2 Flow Rate FiO2 05/25/19 12:00 Room Air 05/25/19 09:00 Room Air 05/25/19 08:00 72 18 95 Room Air 21 05/25/19 00:49 94 05/25/19 00:25 70 18 95 Room Air 21 05/25/19 00:00 98.2 72 20 134/66 (88) 05/24/19 21:42 79 132/81 05/24/19 21:00 Room Air 05/24/19 20:00 98.8 79 18 134/73 (93) 96 05/24/19 16:00 77 05/24/19 16:00 98.5 75 19 113/69 (84) 94 Height (Feet): 6 Height (Inches): 1.00 Weight (Pounds): 161 General Appearance: no acute distress HEENT: mucous membranes moist, other - no teeth Cardiovascular: normal rate Abdomen: soft, non tender Extremities: no edema Neurologic/Psychiatric: alert, responsive Microbiology Date/Time Source Procedure Growth Status 05/24/19 14:30 Urine,Clean Catch Urine Culture - Preliminary Gram Negative Donavan Resulted Current Medications Medications (Trade) Dose Ordered Sig/Edwige Route PRN Reason Start Time Stop Time Status Last Admin Dose Admin Acetaminophen (Tylenol) 650 mg Q4H PRN ORAL Mild Pain/Temp > 100.5 05/24/19 19:00 06/11/19 18:59 Acetaminophen/ Hydrocodone Bitart ([place] 10/325) 1 tab Q4H PRN ORAL For Pain 05/24/19 19:00 05/27/19 10:59 05/24/19 21:40 Acetaminophen/ Hydrocodone Bitart ([place] 5/325) 1 tab Q4H PRN ORAL Moderate Pain (Pain Scale 4-6) 05/24/19 19:00 05/27/19 10:59 Al Hydroxide/Mg Hydroxide (Mylanta) 30 ml Q4H PRN ORAL STOMACH UPSET 05/24/19 19:00 06/11/19 18:59 Albuterol Sulfate (Proventil MDI) 1 puff Q6H PRN INH Shortness of Breath 05/24/19 19:00 06/13/19 12:59 Aspirin (ASA) 81 mg DAILY ORAL 05/25/19 09:00 06/12/19 08:59 Clonidine HCl (Catapres Tab) 0.1 mg Q4H PRN ORAL SBP above 160 05/24/19 19:00 06/15/19 18:59 Heparin Sodium (Porcine) (Heparin 5000 units/ml) 5,000 units EVERY 12 HOURS SUBQ 05/24/19 21:00 06/14/19 08:59 Lisinopril (Prinivil) 20 mg DAILY ORAL 05/25/19 09:00 06/16/19 08:59 Metoprolol Tartrate (Lopressor) 50 mg Q12HR ORAL 05/24/19 21:00 06/15/19 21:04 05/24/19 21:42 Ondansetron HCl (Zofran) 4 mg Q6H PRN IVP Nausea & Vomiting 05/24/19 19:00 06/13/19 12:59 Pantoprazole (Protonix) 40 mg DAILY ORAL 05/25/19 09:00 06/12/19 08:59 Tamsulosin HCl (Flomax) 0.4 mg BEDTIME ORAL 05/24/19 21:00 06/14/19 20:59 05/24/19 21:42 Jamal Gamboa MD May 25, 2019 15:05
--- NOTE | 2019-05-25 15:11 | NUR ---
DISCHARGE PLANNED PATIENT IS DISCHARGING TO: [facility] AND [facility] [address] [place] [address] SYSTEMS SPEC: CHARLEE Avila; [phone] [facility] HAS BEEN ARRANGED FOR 1630 SEED PELLETER Addendum: 05/25/19 at 1551 by RIKI BARILLAS LVN LVN HOLDING DISCHARGE AT THIS TIME PATIENT HAS NOT VOIDED SINCE DANIELS WAS REMOVED
--- NOTE | 2019-05-25 17:05 | NUR ---
NURSE NOTES: Davis was DC'd at [address] Carey's order. Pt only voided about 30 cc of urine. RN ran bladder scan and verified 564 mL of urine in pt's bladder. Notified Dr. Carey. ordered to put in davis again.
--- NOTE | 2019-05-25 18:00 | NUR ---
NURSE NOTES: Helm reinserted per Dr. Carey's order. Patent and draining yellow urine by gravity.
--- NOTE | 2019-05-25 19:40 | NUR ---
HAND-OFF: Report given to ANGELO Galeas.
[2019-05-25 20:00] VITALS: BP 131/67
--- NOTE | 2019-05-25 20:00 | NUR ---
NURSE NOTES: Pt is in bed, asleep. No acute distress noted. Vitals stable. Helm draining Yellow urine. Pt was not discharged to boarding care because pt can't void on his own without Helm cath. Bed locked low in position,side rails up and call light within reach. Bed alarm on, fall precaution in place. Pt able to ambulate to bathroom with walker with assistance. Pt asked to call for help before getting out of bed. Pt will be monitored.
[2019-05-25] MEDS: Tamsulosin 0.4mg cap ORAL SCH (21:58)
[2019-05-25] MEDS: Meropenem 500 MG in NS 55 ML IVPB SCH (21:59)
[2019-05-25] MEDS: HYDROcodone/Acetamin 5/325 tab ORAL PRN (21:59)
--- NOTE | 2019-05-25 23:03 | General Progress Note ---
Assessment/Plan Assessment/Plan: Assessment - Hypokalemia and hypomagnesemia - corrected - Anemia - microcytosis and iron deficiency - OB (+) stools - gastritis, duodenitis, diverticulosis - COPD - BPD - pancreatic Cyst - HTN Recommendations - follow CBC and Fe as outpatient - transfuse PRN - push po Subjective Allergies: Uncoded Allergies: CONTRAST MEDIA (Adverse Reaction, Mild, Itching in the area of the neck, 01/20/18) Patient was given specifically Isovue contrast during CT of the abdomen, and when he came back. The patient was itchy and benadryl was given, no complaints of itchiness or adverse reactions so far. Subjective feels OK no abd complaints Tolerating PO Objective Last 24 Hour Vital Signs Date Time Temp Pulse Resp B/P (MAP) Pulse Ox O2 Delivery O2 Flow Rate FiO2 05/25/19 22:19 75 18 96 Room Air 21 05/25/19 21:58 76 131/67 05/25/19 20:00 98.0 76 18 131/67 (88) 94 05/25/19 18:00 Room Air 05/25/19 12:00 Room Air 05/25/19 09:00 Room Air 05/25/19 08:00 72 18 95 Room Air 21 05/25/19 00:49 94 05/25/19 00:25 70 18 95 Room Air 21 05/25/19 00:00 98.2 72 20 134/66 (88) Intake and Output 05/24/19 05/25/19 19:00 07:00 Intake Total 320 ml 560 ml Output Total 2400 ml 1200 ml Balance -2080 ml -640 ml Intake Oral 320 ml 360 ml IV Total 200 ml Output Urine Total 2400 ml 1200 ml Height (Feet): 6 Height (Inches): 1.00 Weight (Pounds): 161 Objective Elderly man NCAT supple Chest: coarse ronchi RR abd soft ND NT no edema Cristi Flood MD May 25, 2019 23:03
[2019-05-26] VITALS: BP 128/65
--- NOTE | 2019-05-26 02:14 | NUR ---
NURSE NOTES: Pt is in bed,asleep. No acute distress noted.
--- NOTE | 2019-05-26 04:30 | Progress Note ---
DATE: 05/25/2019 CARDIOLOGY PROGRESS NOTE SUBJECTIVE: The patient is awaiting disposition. He still is weak, but alert, limited mobility, and does not have self-care capacity. OBJECTIVE: VITAL SIGNS: Blood pressure 134/66, pulse 72, and respirations 20. LUNGS: Diminished breath sounds. CARDIAC: Regular rhythm and rate. Normal S1 and S2 with a fourth heart sound. ABDOMEN: Soft. No edema. LABORATORY DATA: Urine culture from yesterday reveals a gram-negative jim. Urinary catheter has been removed. IMPRESSION: 1. Urinary tract infection hospital-acquired. 2. Hypomagnesemia, status post replacement. 3. Hypertensive heart disease. 4. Acute on chronic diastolic congestive heart failure. 5. Chronic obstructive pulmonary disease. 6. Prostatic hypertrophy. PLAN: 1. Follow up final cultures. 2. Titrate anti-failure and antihypertensives. 3. Trend natriuretic peptide assay. 4. We will follow. Sanjeev Li M.D. DR: ARTHUR JOB#: [id number] CC:
[2019-05-26] MEDS: Meropenem 500 MG in NS 55 ML IVPB SCH ×2 (05:47→14:17)
[2019-05-26 06:31] LABS: BASOPHILS % (AUTO) 0.7 % (0.0-2.0); EOSINOPHILS % (AUTO) 1.5 % (0.0-3.0); HEMATOCRIT 32.2 % (42.0-52.0); LYMPHOCYTES % (AUTO) 26.2 % (20.0-45.0); MEAN CORPUSCULAR VOLUME 80 FL (80-99); MONOCYTES % (AUTO) 11.2 % (1.0-10.0); NEUTROPHILS % (AUTO) 60.5 % (45.0-75.0); PLATELET COUNT 244 K/UL (150-450); RED BLOOD COUNT 4.01 M/UL (4.70-6.10); WHITE BLOOD COUNT 10.5 K/UL (4.8-10.8)
[2019-05-26 07:03] LABS: ALANINE AMINOTRANSFERASE 33 U/L (12-78); ALBUMIN 2.6 G/DL (3.4-5.0); ALBUMIN/GLOBULIN RATIO 0.5 (1.0-2.7); ALKALINE PHOSPHATASE 94 U/L (46-116); ANION GAP 5 mmol/L (5-15); ASPARTATE AMINO TRANSFERASE 34 U/L (15-37); BILIRUBIN,TOTAL 0.2 MG/DL (0.2-1.0); BLOOD UREA NITROGEN 31 mg/dL (7-18); CALCIUM 9.5 MG/DL (8.5-10.1); CARBON DIOXIDE 30 MMOL/L (21-32); CHLORIDE 103 MMOL/L (98-107); CREATININE 0.8 MG/DL (0.55-1.30); POTASSIUM 4.7 MMOL/L (3.5-5.1); SODIUM 138 MMOL/L (136-145)
--- NOTE | 2019-05-26 07:25 | NUR ---
HAND-OFF: Report given to SARAI Cook.
--- NOTE | 2019-05-26 07:45 | NUR ---
NURSE NOTES: Pt is in bed, asleep. No acute distress noted. Helm cath inplaced and draining Yellow color urine. IV access patent and intact. Bed locked low in position,side rails up and call light within reach. Bed alarm on, fall precaution in place. Pt able to ambulate to bathroom with walker with assistance. Pt asked to call for help before getting out of bed. will cont to monitor.
[2019-05-26 08:00] VITALS: BP 119/63
[2019-05-26] MEDS: Metoprolol Tartrate 50mg tab ORAL SCH (08:33)
[2019-05-26] MEDS: Lisinopril 20mg tab ORAL SCH (08:33)
[2019-05-26] MEDS: Aspirin Baby 81mg ORAL SCH (08:33)
[2019-05-26] MEDS: HYDROcodone/Acetamin 5/325 tab ORAL PRN ×2 (08:34→14:14)
[2019-05-26] MEDS: Heparin 5000 units/ml inj SUBQ SCH (08:34)
[2019-05-26 12:02] VITALS: BP 121/69
--- NOTE | 2019-05-26 12:56 | Infectious Diseases Prog Note ---
Assessment/Plan Assessment/Plan A: 1. UTI 2. Positive blood culture with Staph Hominis, contamination 3. COPD. 4. Hypertension. 5. BPH. 6. Anemia. 7. Cocaine abuse. 8. Pneumonia 9. Duodenitis & gastritis 10 Diverticulosis RECOMMENDATION: Continue Meropenem Subjective ROS Limited/Unobtainable: Yes Constitutional: Denies: fever Genitourinary: Reports: other - suprapubic pain Musculoskeletal: Reports: pain, other - in legs Allergies: Uncoded Allergies: CONTRAST MEDIA (Adverse Reaction, Mild, Itching in the area of the neck, 01/20/18) Patient was given specifically Isovue contrast during CT of the abdomen, and when he came back. The patient was itchy and benadryl was given, no complaints of itchiness or adverse reactions so far. Objective Vital Signs Last 24 Hour Vital Signs Date Time Temp Pulse Resp B/P (MAP) Pulse Ox O2 Delivery O2 Flow Rate FiO2 05/26/19 12:02 97.9 81 18 121/69 (86) 97 05/26/19 09:04 97.4 05/26/19 08:33 76 119/63 05/26/19 08:33 119/63 05/26/19 08:30 Room Air 05/26/19 08:00 97.4 76 18 119/63 (81) 94 05/26/19 00:00 97.5 70 18 128/65 (86) 95 05/25/19 22:19 75 18 96 Room Air 21 05/25/19 21:58 76 131/67 05/25/19 20:00 98.0 76 18 131/67 (88) 94 05/25/19 18:00 Room Air Height (Feet): 6 Height (Inches): 1.00 Weight (Pounds): 161 General Appearance: no acute distress HEENT: mucous membranes moist Respiratory/Chest: lungs clear Cardiovascular: normal rate Abdomen: soft, non tender Genitourinary: other - Helm catheter Extremities: no edema Neurologic/Psychiatric: alert, responsive Microbiology Date/Time Source Procedure Growth Status 05/24/19 14:30 Urine,Clean Catch Urine Culture - Preliminary Gram Negative Donavan Resulted Laboratory Tests Test 05/26/19 05:30 White Blood Count 10.5 K/UL (4.8-10.8) Red Blood Count 4.01 M/UL (4.70-6.10) L Hemoglobin 10.0 G/DL (14.2-18.0) L Hematocrit 32.2 % (42.0-52.0) L Mean Corpuscular Volume 80 FL (80-99) Mean Corpuscular Hemoglobin 25.0 PG (27.0-31.0) L Mean Corpuscular Hemoglobin Concent 31.1 G/DL (32.0-36.0) L Red Cell Distribution Width 18.0 % (11.6-14.8) H Platelet Count 244 K/UL (150-450) Mean Platelet Volume 7.6 FL (6.5-10.1) Neutrophils (%) (Auto) 60.5 % (45.0-75.0) Lymphocytes (%) (Auto) 26.2 % (20.0-45.0) Monocytes (%) (Auto) 11.2 % (1.0-10.0) H Eosinophils (%) (Auto) 1.5 % (0.0-3.0) Basophils (%) (Auto) 0.7 % (0.0-2.0) Sodium Level 138 MMOL/L (136-145) Potassium Level 4.7 MMOL/L (3.5-5.1) Chloride Level 103 MMOL/L (98-107) Carbon Dioxide Level 30 MMOL/L (21-32) Anion Gap 5 mmol/L (5-15) Blood Urea Nitrogen 31 mg/dL (7-18) H Creatinine 0.8 MG/DL (0.55-1.30) Estimat Glomerular Filtration Rate mL/min (>60) Glucose Level 103 MG/DL (74-106) Calcium Level 9.5 MG/DL (8.5-10.1) Magnesium Level 2.1 MG/DL (1.8-2.4) Total Bilirubin 0.2 MG/DL (0.2-1.0) Aspartate Amino Transf (AST/SGOT) 34 U/L (15-37) Alanine Aminotransferase (ALT/SGPT) 33 U/L (12-78) Alkaline Phosphatase 94 U/L (46-116) Pro-B-Type Natriuretic Peptide 889 pg/mL (0-125) H Total Protein 7.6 G/DL (6.4-8.2) Albumin 2.6 G/DL (3.4-5.0) L Globulin 5.0 g/dL Albumin/Globulin Ratio 0.5 (1.0-2.7) L Current Medications Medications (Trade) Dose Ordered Sig/Edwige Route PRN Reason Start Time Stop Time Status Last Admin Dose Admin Acetaminophen (Tylenol) 650 mg Q4H PRN ORAL Mild Pain/Temp > 100.5 05/24/19 19:00 06/11/19 18:59 Acetaminophen/ Hydrocodone Bitart ([place] 10/325) 1 tab Q4H PRN ORAL For Pain 05/24/19 19:00 05/27/19 10:59 05/24/19 21:40 Acetaminophen/ Hydrocodone Bitart ([place] 5/325) 1 tab Q4H PRN ORAL Moderate Pain (Pain Scale 4-6) 05/24/19 19:00 05/27/19 10:59 05/26/19 08:34 Al Hydroxide/Mg Hydroxide (Mylanta) 30 ml Q4H PRN ORAL STOMACH UPSET 05/24/19 19:00 06/11/19 18:59 Albuterol Sulfate (Proventil MDI) 1 puff Q6H PRN INH Shortness of Breath 05/24/19 19:00 06/13/19 12:59 Aspirin (ASA) 81 mg DAILY ORAL 05/25/19 09:00 06/12/19 08:59 05/26/19 08:33 Clonidine HCl (Catapres Tab) 0.1 mg Q4H PRN ORAL SBP above 160 05/24/19 19:00 06/15/19 18:59 Heparin Sodium (Porcine) (Heparin 5000 units/ml) 5,000 units EVERY 12 HOURS SUBQ 05/24/19 21:00 06/14/19 08:59 05/25/19 22:01 Lisinopril (Prinivil) 20 mg DAILY ORAL 05/25/19 09:00 06/16/19 08:59 05/26/19 08:33 Meropenem 500 mg/ Sodium Chloride 55 ml @ 110 mls/hr EVERY 8 HOURS IVPB 05/25/19 22:00 05/30/19 21:59 05/26/19 05:47 Metoprolol Tartrate (Lopressor) 50 mg Q12HR ORAL 05/24/19 21:00 06/15/19 21:04 05/26/19 08:33 Ondansetron HCl (Zofran) 4 mg Q6H PRN IVP Nausea & Vomiting 05/24/19 19:00 06/13/19 12:59 Pantoprazole (Protonix) 40 mg DAILY ORAL 05/25/19 09:00 06/12/19 08:59 05/26/19 08:33 Tamsulosin HCl (Flomax) 0.4 mg BEDTIME ORAL 05/24/19 21:00 06/14/19 20:59 05/25/19 21:58 Jamal Gamboa MD May 26, 2019 12:55
--- NOTE | 2019-05-26 13:34 | NUR ---
DISCHARGE PLANNED PATIENT IS DISCHARGING TO [facility] AND [facility] 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
--- NOTE | 2019-05-26 16:01 | NUR ---
NURSE NOTES: discharged to [facility] by an ambulance. removed IV heplock. personal belongings noted, signed s/t/d. wound photo taken on left heel and treated. No acute resp distress noted. [place] 1tab po was given for moderate pain @ 1414H. discharge instructions given. Rx given and instructed.
--- NOTE | 2019-05-26 17:45 | Pulmonology Progress Note ---
Assessment/Plan Assessment/Plan Pulmonary Progress Note Assessment/Plan: IMPRESSION abdominal pain improving sp colonoscopy possible sepsis PCM COPD toxic metabolic encephalopathy leukocytosis possible sepsis anemia hypertension sinus tachycardia UTI PLAN antibiotics VQ scan noted IV hydration DVT prophylaxis monitor change as is monitor labs for change respiratory care as needed oxygen therapy GI evaluation noted impression, plan, and exam edited and reviewed in detail care discussed with RN SUZI planning Subjective Stable ON Allergies: Uncoded Allergies: CONTRAST MEDIA (Adverse Reaction, Mild, Itching in the area of the neck, 01/20/18) Patient was given specifically Isovue contrast during CT of the abdomen, and when he came back. The patient was itchy and benadryl was given, no complaints of itchiness or adverse reactions so far. Subjective no new complaints care noted on antibiotics VQ scan noted Objective Vital Signs Noted Height (Feet): 6 Height (Inches): 1.00 Weight (Pounds): 175 Objective WDWN NAD clear breath sounds bilaterally without rhonchi or wheeze S1S2RR without MRG NABS nontender no HSM no CCE nonfocal no distress less confused Seen earlier Subjective ROS Limited/Unobtainable: No Allergies: Uncoded Allergies: CONTRAST MEDIA (Adverse Reaction, Mild, Itching in the area of the neck, 01/20/18) Patient was given specifically Isovue contrast during CT of the abdomen, and when he came back. The patient was itchy and benadryl was given, no complaints of itchiness or adverse reactions so far. Objective Last 24 Hour Vital Signs Date Time Temp Pulse Resp B/P (MAP) Pulse Ox O2 Delivery O2 Flow Rate FiO2 05/26/19 14:44 97.9 05/26/19 12:02 97.9 81 18 121/69 (86) 97 05/26/19 08:33 76 119/63 05/26/19 08:33 119/63 05/26/19 08:30 Room Air 05/26/19 08:00 97.4 76 18 119/63 (81) 94 05/26/19 07:00 73 16 Room Air 21 05/26/19 00:00 97.5 70 18 128/65 (86) 95 05/25/19 22:19 75 18 96 Room Air 21 05/25/19 21:58 76 131/67 05/25/19 20:00 98.0 76 18 131/67 (88) 94 05/25/19 18:00 Room Air Intake and Output 05/25/19 05/26/19 18:59 06:59 Intake Total 900 ml 110 ml Output Total 1645 ml 1200 ml Balance -745 ml -1090 ml Intake Oral 900 ml IV Total 110 ml Output Urine Total 1645 ml 1200 ml # Voids 1 # Bowel Movements 1 Microbiology Date/Time Source Procedure Growth Status 05/24/19 14:30 Urine,Clean Catch Urine Culture - Preliminary Gram Negative Donavan Resulted Laboratory Tests 05/26/19 05:30: White Blood Count 10.5, Red Blood Count 4.01L, Hemoglobin 10.0L, Hematocrit 32.2L, Mean Corpuscular Volume 80, Mean Corpuscular Hemoglobin 25.0L, Mean Corpuscular Hemoglobin Concent 31.1L, Red Cell Distribution Width 18.0H, Platelet Count 244, Mean Platelet Volume 7.6, Neutrophils (%) (Auto) 60.5, Lymphocytes (%) (Auto) 26.2, Monocytes (%) (Auto) 11.2H, Eosinophils (%) (Auto) 1.5, Basophils (%) (Auto) 0.7, Sodium Level 138, Potassium Level 4.7, Chloride Level 103, Carbon Dioxide Level 30, Anion Gap 5, Blood Urea Nitrogen 31H, Creatinine 0.8, Estimat Glomerular Filtration Rate , Glucose Level 103, Calcium Level 9.5, Magnesium Level 2.1, Total Bilirubin 0.2, Aspartate Amino Transf (AST /SGOT) 34, Alanine Aminotransferase (ALT/SGPT) 33, Alkaline Phosphatase 94, Pro- B-Type Natriuretic Peptide 889H, Total Protein 7.6, Albumin 2.6L, Globulin 5.0, Albumin/Globulin Ratio 0.5L Sanjeev Ramon MD May 26, 2019 17:45
--- NOTE | 2019-05-26 18:57 | General Progress Note ---
Assessment/Plan Assessment/Plan: Assessment - Hypokalemia and hypomagnesemia - corrected - Anemia - microcytosis and iron deficiency - OB (+) stools - gastritis, duodenitis, diverticulosis - COPD - BPD - pancreatic Cyst - HTN Recommendations - follow CBC and Fe as outpatient - transfuse PRN - push po Subjective Allergies: Uncoded Allergies: CONTRAST MEDIA (Adverse Reaction, Mild, Itching in the area of the neck, 01/20/18) Patient was given specifically Isovue contrast during CT of the abdomen, and when he came back. The patient was itchy and benadryl was given, no complaints of itchiness or adverse reactions so far. Subjective feels OK no abd complaints Tolerating PO for d/c today Objective Last 24 Hour Vital Signs Date Time Temp Pulse Resp B/P (MAP) Pulse Ox O2 Delivery O2 Flow Rate FiO2 05/26/19 14:44 97.9 05/26/19 12:02 97.9 81 18 121/69 (86) 97 05/26/19 08:33 76 119/63 05/26/19 08:33 119/63 05/26/19 08:30 Room Air 05/26/19 08:00 97.4 76 18 119/63 (81) 94 05/26/19 07:00 73 16 Room Air 21 05/26/19 00:00 97.5 70 18 128/65 (86) 95 05/25/19 22:19 75 18 96 Room Air 21 05/25/19 21:58 76 131/67 05/25/19 20:00 98.0 76 18 131/67 (88) 94 Intake and Output 05/25/19 05/26/19 19:00 07:00 Intake Total 900 ml 110 ml Output Total 1645 ml 1200 ml Balance -745 ml -1090 ml Intake Oral 900 ml IV Total 110 ml Output Urine Total 1645 ml 1200 ml # Voids 1 # Bowel Movements 1 Laboratory Tests 05/26/19 05:30: White Blood Count 10.5, Red Blood Count 4.01L, Hemoglobin 10.0L, Hematocrit 32.2L, Mean Corpuscular Volume 80, Mean Corpuscular Hemoglobin 25.0L, Mean Corpuscular Hemoglobin Concent 31.1L, Red Cell Distribution Width 18.0H, Platelet Count 244, Mean Platelet Volume 7.6, Neutrophils (%) (Auto) 60.5, Lymphocytes (%) (Auto) 26.2, Monocytes (%) (Auto) 11.2H, Eosinophils (%) (Auto) 1.5, Basophils (%) (Auto) 0.7, Sodium Level 138, Potassium Level 4.7, Chloride Level 103, Carbon Dioxide Level 30, Anion Gap 5, Blood Urea Nitrogen 31H, Creatinine 0.8, Estimat Glomerular Filtration Rate , Glucose Level 103, Calcium Level 9.5, Magnesium Level 2.1, Total Bilirubin 0.2, Aspartate Amino Transf (AST /SGOT) 34, Alanine Aminotransferase (ALT/SGPT) 33, Alkaline Phosphatase 94, Pro- B-Type Natriuretic Peptide 889H, Total Protein 7.6, Albumin 2.6L, Globulin 5.0, Albumin/Globulin Ratio 0.5L Height (Feet): 6 Height (Inches): 1.00 Weight (Pounds): 161 Objective Elderly man NCAT supple Chest: coarse ronchi RR abd soft ND NT no edema Cristi Flood MD May 26, 2019 18:57
--- NOTE | 2019-05-26 23:45 | Progress Note ---
DATE: 05/26/2019 CARDIOLOGY PROGRESS NOTE SUBJECTIVE: The patient has indwelling catheter, unable to void adequately without it. Urine culture was positive for gram-negative jim. OBJECTIVE: VITAL SIGNS: Blood pressure 121/69, pulse 81, respirations 18. LUNGS: Diminished breath sounds. No wheezing. CARDIAC: Regular rhythm and rate. Normal S1, S2 with a fourth heart sound. ABDOMEN: Soft. EXTREMITIES: No edema. LABORATORY DATA: White count 10, hemoglobin 10. Sodium 138, potassium 4.7, BUN 31, and creatinine 0.8. Pro-natriuretic peptide has decreased to 889. IMPRESSION: 1. Chronic obstructive pulmonary disease. 2. Hypertensive heart disease. 3. Acute on chronic diastolic congestive heart failure, now almost clinically compensated. 4. Urinary tract infection. 5. Healthcare-acquired pneumonia, recovered. 6. Lactic acidosis, resolved. 7. Myocardial ischemia. PLAN: 1. Continue current cardiovascular regimen including beta-melchor and anti-platelet therapy without change. 2. Angiotensin-converting enzyme inhibitor on board as well. 3. Outpatient followup. 4. Helm care. 5. Complete antimicrobials with followup final culture results. 6. Outpatient cardiovascular followup offered as well. Sanjeev Li M.D. DR: REBECCA JOB#: [id number] CC:
--- NOTE | 2019-05-28 20:59 | Discharge Summary ---
Discharge Summary Discharge Summary _ DATE OF ADMISSION: 05/12/2019 DATE OF DISCHARGE: 05/26/2019 DISCHARGED BY: Dr. Isiah Carey CONSULTANTS: Dr. Gonzalez Flood BRIEF HOSPITAL COURSE: Patient is a 73-year-old male, who is a poor historian, who presented to ED with complaints of diffuse abdominal discomfort, increased nausea and vomiting. Denies diarrhea. Denies chest pain or shortness of breath. Patient was somewhat hypotensive and tachycardic on arrival to ED. Evaluation at the ED showed leukocytosis with WBC elevated to 15. Hemoglobin 9.7, hematocrit 30. Sodium 133, potassium 3.5. BUN 30, creatinine 1.3. Lactic acid 1.3. Lipase was normal. Urinalysis showed 3+ leukocyte esterase, 40-60 urine WBC, negative nitrite. Urine toxicology was positive for cocaine. He was admitted for sepsis , UTI and toxic metabolic encephalopathy. He was given IV fluids. He was given IV antibiotics. He was placed on heparin for DVT prophylaxis. ID was consulted for positive blood culture. Urine culture showed growth of E. coli. He was given Zosyn and vancomycin. He was started to have anemia. Anemia work-up showed iron deficiency. CT scan imaging in 2018 showed pancreatic cyst. Patient will require follow-up imaging. On 05/14/2019, he became acutely short of breath with rapid heart rate. Data Input Clerk consulted. He denied chest pain. Troponin was 0.128. proBNP was 14,500. He was given antiplatelet therapy with aspirin. Cardiac enzymes were monitored. He was given diuresis. VQ scan ordered. Blood culture possibly contaminated. Vancomycin was discontinued. He was continued on Zosyn. Hemoglobin dropped to 7.5. He was given blood transfusion. Stool OB was positive. Anticoagulation discontinued. On 05/19/2019, he underwent EGD with colonoscopy. Patient has erosive allergies and duodenitis. Sigmoid diverticulosis. No evidence of malignancy identified. He completed antibiotic treatment and was monitored off antibiotics. VQ scan showed low probability for PE. Patient was referred to a different facilities. Repeat urine culture showed growth of ESBL E. coli. Patient was started on meropenem. He was eventually discharged to a [id number] with home health. FINAL DIAGNOSES: Possible sepsis Acute toxic metabolic encephalopathy ESBL E. coli UTI [facility] acquired pneumonia, recovered Lactic acidosis, resolved COPD Hypertensive heart disease Acute on chronic diastolic CHF Myocardial ischemia Hypokalemia Hypomagnesemia Anemia, status post blood transfusion Gastritis, duodenitis, diverticulosis Pancreatic cyst Sinus tachycardia Bacteremia, possible contamination Cocaine abuse BPH DISPOSITION: DC to [id number] with home health DISCHARGE MEDICATIONS: Refer to Discharge Medication List. DISCHARGE INSTRUCTIONS: Follow-up in a week. I have been assigned to complete a discharge summary on this account, I was not involved with the patient's management.--WANDA Frank Jacqueline Robles NP May 28, 2019 20:59
== END 2019-05-26 16:00 | disposition home health service (06) | DRG 720 ==
LOC: EDBD 12:01 → EMR 12:55 → EDBEDREQ 13:02 → 2E 13:12 → EDBEDREQ 13:29 → 2W 05-14 17:46 → 2E 05-16 12:51 → 4E 05-24 18:18
DX: A41.9 Sepsis, unspecified organism (principal); G92 Toxic encephalopathy; N39.0 Urinary tract infection, site not specified; B96.20 Unspecified Escherichia coli [E. coli] as the cause of diseases classified elsewhere; J18.9 Pneumonia, unspecified organism; Y95 Nosocomial condition; J44.0 Chronic obstructive pulmonary disease with (acute) lower respiratory infection; I11.0 Hypertensive heart disease with heart failure; I50.33 Acute on chronic diastolic (congestive) heart failure; E46 Unspecified protein-calorie malnutrition; Z68.21 Body mass index [BMI] 21.0-21.9, adult; F14.10 Cocaine abuse, uncomplicated; I25.9 Chronic ischemic heart disease, unspecified; E87.6 Hypokalemia; E83.42 Hypomagnesemia; D64.9 Anemia, unspecified; K29.70 Gastritis, unspecified, without bleeding; K86.2 Cyst of pancreas; N40.0 Benign prostatic hyperplasia without lower urinary tract symptoms; R19.7 Diarrhea, unspecified; K29.80 Duodenitis without bleeding
CPT/HCPCS: 36415; 71045; 74018; 78579; 78580; 80048; 80053; 80202; 80307; 81003; 82270; 82378; 82550; 82553; 82607; 82746; 83540; 83550; 83605; 83690; 83735; 83880; 84484; 85007; 85025; 86850; 86900; 86901; 86920; 87040; 87086; 87181; 87324; 93005; 94003; 94150; 94664; 96361; 96365; 96375; 99285; A9503; J2405; J7030; J8499

== ENCOUNTER 2019-08-07 16:03 | Emergency (ER) | payer MEDICARE, MEDICAID ==
[~2019-08-07] VITALS: Ht 193 cm; Wt 63.5 kg
[~2019-08-07 16:03] MED LIST changes: +CATAPRES0.1 MG ORAL; +ENSURE HIGH PR414 ML PO; +HEPARIN SO5000 UNIT2 SUBQ; +METOPROLOL TART50 M1 ORAL; +PANTOPRAZOLE SO40 MG ORAL
[2019-08-07 16:31] VITALS: BP 125/76
--- NOTE | 2019-08-07 16:31 | NUR ---
ED Nurse Note: Pt was wheeled into ed stating his colostomy bag was leaking.
--- NOTE | 2019-08-07 16:36 | Emergency Room Report ---
History of Present Illness General Chief Complaint: General Complaint Source: Patient Present Illness HPI Disclaimer: Please note that this report is being documented using DRAGON technology. This can lead to erroneous entry secondary to incorrect interpretation by the dictating instrument. HPI: 73-year-old male with a history of chronic Helm presents for leg bag change. States it is been leaking over the past day. Cannot recall specific trauma. Denies any dislodgment of the Helm itself or trauma to the penis. Denies dysuria hematuria, fever, chills, back pain or other complaints at this time. He was seen in June with similar complaints. He had a urinary tract infection at that time. States he was asymptomatic then too Allergies: Uncoded Allergies: CONTRAST MEDIA (Adverse Reaction, Mild, Itching in the area of the neck, 01/20/18) Patient was given specifically Isovue contrast during CT of the abdomen, and when he came back. The patient was itchy and benadryl was given, no complaints of itchiness or adverse reactions so far. Nursing Documentation-[facility] Past Medical History: No Stated History Hx Cardiac Problems: Yes Hx Hypertension: Yes Hx Pacemaker: No Hx Asthma: No Hx COPD: Yes Hx Diabetes: Yes Hx Cancer: No Hx Gastrointestinal Problems: Yes - Pancreatic cyst Hx Neurological Problems: Yes - Encephalopathy Hx Cerebrovascular Accident: Yes - 1999 Hx Weakness: Yes Review of Systems All Other Systems: negative except mentioned in HPI Physical Exam Vital Signs Date Time Temp Pulse Resp B/P (MAP) Pulse Ox O2 Delivery O2 Flow Rate FiO2 08/07/19 16:25 98.2 99 20 125/76 (92) 95 Room Air General: Awake and alert, no acute distress HEENT: NC/AT. EOMI. Resp: Normal work of breathing : Helm in place with leg bag attached. Turbid urine. No gross hematuria Skin: Intact. No abrasions, laceration or rash over the exposed skin MSK: Normal tone and bulk. Moving all extremities. No obvious deformity. Neuro: Awake and alert. Mentating appropriately Medical Decision Making Diagnostic Impression: Primary Impression: Encounter for Helm catheter replacement ER Course 73-year-old male presents for evaluation of Helm catheter bag leakage. He is requesting a change of his Helm catheter at this time. We will provide this. I also recommended a urinalysis however the patient declines. He did have a urinary tract infection last time that was sensitive to the Bactrim that he was prescribed. He does not want any further labs at this time. He is stable for outpatient follow-up. Last Vital Signs Date Time Temp Pulse Resp B/P (MAP) Pulse Ox O2 Delivery O2 Flow Rate FiO2 08/07/19 16:25 98.2 99 20 125/76 (92) 95 Room Air Disposition: HOME, SELF-CARE Condition: Stable Arvin Giordano MD Aug 07, 2019 16:36
--- NOTE | 2019-08-07 16:50 | NUR ---
ED Nurse Note: ERMD order to replace davis cath. catheter replaced, pt given new leg bag. urine sent to lab
[2019-08-07 17:32] VITALS: BP 131/79
--- NOTE | 2019-08-07 17:33 | NUR ---
ELOPEMENT: pt left without dc papers. pt was aox4 on room air. davis cath intact and patent. NAD noted.
== END 2019-08-07 17:34 | disposition home or self-care (01) ==
LOC: EMR 17:15
DX: Z46.6 Encounter for fitting and adjustment of urinary device (principal); Z91.041 Radiographic dye allergy status; I10 Essential (primary) hypertension; J44.9 Chronic obstructive pulmonary disease, unspecified; E11.9 Type 2 diabetes mellitus without complications; Z86.73 Personal history of transient ischemic attack (TIA), and cerebral infarction without residual deficits
CPT/HCPCS: 51702; 99284

== ENCOUNTER 2019-08-23 11:45 | Inpatient (IN) | payer MEDICARE, OTHER ==
[~2019-08-23] VITALS: Ht 193 cm; Wt 73.9 kg
[2019-08-23 12:03] VITALS: BP 149/95
[2019-08-23] MEDS ORDERED: Solu-MEDROL 125mg Inj IVP ONE (12:15)
[2019-08-23] MEDS ORDERED: cefTRIAXone 2 GM in NS 55 ML IVPB ONE (12:30)
[2019-08-23] MEDS ORDERED: Azithromycin 500 MG in D5W 275 ML IVPB ONE (12:30)
--- NOTE | 2019-08-23 12:40 | Emergency Room Report ---
History of Present Illness General Chief Complaint: Male Urogenital Problems Source: Patient Present Illness HPI Patient is a 73-year-old male very poor historian history of COPD, CAD, BPH who presents to the ER complaining of shortness of breath and cough. Patient was seen by his primary care physician yesterday and was referred to the ER for admission. Patient has a chronic indwelling Helm catheter. Patient states that he is run out of his Flomax. Patient denies any chest pain, fever or chills. Patient denies any abdominal pain. Patient describes some discomfort around the site of the Helm but states that he has had good output. I spoke with covering MD Dr. Velazquez for DR. Hernandez who is aware of this patient. He states that he wants the patient admitted for COPD exacerbation. Allergies: Uncoded Allergies: CONTRAST MEDIA (Adverse Reaction, Mild, Itching in the area of the neck, 01/20/18) Patient was given specifically Isovue contrast during CT of the abdomen, and when he came back. The patient was itchy and benadryl was given, no complaints of itchiness or adverse reactions so far. Patient History Reviewed Nursing Documentation: PMH: Agreed; PSxH: Agreed Nursing Documentation-PM[facility] Past Medical History: No History, Except For Hx Cardiac Problems: Yes Hx Hypertension: Yes Hx Pacemaker: No Hx Asthma: No Hx COPD: Yes Hx Diabetes: Yes Hx Cancer: No Hx Gastrointestinal Problems: Yes - Pancreatic cyst Hx Neurological Problems: Yes - Encephalopathy Hx Cerebrovascular Accident: Yes - 2000 Hx Weakness: Yes Review of Systems All Other Systems: negative except mentioned in HPI Physical Exam Vital Signs Date Time Temp Pulse Resp B/P (MAP) Pulse Ox O2 Delivery O2 Flow Rate FiO2 08/23/19 11:48 97.5 93 18 152/91 (111) 93 Room Air Sp02 EP Interpretation: reviewed, abnormal - Hypoxic nebulizer treatment ordered General Appearance: no apparent distress, alert, GCS 15, non-toxic, thin, other - Poorly groomed Head: normocephalic, atraumatic ENT: hearing grossly normal, normal pharynx, no angioedema, normal voice Neck: full range of motion, supple/symm/no masses Respiratory: chest non-tender, speaking full sentences, wheezing Cardiovascular #1: regular rate, rhythm, no edema Cardiovascular #2: 2+ carotid (R), 2+ carotid (L), 2+ radial (R), 2+ radial (L) , 2+ dorsalis pedis (R), 2+ dorsalis pedis (L) Gastrointestinal: normal bowel sounds, non tender, soft, non-distended, no guarding, no rebound Rectal: deferred Genitourinary: normal inspection, no CVA tenderness, other - Indwelling Helm catheter with leg bag with clear yellow urine Musculoskeletal: back normal, normal range of motion, calf tenderness, gait/ station normal, non-tender Neurologic: alert, motor strength/tone normal, sensory intact, responsive, speech normal Psychiatric: judgement/insight normal, memory normal, mood/affect normal, no suicidal/homicidal ideation Skin: no rash Lymphatic: no adenopathy Medical Decision Making Diagnostic Impression: Primary Impression: COPD (chronic obstructive pulmonary disease) Additional Impressions: Hypoxia CHF (congestive heart failure) Bronchitis Hypokalemia Hypomagnesemia ER Course Patient's pH on blood gas 7.33. PCO2 45. Patient is likely a chronic retainer. Patient is hypoxic therefore IV steroids and nebulizer treatments have been ordered. Patient is fluid overloaded and 40 mEq of IV Lasix has been ordered. Patient hypokalemic and hypomagnesemic. 2 g of IV magnesium as well as 20 mEq of KCl IV and 40 milliequivalents of KCl p.o. have been ordered. Patient given aspirin for COPD exacerbation. Patient started on IV antibiotics ceftriaxone and azithromycin for COPD exacerbation. Lab Results Impression Laboratory Tests Test 08/23/19 12:20 08/23/19 12:26 08/23/19 12:34 White Blood Count 7.7 K/UL (4.8-10.8) Red Blood Count 4.85 M/UL (4.70-6.10) Hemoglobin 12.2 G/DL (14.2-18.0) L Hematocrit 39.2 % (42.0-52.0) L Mean Corpuscular Volume 81 FL (80-99) Mean Corpuscular Hemoglobin 25.1 PG (27.0-31.0) L Mean Corpuscular Hemoglobin Concent 31.0 G/DL (32.0-36.0) L Red Cell Distribution Width 18.0 % (11.6-14.8) H Platelet Count 122 K/UL (150-450) L Mean Platelet Volume 7.8 FL (6.5-10.1) Neutrophils (%) (Auto) 52.6 % (45.0-75.0) Lymphocytes (%) (Auto) 34.5 % (20.0-45.0) Monocytes (%) (Auto) 11.2 % (1.0-10.0) H Eosinophils (%) (Auto) 0.8 % (0.0-3.0) Basophils (%) (Auto) 1.0 % (0.0-2.0) Prothrombin Time Pending Prothrombin Time INR Pending Activated Partial Thromboplast Time Pending Sodium Level 149 MMOL/L (136-145) H Potassium Level 3.1 MMOL/L (3.5-5.1) L Chloride Level 109 MMOL/L (98-107) H Carbon Dioxide Level 24 MMOL/L (21-32) Anion Gap 16 mmol/L (5-15) H Blood Urea Nitrogen 14 mg/dL (7-18) Creatinine 0.9 MG/DL (0.55-1.30) Estimate Glomerular Filtration Rate > 60 mL/min (>60) Glucose Level 76 MG/DL (74-106) Lactic Acid Level Pending Calcium Level 8.8 MG/DL (8.5-10.1) Magnesium Level 1.3 MG/DL (1.8-2.4) L Total Bilirubin 0.3 MG/DL (0.2-1.0) Aspartate Amino Transferase (AST) 24 U/L (15-37) Alanine Aminotransferase (ALT) 22 U/L (12-78) Alkaline Phosphatase 131 U/L (46-116) H Pro-B-Type Natriuretic Peptide 53618 pg/mL (0-125) H Total Protein 7.4 G/DL (6.4-8.2) Albumin 2.8 G/DL (3.4-5.0) L Globulin 4.6 g/dL Albumin/Globulin Ratio 0.6 (1.0-2.7) L Arterial Blood pH 7.388 (7.350-7.450) Arterial Blood Partial Pressure CO2 45.5 mmHg (35.0-45.0) H Arterial Blood Partial Pressure O2 59.3 mmHg (75.0-100.0) L Arterial Blood HCO3 26.8 mmol/L (22.0-26.0) H Arterial Blood Oxygen Saturation 89.5 % (95-100) *L Arterial Blood Base Excess 1.4 (-2-2) Lucas Test Positive Urine Color Pending Urine Appearance Pending Urine pH Pending Urine Specific [place] Pending Urine Protein Pending Urine Glucose (UA) Pending Urine Ketones Pending Urine Blood Pending Urine Nitrite Pending Urine Bilirubin Pending Urine Urobilinogen Pending Urine Leukocyte Esterase Pending Microbiology Date/Time Source Procedure Growth Status 08/23/19 12:34 Nasal Nares - Final Complete 08/23/19 12:34 Nasal Nares - Final Complete EKG Diagnostic Results EKG Time: 12:25 EP Interpretation: MD Seb Rate: normal Rhythm: NSR, other - Anterior fascicular block with QT prolongation ventricular rate of 86 bpm ASA given to the pt in ED: No Rhythm Strip Diag. Results Rhythm Strip Time: 12:40 EP Interpretation: yes - MD Seb Rate: 91 Rhythm: NSR, no PVC's, no ectopy Last Vital Signs Date Time Temp Pulse Resp B/P (MAP) Pulse Ox O2 Delivery O2 Flow Rate FiO2 08/23/19 12:03 97.5 89 18 149/95 93 Room Air Disposition: ADMITTED INPATIENT Condition: Critical Physician Consult: Dr. Velazquez on Telemetry Floor Aga Grigsby M.D. Aug 23, 2019 12:40
[2019-08-23 12:59] LABS: EOSINOPHILS % (AUTO) 0.8 % (0.0-3.0); HEMATOCRIT 39.2 % (42.0-52.0); HEMOGLOBIN 12.2 G/DL (14.2-18.0); LYMPHOCYTES % (AUTO) 34.5 % (20.0-45.0); MEAN CORPUSCULAR VOLUME 81 FL (80-99); MONOCYTES % (AUTO) 11.2 % (1.0-10.0); NEUTROPHILS % (AUTO) 52.6 % (45.0-75.0); PLATELET COUNT 122 K/UL (150-450); RED BLOOD COUNT 4.85 M/UL (4.70-6.10); WHITE BLOOD COUNT 7.7 K/UL (4.8-10.8)
[2019-08-23] MEDS ORDERED: Albuterol/Ipratropium 3ml neb HHN SCH (13:00)
[2019-08-23 13:04] LABS: ANION GAP 16 mmol/L (5-15); BLOOD UREA NITROGEN 14 mg/dL (7-18); CALCIUM 8.8 MG/DL (8.5-10.1); CARBON DIOXIDE 24 MMOL/L (21-32); CHLORIDE 109 MMOL/L (98-107); CREATININE 0.9 MG/DL (0.55-1.30); POTASSIUM 3.1 MMOL/L (3.5-5.1); SODIUM 149 MMOL/L (136-145)
[2019-08-23 13:15] LABS: ALANINE AMINOTRANSFERASE 22 U/L (12-78); ALBUMIN 2.8 G/DL (3.4-5.0); ALBUMIN/GLOBULIN RATIO 0.6 (1.0-2.7); ALKALINE PHOSPHATASE 131 U/L (46-116); ASPARTATE AMINO TRANSFERASE 24 U/L (15-37); BILIRUBIN,TOTAL 0.3 MG/DL (0.2-1.0)
[2019-08-23] MEDS: Albuterol/Ipratropium 3ml neb HHN SCH ×3 (13:27→13:51)
[2019-08-23] MEDS ORDERED: Aspirin Baby 81mg ORAL ONE (13:30)
--- NOTE | 2019-08-23 13:45 | Diagnostic Imaging Report ---
Indication: Dyspnea Comparison: 05/24/2019 A single view chest radiograph was obtained. Findings: Pulmonary vascular congestion and cardiomegaly demonstrated. Aorta is ectatic. Lower cervical fusion plate noted. IMPRESSION: CHF
[2019-08-23 13:55] LABS: INR 0.9 (0.9-1.1)
[2019-08-23 14:48] VITALS: BP 149/95
[2019-08-23] MEDS ORDERED: HYDROcodone/Acetamin 10/325 tab ONE (15:40)
[2019-08-23] MEDS ORDERED: HYDROcodone/Acetamin 10/325 tab ORAL ONE (15:45)
[2019-08-23] MEDS ORDERED: Albuterol/Ipratropium 3ml neb HHN PRN (16:21)
[2019-08-23 16:30] VITALS: BP 150/84
[2019-08-23] MEDS ORDERED: Promethazine/Codeine 5ml UD ORAL ONE (16:45)
[2019-08-23 17:45] VITALS: BP 158/83
[2019-08-23 20:00] VITALS: BP_SYST 153; BP_SYST 158; BP_DIAS 74; BP_DIAS 83
--- NOTE | 2019-08-23 20:00 | History and Physical Report ---
DATE OF ADMISSION: 08/23/2019 CHIEF COMPLAINT: Chronic obstructive pulmonary disease exacerbation and congestive heart failure exacerbation. HISTORY OF PRESENT ILLNESS: This is a 73-year-old male well known to me. He has a history of chronic obstructive pulmonary disease, hypertensive heart disease, schizoaffective disorder. He presented initially to the office several days ago with complaints of shortness of breath, cough, and congestion. He was ordered antibiotics and breathing treatments. Because of progressive and worsening shortness of breath, presented to the emergency room. On evaluation there, he had x-ray that showed evidence of congestive heart failure. He was wheezing and congested. He was also given a dose of Lasix and IV antibiotics. He is now admitted for further evaluation and care. PAST MEDICAL HISTORY: As above. PAST SURGICAL HISTORY: None. CURRENT MEDICATIONS: Reconciled and reviewed. ALLERGIES: None. FAMILY HISTORY: None. SOCIAL HISTORY: The patient is a prior smoker. No alcohol. No drugs. REVIEW OF SYSTEMS: GENERAL: Positive for fevers and chills. HEENT: No headaches or visual changes. CARDIOPULMONARY: No chest pain. Positive shortness of breath, cough, and congestion. GASTROINTESTINAL: No nausea or vomiting. GENITOURINARY: No urgency or frequency. MUSCULOSKELETAL: No joint pain or swelling. NEUROLOGIC: No evidence of seizures. PHYSICAL EXAMINATION: VITAL SIGNS: Temperature 98 degrees, blood pressure 140/76, pulse 80, and respirations 20. GENERAL: The patient is a well-developed, thin, chronically ill-appearing male, in no apparent distress. HEART: Regular rate and rhythm. LUNGS: Significant for scattered rhonchi and wheezes. ABDOMEN: Soft, nontender, and nondistended. EXTREMITIES: Without clubbing, cyanosis, or edema. PERTINENT DATA: Chest x-ray showed congestive heart failure. White count was 7 and hemoglobin 12. Sodium 149, potassium 3.1, chloride 109, and bicarb 24. Lactic acid was 2.2. Mag was 1.3. Natriuretic peptide level was 12,000. UA is pending. ASSESSMENT: This is a 73-year-old male admitted with complaints of shortness of breath, likely multifactorial secondary to COPD exacerbation, possible congestive heart failure exacerbation, cannot rule out an underlying pneumonia. PLAN: 1. IV antibiotics. 2. Cautious diuresis. 3. Encourage fluids. 4. Replace electrolytes. 5. Broad-spectrum IV antibiotics. 6. Intravenous steroids for COPD exacerbation. 7. Respiratory treatments. 8. Cardiology and Pulmonary evaluations will be obtained. Zachariah Hernandez M.D. DR: ROCIO JOB#: [id number] CC:
[2019-08-23] MEDS: Heparin 5000 units/ml inj SUBQ SCH (21:00)
[2019-08-23] MEDS: Tamsulosin 0.4mg cap ORAL SCH (21:21)
[2019-08-23] MEDS: Metoprolol Tartrate 50mg tab ORAL SCH (21:22)
[2019-08-23] MEDS: HYDROcodone/Acetamin 10/325 tab ORAL PRN (21:23)
[2019-08-24 00:09] VITALS: BP 139/63
--- NOTE | 2019-08-24 03:30 | Consultation ---
DATE OF CONSULTATION: 08/23/2019 CARDIOLOGY CONSULTATION CONSULTING PHYSICIAN: Sanjeev Li M.D. REQUESTING PHYSICIAN: Zachariah Hernandez M.D. REASON FOR CONSULTATION: Acute congestive heart failure. HISTORY OF PRESENT ILLNESS: This is a 73-year-old male. He was seen in Dr. Hernandez's office earlier this week. The patient had increasing shortness of breath and was treated with cardiac and pulmonary medications. He failed to improve and came to the emergency room today with continued shortness of breath, cough, and congestion. I have been asked to assist with cardiovascular care addressing his congestive heart failure exacerbation as evidenced by clinical findings, laboratory results, and chest radiograph. PAST MEDICAL HISTORY: Includes chronic obstructive pulmonary disease, hypertensive heart disease, schizoaffective disorder, and degenerative disc disease. ALLERGIES: None. FAMILY HISTORY: Noncontributory. SOCIAL HISTORY: Negative for alcohol or substance abuse. He is a smoker, but has quit. REVIEW OF SYSTEMS: He has had fevers and chills. He received a flu vaccination this season. He denies chest pain, but has shortness of breath. There is no history of abnormal blood clotting. He does have frequent back and joint pains. There is no history of seizure or stroke. He has not had any change in bowel habits. There is no history of prostate cancer and known history of elevated PSA. PHYSICAL EXAMINATION: VITAL SIGNS: Blood pressure 140/76, pulse 80, respirations 20, and afebrile. GENERAL: Ill-appearing, thin, and frail. Poorly kempt. HEENT: Conjunctivae pink. Oropharynx clear. Poor dentition and hygiene. NECK: Supple. No accessory muscle use. LUNGS: Bilateral breath sounds, rhonchi, and expiratory wheezes. CARDIAC: Regular rhythm and rate. Normal S1, S2 with a fourth heart sound. ABDOMEN: Soft and nontender. EXTREMITIES: Without edema. DIAGNOSTIC DATA: Chest x-ray reveals pulmonary venous congestion. White count is 7 and hemoglobin 12. Sodium 149, potassium 3.1, bicarb 24, magnesium 1.3. Lactic acid 2.2. Natriuretic peptide over 12,000. EKG pending. ABG, pH 7.33, pCO2 45, pO2 60. EKG, sinus rhythm with left anterior superior hemiblock and intravenous conduction delay. IMPRESSION: 1. Acute on chronic diastolic and systolic congestive heart failure. 2. Hypoxia. 3. Chronic respiratory acidosis. 4. Chronic obstructive pulmonary disease exacerbation. 5. Possible acute bronchitis. 6. Conduction system disease of the heart. 7. Moderate protein-calorie malnutrition. 8. Lactic acidosis. 9. Dehydration. 10. Hypernatremia. 11. Hypokalemia. 12. Hypomagnesemia. PLAN: 1. Panculture. 2. Hypotonic IV fluids. 3. Potassium replacement orally. 4. Magnesium replacement intravenously. 5. Hold diuretics. 6. Inhaled bronchodilators. 7. Empiric antimicrobials. 8. Serial lactic acid levels. 9. Echocardiogram. 10. Trending of natriuretic peptide assay. 11. We will follow. Sanjeev Li M.D. DR: KERRIE JOB#: [id number] CC:
[2019-08-24 04:00] VITALS: BP 144/68
[2019-08-24] MEDS ORDERED: 1/2NS w/KCl 20mEq 1000ml 1,000 ML IV SCH (04:00)
[2019-08-24 07:29] LABS: BASOPHILS % (AUTO) 0.2 % (0.0-2.0); HEMATOCRIT 37.5 % (42.0-52.0); HEMOGLOBIN 11.6 G/DL (14.2-18.0); LYMPHOCYTES % (AUTO) 10.4 % (20.0-45.0); MEAN CORPUSCULAR VOLUME 81 FL (80-99); MONOCYTES % (AUTO) 6.5 % (1.0-10.0); NEUTROPHILS % (AUTO) 82.8 % (45.0-75.0); PLATELET COUNT 132 K/UL (150-450); RED BLOOD COUNT 4.61 M/UL (4.70-6.10); RED CELL DISTRIBUTION WIDTH 17.7 % (11.6-14.8); WHITE BLOOD COUNT 8.6 K/UL (4.8-10.8)
[2019-08-24 07:54] LABS: ALANINE AMINOTRANSFERASE 14 U/L (12-78); ALBUMIN 2.6 G/DL (3.4-5.0); ALBUMIN/GLOBULIN RATIO 0.6 (1.0-2.7); ALKALINE PHOSPHATASE 108 U/L (46-116); ANION GAP 10 mmol/L (5-15); ASPARTATE AMINO TRANSFERASE 19 U/L (15-37); BILIRUBIN,TOTAL 0.2 MG/DL (0.2-1.0); BLOOD UREA NITROGEN 21 mg/dL (7-18); CALCIUM 8.2 MG/DL (8.5-10.1); CARBON DIOXIDE 28 MMOL/L (21-32); CHLORIDE 107 MMOL/L (98-107); POTASSIUM 3.4 MMOL/L (3.5-5.1); SODIUM 145 MMOL/L (136-145)
[2019-08-24 08:00] VITALS: BP 149/91
[2019-08-24] MEDS: Metoprolol Tartrate 50mg tab ORAL SCH ×2 (08:59→21:00)
[2019-08-24] MEDS ORDERED: Lisinopril 10mg tab ORAL SCH (09:00)
[2019-08-24] MEDS: HYDROcodone/Acetamin 10/325 tab ORAL PRN ×3 (09:00→21:05)
[2019-08-24] MEDS ORDERED: Aspirin Baby 81mg ORAL SCH (09:00)
[2019-08-24] MEDS ORDERED: cefTRIAXone 1 GM in D5W 55 ML IVPB SCH (09:00)
[2019-08-24] MEDS: Heparin 5000 units/ml inj SUBQ SCH ×2 (09:02→21:00)
[2019-08-24 12:05] VITALS: BP 128/76
--- NOTE | 2019-08-24 15:50 | General Progress Note ---
Assessment/Plan Problem List: (1) Systolic and diastolic CHF, acute on chronic ICD Codes: I50.43 - Acute on chronic combined systolic (congestive) and diastolic (congestive) heart failure SNOMED: 749578527, 615801555717012 (2) Failure to thrive SNOMED: 97257918 (3) Hypoxia ICD Codes: R09.02 - Hypoxemia SNOMED: 762612163 (4) CHF (congestive heart failure) ICD Codes: I50.9 - Heart failure, unspecified SNOMED: 58387029 (5) Hypomagnesemia ICD Codes: E83.42 - Hypomagnesemia SNOMED: 893341115 (6) Bronchitis ICD Codes: J40 - Bronchitis, not specified as acute or chronic SNOMED: 05813434 (7) COPD exacerbation ICD Codes: J44.1 - Chronic obstructive pulmonary disease with (acute) exacerbation SNOMED: 294820624, 576297935 Status: stable Assessment/Plan: resp rx o2 iv steroids iv abx diuresis pt/ot replace mg and k d/w cardiology poc. Subjective ROS Limited/Unobtainable: No Constitutional: Reports: malaise, weakness HEENT: Reports: no symptoms Cardiovascular: Reports: no symptoms Respiratory: Reports: shortness of breath, sputum Gastrointestinal/Abdominal: Reports: no symptoms Genitourinary: Reports: no symptoms Neurologic/Psychiatric: Reports: no symptoms Endocrine: Reports: no symptoms Hematologic/Lymphatic: Reports: no symptoms Allergies: Uncoded Allergies: CONTRAST MEDIA (Adverse Reaction, Mild, Itching in the area of the neck, 01/20/18) Patient was given specifically Isovue contrast during CT of the abdomen, and when he came back. The patient was itchy and benadryl was given, no complaints of itchiness or adverse reactions so far. All Systems: reviewed and negative except above Subjective eating breakfast. no new complaints. no chest pain. decreased sob. low ef noted. +cough. no fevers. labs reviewed. Objective Last 24 Hour Vital Signs Date Time Temp Pulse Resp B/P (MAP) Pulse Ox O2 Delivery O2 Flow Rate FiO2 08/24/19 12:05 98.6 80 18 128/76 (93) 97 08/24/19 12:00 82 08/24/19 09:00 Nasal Cannula 2.0 08/24/19 08:59 87 149/91 08/24/19 08:59 149/91 08/24/19 08:00 86 08/24/19 08:00 97.2 87 18 149/91 (110) 99 08/24/19 07:58 93 Nasal Cannula 2.0 28 08/24/19 04:00 86 08/24/19 04:00 96.8 90 18 144/68 (93) 96 08/24/19 00:09 97.6 92 18 139/63 (88) 94 08/24/19 00:02 90 08/23/19 21:22 94 153/74 08/23/19 21:00 Nasal Cannula 2.0 08/23/19 21:00 Nasal Cannula 2.0 08/23/19 20:00 92 08/23/19 20:00 97.5 88 19 153/74 (100) 97 08/23/19 18:35 2.0 08/23/19 18:14 Nasal Cannula 2.0 08/23/19 17:45 99.2 102 24 166/74 98 Nasal Cannula 2.0 08/23/19 17:45 97.7 106 19 158/83 (108) 95 08/23/19 16:30 97.5 100 22 150/84 100 Room Air 21 Intake and Output 08/23/19 08/24/19 19:00 07:00 Output Total 220 ml 1200 ml Balance -220 ml -1200 ml Output Urine Total 220 ml 1200 ml # Bowel Movements 1 2 Laboratory Tests 08/23/19 16:36: Lactic Acid Level 3.60H 08/24/19 05:42: Lactic Acid Level 1.40, White Blood Count 8.6, Red Blood Count 4.61L, Hemoglobin 11.6L, Hematocrit 37.5L, Mean Corpuscular Volume 81, Mean Corpuscular Hemoglobin 25.3L, Mean Corpuscular Hemoglobin Concent 31.0L, Red Cell Distribution Width 17.7H, Platelet Count 132L, Mean Platelet Volume 8.8, Neutrophils (%) (Auto) 82.8H, Lymphocytes (%) (Auto) 10.4L, Monocytes (%) (Auto ) 6.5, Eosinophils (%) (Auto) 0.0, Basophils (%) (Auto) 0.2, Sodium Level 145, Potassium Level 3.4L, Chloride Level 107, Carbon Dioxide Level 28, Anion Gap 10 , Blood Urea Nitrogen 21H, Creatinine 1.0, Estimat Glomerular Filtration Rate > 60, Glucose Level 130H, Calcium Level 8.2L, Magnesium Level 1.4L, Total Bilirubin 0.2, Aspartate Amino Transf (AST/SGOT) 19, Alanine Aminotransferase ( ALT/SGPT) 14, Alkaline Phosphatase 108, Total Protein 7.1, Albumin 2.6L, Globulin 4.5, Albumin/Globulin Ratio 0.6L Height (Feet): 6 Height (Inches): 4.00 Weight (Pounds): 163 General Appearance: WD/WN, alert Neck: non-tender, normal alignment, supple Cardiovascular: normal rate, regular rhythm Respiratory/Chest: no respiratory distress, no accessory muscle use, rhonchi - bilaterally Abdomen: normal bowel sounds, non tender, soft, no organomegaly Edema: no edema noted Arm (L), no edema noted Arm (R), no edema noted Leg (L), no edema noted Leg (R), no edema noted Pedal (L), no edema noted Pedal (R), no edema noted Generalized Neurologic: alert, responsive Skin: normal pigmentation Zachariah Hernandez MD Aug 24, 2019 15:50
[2019-08-24 16:00] VITALS: BP 128/84
[2019-08-24 20:00] VITALS: BP 108/89
[2019-08-24] MEDS: Tamsulosin 0.4mg cap ORAL SCH (20:59)
[2019-08-25] VITALS: BP 110/90
[2019-08-25] MEDS: Albuterol/Ipratropium 3ml neb HHN PRN ×2 (00:10→04:38)
--- NOTE | 2019-08-25 03:30 | Progress Note ---
DATE: 08/24/2019 CARDIOLOGY PROGRESS NOTE SUBJECTIVE: The patient's echocardiogram was reviewed. Ejection fraction 35% with mild to moderate regurgitation and pulmonary hypertension. Labs notable today for potassium of 3.4, magnesium 1.4. Lactic acid normalized at 1.4. Albumin 2.6. BUN 21 and creatinine 1. The patient has no new complaints. OBJECTIVE: NECK: Jugular venous pressure is slightly elevated. LUNGS: With few rales. CARDIAC: Regular rhythm and rate. Normal S1, S2. A 1/6 systolic murmur at apex. ABDOMEN: Soft. EXTREMITIES: No edema. DIAGNOSTIC DATA: temperature regulator pyrometer reveals sinus rhythm with occasional atrial ectopics. IMPRESSION: 1. Acute on chronic systolic and diastolic congestive heart failure. 2. Chronic obstructive pulmonary disease exacerbation. 3. Hypokalemia. 4. Hypomagnesemia. 5. Resolved lactic acidosis. 6. Moderate protein-calorie malnutrition. PLAN: 1. Intravenous magnesium. 2. Oral potassium. 3. Diuresis. 4. Add angiotensin-converting enzyme inhibitor. 5. Add Aldactone for potassium sparing affect. 6. Follow up laboratory studies. Sanjeev Li M.D. DR: KERRIE JOB#: [id number] CC:
[2019-08-25 04:00] VITALS: BP 113/96
[2019-08-25 05:46] LABS: BASOPHILS % (AUTO) 0.7 % (0.0-2.0); EOSINOPHILS % (AUTO) 0.6 % (0.0-3.0); HEMATOCRIT 37.9 % (42.0-52.0); HEMOGLOBIN 11.9 G/DL (14.2-18.0); LYMPHOCYTES % (AUTO) 29.6 % (20.0-45.0); MEAN CORPUSCULAR VOLUME 81 FL (80-99); MONOCYTES % (AUTO) 9.4 % (1.0-10.0); NEUTROPHILS % (AUTO) 59.7 % (45.0-75.0); PLATELET COUNT 130 K/UL (150-450); RED BLOOD COUNT 4.66 M/UL (4.70-6.10); RED CELL DISTRIBUTION WIDTH 17.8 % (11.6-14.8); WHITE BLOOD COUNT 12.2 K/UL (4.8-10.8)
[2019-08-25 06:19] LABS: ANION GAP 12 mmol/L (5-15); BLOOD UREA NITROGEN 32 mg/dL (7-18); CALCIUM 8.5 MG/DL (8.5-10.1); CARBON DIOXIDE 23 MMOL/L (21-32); CHLORIDE 105 MMOL/L (98-107); CREATININE 1.2 MG/DL (0.55-1.30); POTASSIUM 3.7 MMOL/L (3.5-5.1); SODIUM 140 MMOL/L (136-145)
[2019-08-25] MEDS: guaiFENesin w/Codeine 5ml Liq ud ORAL PRN (06:52)
[2019-08-25 08:00] VITALS: BP 127/79
[2019-08-25] MEDS: Aspirin Baby 81mg ORAL SCH (08:39)
[2019-08-25] MEDS: HYDROcodone/Acetamin 10/325 tab ORAL PRN ×2 (08:39→20:39)
[2019-08-25] MEDS: Metoprolol Tartrate 50mg tab ORAL SCH ×2 (08:40→20:40)
[2019-08-25] MEDS: Spironolactone 25mg tab ORAL SCH (08:41)
[2019-08-25] MEDS: Lisinopril 10mg tab ORAL SCH (08:41)
[2019-08-25] MEDS: cefTRIAXone 1 GM in D5W 55 ML IVPB SCH (08:42)
[2019-08-25] MEDS: Heparin 5000 units/ml inj SUBQ SCH ×2 (08:43→20:41)
[2019-08-25 12:00] VITALS: BP 101/66
--- NOTE | 2019-08-25 15:45 | General Progress Note ---
Assessment/Plan Problem List: (1) Systolic and diastolic CHF, acute on chronic ICD Codes: I50.43 - Acute on chronic combined systolic (congestive) and diastolic (congestive) heart failure SNOMED: 431094493, 869824998034550 (2) Failure to thrive SNOMED: 34340734 (3) Hypoxia ICD Codes: R09.02 - Hypoxemia SNOMED: 883988694 (4) CHF (congestive heart failure) ICD Codes: I50.9 - Heart failure, unspecified SNOMED: 02380614 (5) Hypomagnesemia ICD Codes: E83.42 - Hypomagnesemia SNOMED: 116245997 (6) Bronchitis ICD Codes: J40 - Bronchitis, not specified as acute or chronic SNOMED: 73917519 (7) COPD exacerbation ICD Codes: J44.1 - Chronic obstructive pulmonary disease with (acute) exacerbation SNOMED: 343553597, 223954924 Status: stable Assessment/Plan: resp rx o2 iv abx diuresis pt/ot replace lytes as neeed monitor cxr pt/ot d/w cardiology poc. Subjective ROS Limited/Unobtainable: No Constitutional: Reports: malaise, weakness HEENT: Reports: no symptoms Cardiovascular: Reports: no symptoms Respiratory: Reports: cough, shortness of breath, sputum Gastrointestinal/Abdominal: Reports: no symptoms Genitourinary: Reports: no symptoms Neurologic/Psychiatric: Reports: pre-existing deficit Endocrine: Reports: no symptoms Hematologic/Lymphatic: Reports: anemia Allergies: Uncoded Allergies: CONTRAST MEDIA (Adverse Reaction, Mild, Itching in the area of the neck, 01/20/18) Patient was given specifically Isovue contrast during CT of the abdomen, and when he came back. The patient was itchy and benadryl was given, no complaints of itchiness or adverse reactions so far. All Systems: reviewed and negative except above Subjective eating breakfast. no new complaints. no chest pain. decreased sob. low ef noted. +cough. no fevers. labs reviewed. Objective Last 24 Hour Vital Signs Date Time Temp Pulse Resp B/P (MAP) Pulse Ox O2 Delivery O2 Flow Rate FiO2 08/25/19 12:00 97.3 69 18 101/66 (78) 100 08/25/19 09:00 Nasal Cannula 2.0 08/25/19 08:59 98 Nasal Cannula 2.0 28 08/25/19 08:41 127/79 08/25/19 08:40 81 127/79 08/25/19 08:00 98.0 81 18 127/79 (95) 93 08/25/19 04:38 82 16 99 Nasal Cannula 2.0 28 82 16 94 08/25/19 04:00 98.3 89 17 113/96 (102) 95 08/25/19 00:11 84 19 98 Nasal Cannula 2.0 28 79 16 96 08/25/19 00:00 97.9 83 17 110/90 (97) 90 08/24/19 21:00 82 108/89 08/24/19 21:00 Nasal Cannula 2.0 08/24/19 20:00 98.1 82 17 108/89 (95) 96 08/24/19 19:00 94 Nasal Cannula 2.0 28 08/24/19 16:00 96.8 80 19 128/84 (99) 98 08/24/19 16:00 78 Intake and Output 08/24/19 08/25/19 19:00 07:00 Output Total 400 ml Balance -400 ml Output Urine Total 400 ml # Bowel Movements 1 1 Laboratory Tests 08/25/19 05:35: White Blood Count 12.2H, Red Blood Count 4.66L, Hemoglobin 11.9L, Hematocrit 37.9L, Mean Corpuscular Volume 81, Mean Corpuscular Hemoglobin 25.5L, Mean Corpuscular Hemoglobin Concent 31.4L, Red Cell Distribution Width 17.8H, Platelet Count 130L, Mean Platelet Volume 8.2, Neutrophils (%) (Auto) 59.7, Lymphocytes (%) (Auto) 29.6, Monocytes (%) (Auto) 9.4, Eosinophils (%) (Auto) 0.6, Basophils (%) (Auto) 0.7, Sodium Level 140, Potassium Level 3.7, Chloride Level 105, Carbon Dioxide Level 23, Anion Gap 12, Blood Urea Nitrogen 32H, Creatinine 1.2, Estimat Glomerular Filtration Rate > 60, Glucose Level 104, Calcium Level 8.5, Pro-B-Type Natriuretic Peptide 6599H Height (Feet): 6 Height (Inches): 4.00 Weight (Pounds): 163 General Appearance: WD/WN, alert, thin Neck: non-tender, normal alignment, supple Cardiovascular: normal peripheral pulses, normal rate, regular rhythm Respiratory/Chest: chest wall non-tender, no respiratory distress, no accessory muscle use, rhonchi - bilaterally Abdomen: normal bowel sounds, non tender, soft, no organomegaly, no mass Edema: no edema noted Arm (L), no edema noted Arm (R), no edema noted Leg (L), no edema noted Leg (R), no edema noted Pedal (L), no edema noted Pedal (R), no edema noted Generalized Neurologic: abnormal gait, alert, responsive Zachariah Hernandez MD Aug 25, 2019 15:45
[2019-08-25 16:00] VITALS: BP 108/66
[2019-08-25 20:00] VITALS: BP 103/70
[2019-08-25] MEDS: Tamsulosin 0.4mg cap ORAL SCH (20:38)
[2019-08-26] VITALS: BP 115/62
--- NOTE | 2019-08-26 00:30 | Progress Note ---
DATE: 08/25/2019 CARDIOLOGY PROGRESS NOTE SUBJECTIVE: The patient without complaints of chest pain or shortness of breath at rest. Less shortness of breath with activity. There was some cough. I adjusted cardiovascular regimen since yesterday . OBJECTIVE: VITAL SIGNS: Blood pressure 103/70, heart rate 75, respiratory rate 20, afebrile, and oxygen saturation on 2 liters 96%. LUNGS: Diminished breath sounds. Few rales. CARDIAC: Regular rhythm and rate. Normal S1 and S2 with a 1/6 systolic apical murmur. ABDOMEN: Soft. EXTREMITIES: No edema. LABORATORY DATA: White count 12 and hemoglobin 11.9. Potassium 3.7, BUN 32, and creatinine 1.2. Pro-natriuretic peptide decreased from 12,000 to 6500. IMPRESSION: 1. Clinically improved. 2. Acute on chronic systolic and diastolic congestive heart failure. 3. Chronic obstructive pulmonary disease. 4. Hypomagnesemia and hypokalemia, corrected. 5. Resolved lactic acidosis. PLAN: 1. Continue titration of anti-failure regimen. 2. Hold additional IV diuresis. 3. Maximize anti-failure regimen. 4. Discharge planning. Sanjeev Li M.D. DR: DELORIS JOB#: [id number] CC:
[2019-08-26 03:57] VITALS: BP 109/70
[2019-08-26 07:54] LABS: ANION GAP 8 mmol/L (5-15); BLOOD UREA NITROGEN 40 mg/dL (7-18); CALCIUM 8.5 MG/DL (8.5-10.1); CARBON DIOXIDE 29 MMOL/L (21-32); CHLORIDE 105 MMOL/L (98-107); CREATININE 1.1 MG/DL (0.55-1.30); POTASSIUM 4.4 MMOL/L (3.5-5.1); SODIUM 142 MMOL/L (136-145)
[2019-08-26 08:00] VITALS: BP 121/73
[2019-08-26] MEDS: Aspirin Baby 81mg ORAL SCH (09:40)
[2019-08-26] MEDS: Heparin 5000 units/ml inj SUBQ SCH ×2 (09:40→19:56)
[2019-08-26] MEDS: Spironolactone 25mg tab ORAL SCH (09:40)
[2019-08-26] MEDS: Metoprolol Tartrate 50mg tab ORAL SCH ×2 (09:41→19:56)
[2019-08-26] MEDS: Lisinopril 10mg tab ORAL SCH (09:41)
[2019-08-26] MEDS: HYDROcodone/Acetamin 10/325 tab ORAL PRN ×2 (09:45→19:56)
[2019-08-26] MEDS: cefTRIAXone 1 GM in D5W 55 ML IVPB SCH (09:46)
[2019-08-26] MEDS: guaiFENesin w/Codeine 5ml Liq ud ORAL PRN ×2 (11:08→19:55)
--- NOTE | 2019-08-26 11:34 | General Progress Note ---
Assessment/Plan Problem List: (1) Systolic and diastolic CHF, acute on chronic ICD Codes: I50.43 - Acute on chronic combined systolic (congestive) and diastolic (congestive) heart failure SNOMED: 597661234, 992439061681167 (2) Failure to thrive SNOMED: 79298209 (3) Hypoxia ICD Codes: R09.02 - Hypoxemia SNOMED: 412926058 (4) CHF (congestive heart failure) ICD Codes: I50.9 - Heart failure, unspecified SNOMED: 84217439 (5) Hypomagnesemia ICD Codes: E83.42 - Hypomagnesemia SNOMED: 209650265 (6) Bronchitis ICD Codes: J40 - Bronchitis, not specified as acute or chronic SNOMED: 61659824 (7) COPD exacerbation ICD Codes: J44.1 - Chronic obstructive pulmonary disease with (acute) exacerbation SNOMED: 508823094, 231725451 Status: stable Assessment/Plan: resp rx o2 iv abx diuresis as needed pt/ot replace lytes as neeed monitor cxr pt/ot d/w cardiology poc. Subjective ROS Limited/Unobtainable: No Constitutional: Reports: malaise, weakness HEENT: Reports: no symptoms Cardiovascular: Reports: no symptoms Respiratory: Reports: cough Gastrointestinal/Abdominal: Reports: no symptoms Genitourinary: Reports: no symptoms Neurologic/Psychiatric: Reports: pre-existing deficit Endocrine: Reports: no symptoms Hematologic/Lymphatic: Reports: anemia Allergies: Uncoded Allergies: CONTRAST MEDIA (Adverse Reaction, Mild, Itching in the area of the neck, 01/20/18) Patient was given specifically Isovue contrast during CT of the abdomen, and when he came back. The patient was itchy and benadryl was given, no complaints of itchiness or adverse reactions so far. All Systems: reviewed and negative except above Subjective eating breakfast. no new complaints. no chest pain. decreased sob.. +cough. no fevers. labs reviewed. Objective Last 24 Hour Vital Signs Date Time Temp Pulse Resp B/P (MAP) Pulse Ox O2 Delivery O2 Flow Rate FiO2 08/26/19 09:41 82 121/73 08/26/19 09:41 121/73 08/26/19 09:00 Nasal Cannula 2.0 08/26/19 08:00 97.2 82 20 121/73 (89) 99 08/26/19 07:10 96 Nasal Cannula 2.0 28 08/26/19 03:57 98.2 76 20 109/70 (83) 97 08/26/19 00:00 98.0 89 20 115/62 (79) 97 08/25/19 21:00 Nasal Cannula 2.0 08/25/19 20:40 75 103/70 08/25/19 20:00 98.3 75 20 103/70 (81) 96 08/25/19 19:51 96 Nasal Cannula 2.0 28 08/25/19 16:00 97.2 78 18 108/66 (80) 100 08/25/19 12:00 97.3 69 18 101/66 (78) 100 Intake and Output 08/25/19 08/26/19 19:00 07:00 Intake Total 1180 ml 250 ml Output Total 1200 ml 1100 ml Balance -20 ml -850 ml Intake Oral 1180 ml 250 ml Output Urine Total 1200 ml 1100 ml # Bowel Movements 1 1 Laboratory Tests 08/26/19 06:55: Sodium Level 142, Potassium Level 4.4, Chloride Level 105, Carbon Dioxide Level 29, Anion Gap 8, Blood Urea Nitrogen 40H, Creatinine 1.1, Estimat Glomerular Filtration Rate > 60, Glucose Level 106, Calcium Level 8.5, Magnesium Level 2.0 Height (Feet): 6 Height (Inches): 4.00 Weight (Pounds): 163 Objective General Appearance: WD/WN, alert, thin Neck: non-tender, normal alignment, supple Cardiovascular: normal peripheral pulses, normal rate, regular rhythm Respiratory/Chest: chest wall non-tender, no respiratory distress, no accessory muscle use, rhonchi - bilaterally Abdomen: normal bowel sounds, non tender, soft, no organomegaly, no mass Edema: no edema noted Arm (L), no edema noted Arm (R), no edema noted Leg (L), no edema noted Leg (R), no edema noted Pedal (L), no edema noted Pedal (R), no edema noted Generalized Neurologic: abnormal gait, alert, responsive Zachariah Hernandez MD Aug 26, 2019 11:34
[2019-08-26 12:00] VITALS: BP 114/107
[2019-08-26 16:00] VITALS: BP 115/73
[2019-08-26] MEDS: Tamsulosin 0.4mg cap ORAL SCH (19:56)
[2019-08-26 20:00] VITALS: BP 142/80
--- NOTE | 2019-08-26 22:45 | Progress Note ---
DATE: 08/26/2019 SUBJECTIVE: The patient has no new complaints. Shortness of breath and cough has decreased. He is able to lie flat at night. OBJECTIVE: VITAL SIGNS: Blood pressure 121/73, pulse 82, respiratory 20, afebrile. LUNGS: Diminished breath sounds. No wheezes or rales. CARDIAC: Regular rhythm and rate. Normal S1, S2 with a 1/6 systolic murmur at apex. ABDOMEN: Soft. EXTREMITIES: No edema. LABORATORY DATA: Sodium 142, potassium 4.4, bicarb 29, BUN 40, creatinine 1.1. IMPRESSION: 1. Acute on chronic systolic and diastolic congestive heart failure. 2. Hypomagnesemia, corrected. 3. COPD exacerbation improved. 4. Prerenal azotemia due to diuresis. PLAN: 1. Discontinue diuretics. 2. Observe on remainder of anti-failure regimen, antimicrobials, and respiratory hygiene, now off steroids. Sanjeev Li M.D. DR: YANNICK JOB#: [id number] CC:
[2019-08-26] MEDS: Albuterol/Ipratropium 3ml neb HHN PRN (23:12)
[2019-08-27] VITALS: BP 138/82
[2019-08-27 04:00] VITALS: BP 132/85
[2019-08-27] MEDS: Albuterol/Ipratropium 3ml neb HHN PRN (04:31)
[2019-08-27 08:00] VITALS: BP 157/89
[2019-08-27] MEDS: cefTRIAXone 1 GM in D5W 55 ML IVPB SCH (09:37)
[2019-08-27] MEDS: Aspirin Baby 81mg ORAL SCH (09:38)
[2019-08-27] MEDS: Lisinopril 10mg tab ORAL SCH (09:38)
[2019-08-27] MEDS: Heparin 5000 units/ml inj SUBQ SCH ×2 (09:38→20:44)
[2019-08-27] MEDS: Metoprolol Tartrate 50mg tab ORAL SCH ×2 (09:38→20:35)
[2019-08-27] MEDS: HYDROcodone/Acetamin 10/325 tab ORAL PRN ×2 (09:38→20:39)
--- NOTE | 2019-08-27 10:56 | General Progress Note ---
Assessment/Plan Problem List: (1) Systolic and diastolic CHF, acute on chronic ICD Codes: I50.43 - Acute on chronic combined systolic (congestive) and diastolic (congestive) heart failure SNOMED: 020721557, 402928570036337 (2) Failure to thrive SNOMED: 35949690 (3) Hypoxia ICD Codes: R09.02 - Hypoxemia SNOMED: 894228284 (4) CHF (congestive heart failure) ICD Codes: I50.9 - Heart failure, unspecified SNOMED: 79403823 (5) Hypomagnesemia ICD Codes: E83.42 - Hypomagnesemia SNOMED: 731349662 (6) Bronchitis ICD Codes: J40 - Bronchitis, not specified as acute or chronic SNOMED: 58302426 (7) COPD exacerbation ICD Codes: J44.1 - Chronic obstructive pulmonary disease with (acute) exacerbation SNOMED: 561408975, 355900697 Status: stable Assessment/Plan: resp rx o2 iv abx diuresis as needed pt/ot replace lytes as neeed monitor cxr pt/ot d/w cardiology poc. dc planning Subjective ROS Limited/Unobtainable: No Constitutional: Reports: malaise, weakness HEENT: Reports: no symptoms Cardiovascular: Reports: no symptoms Respiratory: Reports: cough, sputum Gastrointestinal/Abdominal: Reports: no symptoms Genitourinary: Reports: no symptoms Neurologic/Psychiatric: Reports: pre-existing deficit Endocrine: Reports: no symptoms Hematologic/Lymphatic: Reports: anemia Allergies: Uncoded Allergies: CONTRAST MEDIA (Adverse Reaction, Mild, Itching in the area of the neck, 01/20/18) Patient was given specifically Isovue contrast during CT of the abdomen, and when he came back. The patient was itchy and benadryl was given, no complaints of itchiness or adverse reactions so far. All Systems: reviewed and negative except above Subjective stable. no new complaints. no chest pain. decreased sob.. +cough. no fevers. labs reviewed. Objective Last 24 Hour Vital Signs Date Time Temp Pulse Resp B/P (MAP) Pulse Ox O2 Delivery O2 Flow Rate FiO2 08/27/19 09:38 82 157/89 08/27/19 09:38 157/89 08/27/19 09:00 Nasal Cannula 2.0 08/27/19 08:00 97.5 82 18 157/89 (111) 92 08/27/19 07:32 94 Nasal Cannula 2.0 28 08/27/19 04:31 80 16 95 Room Air 21 77 16 88 08/27/19 04:00 97.8 81 20 132/85 (101) 97 08/27/19 00:00 96.9 95 21 138/82 (100) 96 08/26/19 23:15 82 16 99 Nasal Cannula 2.0 28 75 16 95 08/26/19 21:00 Nasal Cannula 2.0 08/26/19 20:11 95 Nasal Cannula 2.0 28 08/26/19 20:00 96.9 85 20 142/80 (100) 95 08/26/19 19:56 82 145/76 08/26/19 16:00 98.2 77 20 115/73 (87) 99 08/26/19 12:00 97.4 75 20 114/107 (109) 100 Intake and Output 08/26/19 08/27/19 19:00 07:00 Intake Total 1080 ml 550 ml Output Total 1000 ml 950 ml Balance 80 ml -400 ml Intake Oral 1080 ml 550 ml Output Urine Total 1000 ml 950 ml # Bowel Movements 2 1 Height (Feet): 6 Height (Inches): 4.00 Weight (Pounds): 163 Objective General Appearance: WD/WN, alert, thin Neck: non-tender, normal alignment, supple Cardiovascular: normal peripheral pulses, normal rate, regular rhythm Respiratory/Chest: chest wall non-tender, no respiratory distress, no accessory muscle use, rhonchi - bilaterally Abdomen: normal bowel sounds, non tender, soft, no organomegaly, no mass Edema: no edema noted Arm (L), no edema noted Arm (R), no edema noted Leg (L), no edema noted Leg (R), no edema noted Pedal (L), no edema noted Pedal (R), no edema noted Generalized Neurologic: abnormal gait, alert, responsive Zachariah Hernandez MD Aug 27, 2019 10:56
[2019-08-27 12:00] VITALS: BP 121/65
[2019-08-27 16:00] VITALS: BP 126/69
[2019-08-27 20:00] VITALS: BP 150/89
[2019-08-27] MEDS: Tamsulosin 0.4mg cap ORAL SCH (20:35)
[2019-08-28] VITALS: BP 145/75
--- NOTE | 2019-08-28 02:45 | Progress Note ---
DATE: 08/27/2019 CARDIOLOGY PROGRESS NOTE SUBJECTIVE: No new complaints. Improvement in respiratory symptoms since admission. Awaiting disposition. OBJECTIVE: VITAL SIGNS: 157/89 is the maximal blood pressure and earlier 132/85, heart rate 82, respiratory rate 18, and afebrile. LUNGS: Coarse breath sounds. No wheezing. HEART: Regular rhythm and rate. Normal S1 and S2. There is a fourth heart sound. ABDOMEN: Soft. EXTREMITIES: No edema. LABORATORY DATA: Labs pending. Cultures negative. IMPRESSION: 1. COPD exacerbation, improved. 2. Hypertensive cardiomyopathy with acute on chronic systolic and diastolic congestive heart failure, improved. 3. Hypertension with elevated blood pressure trend. PLAN: 1. Advance antihypertensives. 2. Continue respiratory hygiene. 3. Trend natriuretic peptide assay. 4. Reassess need for chronic diuretic therapy. 5. Physical therapy evaluation. Sanjeev Li M.D. DR: DELORIS JOB#: [id number] CC:
[2019-08-28 04:00] VITALS: BP 138/69
[2019-08-28 07:45] LABS: BASOPHILS % (AUTO) 1.4 % (0.0-2.0); EOSINOPHILS % (AUTO) 1.7 % (0.0-3.0); HEMATOCRIT 38.4 % (42.0-52.0); HEMOGLOBIN 12.1 G/DL (14.2-18.0); LYMPHOCYTES % (AUTO) 25.2 % (20.0-45.0); MEAN CORPUSCULAR VOLUME 80 FL (80-99); MONOCYTES % (AUTO) 14.1 % (1.0-10.0); NEUTROPHILS % (AUTO) 57.7 % (45.0-75.0); PLATELET COUNT 150 K/UL (150-450); RED BLOOD COUNT 4.81 M/UL (4.70-6.10); RED CELL DISTRIBUTION WIDTH 17.6 % (11.6-14.8); WHITE BLOOD COUNT 8.5 K/UL (4.8-10.8)
[2019-08-28 08:00] VITALS: BP 149/91
[2019-08-28 08:20] LABS: ALANINE AMINOTRANSFERASE 19 U/L (12-78); ALBUMIN 2.8 G/DL (3.4-5.0); ALBUMIN/GLOBULIN RATIO 0.6 (1.0-2.7); ALKALINE PHOSPHATASE 115 U/L (46-116); ANION GAP 6 mmol/L (5-15); ASPARTATE AMINO TRANSFERASE 31 U/L (15-37); BILIRUBIN,TOTAL 0.3 MG/DL (0.2-1.0); BLOOD UREA NITROGEN 36 mg/dL (7-18); CALCIUM 9.2 MG/DL (8.5-10.1); CARBON DIOXIDE 31 MMOL/L (21-32); CHLORIDE 105 MMOL/L (98-107); POTASSIUM 4.8 MMOL/L (3.5-5.1); SODIUM 142 MMOL/L (136-145)
[2019-08-28] MEDS ORDERED: Lisinopril 20mg tab ORAL SCH (09:00)
[2019-08-28] MEDS: Metoprolol Tartrate 50mg tab ORAL SCH (09:35)
[2019-08-28] MEDS: cefTRIAXone 1 GM in D5W 55 ML IVPB SCH (09:36)
[2019-08-28] MEDS: Aspirin Baby 81mg ORAL SCH (09:36)
[2019-08-28] MEDS: Heparin 5000 units/ml inj SUBQ SCH (09:37)
[2019-08-28] MEDS: HYDROcodone/Acetamin 10/325 tab ORAL PRN (09:38)
[2019-08-28 12:00] VITALS: BP 160/90
--- NOTE | 2019-08-28 13:40 | Diagnostic Imaging Report ---
Indication: Dyspnea Comparison: 08/23/2019 A single view chest radiograph was obtained. Findings: Pulmonary vascular congestion again demonstrated. There is suggestion of basal atelectasis. Cardiomegaly is stable. Lung volumes are low. Lower cervical fusion plate noted. IMPRESSION: Pulmonary vascular congestion unchanged
--- NOTE | 2019-08-29 05:45 | Progress Note ---
DATE: 08/28/2019 CARDIOLOGY PROGRESS NOTE SUBJECTIVE: No chest pain or shortness of breath. The patient decided to leave the hospital and continue care as an outpatient. PHYSICAL EXAMINATION: VITAL SIGNS: Blood pressure 149/91, pulse 87, and respiratory rate 18. LUNGS: Good breath sounds. CARDIAC: Regular. ABDOMEN: Soft. EXTREMITIES: No edema. GENITOURINARY: Helm catheter in place. LABORATORY AND DIAGNOSTIC DATA: White count 8.5 and hemoglobin 12. Potassium 4.8, BUN 36, and creatinine 1. Pro-natriuretic peptide is 10,000. Chest x-ray reveals pulmonary vascular congestion. IMPRESSION: 1. Acute on chronic systolic and diastolic congestive heart failure. 2. COPD. 3. Prostatic hypertrophy. PLAN: 1. Advance anti-failure regimen. 2. Additional diuresis. 3. Respiratory hygiene. 4. Voiding trial. 5. Encouraged the patient not to leave the hospital until disposition has been located for rehabilitation. Sanjeev Li M.D. DR: Karin JOB#: [id number] CC:
--- NOTE | 2019-08-29 07:50 | Discharge Summary ---
Discharge Summary Discharge Summary _ DATE OF ADMISSION: 08/23/2019 DATE OF DISCHARGE: 08/28/2019 Patient left AGAINST MEDICAL ADVICE REASON FOR ADMISSION: 73 years old male with past medical history of COPD, hypertensive heart disease , schizoaffective disorder, initially presented to the office several days ago with complaint of shortness of breath, cough and congestion. Patient received breathing treatment in the office and started on oral antibiotics. However due to progressive worsening of shortness of breath , patient presented to emergency room for further evaluation and management. Chest X-ray revealed evidence of congestive heart failure. Patient was wheezing on clinical exam and was congested. Patient received 1 dose of Lasix dose of IV steroidm started on empiric antibiotic and admitted for further management. 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 Volumes and cardiorenal parameters were closely monitored. Electrolytes corrected as needed. Patient started on broad-spectrum antibiotics. Patient received IV steroid in ED. Aggressive pulmonary treatment provided, and pulmonary hygiene and was optimized. Antitussive provided as needed. Echocardiogram demonstrated global left ventricular hypokinesis and basal inferoseptal wall akinesis. Left ventricular ejection fraction estimated to be 35%. No evidence of left ventricular hypertrophy. Mild to moderate mitral regurgitation and moderate tricuspid regurgitation. Moderately elevated left atrial pressure grade 2. Right ventricular systolic pressure of 69 consistent with a moderate pulmonary hypertension. Guideline directed medical therapy for congestive heart failure provided with beta-melchor ,PAULINA inhibitor ,Lasix and Aldactone/ for potassium sparing effect. Volumes and cardiorenal parameters were closely monitored. Antiplatelet therapy with aspirin continued. Anti-failure regimen was titrated by shell mold bonding machine operator. Further diuresis was hold. Influenza swab was negative. Blood cultures were negative. DVT and GI prophylaxis provided. GI prophylaxis provided. Patient was working with physical therapist . Fall precautions maintained. Protein supplements provided as per travel registered nurse nicu recommendation. Prior to signing AMA sodium, magnesium and potassium were all stable. Creatinine remained stable. Patient decided to leave AGAINST MEDICAL ADVICE. The risks and consequences of signing AGAINST MEDICAL ADVICE were discussed with patient in detail. Patient verbalized understanding, nevertheless signed AMA form and left. FINAL DIAGNOSES: Acute on chronic diastolic and systolic congestive heart failure Hypoxia COPD exacerbation Chronic respiratory acidosis Bronchitis Conduction system disease of the heart Lactic acidosis- resolved Electrolyte imbalance: hypernatremia ,hypokalemia, hypomagnesemia Moderate protein calorie malnutrition I have been assigned to dictate discharge summary for this account. I was not involved in the patient's management. Magdalena Brooke NP Aug 29, 2019 07:50
== END 2019-08-28 13:49 | disposition left against medical advice (07) | DRG 194 ==
LOC: EMR 12:48 → EDBEDREQ 13:42 → 2E 15:03 → EDBEDREQ 15:11 → 2E 19:24 → 4E 08-24 21:17
DX: I11.0 Hypertensive heart disease with heart failure (principal); I50.43 Acute on chronic combined systolic (congestive) and diastolic (congestive) heart failure; J44.1 Chronic obstructive pulmonary disease with (acute) exacerbation; E87.0 Hyperosmolality and hypernatremia; J20.9 Acute bronchitis, unspecified; J44.0 Chronic obstructive pulmonary disease with (acute) lower respiratory infection; E44.0 Moderate protein-calorie malnutrition; Z68.1 Body mass index [BMI] 19.9 or less, adult; R09.02 Hypoxemia; E87.2 Acidosis; E87.6 Hypokalemia; E83.42 Hypomagnesemia; F25.9 Schizoaffective disorder, unspecified; E86.0 Dehydration; N40.0 Benign prostatic hyperplasia without lower urinary tract symptoms
CPT/HCPCS: 36415; 36600; 71045; 80048; 80053; 82803; 82962; 83605; 83735; 83880; 85025; 85610; 85730; 86710; 87040; 93005; 93306; 94640; 96365; 96367; 96368; 96375; 99291; J7030; J7620; J8499

== ENCOUNTER → 2020-03-28 | Emergency (ER) | payer MEDICARE, OTHER ==
[~2020-03-28] VITALS: Ht 190.5 cm; Wt 72.6 kg
[2020-03-28 14:49] VITALS: BP 76/49
--- NOTE | 2020-03-28 15:07 | Emergency Room Report ---
History of Present Illness General Chief Complaint: General Complaint Source: Patient, PMD Present Illness HPI Patient is a 74-year-old male past medical history of cardiac disease, hypertension, COPD, diabetes, GI disease and CVA who presents to the ER from his primary care's office Dr. Li for hypotension. Patient was seen in his primary care's office for regular checkup and was found to be hypotensive. Patient denies any symptoms. He states that he is completely fine. He denies any headache, dizziness, chest pain, shortness of breath, abdominal pain, nausea, vomiting or focal weakness. He states that he is walking fine with his home walker. I explained to the patient that his primary care physician sent him here for further treatment and evaluation of his low blood pressure and likely admission. Patient stood up and said that he did not want any blood work done he did not want any treatment he was certainly not staying in the hospital because he feels fine. Myself and 2 of the bedside nurses tried reasoning with the patient multiple times but he stood up and walked out of the emergency room prior to completion of my history and physical exam. Allergies: Uncoded Allergies: CONTRAST MEDIA (Adverse Reaction, Mild, Itching in the area of the neck, 01/20/18) Patient was given specifically Isovue contrast during CT of the abdomen, and when he came back. The patient was itchy and benadryl was given, no complaints of itchiness or adverse reactions so far. COVID-19 Screening Contact w/high risk pt: No Experienced COVID-19 symptoms?: No COVID-19 Testing performed SANDER OPERATOR: No Patient History Reviewed Nursing Documentation: PMH: Agreed; PSxH: Agreed Nursing Documentation-[facility] Past Medical History: No History, Except For Hx Cardiac Problems: Yes Hx Hypertension: Yes Hx Pacemaker: No Hx Asthma: No Hx COPD: Yes Hx Diabetes: Yes Hx Cancer: No Hx Gastrointestinal Problems: Yes - Pancreatic cyst Hx Dialysis: No - BPH Hx Neurological Problems: Yes - Encephalopathy Hx Cerebrovascular Accident: Yes - 2000 Hx Weakness: Yes Review of Systems All Other Systems: negative except mentioned in HPI Physical Exam Vital Signs Date Time Temp Pulse Resp B/P (MAP) Pulse Ox O2 Delivery O2 Flow Rate FiO2 03/28/20 14:49 98.1 94 19 76/49 (58) 97 Room Air Sp02 EP Interpretation: normal General Appearance: well appearing, no apparent distress, thin Head: normocephalic, atraumatic Eyes: bilateral eye normal inspection, bilateral eye PERRL ENT: dry mucus membranes Neck: full range of motion Respiratory: no respiratory distress, no accessory muscle use Cardiovascular #1: regular rate, rhythm Gastrointestinal: non tender, soft Rectal: deferred 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 Due to a high probability of clinically significant, life threatening deterioration, the patient required my highest level of preparedness to intervene emergently and I personally spent this critical care time directly and personally managing the patient. This critical care time included obtaining a history; examining the patient; pulse oximetry; ordering and review of studies; arranging urgent treatment with development of a management plan; evaluation of patient's response to treatment; frequent reassessment; and, discussions with other providers.This critical care time was performed to assess and manage the high probability of imminent, life- threatening deterioration that could result in multi-organ failure. It was exclusive of separately billable procedures and treating other patients and teaching time. Please see MDM section and the rest of the note for further information on patient assessment and treatment. Medical Decision Making Diagnostic Impression: Primary Impression: Hypotension ER Course Patient walked out of the emergency room refusing any ER care. I immediately called the patient's primary care physician Dr. Li and informed him of this. Last Vital Signs Date Time Temp Pulse Resp B/P (MAP) Pulse Ox O2 Delivery O2 Flow Rate FiO2 03/28/20 14:49 98.1 94 19 76/49 (58) 97 Room Air Disposition: ELOPED Condition: Unknown Referrals: Sanjeev Li MD (PCP) Additional Instructions: Please note that this report is being documented using [employer] technology. This can lead to erroneous entry secondary to incorrect interpretation by the dictating instrument. Aga Grigsby M.D. Mar 28, 2020 15:07
== END | disposition left against medical advice (07) ==
LOC: EMR 15:00
DX: I95.9 Hypotension, unspecified (principal); Z53.21 Procedure and treatment not carried out due to patient leaving prior to being seen by health care provider; I10 Essential (primary) hypertension; J44.9 Chronic obstructive pulmonary disease, unspecified; E11.9 Type 2 diabetes mellitus without complications; N40.0 Benign prostatic hyperplasia without lower urinary tract symptoms; Z86.73 Personal history of transient ischemic attack (TIA), and cerebral infarction without residual deficits; Z91.041 Radiographic dye allergy status
CPT/HCPCS: 99282

== ENCOUNTER 2020-07-25 14:46 | Emergency (ER) | payer MEDICARE, OTHER ==
[~2020-07-25] VITALS: Ht 193 cm; Wt 68.0 kg
--- NOTE | 2020-07-25 15:09 | Emergency Room Report ---
History of Present Illness General Chief Complaint: Male Urogenital Problems Source: Patient Present Illness HPI Patient comes in because his Helm bag is leaking. He denies fevers or chills. Denies dysuria. This catheter was placed June 30. The patient was last admitted August 2019. 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 No sore throat, chest pain, palpitations, nausea, vomiting, diarrhea, abdominal pain, shortness of breath, joint pain, rashes, depression, anxiety, visual changes, dizziness, headache. Allergies: Uncoded Allergies: CONTRAST MEDIA (Adverse Reaction, Mild, Itching in the area of the neck, 01/20/18) Patient was given specifically Isovue contrast during CT of the abdomen, and when he came back. The patient was itchy and benadryl was given, no complaints of itchiness or adverse reactions so far. COVID-19 Screening Contact w/high risk pt: No Experienced COVID-19 symptoms?: No COVID-19 Testing performed BRAIDED RUG MAKER: No Patient History Past Medical History: see triage record Social History: Reports: smoking, drug use Social History Narrative Previously homeless but now has an address. . Reviewed Nursing Documentation: PMH: Agreed; PSxH: Agreed Nursing Documentation-PM Past Medical History: No History, Except For Hx Cardiac Problems: Yes Hx Hypertension: Yes Hx Pacemaker: No Hx Asthma: No Hx COPD: Yes Hx Diabetes: Yes Hx Cancer: No Hx Gastrointestinal Problems: Yes - Pancreatic cyst Hx Dialysis: No - BPH Hx Neurological Problems: Yes - Encephalopathy Hx Cerebrovascular Accident: Yes - 1999 Hx Weakness: Yes Review of Systems All Other Systems: negative except mentioned in HPI Physical Exam Vital Signs Date Time Temp Pulse Resp B/P (MAP) Pulse Ox O2 Delivery O2 Flow Rate FiO2 07/25/20 14:48 97.7 85 17 128/80 (96) 95 Room Air Sp02 EP Interpretation: reviewed, normal General Appearance: GCS 15, non-toxic, thin, Chronically Ill Head: normocephalic Eyes: bilateral eye normal inspection, bilateral eye PERRL, bilateral eye EOMI ENT: moist mucus membranes Neck: full range of motion, supple Respiratory: lungs clear, normal breath sounds Cardiovascular #1: regular rate, rhythm Gastrointestinal: normal inspection, non tender Genitourinary: other - Helm catheter present with leaking bag Musculoskeletal: other - Walks with a limp Neurologic: alert, grossly normal Psychiatric: mood/affect normal - Somewhat repetitive questions Skin: normal color, no rash, warm/dry Medical Decision Making Diagnostic Impression: Primary Impression: Helm catheter problem Qualified Codes: T83.9XXA - Unspecified complication of genitourinary prosthetic device, implant and graft, initial encounter Additional Impression: UTI (urinary tract infection) Qualified Codes: T83.511A - Infection and inflammatory reaction due to indwelling urethral catheter, initial encounter; N39.0 - Urinary tract infection, site not specified ER Course Patient here for leaking Helm bag. We will change this and also check a uri nalysis. He is nontoxic and does not appear infected. The urine is foul- smelling and we may end up putting him on antibiotics. Urinalysis with pyuria. Antibiotics ordered. Patient dressed himself in left the emergency department was but was given disc harge paperwork and prescriptions. Patient stable for outpatient observation and treatment. Laboratory Tests Test 07/25/20 15:40 Urine Color Pale yellow Urine Appearance Cloudy Urine pH 7 (4.5-8.0) Urine Specific [place] 1.010 (1.005-1.035) Urine Protein 3+ (NEGATIVE) H Urine Glucose (UA) Negative (NEGATIVE) Urine Ketones Negative (NEGATIVE) Urine Blood 1+ (NEGATIVE) H Urine Nitrite Positive (NEGATIVE) H Urine Bilirubin Negative (NEGATIVE) Urine Urobilinogen Normal MG/DL (0.0-1.0) Urine Leukocyte Esterase 3+ (NEGATIVE) H Urine RBC 5-10 /HPF (0 - 0) H Urine WBC 40-60 /HPF (0 - 0) H Urine Squamous Epithelial Cells Few /LPF (NONE/OCC) Urine Amorphous Sediment Many /LPF (NONE) H Urine Bacteria Many /HPF (NONE) H Last Vital Signs Date Time Temp Pulse Resp B/P (MAP) Pulse Ox O2 Delivery O2 Flow Rate FiO2 07/25/20 16:52 97.7 81 17 124/81 96 Room Air Status: improved Disposition: HOME, SELF-CARE Condition: Improved Scripts Cephalexin* (KEFLEX*) 500 Mg Tablet 500 MG ORAL EVERY 6 HOURS, #28 CAP Prov: Sanjeev Escalante MD 07/25/20 Sanjeev Escalante MD Jul 25, 2020 15:08
[2020-07-25 15:56] LABS: APPEARANCE,URINE CLOUDY; BILIRUBIN, URINE NEGATIVE (NEGATIVE); COLOR,URINE PALE YELLOW; GLUCOSE, URINE (UA) NEGATIVE (NEGATIVE); KETONES,URINE NEGATIVE (NEGATIVE); LEUKOCYTE ESTERASE ,URINE 3+ (NEGATIVE); NITRITE,URINE POSITIVE (NEGATIVE); PH,URINE 7 (4.5-8.0); PROTEIN,URINE 3+ (NEGATIVE); UROBILINOGEN,URINE NORMAL MG/DL (0.0-1.0)
[2020-07-25] MEDS ORDERED: CEPHALEXIN500 M1 ORAL (16:08)
[2020-07-25] MEDS ORDERED: Cephalexin 500mg cap ORAL ONE (16:15)
--- NOTE | 2020-07-25 16:30 | NUR ---
ED Nurse Note: Pt cleared by health care Provider for discharge. DC instructions/prescription was given and explained to pt and verbalized understanding of teachings. All medical deviecs such as ID band removed. Pt is AAO x4, ambulatory and left with all personal belongings.
[2020-07-25 16:52] VITALS: BP 124/81
== END 2020-07-25 16:30 | disposition home or self-care (01) ==
LOC: EMR 15:39
DX: T83.038A Leakage of other urinary catheter, initial encounter (principal); T83.511A Infection and inflammatory reaction due to indwelling urethral catheter, initial encounter; N39.0 Urinary tract infection, site not specified; I11.9 Hypertensive heart disease without heart failure; J44.9 Chronic obstructive pulmonary disease, unspecified; E11.9 Type 2 diabetes mellitus without complications; Z86.73 Personal history of transient ischemic attack (TIA), and cerebral infarction without residual deficits; F17.200 Nicotine dependence, unspecified, uncomplicated; F19.90 Other psychoactive substance use, unspecified, uncomplicated; Z91.041 Radiographic dye allergy status
CPT/HCPCS: 81003; 87086; 87181; 99283